=== PATIENT | female | born 1950 | race Caucasian/White ===

== ENCOUNTER 2021-10-07 10:53 | Outpatient (REF) | payer MEDICARE, SELFPAY ==
--- NOTE | ~2021-10-07 | XR_ITS ---
EXAMINATION: XR ANKLE, RIGHT CLINICAL INFORMATION: Rheumatoid. COMPARISON: None TECHNIQUE: AP, lateral, and mortise views of the right ankle. FINDINGS: No acute bony resorption is seen. Soft tissue swelling is noted. Probable sequela of degenerative change involving the lateral malleolus. Mild bony irregularity. The mortise is intact. XR/XR ankle RT min 3V IMPRESSION: Soft tissue swelling here globally. There is irregularity of the lateral malleolus which may indicate chronic degenerative change. No convincing evidence for an acute bony erosion.
[2021-10-07 12:13] LABS: MANUAL DIFF FLAG NO
[2021-10-07 13:10] LABS: Basophils Percent Auto 0.4 % (0-2); Eosinophils Absolute Auto 0.1 X10*3/uL (0.0-0.4); Eosinophils Percent Auto 1.2 % (0-4); Hematocrit 39.6 % (37.0-47.0); Hemoglobin 12.9 g/dl (12.0-16.0); Imm Gran Abs Auto 0.02 X10*3/uL (0.00-0.03); Imm Gran Pct Auto 0.4 % (0.0-0.4); Lymphocytes Absolute Auto 1.6 X10*3/uL (1.2-4.9); Lymphocytes Percent Auto 30.6 % (20-40); Mean Corpuscular HGB Conc 32.6 g/dl (31.0-35.0); Mean Corpuscular Hemoglobin 32.4 pg (27.0-33.0); Mean Corpuscular Volume 99.5 fL (80.0-98.0); Mean Platelet Volume 9.9 fL (9.4-12.3); Monocytes Absolute Auto 0.5 X10*3/uL (0.1-1.2); Monocytes Percent Auto 9.6 % (2-11); Neutrophils Percent Auto 57.8 % (45-73); Platelet Count 299 X10*3/uL (160-400); Red Blood Count 3.98 X10*6/uL (4.20-5.50); Red Cell Distribution Width 13.4 % (11.0-16.0); White Blood Count 5.2 X10*3/uL (4.8-10.8)
[2021-10-07 13:40] LABS: Alanine Aminotransferase 47 U/L (0-31); Aspartate Amino Transferase 19 U/L (5-31); C Reactive Protein 0.25 mg/dL (< or = 0.50); Cholesterol 192 mg/dL; Estimated Glomerular Filt Rate > 60; HDL Cholesterol 69 mg/dL; LDL Cholesterol Calculated 107 mg/dl; Triglycerides 81 mg/dL
[2021-10-07 14:41] LABS: Erythrocyte Sedimentation Rate 26 MM/HR (0-20)
== END 2021-10-07 10:54 | disposition home or self-care (01) ==
LOC: HO.XRAY 10:53
PROVIDERS: PCP Internal Medicine; Visit Provider Internal Medicine Rheumatology
DX: M05.9 Rheumatoid arthritis with rheumatoid factor, unspecified (principal); M47.816 Spondylosis without myelopathy or radiculopathy, lumbar region; I10 Essential (primary) hypertension; M81.0 Age-related osteoporosis without current pathological fracture; Z79.899 Other long term (current) drug therapy
CPT/HCPCS: 36415; 73610; 80061; 82565; 84450; 84460; 85025; 85652; 86140; 99212

== ENCOUNTER 2022-05-19 11:40 | Outpatient (REF) | payer MEDICARE, SELFPAY ==
[2022-05-19 13:36] LABS: MANUAL DIFF FLAG NO
[2022-05-19 13:38] LABS: Basophils Percent Auto 0.3 % (0-2); Eosinophils Absolute Auto 0.1 X10*3/uL (0.0-0.4); Eosinophils Percent Auto 1.1 % (0-4); Hematocrit 38.6 % (37.0-47.0); Hemoglobin 12.1 g/dl (12.0-16.0); Imm Gran Abs Auto 0.02 X10*3/uL (0.00-0.03); Imm Gran Pct Auto 0.3 % (0.0-0.4); Lymphocytes Absolute Auto 1.1 X10*3/uL (1.2-4.9); Lymphocytes Percent Auto 17.1 % (20-40); Mean Corpuscular HGB Conc 31.3 g/dl (31.0-35.0); Mean Corpuscular Hemoglobin 29.7 pg (27.0-33.0); Mean Corpuscular Volume 94.8 fL (80.0-98.0); Mean Platelet Volume 10.1 fL (9.4-12.3); Monocytes Absolute Auto 0.6 X10*3/uL (0.1-1.2); Monocytes Percent Auto 9.6 % (2-11); Neutrophils Absolute Auto 4.5 x10*3/uL (2.0-8.3); Neutrophils Percent Auto 71.6 % (45-73); Platelet Count 317 X10*3/uL (160-400); Red Blood Count 4.07 X10*6/uL (4.20-5.50); Red Cell Distribution Width 14.2 % (11.0-16.0); White Blood Count 6.3 X10*3/uL (4.8-10.8)
[2022-05-19 13:47] LABS: Alanine Aminotransferase 10 U/L (0-31); Aspartate Amino Transferase 14 U/L (5-31); C Reactive Protein 0.37 mg/dL (< or = 0.50); Estimated Glomerular Filt Rate > 60
[2022-05-19 14:17] LABS: Erythrocyte Sedimentation Rate 34 MM/HR (0-20)
== END 2022-05-19 11:41 | disposition home or self-care (01) ==
LOC: HO.10HDL 11:40
PROVIDERS: Visit Provider Internal Medicine Rheumatology
DX: M81.0 Age-related osteoporosis without current pathological fracture (principal); M47.816 Spondylosis without myelopathy or radiculopathy, lumbar region; J06.9 Acute upper respiratory infection, unspecified; M05.9 Rheumatoid arthritis with rheumatoid factor, unspecified; Z79.899 Other long term (current) drug therapy
CPT/HCPCS: 36415; 82565; 84450; 84460; 85025; 85652; 86140; 99212

== ENCOUNTER → 2022-09-20 13:37 | Outpatient (BNVA) | payer MEDICARE, SELFPAY | PROVIDERS: PCP Internal Medicine; Visit Provider Internal Medicine Rheumatology | DX: M47.816 Spondylosis without myelopathy or radiculopathy, lumbar region (principal); M79.7 Fibromyalgia; M05.9 Rheumatoid arthritis with rheumatoid factor, unspecified; Z79.899 Other long term (current) drug therapy | CPT/HCPCS: 36415; 82565; 84450; 84460; 85025; 85652; 86140; 99212 ==

== ENCOUNTER 2022-09-20 14:37 | Outpatient (REF) | payer MEDICARE, SELFPAY ==
[2022-09-20 14:53] LABS: MANUAL DIFF FLAG NO
[2022-09-20 15:24] LABS: Basophils Percent Auto 0.5 % (0-2); Eosinophils Absolute Auto 0.1 X10*3/uL (0.0-0.4); Eosinophils Percent Auto 1.2 % (0-4); Hematocrit 41.1 % (37.0-47.0); Hemoglobin 13.1 g/dl (12.0-16.0); Imm Gran Abs Auto 0.01 X10*3/uL (0.00-0.03); Imm Gran Pct Auto 0.2 % (0.0-0.4); Lymphocytes Absolute Auto 1.1 X10*3/uL (1.2-4.9); Lymphocytes Percent Auto 17.8 % (20-40); Mean Corpuscular HGB Conc 31.9 g/dl (31.0-35.0); Mean Corpuscular Hemoglobin 30.5 pg (27.0-33.0); Mean Corpuscular Volume 95.8 fL (80.0-98.0); Mean Platelet Volume 9.5 fL (9.4-12.3); Monocytes Absolute Auto 0.6 X10*3/uL (0.1-1.2); Monocytes Percent Auto 9.7 % (2-11); Neutrophils Absolute Auto 4.3 x10*3/uL (2.0-8.3); Neutrophils Percent Auto 70.6 % (45-73); Platelet Count 314 X10*3/uL (160-400); Red Blood Count 4.29 X10*6/uL (4.20-5.50); Red Cell Distribution Width 13.7 % (11.0-16.0); White Blood Count 6.1 X10*3/uL (4.8-10.8)
[2022-09-20 16:04] LABS: Alanine Aminotransferase 8 U/L (0-31); Aspartate Amino Transferase 14 U/L (5-31); C Reactive Protein 0.33 mg/dL (< or = 0.50); Estimated Glomerular Filt Rate > 60
[2022-09-20 16:15] LABS: Erythrocyte Sedimentation Rate 29 MM/HR (0-20)
== END 2022-09-20 14:38 | disposition home or self-care (01) ==
LOC: HO.LAB 14:37
PROVIDERS: Visit Provider Internal Medicine Rheumatology
DX: Z13.89 Encounter for screening for other disorder (principal)
CPT/HCPCS: 36415; 82565; 84450; 84460; 85025; 85652; 86140

== ENCOUNTER 2023-02-15 09:59 | Outpatient (AMB) | payer MEDICARE, SELFPAY ==
[2023-02-15 10:10] VITALS: BP 146/78; PULSE 78; TEMP 36.3; O2SAT 97; BMI 26.8
--- NOTE | 2023-02-15 10:10 | A.OFFVIS_ITS ---
Intake Vital Signs 02/15/23 10:10 Height 5 ft 11 in Weight 192 lb 0.362 oz BMI 26.8 BP 146/78 H Blood Pressure Location Lt brachial Position Sitting Pulse 78 Pulse Source Pulse Oximeter Temp 97.3 F Temp Source Skin Pulse Oximetry (%) 97 Oxygen Delivery Method Room Air Intake Visit Reasons: ra Intake Note: Here for RA follow up. Concussion in September,. Diagnosed with post consussion syndrome. Multiple diagnostics were done at [facility]. Product Safety Manager Required: No Accompanied by: Self / Same As Patient Allergies adalimumab [From Humira] Allergy (Intermediate, Verified 02/15/23 10:10) Rash alendronate sodium [From Fosamax] Allergy (Intermediate, Verified 02/15/23 10:10) increased pain codeine Allergy (Intermediate, Verified 02/15/23 10:10) Vomiting erythromycin base Allergy (Intermediate, Verified 02/15/23 10:10) Abdominal Pain omeprazole Allergy (Intermediate, Verified 02/15/23 10:10) Rash pantoprazole Allergy (Intermediate, Verified 02/15/23 10:10) Rash Penicillins Allergy (Intermediate, Verified 02/15/23 10:10) Hives piroxicam [From Feldene] Allergy (Intermediate, Verified 02/15/23 10:10) leg swelling Sulfa (Sulfonamide Antibiotics) Allergy (Intermediate, Verified 02/15/23 10:10) Hives teriparatide [From Forteo] Allergy (Intermediate, Verified 02/15/23 10:10) lip swelling raloxifene [From Evista] Allergy (Unknown, Verified 02/15/23 10:10) Unknown timlas Allergy (Intermediate, Uncoded 02/15/23 10:10) Palpitations HPI HPI Comments History of Present Illness Details The patient returns for evaluation of her rheumatoid arthritis. She remains on Xeljanz 5 mg twice a day. In general the joints are doing well with this. She also gets occasional cutaneous lupus rashes but those have not been active in the recent year or two. She did have another fall, this time injuring her head. She said she presented to the ER 3 weeks later. She did have extensive workup including cerebral angiogram but no pathology was detected. She now has seen Dr. Bryant the at [facility]. The patient tells me they are planning to be treating her with [facility] for her osteoporosis. This is of course pending insurance approval. She received bilateral trochanteric injections recently at [facility] and that helped her hip pains. She said she was found to have atrial fibrillation so is now on medicines for that including Eliquis. Her sister recently this spring of a glioblastoma. This is still on the mind of the patient. She wonders if she might develop such an illness. [facility] Medical History Mcmanus's esophagus Hypertension Long-term use of immunosuppressant medication Osteoarthritis of lumbar spine Osteoporosis Positive FEI (antinuclear antibody) Seropositive rheumatoid arthritis Vitreous hemorrhage, right eye Family History (Updated 02/15/23 @ 10:18 by FELICITAS Hess) Sister Rheumatoid arthritis Social History Household Members: Spouse Housing: House Are you a primary healthcare management to a significant other at home: No Do you presently have visiting nurse or other home services: No Alcohol intake: never Patient Tobacco Use Status: Never used Tobacco e-Cigarette/Vaping Use: Never Used service: No Current occupational status: retired Review of Systems Const Details: Negative for appetite change, weight change, fever, chills, malaise and fatigue Eyes Details: Headaches are subsiding from her head injury Negative for vision change, dry eyes and dizziness ENT Details: Negative for hearing change, tinnitus, oral ulcer, nose bleeds and oral dryness. Card Details: Negative chest pain, edema and syncope Resp Details: Negative for SOB, cough and wheezing GI Details: Negative indigestion/heartburn, nausea, abdominal pain, bowel changes, diarrhea, constipation and bloody stool. Skin/Breast Details: Negative for itching, rash, hives, Raynaud's symptoms, sun sensitivity, and skin cancer Psych Details: Grieving over the loss of her sister. Still on medications for anxiety and sleep. Endo Details: Negative for polyuria and polydypsia Kwame/Lymph Details: Negative for excessive bruising or bleeding. Physical Exam Vital Signs: Last Vital Signs Temp 97.3 F 02/15/23 10:10 Pulse 78 02/15/23 10:10 BP 146/78 H 02/15/23 10:10 Pulse Ox 97 02/15/23 10:10 Oxygen Delivery Method Room Air 02/15/23 10:10 BMI result Body Mass Index 26.8 APPEARANCE: Patient in no acute distress EYES no redness, pupils equal and reactive to light, eyelids normal EXTREMITIES:? No edema, no calf tenderness, normal peripheral pulses. SKIN:? No inflammatory or neoplastic lesions.? Normal color and turgor JOINT EXAM:?? Cervical Spine:.? Mild discomfort with extremes of motion.? No tenderness. Thoracic Spine:.? No scoliosis.? No tenderness on palpation. Lumbar Spine:.? Alignment normal.? Some pain with flexion of 45 degrees.? No tenderness. Chest Wall:.? No tenderness, swelling, increased warmth or erythema. Hands:.? Normal pain-free range of motion without tenderness, swelling, increased warmth or erythema. 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 Wrists:.? Normal pain-free range of motion without tenderness, swelling, increased warmth or erythema. Elbows:. Normal pain-free range of motion without tenderness, swelling, increased warmth or erythema. Shoulders:.?? Full range of motion without pain. No tenderness, weakness, swelling, increased warmth or erythema. Hips:.? Left:? Motion is limited due to surgery and the recommendation to avoid abduction and severe flexion a but what she is able to move in the office today seems pain-free.? Right:? Full range of motion with lateral pains at the extremes of rotation.? No groin pain with motion. Hip bursa:? Mild trochanteric tenderness. Knees:?? Left:? no pain with extremes of flexion/extension.? There is mild patellofemoral crepitus, minimal medial compartment tenderness without redness or effusion.? Right:? Normal pain-free range of motion with mild patellofemoral crepitus but no effusion, tenderness, swelling, increased warmth or erythema.? Ankles:? Left:? Slight discomfort with extremes of normal motion some minimal tenderness but no swelling.? Right:? Mild pain with extremes of inversion and eversion.? Mild medial and lateral tenderness without swelling.? No increased warmth or erythema. Feet:.? Normal pain-free range of motion with mild tenderness across the insteps and MTP regions.? However I do not appreciate any soft tissue swelling, increased warmth or erythema. Tender points:? Mild tenderness to digital palpation at the trapezius, second rib, knees, greater trochanter and gluteal area bilaterally. Results Reviewed Results Reviewed: Laboratory Tests 09/20/22 09/20/22 09/20/22 14:51 14:51 14:51 WBC 6.1 Hgb 13.1 ESR 29 H Creatinine 0.73 AST 14 ALT 8 C-Reactive Protein 0.33 Assessment & Plan Assessment & Plan (1) Fibromyalgia: Code(s): M79.7 - Fibromyalgia (2) Long-term use of immunosuppressant medication: Code(s): Z79.899 - Other ad terminal makeup operator (current) drug therapy (3) Osteoarthritis of lumbar spine: Comment: Occasional corticosteroid injections in physiatry Code(s): M47.816 - Spondylosis without myelopathy or radiculopathy, lumbar region (4) Osteoporosis: Comment: BMD: -2.5 at spine, -0/8 at hip (2006); increased pain on Fosamax; vit D low. Put on Forteo (Dr. Soto) for a year. Had rash so Forteo was stopped. Reclast December 2011, January 2017 Timlos started every other day 08/08; skips doses due to palpitations Timlos stopped in 2020 due to palpitations. Fracture left hip after a fall 01/29/22- emergent hip replacement Code(s): M81.0 - Age-related osteoporosis without current pathological fracture (5) Seropositive rheumatoid arthritis: Comment: Onset mid-: RF and CCP +, FEI pos(homogeneous), sicca sx and SS-A and SS-B positive. Initial treatment with methotrexate with partial response. Remicade added to methotrexate 2000 with good response until early 2002. Remicade changed to Enbrel due to failing response October 2002: stable response since then with good control of synovitis. Methotrexate stopped 01/01 due to nausea, synovitis still controlled with Enbrel. Synovitis not controlled on Enbrel. 06/05 Humira started 07/07 - not helpful and skin rash Xeljanz started 09/04 Code(s): M05.9 - Rheumatoid arthritis with rheumatoid factor, unspecified Plan Rheumatoid arthritis with no evidence for active synovitis currently. She still has a number of tender points so has underlying fibromyalgia but seems to be coping with that. There are some degenerative changes of course in the LS spine that give her back and hip pains. I encouraged her to follow up with Dr. Bryant for evaluation and treatment of her osteoporosis. We will check blood work monitoring her Xeljanz use today. I suggested she look for a local cancer support group help deal with her grief on losing her sister. Follow-up at 4 months is recommended. Coding Level of Care Code Est Pt Level 3 (94078) Diagnoses Fibromyalgia M79.7 Long-term use of immunosuppressant medication Z79.899 Osteoarthritis of lumbar spine M47.816 Osteoporosis M81.0 Seropositive rheumatoid arthritis M05.9
== END 2023-02-15 10:55 | disposition home or self-care (01) ==
PROVIDERS: PCP Internal Medicine; Visit Provider Internal Medicine Rheumatology
DX: M79.7 Fibromyalgia (principal); M05.79 Rheumatoid arthritis with rheumatoid factor of multiple sites without organ or systems involvement; Z79.899 Other long term (current) drug therapy; M47.816 Spondylosis without myelopathy or radiculopathy, lumbar region; M81.0 Age-related osteoporosis without current pathological fracture
CPT/HCPCS: 99213

== ENCOUNTER → 2023-02-15 09:59 | Outpatient (BNVA) | payer MEDICARE, SELFPAY | PROVIDERS: PCP Internal Medicine; Visit Provider Internal Medicine Rheumatology | DX: M05.9 Rheumatoid arthritis with rheumatoid factor, unspecified (principal); M79.7 Fibromyalgia; M47.816 Spondylosis without myelopathy or radiculopathy, lumbar region; M81.0 Age-related osteoporosis without current pathological fracture; Z79.60 Long term (current) use of unspecified immunomodulators and immunosuppressants; Z79.899 Other long term (current) drug therapy | CPT/HCPCS: 36415; 82565; 84450; 84460; 85025; 85652; 86140; 99212 ==

== ENCOUNTER 2023-02-15 11:01 | Outpatient (REF) | payer MEDICARE, SELFPAY ==
[2023-02-15 13:17] LABS: MANUAL DIFF FLAG NO
[2023-02-15 13:21] LABS: Basophils Percent Auto 0.3 % (0-2); Eosinophils Percent Auto 0.3 % (0-4); Hematocrit 41.3 % (37.0-47.0); Hemoglobin 13.2 g/dl (12.0-16.0); Imm Gran Abs Auto 0.01 X10*3/uL (0.00-0.03); Imm Gran Pct Auto 0.1 % (0.0-0.4); Lymphocytes Absolute Auto 0.8 X10*3/uL (1.2-4.9); Lymphocytes Percent Auto 11.5 % (20-40); Mean Corpuscular Hemoglobin 31.9 pg (27.0-33.0); Mean Corpuscular Volume 99.8 fL (80.0-98.0); Mean Platelet Volume 9.5 fL (9.4-12.3); Monocytes Absolute Auto 0.7 X10*3/uL (0.1-1.2); Monocytes Percent Auto 9.9 % (2-11); Neutrophils Absolute Auto 5.7 x10*3/uL (2.0-8.3); Neutrophils Percent Auto 77.9 % (45-73); Platelet Count 266 X10*3/uL (160-400); Red Blood Count 4.14 X10*6/uL (4.20-5.50); Red Cell Distribution Width 14.7 % (11.0-16.0); White Blood Count 7.3 X10*3/uL (4.8-10.8)
[2023-02-15 13:54] LABS: Alanine Aminotransferase 13 U/L (0-31); Aspartate Amino Transferase 13 U/L (5-31); C Reactive Protein < 0.04 mg/dL (< or = 0.50); Estimated Glomerular Filt Rate > 60
[2023-02-15 14:05] LABS: Erythrocyte Sedimentation Rate 16 MM/HR (0-20)
== END 2023-02-15 11:02 | disposition home or self-care (01) ==
LOC: HO.10HDL 11:01
PROVIDERS: Visit Provider Internal Medicine Rheumatology
DX: Z13.89 Encounter for screening for other disorder (principal)
CPT/HCPCS: 36415; 82565; 84450; 84460; 85025; 85652; 86140

== ENCOUNTER 2023-06-09 10:38 | Outpatient (AMB) | payer MEDICARE, SELFPAY ==
[2023-06-09 10:53] VITALS: BP 132/68; PULSE 67; RESP 15; TEMP 36.3; O2SAT 97; BMI 27.1
--- NOTE | 2023-06-09 10:53 | MHC.OFFVIS ---
Intake Vital Signs 06/09/23 10:53 Height 5 ft 11 in Weight 194 lb 10.691 oz BMI 27.1 BP 132/68 Blood Pressure Location Lt brachial Position Sitting Respiration 15 Pulse 67 Pulse Source Pulse Oximeter Temp 97.3 F Temp Source Tympanic Pulse Oximetry (%) 97 Oxygen Delivery Method Room Air Intake Visit Reasons: RA Allergies adalimumab [From Humira] Allergy (Intermediate, Verified 06/09/23 10:56) Rash alendronate sodium [From Fosamax] Allergy (Intermediate, Verified 06/09/23 10:56) increased pain codeine Allergy (Intermediate, Verified 06/09/23 10:56) Vomiting erythromycin base Allergy (Intermediate, Verified 06/09/23 10:56) Abdominal Pain omeprazole Allergy (Intermediate, Verified 06/09/23 10:56) Rash pantoprazole Allergy (Intermediate, Verified 06/09/23 10:56) Rash Penicillins Allergy (Intermediate, Verified 06/09/23 10:56) Hives piroxicam [From Feldene] Allergy (Intermediate, Verified 06/09/23 10:56) leg swelling Sulfa (Sulfonamide Antibiotics) Allergy (Intermediate, Verified 06/09/23 10:56) Hives teriparatide [From Forteo] Allergy (Intermediate, Verified 06/09/23 10:56) lip swelling raloxifene [From Evista] Allergy (Unknown, Verified 06/09/23 10:56) Unknown timlas Allergy (Intermediate, Uncoded 06/09/23 10:56) Palpitations Medication List - Last Reconciled 06/09/23 by Pj Coto MD acetaminophen (Tylenol) 650 mg PO Q6H PRN apixaban (Eliquis) 5 mg PO BID diltiazem HCl 360 mg PO DAILY docusate sodium (Stool Softener) 100 mg PO DAILY epinephrine (EpiPen) 0.3 mg IM Q4H PRN ergocalciferol (vitamin D2) 1,250 mcg PO QWEEK famotidine (Acid Battery Hand (famotidine)) 40 mg PO BEDTIME lansoprazole 30 mg PO DAILY latanoprost 0.005% 1 drp ophthalmic (eye) BEDTIME lorazepam 0.5 mg PO BEDTIME PRN losartan 25 mg PO DAILY ondansetron HCl 4 mg PO Q8H PRN oxycodone-acetaminophen 5-325 mg 2 tabs PO BEDTIME trazodone 50 mg PO BEDTIME Xeljanz (tofacitinib) 5 mg PO BID NS HPI HPI Comments History of Present Illness Details The patient returns for evaluation of her rheumatoid arthritis. She remains on Xeljanz 5 mg b.i.d.. She seems to say that she is doing okay. She gets back pain with some radiation to the buttocks that seems to be helped with once or twice a day Percocet prescribed by Dr. Brown. There were plans for her to be on Evenity for her osteoporosis but she has yet to hear back about drug approval. She does have an appointment with the endocrine office she says in the next week or two. Recently she has been plagued by recurrent UTI. She is on a 2nd course of antibiotics for that problem. She does also have the lower back pain and wonders if it could be from UTI. She points to an area just above the sacrum as to the majority of her pains. There is no pain over the CVA region. There have been no fevers or chills. [facility] Medical History Mcmanus's esophagus Hypertension Long-term use of immunosuppressant medication Osteoarthritis of lumbar spine Osteoporosis Positive FEI (antinuclear antibody) Seropositive rheumatoid arthritis Vitreous hemorrhage, right eye Family History (Updated 02/15/23 @ 10:18 by FELICITAS Hess) Sister Rheumatoid arthritis Social History Household Members: Spouse Housing: House Are you a primary career development engineer to a significant other at home: No Do you presently have visiting nurse or other home services: No Alcohol intake: never Patient Tobacco Use Status: Never used Tobacco e-Cigarette/Vaping Use: Never Used service: No Current occupational status: retired Review of Systems Const Details: Some increased fatigue recently with recurrent UTI symptoms. Negative for appetite change, weight change, fever, chills, malaise Eyes Details: Negative for vision change, dry eyes,headaches and dizziness ENT Details: Negative for hearing change, tinnitus, oral ulcer, nose bleeds and oral dryness. Card Details: Negative chest pain, edema and syncope Resp Details: Negative for SOB, cough and wheezing GI Details: Negative indigestion/heartburn, nausea, abdominal pain, bowel changes, diarrhea, constipation and bloody stool. Details: Some urinary frequency and dysuria. Negative for hematuria, nocturia, decreased force/flow and genital discharge Skin/Breast Details: Negative for itching, rash, hives, Raynaud's symptoms, sun sensitivity, and skin cancer Endo Details: Negative for polyuria and polydypsia Kwame/Lymph Details: Negative for excessive bruising or bleeding. Physical Exam Vital Signs: Last Vital Signs Temp 97.3 F 06/09/23 10:53 Pulse 67 06/09/23 10:53 Resp 15 06/09/23 10:53 BP 132/68 06/09/23 10:53 Pulse Ox 97 06/09/23 10:53 Oxygen Delivery Method Room Air 06/09/23 10:53 BMI result Body Mass Index 27.1 APPEARANCE: Patient in no acute distress ABD: Normal bowel sounds, no organomegaly, masses or tenderness. No CVA tenderness EXTREMITIES:? No edema, no calf tenderness, normal peripheral pulses. SKIN:? No inflammatory or neoplastic lesions.? Normal color and turgor JOINT EXAM:?? Cervical Spine:.? Mild discomfort with extremes of motion.? No tenderness. Thoracic Spine:.? No scoliosis.? No tenderness on palpation. Lumbar Spine:.? Alignment normal.? Some pain with flexion of 45 degrees.? No tenderness. Chest Wall:.? No tenderness, swelling, increased warmth or erythema. Hands:.? Normal pain-free range of motion without tenderness, swelling, increased warmth or erythema. Able to make a full fist and has a good bilingual customer service specialist strength. Wrists:.? Normal pain-free range of motion without tenderness, swelling, increased warmth or erythema. Elbows:. Normal pain-free range of motion without tenderness, swelling, increased warmth or erythema. Shoulders:.?? Full range of motion without pain. No tenderness, weakness, swelling, increased warmth or erythema. Hips:.? Left:? Motion is limited due to surgery and the recommendation to avoid abduction and severe flexion a but what she is able to move in the office today seems pain-free.? Right:? Full range of motion with lateral pains at the extremes of rotation.? No groin pain with motion. Hip bursa:? Mild trochanteric tenderness. Knees:?? Left:? no pain with extremes of flexion/extension.? There is mild patellofemoral crepitus, minimal medial compartment tenderness without redness or effusion.? Right:? Normal pain-free range of motion with mild patellofemoral crepitus but no effusion, tenderness, swelling, increased warmth or erythema.? Ankles:? Left:? Slight discomfort with extremes of normal motion some minimal tenderness but no swelling.? Right:? Mild pain with extremes of inversion and eversion.? Mild medial and lateral tenderness without swelling.? No increased warmth or erythema. Feet:.? Normal pain-free range of motion with mild tenderness across the insteps and MTP regions.? However I do not appreciate any soft tissue swelling, increased warmth or erythema. Tender points:? Mild tenderness to digital palpation at the trapezius, second rib, knees, greater trochanter and gluteal area bilaterally. Results Reviewed Results Reviewed: Laboratory Tests 02/15/23 11:10 WBC 7.3 Hgb 13.2 ESR 16 Creatinine 0.69 AST 13 ALT 13 C-Reactive Protein < 0.04 Assessment & Plan Assessment & Plan (1) Fibromyalgia: Code(s): M79.7 - Fibromyalgia (2) Long-term use of immunosuppressant medication: Code(s): Z79.899 - Other detention (current) drug therapy (3) Osteoarthritis of lumbar spine: Comment: Occasional corticosteroid injections in physiatry Code(s): M47.816 - Spondylosis without myelopathy or radiculopathy, lumbar region (4) Osteoporosis: Comment: BMD: -2.5 at spine, -0/8 at hip (2006); increased pain on Fosamax; vit D low. Put on Forteo (Dr. Soto) for a year. Had rash so Forteo was stopped. Reclast December 2011, January 2017 Timlos started every other day 08/08; skips doses due to palpitations Timlos stopped in 2020 due to palpitations. Fracture left hip after a fall 01/29/22- emergent hip replacement Code(s): M81.0 - Age-related osteoporosis without current pathological fracture (5) Seropositive rheumatoid arthritis: Comment: Onset mid-: RF and CCP +, FEI pos(homogeneous), sicca sx and SS-A and SS-B positive. Initial treatment with methotrexate with partial response. Remicade added to methotrexate 2000 with good response until early 2002. Remicade changed to Enbrel due to failing response October 2002: stable response since then with good control of synovitis. Methotrexate stopped 01/01 due to nausea, synovitis still controlled with Enbrel. Synovitis not controlled on Enbrel. 06/05 Humira started 07/07 - not helpful and skin rash Xeljanz started 09/04 Code(s): M05.9 - Rheumatoid arthritis with rheumatoid factor, unspecified Plan Rheumatoid arthritis with no evidence for active synovitis presently. There still the back pain from her lumbar osteoarthritis but that seems stable for now. Those pains do not seem consistent with a pyelonephritis. She is having recurrent UTI and I reminded her that the Xeljanz is immunosuppressive. When she goes on antibiotics or thinks she has a significant infection she should hold the Xeljanz. Given the good control of her synovitis in recent years I do not think that would result in much flare of her peripheral arthritis. One might also consider in the future cutting back on the Xeljanz to just 5 mg daily in light of the recent good control of symptoms. She does need treatment for her osteoporosis as she has had multiple fractures and I encouraged her to follow through with Endocrine to try to clarify the issue on the next steps for treatment. Follow-up in 4-5 months is recommended. Orders: Orders C Reactive Protein Today M05.9 - Rheumatoid arthritis with rheumatoid factor, unspecified Alanine Aminotransferase Today M05.9 - Rheumatoid arthritis with rheumatoid factor, unspecified, Z79.899 - Other truck terminal manager (current) drug therapy Aspartate Amino Transferase Today M05.9 - Rheumatoid arthritis with rheumatoid factor, unspecified, Z79.899 - Other truck terminal manager (current) drug therapy Complete Blood Count Auto Diff Today M05.9 - Rheumatoid arthritis with rheumatoid factor, unspecified, Z79.899 - Other truck terminal manager (current) drug therapy C Reactive Protein 1 Month M05.9 - Rheumatoid arthritis with rheumatoid factor, unspecified Complete Blood Count Auto Diff 1 Month M05.9 - Rheumatoid arthritis with rheumatoid factor, unspecified, Z79.899 - Other detention (current) drug therapy Creatinine Today M05.9 - Rheumatoid arthritis with rheumatoid factor, unspecified, Z79.899 - Other truck terminal manager (current) drug therapy Erythrocyte Sedimentation Rate Today M05.9 - Rheumatoid arthritis with rheumatoid factor, unspecified Creatinine Today M05.9 - Rheumatoid arthritis with rheumatoid factor, unspecified, Z79.899 - Other truck terminal manager (current) drug therapy Erythrocyte Sedimentation Rate 1 Month M05.9 - Rheumatoid arthritis with rheumatoid factor, unspecified Alanine Aminotransferase Today M05.9 - Rheumatoid arthritis with rheumatoid factor, unspecified, Z79.899 - Other detention (current) drug therapy Aspartate Amino Transferase Today M05.9 - Rheumatoid arthritis with rheumatoid factor, unspecified, Z79.899 - Other truck terminal manager (current) drug therapy Coding Level of Care Code Est Pt Level 3 (74259) Diagnoses Fibromyalgia M79.7 Long-term use of immunosuppressant medication Z79.899 Osteoarthritis of lumbar spine M47.816 Osteoporosis M81.0 Seropositive rheumatoid arthritis M05.9
== END 2023-06-09 11:34 | disposition home or self-care (01) ==
PROVIDERS: PCP Internal Medicine; Visit Provider Internal Medicine Rheumatology
DX: M05.79 Rheumatoid arthritis with rheumatoid factor of multiple sites without organ or systems involvement (principal); M79.7 Fibromyalgia; Z79.899 Other long term (current) drug therapy; M47.816 Spondylosis without myelopathy or radiculopathy, lumbar region; M81.0 Age-related osteoporosis without current pathological fracture
CPT/HCPCS: 99214

== ENCOUNTER → 2023-06-09 10:38 | Outpatient (BNVA) | payer MEDICARE, SELFPAY | PROVIDERS: PCP Internal Medicine; Visit Provider Internal Medicine Rheumatology | DX: M05.9 Rheumatoid arthritis with rheumatoid factor, unspecified (principal); M79.7 Fibromyalgia; M81.0 Age-related osteoporosis without current pathological fracture; M47.816 Spondylosis without myelopathy or radiculopathy, lumbar region | CPT/HCPCS: 36415; 82565; 84450; 84460; 85025; 85652; 86140; 99212 ==

== ENCOUNTER 2023-06-09 11:50 | Outpatient (REF) | payer MEDICARE, SELFPAY ==
[2023-06-09 13:29] LABS: MANUAL DIFF FLAG NO
[2023-06-09 13:34] LABS: Basophils Percent Auto 0.4 % (0-2); Eosinophils Percent Auto 0.8 % (0-4); Hematocrit 38.8 % (37.0-47.0); Hemoglobin 12.3 g/dl (12.0-16.0); Imm Gran Abs Auto 0.02 X10*3/uL (0.00-0.03); Imm Gran Pct Auto 0.4 % (0.0-0.4); Lymphocytes Absolute Auto 1.3 X10*3/uL (1.2-4.9); Lymphocytes Percent Auto 24.5 % (20-40); Mean Corpuscular HGB Conc 31.7 g/dl (31.0-35.0); Mean Corpuscular Hemoglobin 31.9 pg (27.0-33.0); Mean Corpuscular Volume 100.8 fL (80.0-98.0); Mean Platelet Volume 9.5 fL (9.4-12.3); Monocytes Absolute Auto 0.6 X10*3/uL (0.1-1.2); Monocytes Percent Auto 10.9 % (2-11); Neutrophils Absolute Auto 3.3 x10*3/uL (2.0-8.3); Platelet Count 350 X10*3/uL (160-400); Red Blood Count 3.85 X10*6/uL (4.20-5.50); Red Cell Distribution Width 13.3 % (11.0-16.0); White Blood Count 5.2 X10*3/uL (4.8-10.8)
[2023-06-09 13:52] LABS: Alanine Aminotransferase 40 U/L (0-31); Aspartate Amino Transferase 23 U/L (5-31); C Reactive Protein 0.87 mg/dL (< or = 0.50); Estimated Glomerular Filt Rate > 60
[2023-06-09 14:32] LABS: Erythrocyte Sedimentation Rate 46 MM/HR (0-20)
== END 2023-06-09 11:51 | disposition home or self-care (01) ==
LOC: HO.10HDL 11:50
PROVIDERS: Visit Provider Internal Medicine Rheumatology
DX: Z13.89 Encounter for screening for other disorder (principal)
CPT/HCPCS: 36415; 82565; 84450; 84460; 85025; 85652; 86140

== ENCOUNTER 2023-10-12 12:19 | Outpatient (REF) | payer MEDICARE, SELFPAY ==
[2023-10-12 13:17] LABS: MANUAL DIFF FLAG NO
[2023-10-12 13:56] LABS: Basophils Percent Auto 0.5 % (0-2); Eosinophils Absolute Auto 0.1 X10*3/uL (0.0-0.4); Eosinophils Percent Auto 0.9 % (0-4); Hematocrit 38.6 % (37.0-47.0); Hemoglobin 12.7 g/dl (12.0-16.0); Imm Gran Abs Auto 0.06 X10*3/uL (0.00-0.03); Imm Gran Pct Auto 0.7 % (0.0-0.4); Lymphocytes Absolute Auto 1.6 X10*3/uL (1.2-4.9); Mean Corpuscular HGB Conc 32.9 g/dl (31.0-35.0); Mean Corpuscular Hemoglobin 32.2 pg (27.0-33.0); Mean Corpuscular Volume 97.7 fL (80.0-98.0); Mean Platelet Volume 9.8 fL (9.4-12.3); Monocytes Absolute Auto 0.9 X10*3/uL (0.1-1.2); Monocytes Percent Auto 10.5 % (2-11); Neutrophils Absolute Auto 5.6 x10*3/uL (2.0-8.3); Neutrophils Percent Auto 68.4 % (45-73); Platelet Count 344 X10*3/uL (160-400); Red Blood Count 3.95 X10*6/uL (4.20-5.50); Red Cell Distribution Width 14.7 % (11.0-16.0); White Blood Count 8.2 X10*3/uL (4.8-10.8)
[2023-10-12 14:08] LABS: Alanine Aminotransferase 9 U/L (0-31); Aspartate Amino Transferase 11 U/L (5-31); C Reactive Protein 0.21 mg/dL (< or = 0.50); Estimated Glomerular Filt Rate > 60
[2023-10-12 14:51] LABS: Erythrocyte Sedimentation Rate 21 MM/HR (0-20)
== END 2023-10-12 12:20 | disposition home or self-care (01) ==
LOC: HO.10HDL 12:19
PROVIDERS: Visit Provider Internal Medicine Rheumatology
DX: M05.9 Rheumatoid arthritis with rheumatoid factor, unspecified (principal); Z79.899 Other long term (current) drug therapy
CPT/HCPCS: 36415; 82565; 84450; 84460; 85025; 85652; 86140

== ENCOUNTER 2023-10-17 13:35 | Outpatient (AMB) | payer MEDICARE, SELFPAY ==
--- NOTE | 2023-10-17 13:48 | MHC.OFFVIS ---
Vital Signs 10/17/23 13:51 Height 5 ft 11 in Weight 195 lb 5.273 oz BMI 27.2 BP 122/60 Blood Pressure Location Rt brachial Position Sitting Pulse 69 Pulse Source Pulse Oximeter Pulse Oximetry (%) 97 Oxygen Delivery Method Room Air Intake Visit Reasons: RA Intake Note: Patient last seen by Dr Coto on 06/09/23 presents today for follow up and test results. 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 Required: No Accompanied by: Self / Same As Patient Allergies adalimumab [From Humira] Allergy (Intermediate, Verified 10/17/23 13:53) Rash alendronate sodium [From Fosamax] Allergy (Intermediate, Verified 10/17/23 13:53) increased pain codeine Allergy (Intermediate, Verified 10/17/23 13:53) Vomiting erythromycin base Allergy (Intermediate, Verified 10/17/23 13:53) Abdominal Pain omeprazole Allergy (Intermediate, Verified 10/17/23 13:53) Rash pantoprazole Allergy (Intermediate, Verified 10/17/23 13:53) Rash Penicillins Allergy (Intermediate, Verified 10/17/23 13:53) Hives piroxicam [From Feldene] Allergy (Intermediate, Verified 10/17/23 13:53) leg swelling Sulfa (Sulfonamide Antibiotics) Allergy (Intermediate, Verified 10/17/23 13:53) Hives teriparatide [From Forteo] Allergy (Intermediate, Verified 10/17/23 13:53) lip swelling raloxifene [From Evista] Allergy (Unknown, Verified 10/17/23 13:53) Unknown timlas Allergy (Intermediate, Uncoded 10/17/23 13:53) Palpitations Medication List - Last Reconciled 10/17/23 by Liliana Bo MD acetaminophen (Tylenol) 650 mg PO Q6H PRN apixaban (Eliquis) 5 mg PO BID diltiazem HCl CD 360 mg PO DAILY docusate sodium (Stool Softener) 100 mg PO DAILY epinephrine (EpiPen) 0.3 mg IM Q4H PRN ergocalciferol (vitamin D2) 1,250 mcg PO QWEEK famotidine (Acid Contract Administration Manager (famotidine)) 40 mg PO BEDTIME lansoprazole 30 mg PO DAILY latanoprost 0.005% 1 drp ophthalmic (eye) BEDTIME lorazepam 0.5 mg PO BEDTIME PRN losartan 25 mg PO DAILY ondansetron HCl 4 mg PO Q8H PRN oxycodone-acetaminophen 5-325 mg 2 tabs PO BEDTIME romosozumab-aqqg (Evenity) mg subcut trazodone 50 mg PO BEDTIME Xeljanz (tofacitinib) 5 mg PO BID NS HPI Comments Details: 73-year-old female with seropositive RA returns for follow-up. This is her 1st visit with me. She used to follow-up with Dr. Coto. She states that her RA has been very well controlled on Xeljanz. No new symptoms. States that she keeps getting UTIs and has received different courses of antibiotics most recently she was on nitrofurantoin. She was evaluated by urologist and switched to ciprofloxacin. Denies any chest pain or shortness of breath. No other symptoms. Most recent history by Dr. Coto 05/2023: The patient returns for evaluation of her rheumatoid arthritis. She remains on Xeljanz 5 mg b.i.d.. She seems to say that she is doing okay. She gets back pain with some radiation to the buttocks that seems to be helped with once or twice a day Percocet prescribed by Dr. Brown. There were plans for her to be on Evenity for her osteoporosis but she has yet to hear back about drug approval. She does have an appointment with the endocrine office she says in the next week or two. Recently she has been plagued by recurrent UTI. She is on a 2nd course of antibiotics for that problem. She does also have the lower back pain and wonders if it could be from UTI. She points to an area just above the sacrum as to the majority of her pains. There is no pain over the CVA region. There have been no fevers or chills. [facility] Medical History Long-term use of immunosuppressant medication Vitreous hemorrhage, right eye Mcmanus's esophagus Osteoarthritis of lumbar spine Positive FEI (antinuclear antibody) Hypertension Osteoporosis Seropositive rheumatoid arthritis Family History Sister Rheumatoid arthritis Social History Household Members: Spouse Housing: House Are you a primary restorative care technician to a significant other at home: No Do you presently have visiting nurse or other home services: No 75 years or older and lives alone: No Alcohol intake: current Alcohol intake frequency: a few times a month Patient Tobacco Use Status: Never used Tobacco e-Cigarette/Vaping Use: Never Used service: No Current occupational status: retired Review of Systems ENT Reports dry mouth Card Denies dyspnea Resp Denies cough and Denies dyspnea Musc Reports back pain, Denies arthralgias and Denies stiffness Physical Exam Vital Signs: Last Vital Signs Pulse 69 10/17/23 13:51 BP 122/60 10/17/23 13:51 Pulse Ox 97 10/17/23 13:51 Oxygen Delivery Method Room Air 10/17/23 13:51 BMI result Body Mass Index 27.2 Const General: cooperative, healthy appearing and comfortable Nutritional Appearance: overweight Orientation/consciousness: patient oriented x3 Limitations: no limitations HEENT Head: Yes normocephalic and Yes atraumatic Resp Effort & Inspection: normal respiratory effort and able to speak in complete sentences Auscultation: clear to auscultation bilaterally Cardio Rate: regular rate Rhythm: regular rhythm Skin General skin exam: no rashes or lesions noted Neuro General: patient oriented x3 Extrem Other: No active synovitis Normal nailfold capillaroscopy Normal range of motion of hands, wrists, elbows and shoulders without pain Assessment & Plan Assessment & Plan (1) Seropositive rheumatoid arthritis: Comment: Onset mid-: RF and CCP +, FEI pos(homogeneous), sicca sx and SS-A and SS-B positive. Initial treatment with methotrexate with partial response. Remicade added to methotrexate 2000 with good response until early 2002. Remicade changed to Enbrel due to failing response October 2002: stable response since then with good control of synovitis. Methotrexate stopped 01/01 due to nausea, synovitis still controlled with Enbrel. Synovitis not controlled on Enbrel. 06/05 Humira started 07/07 - not helpful and skin rash Xeljanz started 09/04 effective Code(s): M05.9 - Rheumatoid arthritis with rheumatoid factor, unspecified Category: Medical Plan: This is a 73-year-old female with seropositive rheumatoid arthritis who presents for follow-up. This is her 1st visit with me. She used to follow-up with Dr. Coto. Patient is doing quite well with no active synovitis on Xeljanz 5 mg Twice daily. Continue Xeljanz 5 mg Twice daily. Labs before next visit in 4 months. Will discuss PFT/2D echo to screen for ILD/PAH next visit (2) Osteoporosis: Comment: BMD: -2.5 at spine, -0/8 at hip (2006); increased pain on Fosamax; vit D low. Put on Forteo (Dr. Soto) for a year. Had rash so Forteo was stopped. Reclast December 2011, January 2017 Timlos started every other day 08/08; skips doses due to palpitations Timlos stopped in 2020 due to palpitations. Fracture left hip after a fall 01/29/22- emergent hip replacement Evenity started by Endo 07/2023 Code(s): M81.0 - Age-related osteoporosis without current pathological fracture Category: Medical Qualifiers: Osteoporosis type: age-related Presence of current pathological fracture: without current pathological fracture Qualified Code(s): M81.0 - Age-related osteoporosis without current pathological fracture Plan: Recently started on avidity by endocrinology. Continue to follow-up with endocrinology (3) Long-term use of immunosuppressant medication: Code(s): Z79.899 - Other custodial (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 Monitor safety labs for Xeljanz (4) Fibromyalgia: Code(s): M79.7 - Fibromyalgia Category: Medical Plan: Symptoms fairly well controlled. Plan I spent 35 minutes reviewing patient's chart, evaluating patient, ordering diagnostic workup, counseling patient and documenting in the chart Orders: Orders Complete Blood Count Auto Diff 4 Months M32.9 - Systemic lupus erythematosus, unspecified Erythrocyte Sedimentation Rate 4 Months M32.9 - Systemic lupus erythematosus, unspecified T Spot TB 4 Months Z11.7 - Encounter for testing for latent tuberculosis infection Anti Extractable Nuclear Ag 4 Months M32.9 - Systemic lupus erythematosus, unspecified DNA Double Stranded-Crithidia 4 Months M32.9 - Systemic lupus erythematosus, unspecified Comprehensive Met. Panel 4 Months M32.9 - Systemic lupus erythematosus, unspecified C Reactive Protein 4 Months M32.9 - Systemic lupus erythematosus, unspecified Hepatitis A,B,C Profile 4 Months Z11.59 - Encounter for screening for other viral diseases Immunofixation Pnl, Serum 4 Months M32.9 - Systemic lupus erythematosus, unspecified Protein Electrophoresis, Serum 4 Months M32.9 - Systemic lupus erythematosus, unspecified Anti DNA DS Antibody 4 Months M32.9 - Systemic lupus erythematosus, unspecified Complement C3 4 Months M32.9 - Systemic lupus erythematosus, unspecified Complement C4 4 Months M32.9 - Systemic lupus erythematosus, unspecified Medications: Refilled Xeljanz (tofacitinib) 5 mg PO BID 60 tabs 2RF NS M05.9 - Rheumatoid arthritis with rheumatoid factor, unspecified trazodone 50 mg PO BEDTIME 90 tabs 1RF F41.9 - Anxiety disorder, unspecified, M47.816 - Spondylosis without myelopathy or radiculopathy, lumbar region Coding Level of Care Code Est Pt Level 4 (51903) Complex EM visit Add On G2211 Diagnoses Seropositive rheumatoid arthritis M05.9 Age-related osteoporosis without current pathological fracture M81.0 Osteoporosis type: age-related Presence of current pathological fracture: without current pathological fracture Long-term use of immunosuppressant medication Z79.899 Fibromyalgia M79.7
[2023-10-17 13:51] VITALS: BP 122/60; PULSE 69; O2SAT 97; BMI 27.2
== END 2023-10-17 14:27 | disposition home or self-care (01) ==
PROVIDERS: PCP Internal Medicine; Visit Provider Student in an Organized Health Care Education/Training Program
DX: M05.79 Rheumatoid arthritis with rheumatoid factor of multiple sites without organ or systems involvement (principal); M81.0 Age-related osteoporosis without current pathological fracture; Z79.899 Other long term (current) drug therapy; M79.7 Fibromyalgia
CPT/HCPCS: 99214; G2211

== ENCOUNTER → 2023-10-17 13:35 | Outpatient (BNVA) | payer MEDICARE, SELFPAY | PROVIDERS: PCP Internal Medicine; Visit Provider Student in an Organized Health Care Education/Training Program | DX: M05.9 Rheumatoid arthritis with rheumatoid factor, unspecified (principal); M81.0 Age-related osteoporosis without current pathological fracture; M32.9 Systemic lupus erythematosus, unspecified; M79.7 Fibromyalgia; M47.816 Spondylosis without myelopathy or radiculopathy, lumbar region; F41.9 Anxiety disorder, unspecified; Z79.899 Other long term (current) drug therapy | CPT/HCPCS: 99212 ==

== ENCOUNTER 2024-02-16 12:58 | Outpatient (AMB) | payer MEDICARE, SELFPAY ==
[2024-02-16 13:13] VITALS: BP 124/72; PULSE 62; O2SAT 98; BMI 27.0
--- NOTE | 2024-02-16 13:13 | MHC.OFFVIS ---
Vital Signs 02/16/24 13:13 Height 5 ft 11 in Weight 193 lb 9.054 oz BMI 27.0 BP 124/72 Blood Pressure Location Lt brachial Position Sitting Pulse 62 Pulse Source Pulse Oximeter Pulse Oximetry (%) 98 Oxygen Delivery Method Room Air Intake Visit Reasons: RA Intake Note: Patient is here for follow up on RA, last seen on 10/17/2023, patient is requesting refill of Xeljanz today. Allergies adalimumab [From Humira] Allergy (Intermediate, Verified 02/16/24 13:18) Rash alendronate sodium [From Fosamax] Allergy (Intermediate, Verified 02/16/24 13:18) increased pain codeine Allergy (Intermediate, Verified 02/16/24 13:18) Vomiting erythromycin base Allergy (Intermediate, Verified 02/16/24 13:18) Abdominal Pain omeprazole Allergy (Intermediate, Verified 02/16/24 13:18) Rash pantoprazole Allergy (Intermediate, Verified 02/16/24 13:18) Rash Penicillins Allergy (Intermediate, Verified 02/16/24 13:18) Hives piroxicam [From Feldene] Allergy (Intermediate, Verified 02/16/24 13:18) leg swelling Sulfa (Sulfonamide Antibiotics) Allergy (Intermediate, Verified 02/16/24 13:18) Hives teriparatide [From Forteo] Allergy (Intermediate, Verified 10/17/23 13:53) lip swelling raloxifene [From Evista] Allergy (Unknown, Verified 02/16/24 13:18) Unknown timlas Allergy (Intermediate, Uncoded 02/16/24 13:18) Palpitations Medication List - Last Reconciled 02/16/24 by Liliana Bo MD acetaminophen (Tylenol) 650 mg PO Q6H PRN apixaban (Eliquis) 5 mg PO BID diltiazem HCl CD 360 mg PO DAILY docusate sodium (Stool Softener) 100 mg PO DAILY epinephrine (EpiPen) 0.3 mg IM Q4H PRN ergocalciferol (vitamin D2) 1,250 mcg PO QWEEK famotidine (Acid Asset Analyst (famotidine)) 40 mg PO BEDTIME lansoprazole 30 mg PO DAILY latanoprost 0.005% 1 drp ophthalmic (eye) BEDTIME lorazepam 0.5 mg PO BEDTIME PRN losartan 25 mg PO DAILY ondansetron HCl 4 mg PO Q8H PRN oxycodone-acetaminophen 5-325 mg 2 tabs PO BEDTIME romosozumab-aqqg (Evenity) mg subcut trazodone 50 mg PO BEDTIME Xeljanz (tofacitinib) 5 mg PO BID NS HPI Comments Details: 74-year-old female with seropositive RA returns for follow-up. She states that she is doing quite well overall in terms of her arthritis. She remains on Xeljanz 5 mg Twice daily. She denies any cough or shortness of breath. Most recent history by Dr. Coto 05/2023: The patient returns for evaluation of her rheumatoid arthritis. She remains on Xeljanz 5 mg b.i.d.. She seems to say that she is doing okay. She gets back pain with some radiation to the buttocks that seems to be helped with once or twice a day Percocet prescribed by Dr. Brown. There were plans for her to be on Evenity for her osteoporosis but she has yet to hear back about drug approval. She does have an appointment with the endocrine office she says in the next week or two. Recently she has been plagued by recurrent UTI. She is on a 2nd course of antibiotics for that problem. She does also have the lower back pain and wonders if it could be from UTI. She points to an area just above the sacrum as to the majority of her pains. There is no pain over the CVA region. There have been no fevers or chills. [facility] Medical History Long-term use of immunosuppressant medication Vitreous hemorrhage, right eye Mcmanus's esophagus Osteoarthritis of lumbar spine Positive FEI (antinuclear antibody) Hypertension Osteoporosis Seropositive rheumatoid arthritis Family History Sister Rheumatoid arthritis Social History Household Members: Spouse Housing: House Are you a primary healthcare applications analyst to a significant other at home: No Do you presently have visiting nurse or other home services: No 75 years or older and lives alone: No Alcohol intake: current Alcohol intake frequency: a few times a month Patient Tobacco Use Status: Never used Tobacco e-Cigarette/Vaping Use: Never Used service: No Current occupational status: retired Review of Systems Card Denies dyspnea Resp Denies cough and Denies dyspnea Musc Reports back pain, Denies arthralgias and Denies stiffness Physical Exam Vital Signs: Last Vital Signs Pulse 62 02/16/24 13:13 BP 124/72 02/16/24 13:13 Pulse Ox 98 02/16/24 13:13 Oxygen Delivery Method Room Air 02/16/24 13:13 BMI result Body Mass Index 27.0 Const General: cooperative, healthy appearing and comfortable Nutritional Appearance: overweight Orientation/consciousness: patient oriented x3 Limitations: no limitations HEENT Head: Yes normocephalic and Yes atraumatic Resp Effort & Inspection: normal respiratory effort and able to speak in complete sentences Auscultation: clear to auscultation bilaterally Cardio Rate: regular rate Rhythm: regular rhythm Skin General skin exam: no rashes or lesions noted Neuro General: patient oriented x3 Extrem Other: No active synovitis Normal nailfold capillaroscopy Normal range of motion of hands, wrists, elbows and shoulders without pain Assessment & Plan Assessment & Plan (1) Seropositive rheumatoid arthritis: Comment: Onset mid-: RF and CCP +, FEI pos(homogeneous), sicca sx and SS-A and SS-B positive. Initial treatment with methotrexate with partial response. Remicade added to methotrexate 2000 with good response until early 2002. Remicade changed to Enbrel due to failing response October 2002: stable response since then with good control of synovitis. Methotrexate stopped 01/01 due to nausea, synovitis still controlled with Enbrel. Synovitis not controlled on Enbrel. 06/05 Humira started 07/07 - not helpful and skin rash Xeljanz started 09/04 effective Code(s): M05.9 - Rheumatoid arthritis with rheumatoid factor, unspecified Category: Medical Plan: This is a 74-year-old female with seropositive rheumatoid arthritis who presents for follow-up. Patient is doing quite well with no active synovitis on Xeljanz 5 mg Twice daily. Continue Xeljanz 5 mg Twice daily. Labs before next visit in 4 months. I ordered PFTs to screen for ILD. She stated that she had a 2D echo within the last 12 months. We will attempt to retrieve it (2) Osteoporosis: Comment: BMD: -2.5 at spine, -0/8 at hip (2006); increased pain on Fosamax; vit D low. Put on Forteo (Dr. Soto) for a year. Had rash so Forteo was stopped. Reclast December 2011, January 2017 Timlos started every other day 08/08; skips doses due to palpitations Timlos stopped in 2020 due to palpitations. Fracture left hip after a fall 01/29/22- emergent hip replacement Evenity started by Endo 07/2023 Code(s): M81.0 - Age-related osteoporosis without current pathological fracture Category: Medical Qualifiers: Osteoporosis type: age-related Presence of current pathological fracture: without current pathological fracture Qualified Code(s): M81.0 - Age-related osteoporosis without current pathological fracture Plan: On Evenity by endocrinology. She received 6 doses so far (3) Long-term use of immunosuppressant medication: Code(s): Z79.899 - Other long term acute care registered nurse (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 Monitor safety labs for Xeljanz (4) Fibromyalgia: Code(s): M79.7 - Fibromyalgia Category: Medical Plan: Symptoms fairly well controlled. Plan I spent 45 minutes reviewing patient's chart, evaluating patient, ordering diagnostic workup, counseling patient and documenting in the chart Orders: Orders Anti Extractable Nuclear Ag 4 Months M32.9 - Systemic lupus erythematosus, unspecified Anti DNA DS Antibody 4 Months M32.9 - Systemic lupus erythematosus, unspecified Complement C4 4 Months M32.9 - Systemic lupus erythematosus, unspecified Erythrocyte Sedimentation Rate 4 Months M32.9 - Systemic lupus erythematosus, unspecified Comprehensive Met. Panel 4 Months M32.9 - Systemic lupus erythematosus, unspecified T Spot TB 4 Months Z11.7 - Encounter for testing for latent tuberculosis infection Complement C3 4 Months M32.9 - Systemic lupus erythematosus, unspecified DNA Double Stranded-Crithidia 4 Months M32.9 - Systemic lupus erythematosus, unspecified Complete Blood Count Auto Diff 4 Months M32.9 - Systemic lupus erythematosus, unspecified Hepatitis A,B,C Profile 4 Months Z11.59 - Encounter for screening for other viral diseases PFT pulmonary function test Today R06.02 - Shortness of breath Coding Level of Care Code Est Pt Level 5 (68135) Diagnoses Seropositive rheumatoid arthritis M05.9 Age-related osteoporosis without current pathological fracture M81.0 Osteoporosis type: age-related Presence of current pathological fracture: without current pathological fracture Long-term use of immunosuppressant medication Z79.899 Fibromyalgia M79.7
== END 2024-02-16 13:40 | disposition home or self-care (01) ==
PROVIDERS: PCP Internal Medicine; Visit Provider Student in an Organized Health Care Education/Training Program
DX: M05.79 Rheumatoid arthritis with rheumatoid factor of multiple sites without organ or systems involvement (principal); M81.0 Age-related osteoporosis without current pathological fracture; Z79.899 Other long term (current) drug therapy; M79.7 Fibromyalgia
CPT/HCPCS: 99215

== ENCOUNTER → 2024-02-16 12:58 | Outpatient (BNVA) | payer MEDICARE, SELFPAY | PROVIDERS: PCP Internal Medicine; Visit Provider Student in an Organized Health Care Education/Training Program | DX: M05.9 Rheumatoid arthritis with rheumatoid factor, unspecified (principal); M81.0 Age-related osteoporosis without current pathological fracture; M79.7 Fibromyalgia; Z79.899 Other long term (current) drug therapy | CPT/HCPCS: 99212 ==

== ENCOUNTER 2024-05-02 14:09 | Outpatient (REF) | payer MEDICARE, SELFPAY ==
[2024-05-02 14:29] LABS: MANUAL DIFF FLAG NO
[2024-05-02 14:43] LABS: Basophils Percent Auto 0.3 % (0-2); Eosinophils Absolute Auto 0.1 X10*3/uL (0.0-0.4); Eosinophils Percent Auto 1.2 % (0-4); Hematocrit 36.8 % (37.0-47.0); Hemoglobin 12.5 g/dl (12.0-16.0); Imm Gran Abs Auto 0.01 X10*3/uL (0.00-0.03); Imm Gran Pct Auto 0.2 % (0.0-0.4); Lymphocytes Absolute Auto 1.3 X10*3/uL (1.2-4.9); Lymphocytes Percent Auto 22.4 % (20-40); Mean Corpuscular Hemoglobin 32.9 pg (27.0-33.0); Mean Corpuscular Volume 96.8 fL (80.0-98.0); Mean Platelet Volume 9.9 fL (9.4-12.3); Monocytes Absolute Auto 0.5 X10*3/uL (0.1-1.2); Monocytes Percent Auto 7.7 % (2-11); Neutrophils Percent Auto 68.2 % (45-73); Platelet Count 268 X10*3/uL (160-400); White Blood Count 5.9 X10*3/uL (4.8-10.8)
[2024-05-02 15:13] LABS: Alanine Aminotransferase 8 U/L (0-31); Albumin Level 3.8 g/dL (3.5-5.0); Alkaline Phosphatase 79 U/L (39-117); Anion Gap 11 (12-20); Aspartate Amino Transferase 15 U/L (5-31); Bilirubin Total 0.3 mg/dL (0.0-1.0); Blood Urea Nitrogen 19 mg/dL (9-16); C Reactive Protein 0.41 mg/dL (< or = 0.50); Carbon Dioxide 27 mmol/L (22-29); Chloride 106 mmol/L (96-108); Estimated Glomerular Filt Rate > 60; Glucose Random 143 mg/dL (60-115); Potassium 3.8 mmol/L (3.3-5.1); Sodium 140 mmol/L (135-145); Total Protein 6.9 g/dL (6.5-8.0)
[2024-05-02 15:20] LABS: Erythrocyte Sedimentation Rate 32 MM/HR (0-20)
[2024-05-03 08:13] LABS: HBc Num1 0.11 S/CO (0.00-0.79); HBsAGNum1 0.24 S/CO (0.00-0.99); Hepatitis A Antibody IgM 0.25 Index (0-0.79); Hepatitis B Core Antibody Nonreactive (Nonreactive); Hepatitis B Surface Antigen Negative (Negative); ~Hepatitis A Antibody IgM Nonreactive (Nonreactive); ~Hepatitis B Surface Antibody NONREACTIVE (Nonreactive); ~Hepatitis C Antibody Nonreactive (Nonreactive)
[2024-05-03 15:48] LABS: Complement C3 66 mg/dL (83-193)
[2024-05-04 09:48] LABS: Prot Elec - Albumin 3.7 g/dL (3.8-4.8); Prot Elec - Alpha1 0.3 g/dL (0.2-0.3); Prot Elec - Alpha2 0.6 g/dL (0.5-0.9); Prot Elec - Beta 1 0.4 g/dL (0.4-0.6); Prot Elec - Beta 2 0.6 g/dL (0.2-0.5); Prot Elec - Gamma 0.8 g/dL (0.8-1.7); Prot Elec - Total Protein 6.3 g/dL (6.1-8.1)
[2024-05-04 14:13] LABS: Anti DNA DS Antibody <1 IU/mL; SM/Ribonucleoprotein Ab <1.0 NEG AI (<1.0 NEG); Smith Protein <1.0 NEG AI (<1.0 NEG)
[2024-05-04 22:23] LABS: IgA 548 mg/dL (70-320); IgG 924 mg/dL (600-1540); IgM 62 mg/dL (50-300)
[2024-05-05 05:09] LABS: TS Negative Control Passed; TS Panel A 0; TS Panel B 0; TS Positive Control Passed; TSpotTB Negative (Negative)
[2024-05-06 11:24] LABS: DNAds, Crithidia Antibody Positive (Negative)
[2024-05-06 11:43] LABS: DNAds, Crithidia Antibody 1:20 titer (<1:10)
== END 2024-05-02 14:10 | disposition home or self-care (01) ==
LOC: HO.LAB 14:09
PROVIDERS: PCP Internal Medicine; Visit Provider Student in an Organized Health Care Education/Training Program
DX: M32.9 Systemic lupus erythematosus, unspecified (principal); Z11.7 Encounter for testing for latent tuberculosis infection; Z11.59 Encounter for screening for other viral diseases
CPT/HCPCS: 36415; 80053; 82784; 84165; 85025; 85652; 86140; 86160; 86225; 86235; 86255; 86334; 86481; 86704; 86706; 86709; 86803; 87340

== ENCOUNTER 2024-05-28 13:18 | Outpatient (AMB) | payer MEDICARE, SELFPAY ==
--- NOTE | 2024-05-28 13:20 | A.OFFVIS_ITS ---
Vital Signs 05/28/24 13:21 Height 5 ft 11 in Weight 193 lb 5.526 oz BMI 27.0 BP 130/78 Blood Pressure Location Lt brachial Position Sitting Pulse 78 Pulse Source Pulse Oximeter Pulse Oximetry (%) 100 Oxygen Delivery Method Room Air Intake Visit Reasons: RA Intake Note: Patient last seen by Doctor Liliana Bo on 02/16/24. Presents today for RA follow up and test results. Allergies adalimumab [From Humira] Allergy (Intermediate, Verified 05/28/24 13:23) Rash alendronate sodium [From Fosamax] Allergy (Intermediate, Verified 05/28/24 13:23) increased pain codeine Allergy (Intermediate, Verified 05/28/24 13:23) Vomiting erythromycin base Allergy (Intermediate, Verified 05/28/24 13:23) Abdominal Pain omeprazole Allergy (Intermediate, Verified 05/28/24 13:23) Rash pantoprazole Allergy (Intermediate, Verified 05/28/24 13:23) Rash Penicillins Allergy (Intermediate, Verified 05/28/24 13:23) Hives piroxicam [From Feldene] Allergy (Intermediate, Verified 05/28/24 13:23) leg swelling romosozumab-aqqg [From Evenity] Allergy (Intermediate, Unverified 05/28/24 13:47) allergic Sulfa (Sulfonamide Antibiotics) Allergy (Intermediate, Verified 05/28/24 13:23) Hives teriparatide [From Forteo] Allergy (Intermediate, Verified 05/28/24 13:23) lip swelling raloxifene [From Evista] Allergy (Unknown, Verified 05/28/24 13:23) Unknown timlas Allergy (Intermediate, Uncoded 05/28/24 13:23) Palpitations Medication List - Last Reconciled 05/28/24 by Liliana Bo MD acetaminophen (Tylenol) 650 mg PO Q6H PRN apixaban (Eliquis) 5 mg PO BID diltiazem HCl CD 360 mg PO DAILY docusate sodium (Stool Softener) 100 mg PO DAILY epinephrine (EpiPen) 0.3 mg IM Q4H PRN ergocalciferol (vitamin D2) 1,250 mcg PO QWEEK famotidine (Acid Efficiency Manager (famotidine)) 40 mg PO BEDTIME lansoprazole 30 mg PO DAILY latanoprost 0.005% 1 drp ophthalmic (eye) BEDTIME lorazepam 0.5 mg PO BEDTIME PRN losartan 25 mg PO DAILY ondansetron HCl 4 mg PO Q8H PRN oxycodone-acetaminophen 5-325 mg 2 tabs PO BEDTIME romosozumab-aqqg (Evenity) mg subcut trazodone 50 mg PO BEDTIME Xeljanz (tofacitinib) 5 mg PO BID NS HPI Comments Details: 74-year-old female with seropositive RA returns for follow-up. She states that she is doing quite well overall in terms of her arthritis. She remains on Xeljanz 5 mg Twice daily. She gets a squeezing sensation involving feet, mostly the left foot, it happens once or twice a week and lasts a few hours. She states that she was allergic to Romosuzumab after 6 doses and started on Reclast recently She has crusted lesion on her nasal bridge on the left side, she was evaluated by Dermatology and referred to a specialist for a biopsy Most recent history by Dr. Coto 05/2023: The patient returns for evaluation of her rheumatoid arthritis. She remains on Xeljanz 5 mg b.i.d.. She seems to say that she is doing okay. She gets back pain with some radiation to the buttocks that seems to be helped with once or twice a day Percocet prescribed by Dr. Brown. There were plans for her to be on Evenity for her osteoporosis but she has yet to hear back about drug approval. She does have an appointment with the endocrine office she says in the next week or two. Recently she has been plagued by recurrent UTI. She is on a 2nd course of antibiotics for that problem. She does also have the lower back pain and wonders if it could be from UTI. She points to an area just above the sacrum as to the majority of her pains. There is no pain over the CVA region. There have been no fevers or chills. [facility] Medical History Long-term use of immunosuppressant medication Vitreous hemorrhage, right eye Mcmanus's esophagus Osteoarthritis of lumbar spine Positive FEI (antinuclear antibody) Hypertension Osteoporosis Seropositive rheumatoid arthritis Family History Sister Rheumatoid arthritis Social History Household Members: Spouse Housing: House Are you a primary nursing care partner to a significant other at home: No Do you presently have visiting nurse or other home services: No 75 years or older and lives alone: No Alcohol intake: current Alcohol intake frequency: a few times a month Patient Tobacco Use Status: Never used Tobacco e-Cigarette/Vaping Use: Never Used service: No Current occupational status: retired Review of Systems Card Denies dyspnea Resp Denies cough and Denies dyspnea Musc Reports arthralgias, Denies joint swelling and Reports stiffness Physical Exam Vital Signs: Last Vital Signs Pulse 78 05/28/24 13:21 BP 130/78 05/28/24 13:21 Pulse Ox 100 05/28/24 13:21 Oxygen Delivery Method Room Air 05/28/24 13:21 BMI result Body Mass Index 27.0 Const General: cooperative, healthy appearing and comfortable Nutritional Appearance: overweight Orientation/consciousness: patient oriented x3 Limitations: no limitations HEENT Head: Yes normocephalic and Yes atraumatic Resp Effort & Inspection: normal respiratory effort and able to speak in complete sentences Auscultation: clear to auscultation bilaterally Cardio Rate: regular rate Rhythm: regular rhythm Skin Other: Crusted lesion on the left aspect of her nasal bridge Neuro General: patient oriented x3 Extrem Other: No active synovitis both hands and wrists 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 Initial treatment with methotrexate with partial response. Remicade added to methotrexate 2000 with good response until early 2002. Remicade changed to Enbrel due to failing response October 2002: stable response since then with good control of synovitis. Methotrexate stopped 01/01 due to nausea, synovitis still controlled with Enbrel. Synovitis not controlled on Enbrel. 06/05 Humira started 07/07 - not helpful and skin rash Xeljanz started 09/04 effective Code(s): M05.9 - Rheumatoid arthritis with rheumatoid factor, unspecified Category: Medical Plan: This is a 74-year-old female with seropositive rheumatoid arthritis who presents for follow-up. On Xeljanz 5 mg twice daily. Doing very well overall, I think she still has minimal disease activity involving her MTPs. Inflammatory markers mildly elevated. We discussed potentially adding Arava, patient is not interested at this time her symptoms are well controlled overall Continue Xeljanz 5 mg Twice daily. Labs before next visit in 4 months. 2D echo 12/2022 was unremarkable. I ordered PFTs to screen for ILD (2) Osteoporosis: Comment: BMD: -2.5 at spine, -0/8 at hip (2006); increased pain on Fosamax; vit D low. Put on Forteo (Dr. Soto) for a year. Had rash so Forteo was stopped. Reclast December 2011, January 2017 Timlos started every other day 08/08; skips doses due to palpitations Timlos stopped in 2020 due to palpitations. Fracture left hip after a fall 01/29/22- emergent hip replacement Evenity started by Endo 07/2023, had an allergic reaction after 6 doses then started on Reclast Code(s): M81.0 - Age-related osteoporosis without current pathological fracture Category: Medical Qualifiers: Osteoporosis type: age-related Presence of current pathological fracture: without current pathological fracture Qualified Code(s): M81.0 - Age- related osteoporosis without current pathological fracture Plan: Follows up with endocrinology Had an allergic reaction to Evenity after 6 doses, then started on Reclast (3) Long-term use of immunosuppressant medication: Code(s): Z79.899 - 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 Monitor safety labs for Xeljanz Plan I spent 30 minutes reviewing patient's chart, evaluating patient, ordering diagnostic workup, counseling patient and documenting in the chart Orders: Orders C Reactive Protein 4 Months M05.9 - Rheumatoid arthritis with rheumatoid factor, unspecified Erythrocyte Sedimentation Rate 4 Months M05.9 - Rheumatoid arthritis with rheumatoid factor, unspecified Complete Blood Count Auto Diff 4 Months M05.9 - Rheumatoid arthritis with rheumatoid factor, unspecified Comprehensive Met. Panel 4 Months M05.9 - Rheumatoid arthritis with rheumatoid factor, unspecified Coding Level of Care Code Est Pt Level 4 (26083) Complex EM visit Add On G2211 Diagnoses Seropositive rheumatoid arthritis M05.9 Age-related osteoporosis without current pathological fracture M81.0 Osteoporosis type: age-related Presence of current pathological fracture: without current pathological fracture Long-term use of immunosuppressant medication Z79.899
[2024-05-28 13:21] VITALS: BP 130/78; PULSE 78; O2SAT 100; BMI 27.0
--- OUTSIDE RECORDS SUMMARY | 2024-05-30 15:42 | XMS_ITS ---
[facility] Address [address] [place] [address] Care Team Providers Care Monitoring Analyst Name Role Phone Lisa Shaw MD Primary Care Provider Caden Anderson Unavailable [phone] Allergies Allergen (clinical drug ingredient) Drug/Non Drug Allergy documented on EMR Reaction Allergy Type Onset Date Status sulfamethoxazole / trimethoprim Bactrim hives Drug Allergy Active erythromycin Erythromycin hives Drug Allergy A ctive Penicillin hives Drug Allergy Active REASON FOR VISIT At Risk Footcare, Painful Nail(s) aggravated by shoes and causing difficulty standing/walking., Skin problem(s) Medications Medication SIG (Take, Route, Frequency, Duration) Notes Start Date End Date Status hydroCHLOROthiazide 25 MG TAKE 1 TABLET BY MOUTH EVERY DAY Oral for 90 Not-Taking Cyclobenzaprine HCl 10 MG Oral for 10 Not-Taking Fluconazole 150 MG Oral for 1 Not-Taking Nitrofurantoin Monohyd Macro 100 MG Oral for 7 Not-Taking Vitamin D (Ergocalciferol) 1.25 MG (73643 UT) TAKE 1 CAPSULE BY MOUTH EVERY WEEK Oral for 84 Active Eliquis 5 MG Oral for 90 Activ e Methenamine Hippurate 1 GM Oral for 90 Active traZODone HCl 50 MG Oral for 90 Active Xeljanz 5 MG as directed Orally Active Percocet 5-325 MG as directed Orally Active LORazepam 0.5 MG as directed Orally Active Famotidine 40 MG as directed Orally Active Vitamin B12 Active Stool Softener Activ e dilTIAZem HCl ER Act romulo Spironolactone Activ e Trimethoprim Active Ammonium Lactate 12 % 1 application Externally to affected areas of dry skin to feet except for between the toes Twice a day for 30 days Active Vitamin C Active Social History Tobacco Use: Social History Observation Description Date Details (start date - stop date) Never Smoker NA - NA Tobacco Use/Smoking Question Answer Notes Are you a: nonsmoker Additional Findings: Tobacco Non-User Current no n-smoker Alcohol Screen Question Answer Notes Did you have a drink containing alcohol in the p ast year? No Points 0 Interpretation Negative Tobacco use other than smoking: Question Answer Notes Are you an other tobacco user? No Vital Signs Height 5 ft 11 in in 05/15/2024 Weight 190 lbs 05/15/2024 BMI 26.5 kg/m2 05/15/2024 Blood pressure systolic 130 mm Hg 05/15/20 24 Blood pressure diastolic 70 mm Hg 024 Procedures Procedure Date Ordered Date Performed Result Body Sit e 10958-KRPFWDO NAIL, 1-5 05/15/2024 N/A 65946-ZMIW SKIN LESIONS, OVER 4 05/15/2024 N/A V1086-XYVHSEAD DYSTROPHIC NAILS ANY # 05/15/2024 N/A Encounters Encounter Location Date Provider Diagnosis [facility] [place] [address] [place] [address] 05/15/2024 Caden Perez Atherosclerosis of lummi artery of both lower extremities, with unspecified presence of clinical manifestation I70.203 ; Tinea unguium B35.1 ; Pain in right toe(s) M79.674 ; Pain in left toe(s) M79.675 and Xerosis of skin L85.3 Assessments Encounter Date Diagnosis (ICD Code) Assessment Notes Treatment Notes Treatment Clinical Notes Section Notes 05/15/2024 Atherosclerosis of lummi artery of both lower extremities, with unspecified presence of clinical manifestation (ICD-10 - I70.203) 05/15/2024 Tinea unguium (ICD-10 - B35.1) 05/15/2024 Pain in right toe(s) (ICD-10 - M79.674) 05/15/2024 Pain in left toe(s) (ICD-10 - M79.675) 05/15/2024 Xerosis of skin (ICD-10 - L85.3) Plan Of Treatment Medication Medication Name Sig Start Date Stop Date Notes Ammonium Lactate 12 % 1 application Exte rnally to affected areas of dry skin to feet except for between the toes Twice a day for 30 days Pending Test Test Name Order Date 15083-SPXUUXC NAIL, 1-5 05/15/2024 31122-AKDN SKIN LESIONS, OVER 4 05/15/20 24 V1610-GVSGXVKK DYSTROPHIC NAILS ANY # Next Appt Details Follow Up: prn, Reason: Provider Name:Caden Perez , 08/17/2024 12:30:00 PM, [address] [place] [address], [id number], Procedure Notes * Category Sub-Category Detail Notes Keratoma Treatment Parring or Cutting o f Benign Hyperkeratotic Lesion(s) (-57) More than 4 Lesions - The Benign hyperkeratotic lesions, ( 7) in total, locations as stated and described in exam, were pared, and/or cut utilizing a sterile 15 blade, tissue nippers, and/or power dremel instrumentation - 77843, Q8 Debride Nails 1-5 Procedure: Performance of this nail treatment by a nonprofessional would put this patients foot and overall health at risk. Therefore, debridement to affected nail(s), as described in exam, was performed extensively to reduce/remove overall nail length, girth, thickness, subungual debris, and necrotic tissue, by manual and/or electrical means through the use of a nail nipper and/or dremel-type machine grinder, to a more viable healthy nail plate or bed tissue 5 nails or less in number. Silver nitrate was used for any petechial bleeding as necessary. Definitive antifungal treatment options, both pharmaceutical and surgical, have been reviewed and discussed with the patient. The patient solely prefers the use of intermittent/as needed professional debridement services for their nail condition and understands that additional periodic treatments may be required as necessary to maintain effective symptomatic relief - 55374 Nail Reduction Nail Reduction (-27) Trimming o f all dystrophic nails, locations as stated and described in exam, was performed to reduce/remove overall nail length and girth, by manual and electrical means with use of a nail nipper and/or dremel, to more viable healthy nail plate or bed tissue - G0127, Q8 Progress Notes * Casandra SOSA ADOB: [birth year] (74 yo F)Acc No.[id number]:05/15/2024 Progress Note Patient:Casandra LOBATO Provider:?Caden Perez DPM :1950???Age:74 Y???Sex:Female D ate:05/15/2024 Address:[address] [place], [place] [id number] Pcp:Lisa Shaw MD Subjective: * Chief Complaints: * ???At Risk FootcarePainful N ail(s) aggravated by shoes and causing difficulty standing/walking.Skin problem(s) * HPI: ???At Risk footcare:?Pt States Last PCP Visit:?Date?02/01/2024 ???Skin problems:?Nature:?dryness , scaling.?Location:?B/L .?Duration:?several days.?Course:?worse.? * ROS:?General/Constitutional:?Nausea?denies.?Vomiting?denies.?Hunger Thirst?denies.?Loss appetite?denies.?Chills?denies.?Fatigue?denies.?Fever?denies.?Night Sweats?denies.?Unexplained weight loss?denies.?Unexplained weight gain?denies.?HEENTM:?Dentures?denies.?Dizziness?denies.?Glasses/contacts?admits.?Retinopathy?de nies.?Blurred/double vision?denies.?TMJ?denies.?Discharge/drainage?denies.?Implants?denies.?Sore throat?denies.?Dental implants?denies.?Hard of hearing ?denies.?Difficulty chewing/swallowing/speaking?denies.?Nose bleeds?denies.?Sore mouth?denies.?Respiratory:?On Oxygen?denies.?Pneumonia/pleurisy?denies.?Bronchitis?denies.?Emphysema?denies.?C oughing?denies.?Cough blood?denies.?Shortness of breath?denies.?Wheezing?denies.?Cardiovascular:?Pacemaker?denies.?MVP?denies.?WPW?denies.?CHF?denies.?Heart attack?denies.?Septal defect?denies.?Rapid beat?denies.?Chest pain ?denies.?Atrial Fib.?admits.?Murmur/Palpitations?denies.?Gastrointestinal:?Hemorrhoids?denies.?Stomach/Abdominal pain?denies.?Dark blood stool?denies.?Irritable bowel ?denies.?Constipation?denies.?Diarrhea?denies.?Hematology:?Swelling?admits.?Clots?denies.?Varicose Veins?denies.?Bruising?admits, on anticoagulants.?Bleeding problem?admits, on anticoagulants.?Genitourinary:?Blood urine?denies.?Frequent/Painfu/urination/bladder control?denies.?Kidney stones?denies.?Infection (UTI)?denies.?Nephropathy?denies.?sex trans dis (STD)?denies.?Prostate?denies.?Musculoskeletal:?Hammertoes?denies.?Bunions?denies.?Back Pain?admits.?Muscle Cramps/ Resting?denies.?Muscle cramps / walking?denies.?Generalized aches and pains?denies.?Weakness?denies.?Integ.:?Michelle?denies.?Scars?denies.?Corns/calluses?admits.?Ingrown nails?admits.?Painful nails?admits.?Open Sores?denies.?Rashes?denies.?Neurologic:?Difficulty sleeping?admits.?Brain disorder?denies.?Numbness?admits.?Balance trouble?admits.?Confusion?denies.?Fainting/blackouts?denies.?Tingling?admits, bilateral lower extremities, in the toes, that is moderate, which is intermittent.?Tremors?denies.? * Medical History:? * Surgical History:?hip surger y 01/29/2022Gall bladder removal 11/2014B/L Vein Surgery- Injection to close veins 11/23/23,11/28/23 * Hospitalization/Major Diagno stic Procedure:?Denies Past Hospitalization * Family History:?Mother: dece ased, high blood pressure.?Father: , high blood pressure.?Siblings: high blood pressure, arthritis, cancer.? * Social History:?Tobacco Use:?Tobacco Use/Smoking?Are you a:?nonsmoker ?Additional Findings: Tobacco Non-User?Current non-smoker ?Tobacco use other than smoking?Are you an other tobacco user??No ???Drugs/Alcohol:?Drugs?Have you used drugs other than those for medical reasons in the past 12 months??No ?Alcohol Screen?Did you have a drink containing alcohol in the past year??No ?Points?0 ?Interpretation?Negative ???Miscellaneous:?Caffeine: no. ?Children: yes, 2. ?Exercise: yes, walking. ?Marital status: . ?Occupation: Retired- [employer]. * Medications:?TakingTrimethop rim Spironolactone Vitamin C dilTIAZem HCl ER Stool Softener Vitamin B12 Famotidine 40 MG Tablet as directed Orally LORazepam 0.5 MG Tablet as directed Orally Percocet 5-325 MG Tablet as directed Orally Xeljanz 5 MG Tablet as directed Orally traZODone HCl 50 MG Tablet Oral Methenamine Hippurate 1 GM Tablet Oral Eliquis 5 MG Tablet Oral Vitamin D (Ergocalciferol) 1.25 MG (11151 UT) Capsule TAKE 1 CAPSULE BY MOUTH EVERY WEEK Oral Taking Trimethoprim Taking Spironolactone Taking Vitamin C Taking dilTIAZem HCl ER Taking Stool Softener Taking Vitamin B12 Taking Famotidine 40 MG Tablet as directed Orally Taking LORazepam 0.5 MG Tablet as directed Orally Taking Percocet 5-325 MG Tablet as directed Orally Taking Xeljanz 5 MG Tablet as directed Orally Taking traZODone HCl 50 MG Tablet Oral Taking Methenamine Hippurate 1 GM Tablet Oral Taking Eliquis 5 MG Tablet Oral Taking Vitamin D (Ergocalciferol) 1.25 MG (36494 UT) Capsule TAKE 1 CAPSULE BY MOUTH EVERY WEEK Oral Not-Taking/PRNNitrofurantoin Monohyd Macro 100 MG Capsule Oral Fluconazole 150 MG Tablet Oral Cyclobenzaprine HCl 10 MG Tablet Oral hydroCHLOROthiazide 25 MG Tablet TAKE 1 TABLET BY MOUTH EVERY DAY Oral Medication List reviewed and reconciled with the patientNot-Taking/PRN Nitrofurantoin Monohyd Macro 100 MG Capsule Oral Not-Taking/PRN Fluconazole 150 MG Tablet Oral Not-Taking/PRN Cyclobenzaprine HCl 10 MG Tablet Oral Not-Taking/PRN hydroCHLOROthiazide 25 MG Tablet TAKE 1 TABLET BY MOUTH EVERY DAY Oral Medication List reviewed and reconciled with the patient * Allergies:?Penicillin: hives Erythromycin: hivesBactrim: hivesyes[Allergies Verified] Objective: * Vitals:?Ht: 5 ft 11 in, Wt:1 90, BMI: 26.5, Shoe size:10, BP:130/70mm Hg, Ht-cm: 180.34 cm, Wt-k.18 kg. * Examination: ???Vascular: ?DP PULSES(B):?1/4, B/L.?PT PULSES(B):? 0/4, B/L.?CAPILLARY FILL TIME:? delayed, all digits, B/L.?TROPHIC CONDITION-TEXTURE/ELASTICITY/TURGOR/HAIR GROWTH(B):? decreased,?with sparse to absent hair growth, B/L.?TEMPERTURE GRADIENT(C):? decreased, cool to cool, proximal to distal, B/L.?PIGMENTATION:?rubrous, B/L.?EDEMA(C):?3/4 , pitting , without aching pain , Leg(s) , Ankle(s) , Foot , B/L.?CLAUDICATION(C):?denies, B/L.?REST PAIN:?denies, B/L.?COMPRESSION STOCKINGS:?Present, worn, exhibit proper support.?Neurological: ?SENSORY:?Pt relates, paresthesia, pins and needles sensation, tingling, shooting/radiating sensation, Forefoot, B/L.?Nails: ?NAILS are:?Elongated, overgrown, dystrophic, lytic, greater than 3mm thick, discolored and friable with crumbly malodorous subungual debris, with pain on palpation , TA , T8, all other nails not described with characteristics as possessing mycosis are elongated, overgrown, and dystrophic.?Dermatologic: ?SKIN FINDINGS:?Skin exam reveals Keratotic lesion(s) located at , SUB MTH (s), 1, B/L, SUB MTH (s), 3, Left, SUB MTH (s) , 5 , B/L , Plantar, Heel(s) , B/L , Skin shows sign(s) of, dryness, scaling, in a stocking fashion, no fissure(s) present, B/L.? Assessment: * Assessment: 1.?Tinea unguium - B35.1???2 .?Atherosclerosis of lummi artery of both lower extremities, with unspecified presence of clinical manifestation - I70.203 (Primary)???3.?Pain in right toe(s) - M79.674???4.?Pain in left toe(s) - M79.675 ??5.?Xerosis of skin - L85.3???Specify :Acute problem, Uncomplicated (3),Rx Management (4)??? Plan: * Treatment: 2.?Tinea unguium?Procedure: 85573-YUTFVCT NAIL, 1-5 3.?Xerosis of skin? Start Ammonium Lactate Cream, 12 %, 1 application, Externally to affected areas of dry skin to feet except for between the toes, Twice a day, 30 days, 140, Refills 2.?? * Procedures:?Debride Nails 1-5:?Procedure:?Performance of this nail treatment by a nonprofessional would put this patients foot and overall health at risk. Therefore, debridement to affected nail(s), as described in exam, was performed extensively to reduce/remove overall nail length, girth, thickness, subungual debris, and necrotic tissue, by manual and/or electrical means through the use of a nail nipper and/or dremel-type machine grinder, to a more viable healthy nail plate or bed tissue 5 nails or less in number. Silver nitrate was used for any petechial bleeding as necessary. Definitive antifungal treatment options, both pharmaceutical and surgical, have been reviewed and discussed with the patient. The patient solely prefers the use of intermittent/as needed professional debridement services for their nail condition and understands that additional periodic treatments may be required as necessary to maintain effective symptomatic relief - 10669.?Keratoma Treatment:?Parring or Cutting of Benign Hyperkeratotic Lesion(s)?(-57) More than 4 Lesions - The Benign hyperkeratotic lesions, ( 7) in total, locations as stated and described in exam, were pared, and/or cut utilizing a sterile 15 blade, tissue nippers, and/or power dremel instrumentation - 43849, Q8.?Nail Reduction:?Nail Reduction?(-27) Trimming of all dystrophic nails, locations as stated and described in exam, was performed to reduce/remove overall nail length and girth, by manual and electrical means with use of a nail nipper and/or dremel, to more viable healthy nail plate or bed tissue - G0127, Q8.? * Procedure Codes:?G0127 FRANK ING DYSTROPHIC NAILS ANY #, Modifiers: XS , [id number] DEBRIDE NAIL, 1-5, Modifiers: XS 83561 TRIM SKIN LESIONS, OVER 4, Modifiers: XS , Q8 * Preventive Medicine:? ??Counseling:?Discussion:?-13: Office or other outpatient visit for the evaluation and management of an established patient, which required a medically appropriate history and/or examination and LOW level of DECISION MAKING for: 1 STABLE ACUTE UNCOMPLICATED PROBLEM, 2 OR MORE MINOR PROBLEMS, OR 1 STABLE CHRONIC PROBLEM, THAT POSE(S) A LOW RISK FOR MORBIDITY/MORTALITY. The visit on the day of the encounter encompassed interpreting the data and educating the patient as to the nature of their condition, treatment options available according to their individual PMH, meds, allergies, and overall health/living conditions, as well as any potential risks or complications that may occur from a failure to adhere to, and participate in, the recommended course of therapy. The discussion included a complete verbal, and/or written explanation of the examination results, any x-rays taken, the proposed diagnosis, and outline of the treatment plan. A schedule for future care needs was also explained. The patient verbalized an understanding of the instructions at this time and agreed to be an active participant in their treatment. If the patient should think of any questions or concerns after the visit, I have encouraged the patient to call the office.?Xerosis:?The patient was counseled on the diagnosis, potential etiologies, and treatment options for their skin condition. We discussed the risks and benefits of each option from performing no treatment, to utilizing OTC topical skin creams/ointments, to utilizing prescription topical creams/ointments, to utilizing customized compounded topical medications and use of nocturnal occlusion with any/all previously detailed therapies. We discussed the advantages and disadvantages of each possible treatment and importance for adherence to all the recommended therapies for optimum success and avoid potential complications such as open sore/infection/possible hospitalization. We discussed the potential effectiveness of each topical preparation as well as each ones possible side effects and/or patient medication interactions. Patient questions re: use, dosage, successful outcomes, and application consistency were reviewed and the patient verbalized that all answers were clearly understood. The patient has decided to apply Rx skin creams to their feet save the interspaces while paying special attention to the heels. Such was sent to their pharmacy at the time of visit.? * Follow Up:?prn * Images: * Sign off status: Completed true * Provider:?Caden Perez DPM Date:?2023 Generated for Dayana leo/Faith/Toan on:?05/30/2024 03:42 PM EST History and Physical Notes * HPI (History of Present Illness) Category Sub-Category Detail Notes Category Not es Skin problems Nature: dryness , scaling Location: B/L Duration: several days Course: worse At Risk footcare Pt States Last PCP Visit: Date: 4 Examination Category Sub-Category Detail Notes Category Not es Neurological SENSORY: Pt relates, pare sthesia, pins and needles sensation, tingling, shooting/radiating sensation, Forefoot, B/L Dermatologic SKIN FINDINGS: Skin exam reveal s Keratotic lesion(s) located at , SUB MTH (s), 1, B/L, SUB MTH (s), 3, Left, SUB MTH (s) , 5 , B/L , Plantar, Heel(s) , B/L , Skin shows sign(s) of, dryness, scaling, in a stocking fashion, no fissure(s) present, B/L Vascular DP PULSES(B): 1/4, B/L PT PULSES(B): 0/4, B/L CAPILLARY FILL TIME: delayed, all digits , B/L TEMPERTURE GRADIENT(C): decreased, cool to cool, proximal to distal, B/L TROPHIC CONDITION-TEXTURE/ELASTICITY/TURGOR/HAIR GROWTH(B): decreased, with sparse to absent hair gr owth, B/L EDEMA(C): 3/4 , pitting , with out aching pain , Leg(s) , Ankle(s) , Foot , B/L CLAUDICATION(C): denies, B/L REST PAIN: denies, B/L PIGMENTATION: rubrous, B/L COMPRESSION STOCKINGS: Present, worn, ex hibit proper support Nails NAILS are: Elongated, overg rown, dystrophic, lytic, greater than 3mm thick, discolored and friable with crumbly malodorous subungual debris, with pain on palpation , TA , T8, all other nails not described with characteristics as possessing mycosis are elongated, overgrown, and dystrophic
--- OUTSIDE RECORDS SUMMARY | 2024-05-30 15:42 | XMS_ITS ---
[facility] Organization [facility] Address [address] [place] [address] Care Team Providers Care Print Line Tailer Name Role Phone Lisa Shaw MD Primary Care Provider Caden Anderson Unavailable [phone] Allergies Allergen (clinical drug ingredient) Drug/Non Drug Allergy documented on EMR Reaction Allergy Type Onset Date Status sulfamethoxazole / trimethoprim Bactrim hives Drug Allergy Active erythromycin Erythromycin hives Drug Allergy A ctive Penicillin hives Drug Allergy Active REASON FOR VISIT At Risk Footcare, Painful Nail(s) aggravated by shoes and causing difficulty standing/walking. Medications Medication SIG (Take, Route, Frequency, Duration) Notes Start Date End Date Status Nitrofurantoin Monohyd Macro 100 MG Oral for 7 Not-Taking Fluconazole 150 MG Oral for 1 Not-Taking Eliquis 5 MG Oral for 90 Activ e Vitamin D (Ergocalciferol) 1.25 MG (60723 UT) TAKE 1 CAPSULE BY MOUTH EVERY WEEK Oral for 84 Active Methenamine Hippurate 1 GM Oral for 90 Active LORazepam 0.5 MG as directed Orally Active Percocet 5-325 MG as directed Orally Active Famotidine 40 MG as directed Orally Active Xeljanz 5 MG as directed Orally Active traZODone HCl 50 MG Oral for 90 Active Vitamin B12 Active dilTIAZem HCl ER Act romulo Stool Softener Activ e Spironolactone Activ e Vitamin C Active Cyclobenzaprine HCl 10 MG Oral for 10 Not-Taking hydroCHLOROthiazide 25 MG TAKE 1 TABLET BY MOUTH EVERY DAY Oral for 90 Not-Taking Social History Tobacco Use: Social History Observation Description Date Details (start date - stop date) Never Smoker NA - NA Tobacco Use/Smoking Question Answer Notes Are you a: nonsmoker Additional Findings: Tobacco Non-User Current no n-smoker Tobacco use other than smoking: Question Answer Notes Are you an other tobacco user? No Vital Signs Height 5 ft 11 in in 02/21/2024 Weight 190 lbs 02/21/2024 BMI 26.5 kg/m2 02/21/2024 Blood pressure systolic 130 mm Hg 02/21/20 24 Blood pressure diastolic 70 mm Hg 024 Procedures Procedure Date Ordered Date Performed Result Body Sit e 28853-LBIIBIJ NAIL, 1-5 02/21/2024 N/A 55677-CYZR SKIN LESIONS, OVER 4 02/21/2024 N/A [id number] DYSTROPHIC NAILS ANY # 02/21/2024 N/A Encounters Encounter Location Date Provider Diagnosis [facility] [address] [address] 02/21/2024 Caden Perez Atherosclerosis of [place] artery of both lower extremities, with unspecified presence of clinical manifestation I70.203 ; Tinea unguium B35.1 ; Pain in right toe(s) M79.674 and Pain in left toe(s) M79.675 Assessments Encounter Date Diagnosis (ICD Code) Assessment Notes Treatment Notes Treatment Clinical Notes Section Notes 02/21/2024 Atherosclerosis of [place] artery of both lower extremities, with unspecified presence of clinical manifestation (ICD-10 - I70.203) 02/21/2024 Tinea unguium (ICD-10 - B35.1) 02/21/2024 Pain in right toe(s) (ICD-10 - M79.674) 02/21/2024 Pain in left toe(s) (ICD-10 - M79.675) Plan Of Treatment Pending Test Test Name Order Date [id number] NAIL, 1-5 02/21/2024 96397-HKKD SKIN LESIONS, OVER 4 02/21/20 24 [id number] DYSTROPHIC NAILS ANY # Next Appt Details Follow Up: prn, Reason: Provider Name:Caden Perez , 08/17/2024 12:30:00 PM, [address] [place] [address], [phone], Procedure Notes * Category Sub-Category Detail Notes Keratoma Treatment Parring or Cutting o f Benign Hyperkeratotic Lesion(s) 67536 ( More than 4 Lesions ) - The Benign hyperkeratotic lesions, as described above were pared, and/or cut utilizing a sterile 15 blade, tissue nippers, and/or dremel - 23717 , Q9 Debride Nails 1-5 Procedure: Performance of this nail treatment by a nonprofessional would put this patients foot and overall health at risk. Therefore, nail debridement was performed extensively to reduce/remove overall nail length, girth, thickness, subungual debris, and necrotic tissue, by manual and/or electrical means through the use of a nail nipper and/or dremel-type watch parts grinder, to a more viable healthy nail plate or bed tissue 1-5. Silver nitrate used for any petechial bleeding as necessary. Definitive antifungal treatment options have been reviewed and discussed with the patient. The patient chooses, no pharmaceutical tx - 88379 Nail Reduction Nail Reduction Trimming of dyst rophic nails performed to reduce/remove overall nail length and girth, by manual and electrical means with use of a nail nipper and/or dremel, to more viable healthy nail plate or bed tissue, any number - G0127, Q9 Progress Notes * Casandra SOSA ADOB: [birth year] (74 yo F)Acc No.[id number]:02/21/2024 Progress Note Patient:?Casandra Sosa Tonja Provider:?Caden Perez DPM :1950???Age:74 Y???Sex:Female D ate:02/21/2024 Address:[address] [place], [place] [phone] Pcp:Lisa Shaw MD Subjective: * Chief Complaints: * ???At Risk FootcarePainful N ail(s) aggravated by shoes and causing difficulty standing/walking. * HPI: ???At Risk footcare:?Pt States Last PCP Visit:?Date?02/01/2024 * ROS:?General/Constitutional:?Nausea?denies.?Vomiting?denies.?Hunger Thirst?denies.?Loss appetite?denies.?Chills?denies.?Fatigue?denies.?Fever?denies.?Night Sweats?denies.?Unexplained weight loss?denies.?Unexplained [...] than smoking?Are you an other tobacco user??No ???Miscellaneous:?no Caffeine. ?Children: yes, 2. ?Exercise: yes, walking. ?Marital status: . ?Occupation: Retired- [employer] * Medications:?TakingSpironola ctone Vitamin C dilTIAZem HCl ER Stool Softener Vitamin B12 Famotidine 40 MG Tablet as directed Orally LORazepam 0.5 MG Tablet as directed Orally Percocet 5-325 MG Tablet as directed Orally Xeljanz 5 MG Tablet as directed Orally traZODone HCl 50 MG Tablet Oral Methenamine Hippurate 1 GM Tablet Oral Eliquis 5 MG Tablet Oral Vitamin D (Ergocalciferol) 1.25 MG (21179 UT) Capsule TAKE 1 CAPSULE BY MOUTH EVERY WEEK Oral Taking Spironolactone Taking Vitamin C Taking dilTIAZem [...] Oral Taking Vitamin D (Ergocalciferol) 1.25 MG (42619 UT) Capsule TAKE 1 CAPSULE BY MOUTH [...] Objective: * Vitals:?Ht: 5 ft 11 in, Wt: 190, BMI: 26.5, Shoe size: 10, BP: 130/70 mm Hg, Ht- cm: 180.34 cm, Wt-k.18 kg. * Examination: ???Vascular: ?DP PULSES:?1/4, B/L.?PT PULSES:? 0/4, B/L.?CAPILLARY FILL TIME:? delayed, all digits, B/L.?SKIN TEMPERTURE GRADIENT OF THE LOWER EXTERMITIES:? decreased, cool to cool, proximal to distal, B/L.?HAIR GROWTH/TEXTURE/ELASTICITY/TURGOR:? decreased, B/L.?PIGMENTATION:?rubrous, B/L.?EDEMA:?3/4 , pitting , without aching pain , Leg(s) , Ankle(s) , Foot , B/L.?CLAUDICATION:?denies, B/L.?REST PAIN:?denies, B/L.?COMPRESSION STOCKINGS:?Present, worn, exhibit proper support.?Neurological: ?SENSORY:?Pt relates, paresthesia, pins and needles sensation, tingling, shooting/radiating sensation, Forefoot, B/L.?Nails: ?NAILS are:?Elongated, overgrown, dystrophic, lytic, greater than 3mm thick, discolored and friable with crumbly malodorous subungual debris, with pain on palpation , TA , T8 , remaining nails are elongated, overgrown, dystrophic.?Dermatologic: ?SKIN FINDINGS:?Skin exam reveals Keratotic lesion(s) located at , SUB MTH (s), 1, B/L, SUB MTH (s), 3, Left, SUB MTH (s) , 5 , B/L , Heel(s) , B/L.? Assessment: * Assessment: 1.?Tinea unguium - B35.1?2.? Atherosclerosis of [place] artery of both lower extremities, with unspecified presence of clinical manifestation - I70.203 (Primary)?3.?Pain in right toe(s) - M79.674?4.?Pain in left toe(s) - M79.675? Plan: * Treatment: 2.?Tinea unguium?Procedure: 49445-[id number] NAIL, 1-5 * Procedures:?Debride Nails 1-5:?Procedure:?Performance of this nail treatment by a nonprofessional would put this patients foot and overall health at risk. Therefore, nail debridement was performed extensively to reduce/remove overall nail length, girth, thickness, subungual debris, and necrotic tissue, by manual and/or electrical means through the use of a nail nipper and/or dremel-type watch parts grinder, to a more viable healthy nail plate or bed tissue 1-5. Silver nitrate used for any petechial bleeding as necessary. Definitive antifungal treatment options have been reviewed and discussed with the patient. The patient chooses, no pharmaceutical tx - 30794.?Keratoma Treatment:?Parring or Cutting of Benign Hyperkeratotic Lesion(s)?06069 ( More than 4 Lesions ) - The Benign hyperkeratotic lesions, as described above were pared, and/or cut utilizing a sterile 15 blade, tissue nippers, and/or dremel - 34000 , Q9.?Nail Reduction:?Nail Reduction?Trimming of dystrophic nails performed to reduce/remove overall nail length and girth, by manual and electrical means with use of a nail nipper and/or dremel, to more viable healthy nail plate or bed tissue, any number?- G0127, Q9.? * Procedure Codes:?G0127 FRANK ING DYSTROPHIC NAILS ANY #, Modifiers: XS , [id number] DEBRIDE NAIL, 1-5, Modifiers: XS 79213 TRIM SKIN LESIONS, OVER 4, Modifiers: XS , Q9 * Follow Up:?prn * Images: * Sign off status: Completed true * Provider:?Caden Perez DPM Date:?2023 Generated for Dayana leo/Faith/Toan on:?05/30/2024 03:42 PM EST History and Physical Notes * HPI (History of Present Illness) Category Sub-Category Detail Notes Category Not es At Risk footcare Pt States Last PCP Visit: Date: 4 Examination Category Sub-Category Detail Notes Category Not es Neurological SENSORY: Pt relates, pare sthesia, pins and needles sensation, tingling, shooting/radiating sensation, Forefoot, B/L Dermatologic SKIN FINDINGS: Skin exam reveal s Keratotic lesion(s) located at , SUB MTH (s), 1, B/L, SUB MTH (s), 3, Left, SUB MTH (s) , 5 , B/L , Heel(s) , B/L Vascular DP PULSES(B): 1/4, B/L PT PULSES(B): 0/4, B/L CAPILLARY FILL TIME: delayed, all digits , B/L TEMPERTURE GRADIENT(C): decreased, cool to cool, proximal to distal, B/L TROPHIC CONDITION-TEXTURE/ELASTICITY/TURGOR/HAIR GROWTH(B): decreased, B/L EDEMA(C): 3/4 , pitting , with out aching pain , Leg(s) , Ankle(s) , Foot , B/L CLAUDICATION(C): denies, B/L REST PAIN: denies, B/L PIGMENTATION: rubrous, B/L COMPRESSION STOCKINGS: Present, worn, ex hibit proper support Nails NAILS are: Elongated, overg rown, dystrophic, lytic, greater than 3mm thick, discolored and friable with crumbly malodorous subungual debris, with pain on palpation , TA , T8 , remaining nails are elongated, overgrown, dystrophic
--- OUTSIDE RECORDS SUMMARY | 2024-05-30 15:43 | XMS_ITS ---
Author Organization [facility] Address [address] [place] [address] Care Team Providers Care Small Business Consultant Name Role Phone Lisa Shaw MD Primary Care Provider Caden Anderson Unavailable [phone] Allergies Allergen (clinical drug ingredient) Drug/Non Drug Allergy documented on EMR Reaction Allergy Type Onset Date Status sulfamethoxazole / trimethoprim Bactrim hives Drug Allergy Active erythromycin Erythromycin hives Drug Allergy A ctive Penicillin hives Drug Allergy Active REASON FOR VISIT At Risk Footcare, Painful Nail(s) aggrevated by shoes and causing difficulty standing/walking., Foot pain Medications Medication SIG (Take, Route, Frequency, Duration) Notes Start Date End Date Status traZODone HCl 50 MG Oral for 90 Active Methenamine Hippurate 1 GM Oral for 90 Active Eliquis 5 MG Oral for 90 Activ e Percocet 5-325 MG as directed Orally Active Xeljanz 5 MG as directed Orally Active Famotidine 40 MG as directed Orally Active LORazepam 0.5 MG as directed Orally Active dilTIAZem HCl ER Act romulo Stool Softener Activ e Vitamin B12 Active Vitamin C Active hydroCHLOROthiazide 25 MG TAKE 1 TABLET BY MOUTH EVERY DAY Oral for 90 Not-Taking Cyclobenzaprine HCl 10 MG Oral for 10 Not-Taking Nitrofurantoin Monohyd Macro 100 MG Oral for 7 Not-Taking Fluconazole 150 MG Oral for 1 Not-Taking Vitamin D (Ergocalciferol) 1.25 MG (80689 UT) TAKE 1 CAPSULE BY MOUTH EVERY WEEK Oral for 84 Active Social History Tobacco Use: Social History [...] Are you an other tobacco user? No Problems Problem Type SNOMED Code ICD Code Onset Dates Problem Status W/U Status Risk Notes Problem Atherosclerosis of [place] arteries of the extremities ([id number]) Atherosclerosis of [place] artery of both lower extremities, with unspecified presence of clinical manifestation (I70.203) Active confirmed Problem [id number] Rheumatoid arthritis involving both feet, unspecified whether rheumatoid factor present (M06.9) Active confirmed Vital Signs Height 5 ft 11 in in 11/29/2023 Weight 190 lbs 11/29/2023 BMI 26.50 kg/m2 11/29/2023 Blood pressure systolic 120 mm Hg 11/29/19 24 Blood pressure diastolic 80 mm Hg 024 Procedures Procedure Date Ordered Date Performed Result Body Sit e 21768-XITYICR NAIL, 1-5 11/29/2023 N/A 34775-MLJI SKIN LESIONS, 2 TO 4 11/29/2023 N/A [id number] DYSTROPHIC NAILS ANY # 11/29/2023 N/A Encounters Encounter Location Date Provider Diagnosis [facility] [address] [address] 11/29/2023 Caden ePrez Atherosclerosis of [place] artery of both lower extremities, with unspecified presence of clinical manifestation I70.203 ; Tinea unguium B35.1 ; Pain in right toe(s) M79.674 ; Pain in left toe(s) M79.675 ; Pain in left foot M79.672 ; Pain in left ankle and joints of left foot M25.572 ; Bursitis of intermetatarsal bursa of left foot M77.52 ; Metatarsalgia, left foot M77.42 ; Rheumatoid arthritis involving both feet, unspecified whether rheumatoid factor present M06.9 and Lumbar radiculopathy M54.16 Assessments Encounter Date Diagnosis (ICD Code) Assessment Notes Treatment Notes Treatment Clinical Notes Section Notes 11/29/2023 Atherosclerosis of [place] artery of both lower extremities, with unspecified presence of clinical manifestation (ICD-10 - I70.203) 11/29/2023 Tinea unguium (ICD-10 - B35.1) 11/29/2023 Pain in right toe(s) (ICD-10 - M79.674) 11/29/2023 Pain in left toe(s) (ICD-10 - M79.675) 11/29/2023 Pain in left foot (ICD-10 - M79.672) 11/29/2023 Pain in left ankle and joints of left foot (ICD-10 - M25.572) 11/29/2023 Bursitis of intermetatarsal bursa of left foot (ICD-10 - M77.52) 11/29/2023 Metatarsalgia, left foot (ICD-10 - M77.42) 11/29/2023 Rheumatoid arthritis involving both feet, unspecified whether rheumatoid factor present (ICD-10 - M06.9) 11/29/2023 Lumbar radiculopathy (ICD-10 - M54.16) Plan Of Treatment Pending Test Test Name Order Date X ray : Foot, left 3V 11/29/2023 30151-VYBJEBB NAIL, 1-5 11/29/2023 37522-CBQA SKIN LESIONS, 2 TO 4 11/29/19 24 [id number] DYSTROPHIC NAILS ANY # Next Appt Details Follow Up: prn, Reason: Provider Name:Caden Perez , 08/17/2024 12:30:00 PM, [address] [place] [address], [id number], Procedure Notes * Category Sub-Category Detail Notes Keratoma Treatment Parring or Cutting o f Benign Hyperkeratotic Lesion(s) 66812 ( 2-4 Lesions ) - The Benign hyperkeratotic lesions, as described above were pared, and/or cut utilizing a sterile 15 blade, tissue nippers, and/or dremel , Q8 Debride Nails 1-5 Procedure: Nail debrideme nt performed extensively to reduce/remove overall nail length, girth, thickness, subungual debris, and necrotic tissue, by manual and electrical means through the use of a nail nipper and/or dremel, to more viable healthy nail plate or bed tissue 1-5. Silver nitrate used for any petechial bleeding as necessary. Patient chooses, no pharmaceutical tx (60307) Nail Reduction Nail Reduction Trimming of dyst rophic nails performed to reduce/remove overall nail length and girth, by manual and electrical means with use of a nail nipper and/or dremel, to more viable healthy nail plate or bed tissue 6-10 (V6977-I1) Progress Notes * Casandra SOSA ADOB: [birth year] (73 yo F)Acc No.[id number]:11/29/2023 Progress Notes Patient:?Casandra Sosa A Provider:?Caden Perez DPM :1950???Age:73 Y???Sex:Female D ate:11/29/2023 Address:[address] [place], [place] [phone] Pcp:Lisa Shaw MD Subjective: * Chief Complaints: * ???At Risk FootcarePainful N ail(s) aggrevated by shoes and causing difficulty standing/walking.Foot pain * HPI: ???At Risk footcare:?Pt States Last PCP Visit:?Date?06/21/2023 ???Foot Pain:?Location:?Bottom, Forefoot, LEFT.?Duration:?several weeks.?Course:?worse.?Treatments:?rest/alter normal daily activity.? * ROS:?General/Constitutional:?Nausea?denies.?Vomiting?denies.?Hunger Thirst?denies.?Loss appetite?denies.?Chills?denies.?Fatigue?denies.?Fever?denies.?Night Sweats?denies.?Unexplained weight loss?denies.?Unexplained weight gain?denies.?HEENTM:?Dentures?denies.?Dizziness?denies.?Glasses/contacts?admits.?Retinopathy?de nies.?Blurred/double vision?denies.?TMJ?denies.?Discharge/drainage?denies.?Implants?denies.?Sore throat?denies.?Dental implants?denies.?Hard of hearing ?denies.?Difficulty chewing/swallowing/speaking?denies.?Nose bleeds?denies.?Sore mouth?denies.?Respiratory:?On Oxygen?denies.?Pneumonia/pleurisy?denies.?Bronchitis?denies.?Emphysema?denies.?C oughing?denies.?Cough blood?denies.?Shortness of breath?denies.?Wheezing?denies.?Cardiovascular:?Pacemaker?denies.?MVP?denies.?WPW?denies.?CHF?denies.?Heart attack?denies.?Septal defect?denies.?Rapid beat?denies.?Chest pain ?denies.?Atrial Fib.?admits.?Murmur/Palpitations?denies.?Gastrointestinal:?Hemorrhoids?denies.?Stomach/Abdominal pain?denies.?Dark blood stool?denies.?Irritable bowel ?denies.?Constipation?denies.?Diarrhea?denies.?Hematology:?Swelling?admits.?Clots?denies.?Varicose Veins?denies.?Bruising?denies.?Bleeding problem?denies.?Genitourinary:?Blood urine?denies.?Frequent/Painfu/urination/bladder control?denies.?Kidney stones?denies.?Infection (UTI)?denies.?Nephropathy?denies.?sex trans dis (STD)?denies.?Prostate?denies.?Musculoskeletal:?Hammertoes?denies.?Bunions?denies.?Back [...] alcohol in the past year??No ?Points?0 ?Interpretation?Negative ???Miscellaneous:?no Caffeine. ?Children: yes, 2. ?Exercise: yes, walking. ?Marital status: . ?Occupation: Retired- [employer]. * Medications:?TakingVitamin C dilTIAZem HCl ER Stool Softener Vitamin B12 Famotidine 40 MG Tablet as directed Orally LORazepam 0.5 MG Tablet as directed Orally Percocet 5-325 MG Tablet as directed Orally Xeljanz 5 MG Tablet as directed Orally traZODone HCl 50 MG Tablet Oral Methenamine Hippurate 1 GM Tablet Oral Eliquis 5 MG Tablet Oral Vitamin D (Ergocalciferol) 1.25 MG (88133 UT) Capsule TAKE 1 CAPSULE BY MOUTH EVERY WEEK Oral Taking Vitamin C Taking dilTIAZem HCl ER [...] Oral Taking Vitamin D (Ergocalciferol) 1.25 MG (85811 UT) Capsule TAKE 1 CAPSULE BY MOUTH [...] Vitals:?Ht: 5 ft 11 in, Wt:1 90, BMI:26.50, Shoe size: 10, BP:120/80 mm Hg, Ht- cm: 180.34 cm. * Examination: ???Vascular: ?DP PULSES:?1/4, B/L.?PT PULSES:? 0/4, B/L.?CAPILLARY FILL TIME:? delayed, all digits, B/L.?SKIN TEMPERTURE GRADIENT OF THE LOWER EXTERMITIES:? decreased, cool to cool, proximal to distal, B/L.?HAIR GROWTH/TEXTURE/ELASTICITY/TURGOR:? decreased, B/L.?PIGMENTATION:?rubrous, B/L.?EDEMA:?3/4 , pitting , without aching pain , Leg(s) , Ankle(s) , Foot , B/L.?CLAUDICATION:?denies, B/L.?REST PAIN:?denies, B/L.?COMPRESSION STOCKINGS:?Present, worn, exhibit proper support.?Nails: ?NAILS are:?Elongated, overgrown, dystrophic, lytic, greater than 3mm thick, discolored and friable with crumbly malodorous subungual debris, with pain on palpation , TA , T8 , remaining nails are elongated, overgrown, dystrophic.?Dermatologic: ?SKIN FINDINGS:?Skin exam reveals Keratotic lesion(s) located at , SUB MTH (s) , 5 , B/L , Heel(s) , B/L.?Neurological: ?SENSORY:?Pt relates, hyperesthesia, paresthesia, pins and needles sensation, tingling, shooting/radiating sensation, Forefoot, B/L - relates lower back problems, Neurological exam reveals intact sensorium, pain sensation normal, vibration sensation intact, pinprick sensation is normal in the lower extremities.?TINEL'S COMPRESSION:? Negative tarsal tunnel, katey pedis, and medial calcaneal nerves, Left.?Orthopedic: ?MUSCLE STRENGTH:?5/5 all groups in a symmetrical fashion, B/L.?GAIT ABNORMALITY:?antalgic.?MPJ PATHOLOGY:? Pain, swelling, and inflammation to plantar 2nd, MPJ(s), LEFT, No MPJ pain with ROM, [ - ] Ecchymosis.?General Examination: ?GENERAL APPEARANCE:?Reveals a pleasant, alert, well nourished, well- developed, well hydrated individual, who demonstrates proper attention to hygiene/body habitus, and is in no acute distress, Pt serves as own historian for office visit today.?ORIENTED:?person, place, and time.?X-Rays - IMAGING REPORT: ?Clinical Indication(s):? Evaluate for Fracture.?Views:? 3 views of Foot, AP, LAT, LO, LEFT.?Findings:?moderate generalized decrease in bone density, elongated plantarflexed [ 2, 3] metatarsal with hypertrophied MTH.?Fracture:?Negative fractures identified.?Neuroma Pain: ?PALPATION:?No interspace pain noted on palpation, LEFT.? Assessment: * Assessment: 1.?Tinea unguium - B35.1?2.? Atherosclerosis of [place] artery of both lower extremities, with unspecified presence of clinical manifestation - I70.203 (Primary)?3.?Pain in right toe(s) - M79.674?4.?Pain in left toe(s) - M79.675?5.?Pain in left foot - M79.672?6.?Pain in left ankle and joints of left foot - M25.572?7.?Bursitis of intermetatarsal bursa of left foot - M77.52?8.?Metatarsalgia, left foot - M77.42, Dx New problem, Prognosis Uncertain (4),Acute problem, Complicated w/ Multiple Tx Options(4)?9.?Rheumatoid arthritis involving both feet, unspecified whether rheumatoid factor present - M06.9?10.?Lumbar radiculopathy - M54.16? Plan: * Treatment: 2.?Tinea unguium?Procedure: 03127-PSPUKYA NAIL, 1-5 3.?Pain in left foot?Imaging: X ray : Foot, left 3V * Procedures:?Debride Nails 1-5:?Procedure:?Nail debridement performed extensively to reduce/remove overall nail length, girth, thickness, subungual debris, and necrotic tissue, by manual and electrical means through the use of a nail nipper and/or dremel, to more viable healthy nail plate or bed tissue 1-5. Silver nitrate used for any petechial bleeding as necessary. Patient chooses, no pharmaceutical tx (91788).?Keratoma Treatment:?Parring or Cutting of Benign Hyperkeratotic Lesion(s)?90737 ( 2-4 Lesions ) - The Benign hyperkeratotic lesions, as described above were pared, and/or cut utilizing a sterile 15 blade, tissue nippers, and/or dremel , Q8.?Nail Reduction:?Nail Reduction?Trimming of dystrophic nails performed to reduce/remove overall nail length and girth, by manual and electrical means with use of a nail nipper and/or dremel, to more viable healthy nail plate or bed tissue 6-10 (G0127- Q8).? * Procedure Codes:?24777 X-RAY EXAM OF LEFT FOOT 3V, Modifiers: 26 , [id number] TRIMMING DYSTROPHIC NAILS ANY #, Modifiers: XS , [id number] DEBRIDE NAIL, 1-5, Modifiers: XS 56486 TRIM SKIN LESIONS, 2 TO 4, Modifiers: XS , Q8 * Preventive Medicine:? ??Counseling:?Discussion:?-04: Office or other outpatient visit for the evaluation and management of a new patient, which required a medically appropriate history and/or examination and MODERATE level of DECISION MAKING for: 1 OR MORE CHRONIC PROBLEM(S) THATS WORSENING, 2 STABLE CHRONIC PROBLEMS, A NEWLY DIAGNOSED PROBLEM WITH UNCERTAIN PROGNOSIS, AN ACUTE COMPLICATED INJURY WITH MULTIPLE TREATMENT OPTIONS, OR AN ACUTE PROBLEM WITH ACCOMPANYING SYSTEMIC SYMPTOMS, THAT POSE(S) A MODERATE RISK OF MORBIDITY. THIS CONDITION MAY ALSO INCLUDE RX DRUG MANAGEMENT, OR A DECISON FOR MINOR SURGERY. The visit on the day of the [...] have encouraged the patient to call the office.?Arthritis:?The patient was counseled on the various etiologies for their Arthritis including genetic, history of injury or trauma, abnormal foot biomechanics leading to excessive joint wear, and use/overuse. We discussed the various treatment options from no treatment, to topical analgesics such as Biofreeze gel, Aspercream, Voltaren gel, Lidoderm patches, CBD oils, THC creams, and Custom-compounded topical cream preparations to natural oral products such as Glucosamine Sulfate/Chondroitin/MSM/Collegen to analgesic Tylenol, to anti-inflammatory medications such as Ibuprofen/Naproxen, and the use of oral steroids if needed. Cardiac, Kidney, and GI issues were discussed RE: potential complications of oral anti-inflammatories. We discussed several other treatment options consisting of accom shoes, supportive innersoles, AFO bracing/support, cortisone injection therapy, and surgical resection of the arthritic joint(s) or fusion reconstruction if necessary. We discussed the advantages and disadvantages of conservative (vs) surgical treamtents including pain relief, improved function/activities of daily life, return to exercise to failure, expense, systemic complications, infection, [id number], prolongued postop course. Patient questions re: the various treatment options available, their successes and potential failures, and custodial effects were discussed and the answers were verbally confirmed understood.?Metatarsalgea:?I explained to the patient the possible etiologies of their Metatarsalgea Foot pain, including foot type/shoegear/activity level/exercise routine and the risks/benefits of all the different treatment options for pain including: No treatment at all, Rest, Ice, NSAIDs(only if well tolerated after meals), New/supportive Shoegear, Strappings and Tapings, Foot/Ankle AFO Bracing, Stretching exercises, Deep Tissue Massage, Arch support/shoe inserts, Custom orthoses, Topical analgesics including Aspercream/Voltaren gel, Physical Therapy, Cortisone injection therapy, EPAT/ESWT. Advantages and disadvantages of each option were discussed and the patients questions re: shoegear, custom vs prefabricated inserts, activity level, PO vs Topical medications (and their respective potential complications/drug interactions/side effects), and consistency in home treatment regimens for optimal success were answered to their verbally confirmed satisfaction.?Neuritis/Neuropathy:?The patient was counseled on the diagnosis, possible etiologies (including mechanical stress, injury, entrapment, chemotherapy, diabetes, vertebral disk herniation if hx), treatment options, and importance for adherence to recommendations in order to address the patients Neuritis/Neuropathy. The advantages and disadvantages re: Accomidative mechanical support/offloading, Topical vs PO analgesics including aspercream/Voltaren gel/Lidoderm patches/Neurontin/Lyrica along with their potential side effects were discussed with the patient to their satisfaction. Also discussed the use of therapeutic injectable cortisone if needed. Surgical treatment, if considered an option, was discussed as well. If surgery is warranted, we discussed the potential successful outcomes as well as the possible complications such as failure, painful scar, permanent tingling/numbness/neuralgea/or intractable pain. Patient questions re: medication use, dosage, and possible side effects and drug interactions were reviewed and the answers to each understood. If the condition worsens, the patient was instructed to contact the office for an appointment. The patient verbally confirmed a full understanding of the above.?Orthotics:?I explained to the patient the benefits of OT use. I explained that orthoses are medically necessary to decrease the foot pain through proper mechanical control, support of their foot, decrease pain under the painful metatarsal by supplementing the soft tissue, cushion the forefoot by supplementing the soft tissue.?P.R.I.C.E.:?The patient was counseled on the use of P.R.I.C.E. and NSAIDS (if well tolerated) to aid in the recovery from their painful condition.?Podiatric Surgery Counseling:?We elected to try conservative treatment at the present time, due to the patients age, medical history, and circulatory constraints.?Shoe Gear Counseling:?The patient and I reviewed the types of shoes they should be wearing. My recommendation included obtaining a well-fitted shoe with a good supportive, non-foldable nor twistable sole, plenty of toe/room for the forefoot, and proper arch support. Based on todays examination, I recommended the patient look for new shoes, by having their feet professionally measured. We discussed that generally the best time of the day for a shoe fitting is the afternoon. Different shoes types and brands to best match the patients occupation and vocation were discussed. Specific brand selection will be up to the patient, their individual foot condition/deformities, and fit. The patient and I reviewed the standard new shoe break in period by wearing them for a few hours a day while checking for redness or sores as wear time is increased. The patient verbally confirmed to understanding the information discussed.?Steriod Injection:?I explained that a steroid and local anesthetic injections are administered to relieve pain and inflammation and thereby meant to improve function. I explained the possible complications including but not limited to signs/symptoms of steroid flare, infection, bruising, atrophy, discoloration of skin, change/deviation in toe position, and that additional injections may be necessary, cortisone post-injection informative educational handout was dispensed to and reviewed with the patient, In order to prevent any compromise of an effective immune response, it was recommended the patient refrain from any vaccine therapy for the month before or after injection. Patient verbally confirmed understanding the previously mentioned protocol.? * Follow Up:?prn * Images: * Sign off status: Completed true * Provider:?Caden Perez DPM Date:?2023 Generated for Dayana leo/Faith/Coriitting on:?05/30/2024 03:42 PM EST History and Physical Notes * HPI (History of Present Illness) Category Sub-Category Detail Notes Category Not es At Risk footcare Pt States Last PCP Visit: Date: 4 Foot Pain Location: Bottom, Forefoot, LEFT Duration: several weeks Course: worse Treatments: rest/alter normal da roselia activity Examination Category Sub-Category Detail Notes Category Not es Neuroma Pain PALPATION: No interspace pain noted on palpation, LEFT Neurological SENSORY: Pt relates, hype resthesia, paresthesia, pins and needles sensation, tingling, shooting/radiating sensation, Forefoot, B/L - relates lower back problems, Neurological exam reveals intact sensorium, pain sensation normal, vibration sensation intact, pinprick sensation is normal in the lower extremities TINEL'S COMPRESSION: Negative tarsal navya sivan, katey pedis, and medial calcaneal nerves, Left Dermatologic SKIN FINDINGS: Skin exam reveal s Keratotic lesion(s) located at , SUB MTH (s) , 5 , B/L , Heel(s) , B/L Orthopedic GAIT ABNORMALITY: antalgic MPJ PATHOLOGY: Pain, swelling, and inflammation to plantar 2nd, MPJ(s), LEFT, No MPJ pain with ROM, [ - ] Ecchymosis MUSCLE STRENGTH: 5/5 all groups in a symmetrical fashion, B/L General Examination GENERAL APPEARANCE: Reveals a pleasant, alert, well nourished, well-developed, well hydrated individual, who demonstrates proper attention to hygiene/body habitus, and is in no acute distress, Pt serves as own historian for office visit today ORIENTED: person, place, and t jair Vascular DP PULSES(B): 1/4, B/L PT PULSES(B): [...] , remaining nails are elongated, overgrown, dystrophic X-Rays - IMAGING REPORT Findings: moderate generalized decrease in bone density, elongated plantarflexed [ 2, 3] metatarsal with hypertrophied MTH Fracture: Negative fractures i dentified Views: 3 views of Foot, AP, LAT, LO, LEFT Clinical Indication(s): Evaluate for Fra cture
--- OUTSIDE RECORDS SUMMARY | 2024-05-30 15:43 | XMS_ITS | Continuity of Care Document ---
Author Organization [facility] Address [address] MD [place] [address] Phone Care Team Providers Care Senior Python Developer Name Role Phone Jadiel TURNER, RVT, Te [place] Unavailable U navailable Allergies, Adverse Reactions, Alerts Substance Reaction Status Criticality PANTOPRAZOLE SODIUM Active No Infor mation adalimumab Active No Information Sulfa (Sulfonamide Antibiotics) Active No Information PENICILLIN Active No Information Procedures Procedure Date Office/Outpt E&M Established 25 Mins- CT & [place] Duplex Scan-extrem Veins; Comp- CT & [place] Duplex Scan-extrem Veins; Uni/ CT & [place] J Varithena, Single Truncal Vein - CT & [place] Duplex Scan-extrem Veins; Uni/ CT & [place] J Varithena, Single Truncal Vein - CT & [place] Offic/outpt E&m Estab 5 Min Trial- Telem edicine CT & [place] Office/Oupt E&M New Pt 45 Mins- CT & [place] Surgical Stockings Juxlite HD Knee Duplex Scan-extrem Veins; Uni/ CT & [place] A Advance Directives Directive Yes / No Effective Date File Name Other Directive No 01/19/2024 N/A WARNING:The information contained in this section is historical and is provided for information only and does not constitute a legal document or any assurance that the information is still accurate. Please verify the information with the quick of the legal document before using it for clinical purposes. Encounters Encounter Description Practice Location Reason(s) For Visit Diagnoses Date Provider Providers Copied on Encounter Office/Outpt E&M Established 25 Mins- CT & [place] [facility] MD DONNELLY, [address] [place] [address] Dr Abad 1000SuStephanie sánchez MD, [id number], [place] tel:[phone] [facility] - [place] Chronic venous hypertension (idiopathic) without complications of bilateral lower extremityEsse ntial (primary) hypertensionL ymphedema, not elsewhere classifiedPru ritus, unspecifiedHe reditary lymphedema 4 Jadiel TURNER RVT, RPVI Robert. [address] [place] [address], [id number], [place]. tel:[phone] Referring Provider: Lisa Shaw, [address] [place] [address], [id number]. tel:[phone] [facility] MD DONNELLY, [address] [place] [address] Dr Abad 1000SuStephanie sánchez MD, [id number], [place] tel:[phone] [facility] Varicose veins of bilateral lower extremities with pain 4 Jadiel TURNER RVT, RPVI Robert. [address] [place] [address], [id number], [place]. tel:[phone] Referring Provider: Lisa Shaw, [address] [place] [address], [address]. tel:[phone] [facility] MD DONNELLY, [address] [place] [address] Dr Abad 1000SuStephanie sánchez MD, [id number], [place] tel:[phone] [facility] Chronic venous hypertension (idiopathic) with other complications of right lower extremity 4 Jadiel TURNER RVT, RPVI Robert. [address] [place] [address], [id number], [place]. tel:[phone] Referring Provider: Lisa Shaw, [address] [place] [address], [address]. tel:[phone] [facility] MD DONNELLY, [address] [place] [address] Dr Abad 1000SuStephanie sánchez MD, [id number], [place] tel:[phone] [facility] Chronic venous hypertension (idiopathic) with inflammation of right lower extremity 4 Jadiel TURNER RVT, RICHELLE Tiwari. [address] [place] [address], [place], [place], [id number], [place]. tel:[phone] Referring Provider: Lisa Shaw, [address] [place] [address], [id number]. tel:[phone] [facility], [address] [place] [address] Dr Abad 1000Suite 1000Stephanie MD, [id number], [place] tel:[phone] [facility] Encounter for follow-up examination after completed treatment for conditions other than malignant ne 4 Jadiel TURNER RVT, RICHELLE Tiwari. [address] [place] [address], [place], [place], [id number], [place]. tel:[phone] Referring Provider: Lisa Shaw, [address] [place] [address], [id number]. tel:[phone] [facility], [address] [place] [address] Dr Abad [facility] 1000Stephanie [place], [id number], [place] tel:[phone] [facility] Chronic venous hypertension (idiopathic) with inflammation of left lower extremity 4 Jadiel TURNER RVT, RICHELLE Tiwari. [address] [place] [address], [place], [place], [id number], [place]. tel:[phone] Referring Provider: Lisa Shaw [address] [place] [address], [id number]. tel:[phone] Offic/outpt E&m Estab 5 Min Trial- Telemedicine CT & [place] [facility], [address] [place] [address] Dr Abad 1000[address] 1000Stephanie [place], [id number], [place] tel:[phone] [facility] Localized edemaCramp and spasmRestless legs syndromeVenou s insufficiency (chronic) (peripheral)E ssential (primary) hypertensionL ymphedema, not elsewhere classifiedPru ritus, unspecifiedHe reditary lymphedema 4 Андрей Barber. [address] [address], Polina trevizo [place], [id number], [place]. tel:[phone] Referring Provider: Lisa Shaw [address] [place] [address], [address]. tel:[phone] [facility], [address] [place] [address] Dr Abad [address], MD [place], [id number], [place] tel:[phone] [facility] [place] No Information 4 Jadiel TURNER RVT, RPVI Robert. [address] [place] [address], Polina trevizo [place], [id number], [place]. tel:[phone] Office/Oupt E&M New Pt 45 Mins- CT & [place] [facility] MD DONNELLY, [address] [place] [address] Dr Abad 1000[facility] [place] Avery [place], [id number], [place] tel:[phone] [facility] - [facility] Chronic venous hypertension (idiopathic) with other complications of bilateral lower extremityLymp hedema, not elsewhere classified 4 Jadiel TURNER RVT, RPVI Robert. [facility] [address], Polina trevizo [place], [id number], [place]. tel:[phone] Referring Provider: Lisa Shaw, [address] [place] [address], [address]. tel:[phone] [facility], [address] [place] [address] Dr Abad [address] [address], MD [place], [id number], [place] tel:[phone] [facility] - [facility] Chronic venous hypertension (idiopathic) with other complications of left lower extremity 4 Jadiel TURNER RVT, RPVI Robert. [address] [place] [address], Polina trevizo [place], [id number], [place]. tel:[phone] Referring Provider: Lisa Shaw [address] [place] [address], [address]. tel:[phone] Family History Family Member Type Diagnosis Age At Onset No Information Payers Payer name Insurance type Covered libertarian ID Authoriza tion(s) Medicare [place] HANSEN [id number] [facility] [place] [id number] Social History Type Description Quantity Date Captured Comments Alcohol Use Details Unknown Caffeine Use Details Unknown Tobacco Use Status Current non-smoker Smoking Status Never Smoker Non-Smoking Tobacco Use Details : No Details Available : No Details Available Sex Female Vital Signs Date / Time: Height Weight BMI Pulse Rate Blood Pressure Temperature Respiratory Rate Body Surface Area Head Circumference Head Circ. Percentile Wt./Jonathon. Percentile BMI percentile Pulse Ox Inhaled Ox 86.180 kg (190.00 lbs) 26.6 3 kg/m eter (2) 134/82 mm[Hg] Chief Complaint And Reason For Visit No Information Reason For Referral Reason For Referral No Information Plan Of Treatment Date Type Action Status Goal Diet education completed Goal Diet education completed Referral Ordered: Weight management: Referral to physician timeframe: 3 Months (related to Body mass index (BMI) 26.0-26.9, adult) ordered Referral Ordered: Weight management: Referral to physician timeframe: 3 Months (related to Body mass index (BMI) 26.0-26.9, adult) ordered History Of Present Illness Encounter Date Complaint History Of Prese nt Illness No Information Functional Status Date Functional Assessmen t No Information Instructions Date Instruction Additional Infor mation Patient education booklet given Related to Chronic venous hypertension (idiopathic) without complications of bilateral lower extremity Diet education Related to Body mass index (BMI) 26.0-26.9, adult Compression stocking usage as conservative measure Related to Chronic venous hypertension (idiopathic) without complications of bilateral lower extremity Lifestyle education Related to B naima mass index (BMI) 26.0-26.9, adult Giving Encouragement to exercise Related to Body mass index (BMI) 26.0-26.9, adult Patient education booklet given Related to Localized edema Compression stocking usage as conservative measure Related to Localized edema Lifestyle education Related to B naima mass index (BMI) 26.0-26.9, adult Giving Encouragement to exercise Related to Body mass index (BMI) 26.0-26.9, adult Diet education Related to Body mass index (BMI) 26.0-26.9, adult Pre and post instruc tions reviewed and provided Related to Chronic venous hypertension (idiopathic) with other complications of bilateral lower extremity Patient education booklet given Related to Chronic venous hypertension (idiopathic) with other complications of bilateral lower extremity Assessments Type Assessment Date No Information Patient Care Teams Name Effective Dates (start - stop) Status Members No Information
--- OUTSIDE RECORDS SUMMARY | 2024-05-30 15:43 | XMS_ITS | Patient Health Record ---
Author Organization [facility] Address [address] [place] [address] Care Team Providers Care Geothermal Technician Name Role Phone Lisa Shaw MD Primary Care Provider Caden Anderson Unavailable [phone] Allergies Allergen (clinical drug ingredient) Drug/Non Drug Allergy documented on EMR Reaction Allergy Type Onset Date Status sulfamethoxazole / trimethoprim Bactrim hives Drug Allergy Active erythromycin Erythromycin hives Drug Allergy A ctive Penicillin hives Drug Allergy Active Reason For Referral No Information Medications Medication SIG (Take, Route, Frequency, Duration) Notes Start Date End Date Status Spironolactone Activ e Eliquis 5 MG Oral for 90 Activ e Trimethoprim Active Methenamine Hippurate 1 GM Oral for 90 Active traZODone HCl 50 MG Oral for 90 Active Xeljanz 5 MG as directed Orally Active Percocet 5-325 MG as directed Orally Active LORazepam 0.5 MG as directed Orally Active Famotidine 40 MG as directed Orally Active hydroCHLOROthiazide 25 MG TAKE 1 TABLET BY MOUTH EVERY DAY Oral for 90 Not-Taking Cyclobenzaprine HCl 10 MG Oral for 10 Not-Taking Vitamin B12 Active Stool Softener Activ e Fluconazole 150 MG Oral for 1 Not-Taking dilTIAZem HCl ER Act romulo Nitrofurantoin Monohyd Macro 100 MG Oral for 7 Not-Taking Vitamin C Active Vitamin D (Ergocalciferol) 1.25 MG (90237 UT) TAKE 1 CAPSULE BY MOUTH EVERY WEEK Oral for 84 Active Ammonium Lactate 12 % 1 application Externally to affected areas of dry skin to feet except for between the toes Twice a day for 30 days Active Social History Tobacco Use: Social History [...] W/U Status Risk Notes Problem Atherosclerosis of [place] arteries of the extremities (851882500694831) Atherosclerosis of [place] artery of both lower extremities, with unspecified presence of clinical manifestation (I70.203) Active confirmed Problem [id number] Rheumatoid arthritis involving both feet, unspecified whether rheumatoid factor present (M06.9) Active confirmed Vital Signs Blood pressure diastolic 70 mm Hg 05/15/2024 Height 5 ft 11 in in 05/15/2024 Blood pressure systolic 130 mm Hg 05/15/2024 Weight 190 lbs 05/15/2024 BMI 26.5 kg/m2 05/15/2024 Procedures Procedure Date Ordered Date Performed Result Body Sit e 65921-PWVPPRV NAIL, 1-5 11/29/2023 N/A 77412-VFZG SKIN LESIONS, 2 TO 4 11/29/2023 N/A U4867-KENPJWLK DYSTROPHIC NAILS ANY # 11/29/2023 N/A 49356-EKPXOPS NAIL, 1-5 02/21/2024 N/A 35961-IKIZ SKIN LESIONS, OVER 4 02/21/2024 N/A Q0190-JDZPNNZI DYSTROPHIC NAILS ANY # 02/21/2024 N/A 91483-UWWBRGS NAIL, 1-5 05/15/2024 N/A 65419-NZEP SKIN LESIONS, OVER 4 05/15/2024 N/A Q1683-AWLZCUSH DYSTROPHIC NAILS ANY # 05/15/2024 N/A Encounters Encounter Location Date Provider Diagnosis [facility] [place] [address] [place] [address] 11/29/2023 Caden Perez Atherosclerosis of [place] artery of both lower extremities, with unspecified [...] factor present M06.9 and Lumbar radiculopathy M54.[address] [address] 02/21/2024 Caden Perez Atherosclerosis of [place] artery of both lower extremities, with unspecified presence of clinical manifestation I70.203 ; Tinea unguium B35.1 ; Pain in right toe(s) M79.674 and Pain in left toe(s) M79.[address] [address] 05/15/2024 Caden Perez Atherosclerosis of [place] artery of both lower extremities, with unspecified presence of clinical manifestation I70.203 ; Tinea unguium B35.1 ; Pain in right toe(s) M79.674 ; Pain in left toe(s) M79.675 and Xerosis of skin L85.[address] [address] 10/05/2023 Caden Perez Assessments Encounter Date Diagnosis (ICD Code) Assessment Notes Treatment Notes Treatment Clinical Notes Section Notes 11/29/2023 Tinea unguium (ICD-10 - B35.1) 11/29/2023 Atherosclerosis of [place] artery of both lower extremities, with unspecified presence of clinical manifestation (ICD-10 - I70.203) 02/21/2024 Tinea unguium (ICD-10 - B35.1) 02/21/2024 Atherosclerosis of [place] artery of both lower extremities, with unspecified presence of clinical manifestation (ICD-10 - I70.203) 05/15/2024 Tinea unguium (ICD-10 - B35.1) 05/15/2024 Atherosclerosis of [place] artery of both lower extremities, with unspecified presence of clinical manifestation (ICD-10 - I70.203) 02/21/2024 Pain in right toe(s) (ICD-10 - M79.674) 05/15/2024 Pain in right toe(s) (ICD-10 - M79.674) 11/29/2023 Pain in right toe(s) (ICD-10 - M79.674) 02/21/2024 Pain in left toe(s) (ICD-10 - M79.675) 05/15/2024 Pain in left toe(s) (ICD-10 - M79.675) 11/29/2023 Pain in left toe(s) (ICD-10 - M79.675) 11/29/2023 Pain in left foot (ICD-10 - M79.672) 05/15/2024 Xerosis of skin (ICD-10 - L85.3) 11/29/2023 Pain in left ankle and joints [...] X ray : Foot, left 3V 11/29/2023 31098-NJLIOHH NAIL, 1-5 11/29/2023 62194-LKZGTJR NAIL, 1-5 02/21/2024 99024-FJGNULV NAIL, 1-5 05/15/2024 01600-LEWH SKIN LESIONS, OVER 4 05/15/20 24 07430-CWDB SKIN LESIONS, OVER 4 02/21/20 24 05754-PIYE SKIN LESIONS, 2 TO 4 11/29/19 24 O5381-CRTPZFEI DYSTROPHIC NAILS ANY # M4640-LEMFXNBS DYSTROPHIC NAILS ANY # D6361-QGIXBLFY DYSTROPHIC NAILS ANY # Next Appt Details Provider Name:Caden Perez , 08/17/2024 12:30:00 PM, [address] [place] [address], [place], [address], Insurance Providers Payer Name Payer Address Payer Phone Subscriber Number Group Number Insured Name Patient Relationship to Insured Coverage Start Date Coverage End Date Medicare National Govt Svcs Inc [address] [place] [address] [id number] Casandra Sosa Self - patient is the insured [employer] Blue Shield [address] [place] [address] [phone] [id number] Casandra Sosa Self - patient is the insured Medical (General) History Medical History History ICD Code Anxiety Rheumatoid arthritis Back,Hip,and Knee pain covid-19 Diverticulosis Fibromyalgia Hiatal hernia High blood pressure Numbness Measles Mumps Chicken pox Joint implants/screws Concussion Surgical History Surgery Date(Month/Year) hip surgery 01/29/2022 Gall bladder removal 11/2014 B/L Vein Surgery- Injection to close vei ns 11/23/23,11/28/23
== END 2024-05-28 13:47 | disposition home or self-care (01) ==
PROVIDERS: PCP Internal Medicine; Visit Provider Student in an Organized Health Care Education/Training Program
DX: M05.79 Rheumatoid arthritis with rheumatoid factor of multiple sites without organ or systems involvement (principal); M81.0 Age-related osteoporosis without current pathological fracture; Z79.899 Other long term (current) drug therapy
CPT/HCPCS: 99214; G2211

== ENCOUNTER → 2024-05-28 13:18 | Outpatient (BNVA) | payer MEDICARE, SELFPAY | PROVIDERS: PCP Internal Medicine; Visit Provider Student in an Organized Health Care Education/Training Program | DX: M05.9 Rheumatoid arthritis with rheumatoid factor, unspecified (principal); M81.0 Age-related osteoporosis without current pathological fracture; Z79.899 Other long term (current) drug therapy | CPT/HCPCS: 99212 ==

== ENCOUNTER 2024-10-09 13:16 | Outpatient (REF) | payer MEDICARE, SELFPAY ==
[2024-10-09 13:36] LABS: MANUAL DIFF FLAG NO
[2024-10-09 14:10] LABS: Basophils Percent Auto 0.3 % (0-2); Eosinophils Absolute Auto 0.2 X10*3/uL (0.0-0.4); Eosinophils Percent Auto 2.8 % (0-4); Hematocrit 36.6 % (37.0-47.0); Hemoglobin 11.6 g/dl (12.0-16.0); Imm Gran Abs Auto 0.02 X10*3/uL (0.00-0.03); Imm Gran Pct Auto 0.3 % (0.0-0.4); Lymphocytes Absolute Auto 1.7 X10*3/uL (1.2-4.9); Lymphocytes Percent Auto 29.8 % (20-40); Mean Corpuscular HGB Conc 31.7 g/dl (31.0-35.0); Mean Corpuscular Hemoglobin 31.3 pg (27.0-33.0); Mean Corpuscular Volume 98.7 fL (80.0-98.0); Monocytes Absolute Auto 0.5 X10*3/uL (0.1-1.2); Monocytes Percent Auto 8.3 % (2-11); Neutrophils Absolute Auto 3.4 x10*3/uL (2.0-8.3); Neutrophils Percent Auto 58.5 % (45-73); Platelet Count 229 X10*3/uL (160-400); Red Blood Count 3.71 X10*6/uL (4.20-5.50); Red Cell Distribution Width 13.6 % (11.0-16.0); White Blood Count 5.8 X10*3/uL (4.8-10.8)
[2024-10-09 14:48] LABS: Alanine Aminotransferase 10 U/L (0-31); Albumin Level 3.6 g/dL (3.5-5.0); Alkaline Phosphatase 54 U/L (39-117); Anion Gap 9 (12-20); Aspartate Amino Transferase 21 U/L (5-31); Bilirubin Total 0.3 mg/dL (0.0-1.0); Blood Urea Nitrogen 16 mg/dL (9-16); C Reactive Protein 0.21 mg/dL (< or = 0.50); Calcium 9.3 mg/dL (8.4-10.2); Carbon Dioxide 29 mmol/L (22-29); Chloride 108 mmol/L (96-108); Estimated Glomerular Filt Rate > 60; Glucose Random 80 mg/dL (60-115); Potassium 3.8 mmol/L (3.3-5.1); Sodium 142 mmol/L (135-145); Total Protein 6.5 g/dL (6.5-8.0)
[2024-10-09 14:53] LABS: Erythrocyte Sedimentation Rate 30 MM/HR (0-20)
--- OUTSIDE RECORDS SUMMARY | 2024-10-09 15:44 | XMS_ITS | Continuity of Care Document ---
Author Organization [facility] Address [address] MD [place] [address] Phone Care Team Providers Care Carding Supervisor Name Role Phone Jadiel TURNER, RVT, Te [...] Mins- CT & [place] [facility] MD DONNELLY, [address] [place] [address] Dr Abad 1000SuStephanie sánchez MD, [id number], [place] tel:[phone] [facility] - [place] [facility] [place] Chronic venous hypertension (idiopathic) without complications of bilateral lower extremityEsse ntial (primary) hypertensionL ymphedema, not elsewhere classifiedPru ritus, unspecifiedHe reditary lymphedema 4 Jadiel TURNER RVT, RPVI Robert. [address] [place] [address], [id number], [place]. tel:[phone] Referring Provider: Lisa Shaw, [address] [place] [address], [address]. tel:[phone] [facility] MD DONNELLY, [address] [place] [address] Dr Abad 1000SuStephanie sánchez MD, [id number], [place] tel:[phone] [facility] Varicose veins of bilateral lower extremities with pain 4 Jadiel TURNER RVT, RPVI Robert. [address] [place] [address], [id number], [place]. tel:[phone] Referring Provider: Lisa Shaw, [address] [place] [address], [address]. tel:[phone] [facility] MD DONNELLY, [address] [place] [address] Dr Abad 1000SuStephanie sánchez MD, [id number], [place] tel:[phone] [facility] hypertension (idiopathic) with other complications of right lower extremity 4 Jadiel TURNER RVT, RPVI Robert. [address] [place] [address], [id number], [place]. tel:[phone] Referring Provider: Lisa Shaw, [address] [place] [address], [address]. tel:[phone] [facility] MD DONNELLY, [address] [place] [address] Dr Abad 1000SuStephanie sánchez MD, [id number], [place] tel:[phone] [facility] Chronic venous hypertension (idiopathic) with inflammation of right lower extremity 4 Jadiel TURNER RVT, RICHELLE Tiwari. [address] [place] [address], [place], [place], [id number], [place]. tel:[phone] Referring Provider: Lisa Shaw, [address] [place] [address], [address]. tel:[phone] [facility], [address] [place] [address] Dr Abad 1000Suite 1000Stephanie [place], [id number], [place] tel:[phone] [facility] Encounter for follow-up examination after completed treatment for conditions other than malignant ne 4 Jadiel TURNER RVT, RICHELLE Tiwari. [address] [place] [address], [place], [place], [id number], [place]. tel:[phone] Referring Provider: Lisa Shaw, [address] [place] [address], [address]. tel:[phone] [facility], [address] [place] [address] Dr Abad 1000[facility] 1000Stephanie [place], [id number], [place] tel:[phone] [facility] Chronic venous hypertension (idiopathic) with inflammation of left lower extremity 4 Jadiel TURNER RVT, RICHELLE Tiwari. [address] [place] [address], [place], [place], [id number], [place]. tel:[phone] Referring Provider: Lisa Shaw [address] [place] [address], [address]. tel:[phone] Offic/outpt E&m Estab 5 Min Trial- Telemedicine CT & [place] [facility], [address] [place] [address] Dr Abad 1000Suite 1000Stephanie MD, [id number], [place] tel:[phone] [facility] Localized edemaCramp and spasmRestless legs syndromeVenou s insufficiency (chronic) (peripheral)E ssential (primary) hypertensionL ymphedema, not elsewhere classifiedPru ritus, unspecifiedHe reditary lymphedema 4 Андрей Barber. [address] [address], Polina trevizo [place], [id number], [place]. tel:[phone] Referring Provider: Lisa Shaw [address] [place] [address], [address]. tel:[phone] [facility], [address] [place] [address] Dr Abad 1000Suite 1000, MD Stephanie, [id number], [place] tel:[phone] [facility] [place] [facility] [place] No Information 4 Jadiel TURNER RVT, RPVI Robert. [address] [place] [address], Polina trevizo [place], [id number], [place]. tel:[phone] Office/Oupt E&M New Pt 45 Mins- CT & [place] [facility] MD DONNELLY, [address] [place] [address] Dr Abad 1000[facility] Stephanie Avery MD, [id number], [place] tel:[phone] CVR - [facility] Chronic venous hypertension (idiopathic) with other complications of bilateral lower extremityLymp hedema, not elsewhere classified 4 Jadiel TURNER RVT, RPVI Robert. [facility] [address], Polina trevizo [place], [id number], [place]. tel:[phone] Referring Provider: Lisa Shaw, [address] [place] [address], [address]. tel:[phone] [facility], [address] [place] [address] Dr Abad [address] [address], MD Stephanie, [id number], [place] tel:[phone] CVR - [facility] Chronic venous hypertension (idiopathic) with other complications of left lower extremity 4 Jadiel TURNER RVT, RPVI Robert. [address] [place] [address], Polina trevizo [place], [id number], [place]. tel:[phone] Referring Provider: Lisa Shaw [address] [place] [address], [address]. tel:[phone] Family History Family Member Type Diagnosis Age At Onset No Information Payers Payer name Insurance type Covered democrat ID Authoriza tion(s) Medicare [place] HANSEN [id number] [facility] [place] [id number] Social History Type Description Quantity Date Captured [...] Information Instructions Date Instruction Additional Infor mation Giving Encouragement to exercise Related to Body mass index (BMI) 26.0-26.9, adult Lifestyle education Related to B naima mass index (BMI) 26.0-26.9, adult Compression stocking usage as conservative measure Related to Chronic venous hypertension (idiopathic) without complications of bilateral lower extremity Diet education Related to Body mass index (BMI) 26.0-26.9, adult Patient education booklet given Related to Chronic venous hypertension (idiopathic) without complications of bilateral lower extremity Compression stocking usage as conservative measure Related to Localized edema Patient education booklet given Related to Localized edema Patient education booklet given Related to Chronic venous hypertension (idiopathic) with other complications of bilateral lower extremity Pre and post instruc tions reviewed and provided Related to Chronic venous hypertension (idiopathic) with other complications of bilateral lower extremity Diet education Related to Body mass index (BMI) 26.0-26.9, adult Giving Encouragement to exercise Related to Body mass index (BMI) 26.0-26.9, adult Lifestyle education Related to B naima mass index (BMI) 26.0-26.9, adult Assessments Type Assessment Date No Information Patient Care Teams Name Effective Dates (start - stop) Status Members No Information
--- OUTSIDE RECORDS SUMMARY | 2024-10-09 15:44 | XMS_ITS | Encounter Summary ---
Author Organization [facility] Address [address] [place] [address] Care Team Providers Care Tobacco Drier Operator Name Role Phone Physician, Pcp Unknown Primary Care Provider Bernice vailable Encounter Details Date Type Department Care Team (Late st Contact Info) Description 06/15/2024 Lab Requisition [facility] - Main Lab [address] [facility] [place] [address] Karlos Perez MD [address] [facility] [address] [place] [address] Bacteremia Social History Tobacco Use Types Packs/Day Years Used Date Smoking Tobacco: Never Smokeless Tobacco: Never Alcohol Use Standard Drinks/Week Comments No 0 (1 standard drink = 0.6 oz pur e alcohol) Comments Unknown Sex and Gender Information Value Date Recorded Sex Assigned at Not on file Legal Sex Female 1:21 AM EST Gender Identity Not on file Sexual Orientation Not on file documented as of this encounter Plan of Treatment Not on file documented as of this encounter Procedures Procedure Name Priority Date/Time Associated Diagnosis Comments BACTERIAL IDENTIFICATION AND SUSCEPTIBILITY, AEROBIC Routine 06/14/2024 11:36 AM EST Bacteremia documented in this encounter Results * (ABNORMAL) Bacterial identification and susceptibility, aerobic (06/14/2024 11:36 AM EST) Culture, Bacterial ID and Sensitivity Escherichia coli(A) MILAD 06/16/2024 8:01 AM EST [facility] Comment: THIS ORGANISM IS POSITIVE FOR EXTENDED SPECTRUM BETA-LACTAMASE (ESBL). ??EXTENDED SPECTRUM BETA-LACTAMASE ??PRODUCING ORGANISMS DEMONSTRATE DECREASED ACTIVITY WITH PENICILLILNS, CEPHALOSPORINS AND AZTREONAM. This is an edited result. Previous organism was Gram negative bacilli on 06/15/2024 at 1410 EST. Other Urine specimen from urethra / Unknown Non-blood Collection / Unknown 06/14/2024 11:36 AM EST 06/15/2024 2:01 PM EST Narrative Organism Antibiotic Method Susceptibility Escherichia coli Amoxicillin/Clavulanate MILAD >=32 ug/ml: Resistant Escherichia coli Ampicillin/Sulbactam MILAD >=32 ug/ml: Resistant Escherichia coli Piperacillin/Tazobactam MILAD 8 ug/ml: Susceptible Escherichia coli Cefazolin (Urine) MILAD >=32 ug/ml: Resistant Escherichia coli Cefoxitin MILAD <=4 ug/ml: Susceptible Escherichia coli Ceftazidime MILAD >=32 ug/ml: Resistant Escherichia coli Ceftriaxone MILAD >=64 ug/ml: Resistant Escherichia coli Cefepime MILAD 4 ug/ml: Intermediate Escherichia coli Meropenem MILAD <=0.25 ug/ml: Susceptible Escherichia coli Gentamicin MILAD <=1 ug/ml: Susceptible Escherichia coli Ciprofloxacin MILAD >=4 ug/ml: Resistant Escherichia coli Levofloxacin MILAD >=8 ug/ml: Resistant Escherichia coli Nitrofurantoin MILAD <=16 ug/ml: Susceptible Escherichia coli Trimethoprim/Sulfamethoxazole MILAD >=320 ug/ml: Resistant Karlos Perez MD LAB MICROBIOLOGY - GENERAL MORIS QUIÑONES Edited Result - Final [facility] [address] [place] [address], documented in this encounter Visit Diagnoses Diagnosis Bacteremia documented in this encounter Additional Health Concerns Infection Onset Date Last Indicated Resolved Time ESBL 05/30/2024 05/30/2024 documented as of this encounter Care Teams Tobacco Drier Operator Relationship Specialty Start Date End Date Physician, Pcp Unknown PCP - General 05/03/24 documented as of this encounter
--- OUTSIDE RECORDS SUMMARY | 2024-10-09 15:45 | XMS_ITS | Encounter Summary ---
Author Organization [facility] Address [address] [place] [address] Care Team Providers Care Highway Maintainer Name Role Phone Physician, Pcp Unknown Primary Care Provider Bernice vailable Encounter Details Date Type Department Care Team (Late st Contact Info) Description 05/03/2024 Lab Requisition [facility] - Main Lab [address] [facility] [place] [phone] Barbara Baca, [place] [address] [facility] [address] [place] [address] Frequency of micturition Social History Tobacco Use Types Packs/Day Years [...] Comments BACTERIAL IDENTIFICATION AND SUSCEPTIBILITY, AEROBIC Routine 05/02/2024 10:32 AM EST Frequency of micturition documented in this encounter Results * (ABNORMAL) Bacterial identification and susceptibility, aerobic (05/02/2024 10:32 AM EST) Culture, Bacterial ID and Sensitivity Escherichia coli(A) MILAD 05/05/2024 9:23 AM EST [facility] Comment: The organism value for this result has been updated. These results have been appended to the previously preliminary verified report. This is an edited result. Previous organism was Gram negative bacilli on 05/04/2024 at 0927 EST. Other Topography unknown / Unknown 05/02/2024 10:32 AM EST 05/03/2024 3:22 PM EST Narrative Organism Antibiotic Method Susceptibility Escherichia coli Amoxicillin/Clavulanate MILAD >=32 ug/ml: Resistant Escherichia coli Ampicillin/Sulbactam MILAD >=32 ug/ml: Resistant Escherichia coli Piperacillin/Tazobactam MILAD >=128 ug/ml: Resistant Escherichia coli Cefazolin (Urine) MILAD 8 ug/ml: Susceptible Escherichia coli Cefoxitin MILAD <=4 ug/ml: Susceptible Escherichia coli Ceftazidime MILAD <=0.5 ug/ml: Susceptible Escherichia coli Ceftriaxone MILAD <=0.25 ug/ml: Susceptible Escherichia coli Cefepime MILAD 0.5 ug/ml: Susceptible Escherichia coli Meropenem MILAD <=0.25 ug/ml: Susceptible Escherichia coli Gentamicin MILAD <=1 ug/ml: Susceptible Escherichia coli Ciprofloxacin MILAD >=4 ug/ml: Resistant Escherichia coli Levofloxacin MILAD >=8 ug/ml: Resistant Escherichia coli Nitrofurantoin MILAD <=16 ug/ml: Susceptible Escherichia coli Trimethoprim/Sulfamethoxazole MILAD <=20 ug/ml: Susceptible us Barbara NELSON LAB MICROBIOLOGY - GENERAL ORDER AARON Final Result [facility] [address] [place] [address], documented in this encounter Visit Diagnoses Diagnosis Frequency of micturition Urinary frequency documented in this encounter Additional Health Concerns Infection Onset Date Last Indicated Resolved Time ESBL 05/30/2024 05/30/2024 documented as of this encounter Care Teams Highway Maintainer Relationship Specialty Start Date End Date Physician, Pcp Unknown PCP - General 05/03/24 documented as of this encounter
--- OUTSIDE RECORDS SUMMARY | 2024-10-09 15:45 | XMS_ITS | Data Portability ---
Author Organization [facility], , [facility] Address [address] [place] [address] Assessment No assessment recorded. Plan of Treatment Reminders Order Date Submit Date Provider Last Modified By Organization Details Last Modified Time Details Appointments None record ed. Lab None record ed. Referral None record ed. Procedures None record ed. Surgeries None record ed. Imaging None record ed. Medication Orders None record ed. Patient TargetsNo targets recorded. Patient InstructionsNo instructions recorded. Reason for Referral None Reported. Results Created Date Observation Date Name Description Value Unit Range Abnormal Flag Note LastModifiedBy Organization Detail LastModifiedTime Result Notes None recorded. Procedures Surgical History Date Name Laterality Status Provider Name and Address Organization Details Recorded Time 1 Tassoni - EGD completed Adelso Peters MD [address] [place] [address], [phone], [facility] 07/02/2020 09:14:02 8 Marlin - EGD completed Eric Isaac MD [address] [place] [address], [phone], [facility] 11/04/2017 11:39:14 6 Marlin - EGD completed Eric Isaac MD [address] [place] [address], [phone], [facility] 10/13/2015 10:40:44 5 Marlin - EGD completed Eric Isaac MD [address] [place] [address], [phone], [facility] 02/10/2015 08:54:38 5 Marlin Collins EGIggy completed Eric Isaac MD [address] [place] [address], [phone], [facility] 08/30/2014 08:13:13 Imaging Results None recorded. Procedure Notes None recorded. Medical Equipment None Reported. Allergies Allergen ID Allergen Name Allergen Category Reaction Reaction Severity Criticality Documentation Date Start Date Code Code System Note Provider Name and Address Organization Details Recorded Time Feldene medicatio n other Not available Not available 11/03/2017 21832 8 RxNorm legs swell ing TONY Levin, [facility] 1 15:17:13 664464 Substance with sulfonami de structure and antibacte rial mechanism of action (substanc e) medicatio n hives Not available Not available 11/03/2017 01320 8003 SNOMED TONY Levin, [facility] 8 15:52:15 924739 codeine medicatio n Not available Not available Not available 11/03/2017 2670 RxNorm TONY Levin, [facility] 8 15:52:30 425324 Humira medicatio n rash severe Not available 11/03/2017 91219 4 RxNorm full body rash. sever e react ion. Chiquis verduzco RN null, [facility] 1 15:19:56 323838 Forteo medicatio n facial swelling Not available Not available 11/03/2017 81871 7 RxNorm lips swell ing TONY Levin, [facility] 1 15:18:07 445124 Protonix medicatio n hives Not available Not available 11/03/2017 15966 4 RxNorm TONY Levin, [facility] 8 15:53:16 919144 Prilosec medicatio n hives Not available Not available 11/03/2017 21200 5 RxNorm TONY Levin, [facility] 8 15:53:29 237383 penicilli n G Not available hives Not available Not available 11/03/2017 7980 RxNorm TONY Levin, [facility] 8 15:53:44 332045 Erythroci n medicatio n nausea Not available Not available 11/03/2017 14922 3 RxNorm Chiquis verduzco RN [facility] 8 15:54:12 Medications Name Sig Start Date Stop Date Status Note LastModified by Organization Details LastModified Time Zofran active Not Available Not Availa ble Not Available amlodipine active Not Available Not Av ailable Not Available Vitamin D active Not Available Not Didi ilable Not Available Ativan active Not Available Not Availa ble Not Available Percocet active Not Available Not Avai lable Not Available trazodone active Not Available Not Didi ilable Not Available metoprolol succinate active Not Available Not Available No t Available fiber active Not Available Not Availa ble Not Available Stool Softener active Not Available No t Available Not Available lansoprazole active Not Available Not Available Not Available Xeljanz active Not Available Not Avail able Not Available Tymlos active Not Available Not Availa ble Not Available Vitals None Recorded Social History None recorded. Functional Status None recorded. Mental Status None recorded. Family History Nothing Reported. Medical History No medical history recorded. Gynecological HistoryNo gynecological history recorded. Obstetrics History GPAL:G 0 P 0 0 0 0 Past Encounters Encounter ID Performer Location Encounter Start Date Encounter Closed Date Diagnosis/Indication Diagnosis SNOMED-CT Code Diagnosis ICD10 Code Diagnosis Note [id number] [address] [address] 08/30/2014 06:55:34 08/30/2014 14:34:[id number] [address] 02/10/2015 07:02:22 02/10/2015 14:41:47 [id number] Socorro Schilling [address] [address] 10/13/2015 09:03:25 10/13/2015 13:26:15 [id number] Sofía Valencia RN [address] [address] 11/04/2017 09:38:08 11/04/2017 13:32:33 [id number] Chiquis Serrano RN [address] [address] 07/02/2020 07:59:31 07/02/2020 11:15:08 Health Concerns Section Related Observation LastModified by Organization Detai ls LastModified Time None Recorded Concern Status LastModified by Organization Details LastModified Time None Recorded Advance Directives Directive None Recorded Payers Encounter Date Sequence Insurance Name Policy Number Policy Bhatia Covered Member ID Bhatia Member ID Guarantor Name 08/30/2014 1 [place] [employer] Casandra Evangelista Ian [id number] 1 [id number] Casandra Ian 08/30/2014 2 [place] [id number] Casandra Sosa [id number] Casandra Ian 02/10/2015 1 [place] Casandramaría Sosa [id number] Casandra Ian 02/10/2015 2 [place] [id number] Casandra Sosa [id number] Casandra Sosa 10/13/2015 1 [place] Casandramaría Sosa [id number] Casandramaría Sosa 10/13/2015 2 [place] [id number] Casandra Sosa [id number] Casandra Sosa 11/04/2017 1 [place] Casandra Evangelista Ian [id number] Casandra Ian 11/04/2017 2 [place] [id number] Casandra Sosa [id number] Casandramaría Sosa 07/02/2020 1 [place] Casandra Tonja Ian [id number] 1 [id number] Casandramaría Sosa 07/02/2020 2 [place] [id number] Casandra Sosa [id number] Casandramaría Sosa OBGyn Episode No OBEpisode recorded.
--- OUTSIDE RECORDS SUMMARY | 2024-10-09 15:45 | XMS_ITS | Clinical Summary ---
Author Organization [facility] Address [address] [place] [address] Care Team Providers Care Sack Maker Name Role Phone Unavailable Primary Care Provider Unavailabl e Source Comments PLEASE NOTE, if this patient is a minor, it may be UNLAWFUL to discuss sensitive information that is contained in these records (such as FAMILY PLANNING, MENTAL HEALTH or SUBSTANCE ABUSE) with the minor patient's parent or other person without the patient's specific authorization.[facility] Medications nitrofurantoin monohyd/m-cryst (MACROBID) 100 mg capsule Take 1 Capsule by mouth 2 (two) times daily for 5 days 1 Active dilTIAZem HCL (DILTIAZEM CR) 120 mg 12 hr capsule Take 1 Capsule by mouth every 12 (twelve) hours for 30 day(s) Active tofacitinib (XELJANZ) 5 mg tab Take 1 Tablet by mouth 2 (two) times daily for 30 day(s) Active phenazopyridine (PYRIDIUM) 200 mg tablet Take 1 Tablet by mouth 3 (three) times daily (after meals) for 2 day(s) 1 Active lansoprazole (PREVACID SOLUTAB) 30 mg disintegrating tablet Take 1 Tablet by mouth once daily for 30 day(s) Active LORazepam (ATIVAN) 0.5 mg tablet Take 1 Tablet by mouth nightly at bedtime as needed insomnia Active predniSONE 50 mg tabletIndications:A cute right-sided low back pain with right-sided sciatica Take 1 Tablet by mouth once daily 5 Tablet 4 Active Social History Tobacco Use Types Packs/Day Years Used Date Smoking Tobacco: Never Assessed Social Connections Answer Date Recorded Connectedness 0 03/02/2024 Financial Resource Strain Answer Date R ecorded Financial Resource Strain 0 2021 Stress Answer Date Recorded Stress 0 10/03/2021 Physical Activity Answer Date Recorded Physical Activity 0 10/03/2021 Food Insecurity Answer Date Recorded Food 0 03/15/2024 Transportation Needs Answer Date Record ed Transportation 0 10/03/2021 Housing Stability Answer Date Recorded Housing 0 10/03/2021 Safety and Environment Answer Date Timothy rded Safety 0 10/03/2021 Utilities Answer Date Recorded Utilities 0 10/03/2021 Employment Answer Date Recorded Stress 0 03/02/2024 Comments Unknown Sex and Gender Information Value Date Recorded Sex Assigned at Not on file Legal Sex Female 12:29 PM PDT Gender Identity Female 10/05/2021 5:52 PM PDT Sexual Orientation Straight 10/05/2021 5: 52 PM PDT Last Filed Vital Signs Vital Sign Reading Time Taken Comments Blood Pressure 144/73 10/06/2023 11:51 AM EDT Pulse 80 10/06/2023 11:51 AM EDT Temperature 36.5 ??C (97.7 ??F) 10/06/2023 11:51 AM E DT Respiratory Rate 16 10/06/2023 11:51 AM EDT Oxygen Saturation 95% 10/06/2023 11:51 AM EDT Inhaled Oxygen Concentration - - Weight - - Height 180.3 cm (5' 11 ) 10/06/2023 11:51 AM EDT Body Mass Index - - Plan of Treatment Health Maintenance Due Date Last Done Comments Hepatitis C Screening 1950 Tobacco Screening 1950 Medicare Annual Wellness Visit 01/29/1966 Bone Density Screening 01/29/2013 Falls Prevention 01/29/2013 [id number] ( season) 2024 04/10/2023, 04/05/2022, 09/22/2021, Additional history exists Imm-Influenza (#1) 2024 04/10/2023, 1 , 03/27/2021, Additional history exists Alcohol and Drug Screen 06/20/2024 Depression Annual Screen 06/20/2024 Hypertension Screening (#1) 10/05/2024 Imm-DTaP/Tdap/Td (3 - Td or Tdap) 10/27/2027 018, 03/16/2007 Imm-Pneumococcal 65+ Completed 07/16/2015, 05/27/2014, 04/02/2005 Imm-Zoster, Recombinant Completed 09/19/2020, 05/20 Insurance MEDICARE - IN [facility] Member Subscriber Plan / Payer (Ef fective 2013-Present) Name:Casandra Sosa Relation to Subscriber:Self Name:Casandra Sosa Payer ID:[id number] Type:Indemni Address: [facility] [address] [address]
--- OUTSIDE RECORDS SUMMARY | 2024-10-09 15:45 | XMS_ITS | Encounter Summary ---
Author Organization [facility] Address [address] [place] [address] Care Team Providers Care Mold Making Supervisor Name Role Phone Physician, Pcp Unknown Primary Care Provider Bernice vailable Encounter Details Date Type Department Care Team (Late st Contact Info) Description 05/31/2024 Lab Requisition [facility] - Main Lab [address] Count Includes [facility] [place] [phone] Barbara Baca, PA [address] [facility] [address] [place] [address] Dysuria Social History Tobacco Use Types Packs/Day Years [...] Comments BACTERIAL IDENTIFICATION AND SUSCEPTIBILITY, AEROBIC Routine 05/30/2024 12:00 AM EST Dysuria documented in this encounter Results * (ABNORMAL) Bacterial identification and susceptibility, aerobic (05/30/2024 12:00 AM EST) Culture, Bacterial ID and Sensitivity Escherichia coli ESBL(A) MILAD 06/02/2024 8:26 AM EST [facility] Comment: THIS ORGANISM IS POSITIVE FOR EXTENDED SPECTRUM BETA-LACTAMASE (ESBL). ??EXTENDED SPECTRUM BETA-LACTAMASE ??PRODUCING ORGANISMS DEMONSTRATE DECREASED ACTIVITY WITH PENICILLILNS, CEPHALOSPORINS AND AZTREONAM. This is an edited result. Previous organism was Gram negative bacilli on 05/31/2024 at 1354 EST. Edited result: Previously reported as Escherichia coli on 06/01/2024 at 0845 EST. Other Urine specimen from urethra / Unknown 05/30/2024 05/31/2024 12:53 PM EST Narrative [facility] SHA[facility] - 06/02/2024 8:26 AM EST [facility]axed to [facility] on 06/02/24 at 0825 Organism Antibiotic Method Susceptibility Escherichia coli ESBL Amoxicillin/Clavulanate MILAD >=32 ug/ml: Resistant Escherichia coli ESBL Ampicillin/Sulbactam MILAD >=32 ug/ml: Resistant Escherichia coli ESBL Piperacillin/Tazobactam MILAD >=128 ug/ml: Resistant Escherichia coli ESBL Cefazolin (Urine) MILAD >=32 ug/ml: Resistant Escherichia coli ESBL Cefoxitin MILAD <=4 ug/ml: Susceptible Escherichia coli ESBL Ceftazidime MILAD <=0.5 ug/ml: Susceptible Escherichia coli ESBL Ceftriaxone MILAD 32 ug/ml: Resistant Escherichia coli ESBL Cefepime MILAD 1 ug/ml: Susceptible Escherichia coli ESBL Meropenem MILAD <=0.25 ug/ml: Susceptible Escherichia coli ESBL Gentamicin MILAD <=1 ug/ml: Susceptible Escherichia coli ESBL Ciprofloxacin MILAD >=4 ug/ml: Resistant Escherichia coli ESBL Levofloxacin MILAD >=8 ug/ml: Resistant Escherichia coli ESBL Nitrofurantoin MILAD <=16 ug/ml: Susceptible Escherichia coli ESBL Trimethoprim/Sulfa methoxazol e MILAD >=320 ug/ml: Resistant us Barbara NELSON LAB MICROBIOLOGY - GENERAL ORDER AARON Final Result [facility] [address] [place] [address], documented in this encounter Visit Diagnoses Diagnosis Dysuria documented in this encounter Additional Health Concerns Infection Onset Date Last Indicated Resolved Time ESBL 05/30/2024 05/30/2024 documented as of this encounter Care Teams Mold Making Supervisor Relationship Specialty Start Date End Date Physician, Pcp Unknown PCP - General 05/03/24 documented as of this encounter
--- OUTSIDE RECORDS SUMMARY | 2024-10-09 15:45 | XMS_ITS ---
Author Organization [facility] Address [address] [place] [address] Care Team Providers Care Linux Kernel Engineer Name Role Phone Lisa Shaw MD Primary Care Provider Caden Anderson Unavailable [phone] Allergies Allergen (clinical drug ingredient) Drug/Non Drug [...] Activ e Vitamin D (Ergocalciferol) 1.25 MG (16881 UT) TAKE 1 CAPSULE BY MOUTH EVERY [...] Ordered Date Performed Result Body Sit e 05373-TKJLWTX NAIL, 1-5 02/21/2024 N/A 48883-UMXP SKIN LESIONS, OVER 4 02/21/2024 N/A L9816-FVRSOBLC DYSTROPHIC NAILS ANY # 02/21/2024 N/A Encounters Encounter Location Date Provider Diagnosis [facility] [address] [address] 02/21/2024 Caden Perez Atherosclerosis of [place] artery of both lower extremities, with unspecified presence of clinical manifestation I70.203 ; Tinea unguium B35.1 ; Pain in right toe(s) M79.674 and Pain in left toe(s) M79.675 Assessments Encounter Date Diagnosis (ICD Code) Assessment Notes Treatment Notes Treatment Clinical Notes Section Notes 02/21/2024 Atherosclerosis of [place] artery of both lower extremities, with unspecified presence of clinical manifestation (ICD-10 - I70.203) 02/21/2024 Tinea unguium (ICD-10 - B35.1) 02/21/2024 Pain in right toe(s) (ICD-10 - M79.674) 02/21/2024 Pain in left toe(s) (ICD-10 - M79.675) Plan Of Treatment Pending Test Test Name Order Date 78118-GGWZZGL NAIL, 1-5 02/21/2024 06898-GQMY SKIN LESIONS, OVER 4 02/21/20 24 I4666-BQFMLYNS DYSTROPHIC NAILS ANY # Next Appt Details Follow Up: prn, Reason: Provider Name:Caden Perez , 11/23/2024 12:15:00 PM, [address] [place] [address], [phone], Provider Name:Caden Angélica Perez , 02/05/2025 01:30:00 PM, [address] [place] [address], [phone], Procedure Notes * Category Sub-Category Detail Notes Keratoma Treatment Parring or Cutting o f Benign Hyperkeratotic Lesion(s) 30822 ( More than 4 Lesions ) - The Benign hyperkeratotic lesions, as described above were pared, and/or cut utilizing a sterile 15 blade, tissue nippers, and/or dremel - 69985 , Q9 Debride Nails 1-5 Procedure: Performance of this nail treatment by a nonprofessional would put this patients foot and overall health at risk. Therefore, nail debridement was performed extensively to reduce/remove overall nail length, girth, thickness, subungual debris, and necrotic tissue, by manual and/or electrical means through the use of a nail nipper and/or dremel-type soap grinder, to a more viable healthy nail plate or bed tissue 1-5. Silver nitrate used for any petechial bleeding as necessary. Definitive antifungal treatment options have been reviewed and discussed with the patient. The patient chooses, no pharmaceutical tx - 37557 Nail Reduction Nail Reduction Trimming of dyst rophic nails performed to reduce/remove overall nail length and girth, by manual and electrical means with use of a nail nipper and/or dremel, to more viable healthy nail plate or bed tissue, any number - G0127, Q9 Progress Notes * Casandra SOSA ADOB: 8 (74 yo F)Acc No.[id number]:02/21/2024 Progress Note Patient:?Casandra Sosa A Provider:?Caden Perez DPM :1950???Age:74 Y???Sex:Female D ate:02/21/2024 Address:[address] [place] [id number] Pcp:Lisa Shaw MD Subjective: * Chief Complaints: [...] yes, walking. ?Marital status: . ?Occupation: Retired- [employer]. * Medications:?TakingSpironola ctone Vitamin C dilTIAZem HCl ER Stool Softener Vitamin B12 Famotidine 40 MG Tablet as directed Orally LORazepam 0.5 MG Tablet as directed Orally Percocet 5-325 MG Tablet as directed Orally Xeljanz 5 MG Tablet as directed Orally traZODone HCl 50 MG Tablet Oral Methenamine Hippurate 1 GM Tablet Oral Eliquis 5 MG Tablet Oral Vitamin D (Ergocalciferol) 1.25 MG (97789 UT) Capsule TAKE 1 CAPSULE BY MOUTH [...] Oral Taking Vitamin D (Ergocalciferol) 1.25 MG (52191 UT) Capsule TAKE 1 CAPSULE BY MOUTH [...] Assessment: 1.?Tinea unguium - B35.1?2.? Atherosclerosis of minto artery of both lower extremities, with unspecified presence of clinical manifestation - I70.203 (Primary)?3.?Pain in right toe(s) - M79.674?4.?Pain in left toe(s) - M79.675? Plan: * Treatment: 2.?Tinea unguium?Procedure: 00607-LLBYQRC NAIL, 1-5 * Procedures:?Debride Nails 1-5:?Procedure:?Performance of this nail treatment by a nonprofessional would put this patients foot and overall health at risk. Therefore, nail debridement was performed extensively to reduce/remove overall nail length, girth, thickness, subungual debris, and necrotic tissue, by manual and/or electrical means through the use of a nail nipper and/or dremel-type soap grinder, to a more viable healthy nail plate or bed tissue 1-5. Silver nitrate used for any petechial bleeding as necessary. Definitive antifungal treatment options have been reviewed and discussed with the patient. The patient chooses, no pharmaceutical tx - 10549.?Keratoma Treatment:?Parring or Cutting of Benign Hyperkeratotic Lesion(s)?92676 ( More than 4 Lesions ) - The Benign hyperkeratotic lesions, as described above were pared, and/or cut utilizing a sterile 15 blade, tissue nippers, and/or dremel - 77141 , Q9.?Nail Reduction:?Nail Reduction?Trimming of dystrophic nails performed to reduce/remove overall nail length and girth, by manual and electrical means with use of a nail nipper and/or dremel, to more viable healthy nail plate or bed tissue, any number?- G0127, Q9.? * Procedure Codes:?G0127 FRANK ING DYSTROPHIC NAILS ANY #, Modifiers: XS , H721100 DEBRIDE NAIL, 1-5, Modifiers: XS 85433 TRIM SKIN LESIONS, OVER 4, Modifiers: XS , Q9 * Follow Up:?prn * Images: * Sign off status: Completed true * Provider:?Caden Ericier, DPM Date:?2023 Generated for Dayana leo/Faith/eTkirstensmitting on:?10/09/2024 03:44 PM EDT History and Physical Notes * HPI (History [...] B/L , Heel(s) , B/L Vascular DP PULSES (B): 1/4, B/L PT PULSES (B): 0/4, B/L CAPILLARY FILL TIME: delayed, all digits , B/L TEMPERTURE GRADIENT (C): decreased, cool to cool, proximal to distal, B/L TROPHIC CONDITION-TEXTURE/ELASTICITY/TURGOR/HAIR GROWTH (B): decreased, B/L EDEMA (C): 3/4 , pitting , with out aching pain , Leg(s) , Ankle(s) , Foot , B/L CLAUDICATION (C): denies, B/L REST PAIN: denies, B/L PIGMENTATION: rubrous, B/L COMPRESSION STOCKINGS: Present, worn, ex hibit proper support Nails NAILS are: Elongated, overg rown, dystrophic, lytic, greater than 3mm thick, discolored and friable with crumbly malodorous subungual debris, with pain on palpation , TA , T8 , remaining nails are elongated, overgrown, dystrophic
--- OUTSIDE RECORDS SUMMARY | 2024-10-09 15:45 | XMS_ITS ---
Author Organization [facility] Address [address] [place] [address] Care Team Providers Care Co Founder And Chairman Name Role Phone Lisa Shaw MD Primary Care Provider Caden Anderson Unavailable [phone] Allergies Allergen (clinical drug ingredient) Drug/Non Drug [...] 7 Not-Taking Vitamin D (Ergocalciferol) 1.25 MG (89501 UT) TAKE 1 CAPSULE BY MOUTH EVERY [...] Ordered Date Performed Result Body Sit e 52513-GLCSXYY NAIL, 1-5 05/15/2024 N/A 03348-KDPE SKIN LESIONS, OVER 4 05/15/2024 N/A E7885-MKEWQLRH DYSTROPHIC NAILS ANY # 05/15/2024 N/A Encounters Encounter Location Date Provider Diagnosis [facility] [place] [address] [place] [address] 05/15/2024 Caden Perez Atherosclerosis of [place] artery of both lower extremities, with unspecified presence of clinical manifestation I70.203 ; Tinea unguium B35.1 ; Pain in right toe(s) M79.674 ; Pain in left toe(s) M79.675 and Xerosis of skin L85.3 Assessments Encounter Date Diagnosis (ICD Code) Assessment Notes Treatment Notes Treatment Clinical Notes Section Notes 05/15/2024 Atherosclerosis of [place] artery of both lower extremities, with unspecified [...] days Pending Test Test Name Order Date 47020-UJNFUEK NAIL, 1-5 05/15/2024 56645-TMYA SKIN LESIONS, OVER 4 05/15/20 24 E5320-WSRLJCMK DYSTROPHIC NAILS ANY # Next Appt Details Follow Up: prn, Reason: Provider Name:Caden Perez , 11/23/2024 12:15:00 PM, [address] [place] [address], [phone], Provider Name:Caden Perez , 02/05/2025 01:30:00 PM, [address] [place] [address], [phone], Procedure Notes * Category Sub-Category Detail Notes Keratoma Treatment Parring or Cutting o f Benign Hyperkeratotic Lesion(s) (-57) More than 4 Lesions - The Benign hyperkeratotic lesions, ( 7) in total, locations as stated and described in exam, were pared, and/or cut utilizing a sterile 15 blade, tissue nippers, and/or power dremel instrumentation - 12386, Q8 Debride Nails 1-5 Procedure: Performance of this nail treatment by a nonprofessional would put this patients foot and overall health at risk. Therefore, debridement to affected nail(s), as described in exam, was performed extensively to reduce/remove overall nail length, girth, thickness, subungual debris, and necrotic tissue, by manual and/or electrical means through the use of a nail nipper and/or dremel-type precision grinder, to a more viable healthy nail [...] necessary to maintain effective symptomatic relief - 16883 Nail Reduction Nail Reduction (-27) Trimming o f all dystrophic nails, locations as stated and described in exam, was performed to reduce/remove overall nail length and girth, by manual and electrical means with use of a nail nipper and/or dremel, to more viable healthy nail plate or bed tissue - G0127, Q8 Progress Notes * Casandra SOSA ADOB: 8 (74 yo F)Acc No.[id number]:05/15/2024 Progress Note Patient:Casandra LOBATO Provider:?Caden Perez DPM :1950???Age:74 Y???Sex:Female D ate:05/15/2024 Address:[address] [place] [address] [phone] Pcp:Lisa Shaw MD Subjective: * Chief Complaints: [...] yes, walking. ?Marital status: . ?Occupation: Retired- [employer]. * Medications:?TakingTrimethop rim Spironolactone Vitamin C [...] Tablet Oral Vitamin D (Ergocalciferol) 1.25 MG (40174 UT) Capsule TAKE 1 CAPSULE BY MOUTH [...] Oral Taking Vitamin D (Ergocalciferol) 1.25 MG (04247 UT) Capsule TAKE 1 CAPSULE BY MOUTH [...] cm, Wt-k.18 kg. * Examination: ???Vascular: ?DP PULSES (B):?1/4, B/L.?PT PULSES (B):? 0/4, B/L.?CAPILLARY FILL TIME:? delayed, all digits, B/L.?TROPHIC CONDITION-TEXTURE/ELASTICITY/TURGOR/HAIR GROWTH (B):? decreased,?with sparse to absent hair growth, B/L.?TEMPERTURE GRADIENT (C):? decreased, cool to cool, proximal to distal, B/L.?PIGMENTATION:?rubrous, B/L.?EDEMA (C):?3/4 , pitting , without aching pain , Leg(s) , Ankle(s) , Foot , B/L.?CLAUDICATION (C):?denies, B/L.?REST PAIN:?denies, B/L.?COMPRESSION STOCKINGS:?Present, worn, exhibit proper [...] Assessment: 1.?Tinea unguium - B35.1???2 .?Atherosclerosis of [place] artery of both lower extremities, with unspecified presence of clinical manifestation - I70.203 (Primary)???3.?Pain in right toe(s) - M79.674???4.?Pain in left toe(s) - M79.675 ??5.?Xerosis of skin - L85.3???Specify :Acute problem, Uncomplicated (3),Rx Management (4)??? Plan: * Treatment: 2.?Tinea unguium?Procedure: 58451-JGRSTLR NAIL, 1-5 3.?Xerosis of skin? Start Ammonium [...] use of a nail nipper and/or dremel-type precision grinder, to a more viable healthy nail [...] necessary to maintain effective symptomatic relief - 91377.?Keratoma Treatment:?Parring or Cutting of Benign Hyperkeratotic Lesion(s)?(-57) More than 4 Lesions - The Benign hyperkeratotic lesions, ( 7) in total, locations as stated and described in exam, were pared, and/or cut utilizing a sterile 15 blade, tissue nippers, and/or power dremel instrumentation - 25812, Q8.?Nail Reduction:?Nail Reduction?(-27) Trimming of all dystrophic nails, locations as stated and described in exam, was performed to reduce/remove overall nail length and girth, by manual and electrical means with use of a nail nipper and/or dremel, to more viable healthy nail plate or bed tissue - G0127, Q8.? * Procedure Codes:?G0127 FRANK ING DYSTROPHIC NAILS ANY #, Modifiers: XS , N010350 DEBRIDE NAIL, 1-5, Modifiers: XS 72254 TRIM SKIN LESIONS, OVER 4, Modifiers: XS [...] their pharmacy at the time of visit.? ??Screening/Special Tests:?Fall Risk?Screening:?No falls in the past year ?FALLS: Screening for Future Fall Risk?Have you had any falls with injury in the past year??No * Follow Up:?prn * Images: * Sign off status: Completed true * Provider:?Caden Perez DPM Date:?2023 Generated for Dayana leo/Faith/Toan on:?10/09/2024 03:45 PM EDT History and Physical Notes * [...] fashion, no fissure(s) present, B/L Vascular DP PULSES (B): 1/4, B/L PT PULSES (B): 0/4, B/L CAPILLARY FILL TIME: delayed, all digits , B/L TEMPERTURE GRADIENT (C): decreased, cool to cool, proximal to distal, B/L TROPHIC CONDITION-TEXTURE/ELASTICITY/TURGOR/HAIR GROWTH (B): decreased, with sparse to absent hair gr owth, B/L EDEMA (C): 3/4 , pitting , [...]
--- OUTSIDE RECORDS SUMMARY | 2024-10-09 15:45 | XMS_ITS | Patient Health Record ---
Author Organization [facility] Address [address] [facility] [address] [place] [address] Care Team Providers Care Auto Cleaner Name Role Phone Lisa Shaw MD Primary Care Provider Caden Anderson Unavailable [phone] Allergies Allergen (clinical drug ingredient) Drug/Non Drug Allergy documented on EMR Reaction Allergy Type Onset Date Status sulfamethoxazole / trimethoprim Bactrim hives Drug Allergy Active erythromycin Erythromycin hives Drug Allergy A ctive Penicillin hives Drug Allergy Active Reason For Referral No Information Medications Medication SIG (Take, Route, Frequency, Duration) Notes Start Date End Date Status Vitamin C Active Vitamin D (Ergocalciferol) 1.25 MG (78814 UT) TAKE 1 CAPSULE BY MOUTH EVERY WEEK Oral for 84 Active Eliquis 5 MG Oral for 90 Activ e Stool Softener Activ e Nitrofurantoin Monohyd Macro 100 MG Oral for 7 Not-Taking dilTIAZem HCl ER Act romulo Ammonium Lactate 12 % 1 application Externally to affected areas of dry skin to feet except for between the toes Twice a day for 30 days Active Famotidine 40 MG as directed Orally Active Cyclobenzaprine HCl 10 MG Oral for 10 Not-Taking Vitamin B12 Active Fluconazole 150 MG Oral for 1 Not-Taking Percocet 5-325 MG as directed Orally Active LORazepam 0.5 MG as directed Orally Active hydroCHLOROthiazide 25 MG TAKE 1 TABLET BY MOUTH EVERY DAY Oral for 90 Not-Taking traZODone HCl 50 MG Oral for 90 Active Xeljanz 5 MG as directed Orally Active Spironolactone Activ e Trimethoprim Active Methenamine Hippurate 1 GM Oral for 90 Active Social History Tobacco Use: Social History Observation Description Date Details (start date - stop date) Never Smoker NA - NA Tobacco use other than smoking: Question Answer Notes Are you an other tobacco user? No Tobacco Control (Standard) Question Answer Notes Tobacco use: Nonsmoker AUDIT-C (Standard) Question Answer Notes Did you have a drink containing alcohol in the p ast year? No Points 0 Interpretation Negative Problems Problem Type SNOMED Code ICD Code Onset Dates Problem Status W/U Status Risk Notes Problem Atherosclerosis of [place] arteries of the extremities ([id number]) Atherosclerosis of [place] artery of both lower extremities, with unspecified presence of clinical manifestation (I70.203) Active confirmed Problem [id number] Rheumatoid arthritis involving both feet, unspecified whether rheumatoid factor present (M06.9) Active confirmed Vital Signs Blood pressure diastolic 70 mm Hg 08/17/2024 Height 5 ft 11 in in 08/17/2024 Blood pressure systolic 120 mm Hg 08/17/2024 Weight 190 lbs 08/17/2024 BMI 26.5 kg/m2 08/17/2024 Procedures Procedure Date Ordered Date Performed Result Body Sit e 82080-YEWDPHC NAIL, 1-5 11/29/2023 N/A 43761-JQUA SKIN LESIONS, 2 TO 4 11/29/2023 N/A F1966-FBONCHAG DYSTROPHIC NAILS ANY # 11/29/2023 N/A 87893-OTXDIHH NAIL, 1-5 02/21/2024 N/A 20566-YZQR SKIN LESIONS, OVER 4 02/21/2024 N/A H2923-MHDKGUFX DYSTROPHIC NAILS ANY # 02/21/2024 N/A 58965-ZTQTMML NAIL, 1-5 05/15/2024 N/A 99778-AALC SKIN LESIONS, OVER 4 05/15/2024 N/A T6930-YWEVEYNE DYSTROPHIC NAILS ANY # 05/15/2024 N/A 03425-DRVTFOS NAIL, 1-5 08/17/2024 N/A 86212-KKJM SKIN LESIONS, OVER 4 08/17/2024 N/A G1018-DMNTLOTV DYSTROPHIC NAILS ANY # 08/17/2024 N/A Encounters Encounter Location Date Provider Diagnosis [facility] [place] [address] [place] [address] 11/29/2023 Caden Perez Atherosclerosis of [place] artery of both lower extremities, with unspecified [...] factor present M06.9 and Lumbar radiculopathy M54.[address] [address] 02/21/2024 Caden Chris Atherosclerosis of [place] artery of both lower extremities, with unspecified presence of clinical manifestation I70.203 ; Tinea unguium B35.1 ; Pain in right toe(s) M79.674 and Pain in left toe(s) M79.[address] [address] 05/15/2024 Caden Domingounier Atherosclerosis of [place] artery of both lower extremities, with unspecified presence of clinical manifestation I70.203 ; Tinea unguium B35.1 ; Pain in right toe(s) M79.674 ; Pain in left toe(s) M79.675 and Xerosis of skin L85.[address] [address] 08/17/2024 Caden Domingounier Atherosclerosis of [place] artery of both lower extremities, with unspecified presence of clinical manifestation I70.203 ; Tinea unguium B35.1 ; Pain in right toe(s) M79.674 ; Pain in left toe(s) M79.675 and Xerosis of skin L85.3 Assessments Encounter Date Diagnosis (ICD Code) Assessment Notes Treatment Notes Treatment Clinical Notes Section Notes 11/29/2023 Tinea unguium (ICD-10 - B35.1) 11/29/2023 Atherosclerosis of [place] artery of both lower extremities, with unspecified presence of clinical manifestation (ICD-10 - I70.203) 02/21/2024 Tinea unguium (ICD-10 - B35.1) 02/21/2024 Atherosclerosis of [place] artery of both lower extremities, with unspecified presence of clinical manifestation (ICD-10 - I70.203) 05/15/2024 Tinea unguium (ICD-10 - B35.1) 05/15/2024 Atherosclerosis of [place] artery of both lower extremities, with unspecified presence of clinical manifestation (ICD-10 - I70.203) 08/17/2024 Tinea unguium (ICD-10 - B35.1) 08/17/2024 Atherosclerosis of [place] artery of both lower extremities, with unspecified presence of clinical manifestation (ICD-10 - I70.203) 02/21/2024 Pain in right toe(s) (ICD-10 - M79.674) 08/17/2024 Pain in right toe(s) (ICD-10 - M79.674) 05/15/2024 Pain in right toe(s) (ICD-10 - M79.674) 11/29/2023 Pain in right toe(s) (ICD-10 - M79.674) 02/21/2024 Pain in left toe(s) (ICD-10 - M79.675) 05/15/2024 Pain in left toe(s) (ICD-10 - M79.675) 11/29/2023 Pain in left toe(s) (ICD-10 - M79.675) 08/17/2024 Pain in left toe(s) (ICD-10 - M79.675) 08/17/2024 Xerosis of skin (ICD-10 - L85.3) 11/29/2023 Pain in left foot (ICD-10 - [...] X ray : Foot, left 3V 11/29/2023 28021-ROGQYBP NAIL, 1-5 11/29/2023 69988-ZPMEMMH NAIL, 1-5 02/21/2024 35814-PPGBVTM NAIL, 1-5 05/15/2024 75734-QFGSWDC NAIL, 1-5 08/17/2024 29925-YEOY SKIN LESIONS, OVER 4 08/17/19 25 73938-HRMY SKIN LESIONS, OVER 4 02/21/20 24 25925-GZWP SKIN LESIONS, OVER 4 05/15/20 24 65613-DFWM SKIN LESIONS, 2 TO 4 11/29/19 24 H0289-EJGITYCU DYSTROPHIC NAILS ANY # P0342-RGNECTZG DYSTROPHIC NAILS ANY # Q0194-TTNPITIU DYSTROPHIC NAILS ANY # Y7374-CZEZIYYA DYSTROPHIC NAILS ANY # Next Appt Details Provider Name:Caden Perez , 11/23/2024 12:15:00 PM, [address] [place] [address], [phone], Provider Name:Caden Perez , 02/05/2025 01:30:00 PM, [address] [place] [address], [phone], Insurance Providers Payer Name Payer Address Payer Phone Subscriber Number Group Number Insured Name Patient Relationship to Insured Coverage Start Date Coverage End Date Medicare National [employer] [address] [facility] [place] [address] [id number] Casandra Sosa Self - patient is the insured [employer] Blue Shield [address] [place] [address] [id number] Casandra Sosa Self - patient is the [...]
--- OUTSIDE RECORDS SUMMARY | 2024-10-09 15:45 | XMS_ITS ---
Author Organization [facility] Address [address] [place] [address] Care Team Providers Care Learning Designer Name Role Phone Lisa Shaw MD Primary Care Provider Caden Anderson Unavailable [phone] Allergies Allergen (clinical drug ingredient) Drug/Non Drug [...] Notes Start Date End Date Status Vitamin D (Ergocalciferol) 1.25 MG (51063 UT) TAKE 1 CAPSULE BY MOUTH EVERY WEEK Oral for 84 Active Eliquis 5 MG Oral for 90 Activ e Nitrofurantoin Monohyd Macro 100 MG Oral for 7 Not-Taking Ammonium Lactate 12 % 1 application Externally to affected areas of dry skin to feet except for between the toes Twice a day for 30 days Active Methenamine Hippurate 1 GM Oral for 90 Active Famotidine 40 MG as directed Orally Active Percocet 5-325 MG as directed Orally Active LORazepam 0.5 MG as directed Orally Active traZODone HCl 50 MG Oral for 90 Active Xeljanz 5 MG as directed Orally Active Vitamin C Active Stool Softener Activ e dilTIAZem HCl ER Act romulo Vitamin B12 Active Spironolactone Activ e Cyclobenzaprine HCl 10 MG Oral for 10 Not-Taking Fluconazole 150 MG Oral for 1 Not-Taking hydroCHLOROthiazide 25 MG TAKE 1 TABLET BY MOUTH EVERY DAY Oral for 90 Not-Taking Trimethoprim Active Social History Tobacco Use: Social History [...] ast year? No Points 0 Interpretation Negative Vital Signs Height 5 ft 11 in in 08/17/2024 Weight 190 lbs 08/17/2024 BMI 26.5 kg/m2 08/17/2024 Blood pressure systolic 120 mm Hg 08/17/19 25 Blood pressure diastolic 70 mm Hg 025 Procedures Procedure Date Ordered Date Performed Result Body Sit e 45282-SECNURQ NAIL, 1-08/17/2024 N/A 82575-VRYN SKIN LESIONS, OVER 4 08/17/2024 N/A C2922-SNLHZUPE DYSTROPHIC NAILS ANY # 08/17/2024 N/A Encounters Encounter Location Date Provider Diagnosis [facility] [address] [address] 08/17/2024 Caden Perez Atherosclerosis of king salmon artery of both lower extremities, with unspecified presence of clinical manifestation I70.203 ; Tinea unguium B35.1 ; Pain in right toe(s) M79.674 ; Pain in left toe(s) M79.675 and Xerosis of skin L85.3 Assessments Encounter Date Diagnosis (ICD Code) Assessment Notes Treatment Notes Treatment Clinical Notes Section Notes 08/17/2024 Atherosclerosis of king salmon artery of both lower extremities, with unspecified presence of clinical manifestation (ICD-10 - I70.203) 08/17/2024 Tinea unguium (ICD-10 - B35.1) 08/17/2024 Pain in right toe(s) (ICD-10 - M79.674) 08/17/2024 Pain in left toe(s) (ICD-10 - M79.675) 08/17/2024 Xerosis of skin (ICD-10 - L85.3) Plan Of Treatment Pending Test Test Name Order Date 87967-PZPUDNU NAIL, 1-08/17/2024 11455-OSUV SKIN LESIONS, OVER 4 08/17/19 25 [id number] DYSTROPHIC NAILS ANY # Next Appt Details Follow Up: prn, Reason: Provider Name:Caden Perez , 11/23/2024 12:15:00 PM, [address] [place] [address], [phone], Provider Name:Caden Perez , 02/05/2025 01:30:00 PM, [address] [place] [address], [phone], Procedure Notes * Category Sub-Category Detail Notes Keratoma Treatment Parring or Cutting o f Benign Hyperkeratotic Lesion(s) (-57) More than 4 Lesions - Due to the at risk nature of the patients medical condition as documented in the exam findings, performance of this keratoderma treatment is medically necessary as its management by an unskilled/untrained nonprofessional would put this patients foot and overall health at risk. Therefore, the benign hyperkeratotic lesions, ( 7 ) in total, locations as stated and described in the exam ( SUB MTH (s), 1, B/L, SUB MTH (s), 3, Left, SUB MTH (s) , 5 , B/L , Plantar, Heel(s) , B/L ), were pared, and/or cut utilizing a sterile 15 blade, tissue nippers, and/or power dremel instrumentation by the physician of record - 19409, Q8 Debride Nails 1-5 Procedure: Due to the cli nical pathology outlined in the exam findings, performance of this nail treatment is medically necessary as its management by an unskilled/untrained nonprofessional would put this patients foot and overall health at risk. Therefore, debridement to affected nail(s), as described in exam ( TA, T8 ), was performed exclusively by the physician of record to reduce/remove overall nail length, girth, thickness, subungual debris, and necrotic tissue, by manual and/or electrical means through the use of a nail nipper and/or dremel stylegrinder, to a more viable healthy nail plate or bed tissue 5 nails or fewer in number. Silver nitrate was used for any petechial bleeding as necessary. Definitive antifungal treatment options, both pharmaceutical and surgical, have been reviewed and discussed with the patient. The patient solely prefers the use of intermittent/as needed professional debridement services for their nail condition and understands that additional periodic treatments may be required as necessary to maintain effective symptomatic relief - 71955 Nail Reduction Nail Reduction (-27) Trimming o f all dystrophic nails - Due to the at risk nature of the patients medical condition as documented in the exam findings, performance of this nail treatment is medically necessary as its management by an unskilled/untrained nonprofessional would put this patients foot and overall health at risk. Therefore, the dystrophic nails, in locations as stated and described in the exam ( T1, T2, T3, T4, T5, T6, T7, T9 ), were debrided by the phisician of record to reduce/remove overall nail length and girth, by manual and electrical means with use of a nail nipper and/or dremel, to more viable healthy nail plate or bed tissue - G0127, Q8 Progress Notes * Casandra SOSA ADOB: [birth year] (74 yo F)Acc No.[id number]:08/17/2024 Progress Note Patient:?Sridhar SOSAen A Provider:?Caden Perez DPM :1950???Age:74 Y???Sex:Female D ate:08/17/2024 Address:[address] [place], [place] [phone] Pcp:Lisa Shaw MD Subjective: * Chief Complaints: * ???At Risk FootcarePainful N ail(s) aggravated by shoes and causing difficulty standing/walking.Skin problem(s) * HPI: ???At Risk footcare:?Pt States Last PCP Visit:?Date?07/06/2024 ?Misc?Patient accompanied by, ,MANJIT, who is physically present in exam room at time of visit.?Skin problems:?Treatments:?medication ( AM Lactin ), states adherence to recommended treatment application.? * ROS:?General/Constitutional:?Nausea?denies.?Vomiting?denies.?Hunger Thirst?denies.?Loss appetite?denies.?Chills?denies.?Fatigue?denies.?Fever?denies.?Night Sweats?denies.?Unexplained weight loss?denies.?Unexplained [...] pressure, arthritis, cancer.? * Social History:?Tobacco Use:?Tobacco use other than smoking?Are you an other tobacco user??No ?Tobacco Control (Standard)?Tobacco use:?Nonsmoker ???Drugs/Alcohol:?Drugs?Have you used drugs other than those for medical reasons in the past 12 months??No ???Drug/Alcohol:?AUDIT-C (Standard)?Did you have a drink containing alcohol in the past year??No ?Points?0 ?Interpretation?Negative * Medications:?TakingTrimethop rim Spironolactone Vitamin C dilTIAZem HCl ER Stool Softener Vitamin B12 Famotidine 40 MG Tablet as directed Orally LORazepam 0.5 MG Tablet as directed Orally Percocet 5-325 MG Tablet as directed Orally Xeljanz 5 MG Tablet as directed Orally traZODone HCl 50 MG Tablet Oral Methenamine Hippurate 1 GM Tablet Oral Eliquis 5 MG Tablet Oral Vitamin D (Ergocalciferol) 1.25 MG (68771 UT) Capsule TAKE 1 CAPSULE BY MOUTH EVERY WEEK Oral Ammonium Lactate 12 % Cream 1 application Externally to affected areas of dry skin to feet except for between the toes Twice a day Taking Trimethoprim Taking Spironolactone Taking Vitamin C [...] Oral Taking Vitamin D (Ergocalciferol) 1.25 MG (58967 UT) Capsule TAKE 1 CAPSULE BY MOUTH EVERY WEEK Oral Taking Ammonium Lactate 12 % Cream 1 application Externally to affected areas of dry skin to feet except for between the toes Twice a day Not-Taking/PRNNitrofurantoin Monohyd Macro 100 MG Capsule Oral [...] in, Wt:1 90, BMI: 26.5, Shoe size:10, BP:120/70mm Hg, Ht-cm: 180.34 cm, Wt-k.18 kg. * Examination: ???Vascular: ?DP PULSES (B):?1/4, B/L.?PT PULSES (B):? 0/4, B/L.?CAPILLARY FILL TIME:? delayed, all digits, B/L.?TROPHIC CONDITION-TEXTURE/ELASTICITY/TURGOR/HAIR GROWTH (B):? decreased,?with sparse to absent hair growth, B/L.?TEMPERTURE GRADIENT (C):? decreased, cool to cool, proximal to distal, B/L.?PIGMENTATION:?rubrous, B/L.?EDEMA (C):?3/4 , pitting , without aching pain , Leg(s) , Ankle(s) , Foot , B/L.?CLAUDICATION (C):?denies, B/L.?REST PAIN:?denies, B/L.?PARESTHESIA (C):?present, B/L.?Nails: ?NAILS are:?Elongated, overgrown, dystrophic, lytic, greater than 3mm thick, discolored and friable with crumbly malodorous subungual debris, with pain on palpation , TA , T8, all other nails not described with characteristics as possessing mycosis are elongated, overgrown, and dystrophic ( T1, T2, T3, T4, T5, T6, T7, T9?).?Dermatologic: ?SKIN FINDINGS:?Skin exam reveals Keratotic lesion(s) located at , SUB MTH (s), 1, B/L, SUB MTH (s), 3, Left, SUB MTH (s) , 5 , B/L , Plantar, Heel(s) , B/L , Skin shows approximately 80 percent LESS, sign(s) of, dryness, scaling, in a stocking fashion, no fissure(s) present, B/L.? Assessment: * Assessment: 1.?Tinea unguium - B35.1???2 .?Atherosclerosis of king salmon artery of both lower extremities, with unspecified presence of clinical manifestation - I70.203 (Primary)???3.?Pain in right toe(s) - M79.674???4.?Pain in left toe(s) - M79.675 ??5.?Xerosis of skin - L85.3???Specify :Acute problem, Stable Response to treatment - Improvement??? Plan: * Treatment: 2.?Tinea unguium?Procedure: 70961-[id number] NAIL, 1-5 * Procedures:?Debride Nails 1-5:?Procedure:?Due to the clinical pathology outlined in the exam findings, performance of this nail treatment is medically necessary as its management by an unskilled/untrained nonprofessional would put this patients foot and overall health at risk. Therefore, debridement to affected nail(s), as described in exam ( TA, T8 ), was performed exclusively by the physician of record to reduce/remove overall nail length, girth, thickness, subungual debris, and necrotic tissue, by manual and/or electrical means through the use of a nail nipper and/or dremel stylegrinder, to a more viable healthy nail plate or bed tissue 5 nails or fewer in number. Silver nitrate was used for any petechial bleeding as necessary. Definitive antifungal treatment options, both pharmaceutical and surgical, have been reviewed and discussed with the patient. The patient solely prefers the use of intermittent/as needed professional debridement services for their nail condition and understands that additional periodic treatments may be required as necessary to maintain effective symptomatic relief - 46843.?Keratoma Treatment:?Parring or Cutting of Benign Hyperkeratotic Lesion(s)?(-57) More than 4 Lesions - Due to the at risk nature of the patients medical condition as documented in the exam findings, performance of this keratoderma treatment is medically necessary as its management by an unskilled/untrained nonprofessional would put this patients foot and overall health at risk. Therefore, the benign hyperkeratotic lesions, ( 7 ) in total, locations as stated and described in the exam (SUB MTH (s),1,B/L,SUB MTH (s),3,Left,SUB MTH (s),5,B/L,Plantar,Heel(s),B/L), were pared, and/or cut utilizing a sterile 15 blade, tissue nippers, and/or power dremel instrumentation by the physician of record - 22724, Q8.?Nail Reduction:?Nail Reduction?(-27) Trimming of all dystrophic nails - Due to the at risk nature of the patients medical condition as documented in the exam findings, performance of this nail treatment is medically necessary as its management by an unskilled/untrained nonprofessional would put this patients foot and overall health at risk. Therefore, the dystrophic nails, in locations as stated and described in the exam (?T1, T2, T3, T4, T5, T6, T7, T9?), were debrided by the phisician of record to reduce/remove overall nail length and girth, by manual and electrical means with use of a nail nipper and/or dremel, to more viable healthy nail plate or bed tissue - G0127, Q8.? * Procedure Codes:?G0127 FRANK ING DYSTROPHIC NAILS ANY #, Modifiers: XS , [id number] DEBRIDE NAIL, 1-5, Modifiers: XS 66162 TRIM SKIN LESIONS, OVER 4, Modifiers: XS , Q8 * Preventive Medicine:? ??Counseling:?Discussion:?-12: Office or other outpatient visit for the evaluation and management of an established patient, which required a medically appropriate history and/or examination and STRAIGHTFORWARD level of MEDICAL DECISION MAKING, 1 SELF-LIMITED OR MINOR PROBLEM, MINIMAL- NO AMOUNT/COMPLEXITY OF DATA TO BE REVIEWED/ANALYZED, AND MINIMAL RISK OF COMPLICATION/MORBIDITY. The visit on the day of the [...] have encouraged the patient to call the office.?Xerosis:?Given recent successful results to treatment, The patient is to cont the rx cream as directed.? ??Screening/Special Tests:?Fall Risk?Screening:?No falls in the past year ?FALLS: Screening for Future Fall Risk?Have you had any falls with injury in the past year??No * Follow Up:?prn * Images: * Sign off status: Completed true * Provider:?Caden Perez DPM Date:?2024 Generated for Dayana leo/Faith/Toan on:?10/09/2024 03:45 PM EDT History and Physical Notes * HPI (History of Present Illness) Category Sub-Category Detail Notes Category Not es Skin problems Treatments: medication ( AM Lactin ), states adherence to recommended treatment application At Risk footcare Pt States Last PCP Visit: Date: 07/06/2024 [facility] Patient accompanied by, , MANJIT, who is physically present in exam room at time of visit Examination Category Sub-Category Detail Notes Category Not es Dermatologic SKIN FINDINGS: Skin exam reveal s Keratotic lesion(s) located at , SUB MTH (s), 1, B/L, SUB MTH (s), 3, Left, SUB MTH (s) , 5 , B/L , Plantar, Heel(s) , B/L , Skin shows approximately 80 percent LESS, sign(s) of, dryness, scaling, in a stocking [...] REST PAIN: denies, B/L PIGMENTATION: rubrous, B/L PARESTHESIA (C): present, B/L Nails NAILS are: Elongated, overg rown, dystrophic, lytic, greater than 3mm thick, discolored and friable with crumbly malodorous subungual debris, with pain on palpation , TA , T8, all other nails not described with characteristics as possessing mycosis are elongated, overgrown, and dystrophic ( T1, T2, T3, T4, T5, T6, T7, T9 )
--- OUTSIDE RECORDS SUMMARY | 2024-10-09 15:45 | XMS_ITS | Clinical Summary ---
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 Schafer at [facility] Medical History Medical History Date Comments Esophageal reflux DX:Esophageal reflux Lumbosacral spondylosis with out myelopathy DX:Lumbosacral spondylosis w ithout myelopathy Nontoxic multinodular goiter DX: Nontoxic multinodular goiter; COMMENT: bx 2002 Nontoxic uninodular goiter 03/16/2007 DX:No ntoxic uninodular goiter; COMMENT: Kathe's thyroiditis when biopsied by Dr. Carroll on 01/05/2000 Senile osteoporosis 09/27/2007 DX:Senile os teoporosis; COMMENT: BMD: -2.5 at spine, -0/8 at hip (2006); increased pain on Fosamax; vit D low Special screening for malign ant neoplasms, colon 01/11/2008 DX:Special screening for mal ignant neoplasms, colon; COMMENT: Negative colonoscopy 04/26/2002, no colon cancer screening necessary until 2011. Anemia, unspecified DX:Anemia, u nspecified Anxiety state, unspecified 03/11/2006 DX:An xiety state, unspecified Venereal disease, unspecified DX :Venereal disease, unspecified; COMMENT: hsv 2006 Rheumatoid arthritis(714.0) 06/11/2005 DX:R heumatoid arthritis(714.0); COMMENT: sero +, FEI pos(homogeneous), sicca sx Fractured hand 01/15/2010 DX:Fractured hayes d; COMMENT: LEFT Overweight(278.02) 10/01/2010 DX:Overweight (278.02) Cystocele 12/19/2014 DX:Cystocele Hypertension 06/26/2018 DX:Hypertension Posterior vitreous detachmen t of left eye 07/19/2018 DX:Posterior vitreous detach ment of left eye; COMMENT: Dr. Bullock Vitreous hemorrhage, right e ye ([facility] V24, [facility] V28) 07/19/2018 DX:Vitreous hemorrhage, rig ht eye ([facility]); COMMENT: Dr. Bullock Renal cyst, right 02/18/2021 DX:Renal cyst, right; COMMENT: Seen on Lumbar MRI and f/u US on 01/07 & 02/07 respectively Family History Medical History Relation Name Comments Hypertension Father Prostate cancer Father htn Heart failure Mother Congenital Hypertension Mother thyroid Hypertension Sister 1 throid Diabetes Sister 2 Blindness Neg Hx Breast cancer Neg Hx Cataracts Neg Hx Colon cancer Neg Hx Glaucoma Neg Hx Macular degeneration Neg Hx Ovarian cancer Neg Hx Strabismus Neg Hx Relation Name Status Comments Father Mother Sister 1 Sister 2 Sister 3 Alive diabetes Social History Tobacco Use Types Packs/Day Years Used Date Smoking Tobacco: Never Smokeless Tobacco: Never Alcohol Use Standard Drinks/Week Comments No 0 (1 standard drink = 0.6 oz pur e alcohol) Comments Unknown Sex and Gender Information Value Date Recorded Sex Assigned at Not on file Legal Sex Female 1:21 AM EST Gender Identity Not on file Sexual Orientation Not on file Obstetrics History Plan of Treatment Health Maintenance Due Date Last Done Comments Zoster Vaccines (3 of 3) 11/14/2020 09/19/2020, 06/2019 Cholesterol Screening (Lipid Panel) 05/29/2022 Depression Screening 05/29/2022 Falls Risk Assessment 05/29/2022 Hepatitis C Screening 05/29/2022 Medicare Annual Wellness Visit 05/29/2022 Osteoporosis Screening (Bone Density Screening) 05/29/2022 Social Influencers of Health Screening 05/29/2022 RSV Immunization Adult Patients (1 - 1-dose 75+ series) 01/29/2023 COVID-19 Vaccine ( season) 2024 09/22/2021, 03/05/2021, 08/28/2020, Additional history exists Hypertension/CHF/CAD Annual BMP Blood Test 02/12/2025 02/13/2024, 07/01/2023, 12/13/2022, Additional history exists Influenza Vaccine (Season Ended) 2025 04/05/2022, 03/27/2021, 03/18/2020, Additional history exists DTaP,Tdap,and Td Vaccines (4 - Td or Tdap) 10/27/2027 10/26/2017, 10/25/2017, 03/16/2007 Pneumococcal Vaccine: 50+ Years Completed 07/16/2015, 05/27/2014, 04/02/2005 Breast Cancer Screening Discontinued 07/29/19, 07/28/2021, 07/23/2020, Additional history exists HIB Vaccines Aged Out No longer eligi ble based on patient's age to complete this topic HPV Vaccines Aged Out No longer eligi ble based on patient's age to complete this topic Hepatitis A Vaccines Aged Out No long er eligible based on patient's age to complete this topic Hepatitis B Vaccines Aged Out No long er eligible based on patient's age to complete this topic IPV Vaccines Aged Out No longer eligi ble based on patient's age to complete this topic MMR Vaccines Aged Out No longer eligi ble based on patient's age to complete this topic Meningococcal ACWY Vaccine Aged Out N o longer eligible based on patient's age to complete this topic Meningococcal B Vaccine Aged Out No l onger eligible based on patient's age to complete this topic RSV Immunization Patients Under 20 months Aged Out No longer eligible based on patient's age to complete this topic Varicella Vaccines Aged Out No longer eligible based on patient's age to complete this topic Procedures Procedure Name Priority Date/Time Associated Diagnosis Comments SCREENING MAMMOGRAPHY BI 2-VIEW BREAST INC CAD Routine 07/29/2022 1:29 PM EST Encounter for screening mammogram for malignant neoplasm of breast from Last 3 Months or Most Recently Relevant to Health Maintenance Results * SCREENING MAMMOGRAPHY BI 2-VIEW BREAST INC CAD (07/29/2022 1:29 PM EST) Anatomical Region Laterality Modality Radiographic Andie ging 07/28/2021 2:30 PM EST Narrative 07/30/2022 3:14 PM EST This is a summary report. The complete report is available in the patient's medical record. If you cannot access the medical record, please contact the sending organization for a detailed fax or copy. Full field digital screening mammography, using both 2D mammography and tomosynthesis, reviewed with CAD and compared to previous. ??The breasts are composed of fatty and fibroglandular tissue. ??No suspicious mass, architectural distortion or suspicious calcifications are identified. IMPRESSION: : No mammographic evidence of malignancy. BIRADS 1-Negative; N. 5 year breast cancer risk assessment 1.6 % Lifetime breast cancer risk assessment 3.7 % Breast cancer risk category Low (<15%) Procedure Note Abdi Rico MD - 07/25/2023 This is a summary report. The complete report is available in thepatient's medical record. If you cannot access the medical record, pleasecontact the sending organization for a detailed fax or copy. Full field digital screening mammography, using both 2D mammography andtomosynthesis, reviewed with CAD and compared to previous. The breastsare composed of fatty and fibroglandular tissue. No suspicious mass,architectural distortion or suspicious calcifications are identified. IMPRESSION: : No mammographic evidence of malignancy. BIRADS 1-Negative; N. 5 year breast cancer risk assessment 1.6 % Lifetime breast cancer risk assessment 3.7 % Breast cancer risk category Low (<15%) us Lisa Shaw MD IMG XR PROCEDURES Final Resul t from Last 3 Months or Most Recently Relevant to Health Maintenance Additional Health Concerns Infection Onset Date Last Indicated ESBL 05/30/2024 05/30/[address] [facility] Care Teams Bar Machine Operator Production Relationship Specialty Start Date End Date Physician, Pcp Unknown PCP - General 05/03/24
[2024-10-10 10:39] LABS: Complement C3 111 mg/dL (83-193)
[2024-10-10 14:03] LABS: Anti DNA DS Antibody <1 IU/mL; SM/Ribonucleoprotein Ab <1.0 NEG AI (<1.0 NEG); Smith Protein <1.0 NEG AI (<1.0 NEG)
[2024-10-11 04:16] LABS: HBc Num1 0.06 S/CO (0.00-0.79); HBsAGNum1 0.28 S/CO (0.00-0.99); Hepatitis A Antibody IgM 0.18 Index (0-0.79); Hepatitis B Core Antibody Nonreactive (Nonreactive); Hepatitis B Surface Antigen Negative (Negative); ~HepC Num1 0.14 S/CO (0.00-0.79); ~Hepatitis A Antibody IgM Nonreactive (Nonreactive); ~Hepatitis B Surface Antibody NONREACTIVE (Nonreactive); ~Hepatitis C Antibody Nonreactive (Nonreactive)
[2024-10-12 00:33] LABS: TS Negative Control Passed; TS Panel A 0; TS Panel B 0; TS Positive Control Passed; TSpotTB Negative (Negative)
[2024-10-13 07:59] LABS: DNAds, Crithidia Antibody Negative (Negative)
== END 2024-10-09 13:17 | disposition home or self-care (01) ==
LOC: HO.LAB 13:16
PROVIDERS: PCP Internal Medicine; Visit Provider Student in an Organized Health Care Education/Training Program
DX: M32.9 Systemic lupus erythematosus, unspecified (principal); M05.9 Rheumatoid arthritis with rheumatoid factor, unspecified; Z11.59 Encounter for screening for other viral diseases; Z11.7 Encounter for testing for latent tuberculosis infection; Z72.89 Other problems related to lifestyle
CPT/HCPCS: 36415; 80053; 85025; 85652; 86140; 86160; 86225; 86235; 86255; 86481; 86704; 86706; 86709; 86803; 87340

== ENCOUNTER 2024-10-23 15:22 | Outpatient (AMB) | payer MEDICARE, SELFPAY ==
--- NOTE | 2024-10-23 15:43 | MHC.OFFVIS ---
Vital Signs 10/23/24 15:50 Height 5 ft 11 in Weight 201 lb 0.985 oz BMI 28.0 BP 130/74 Blood Pressure Location Lt brachial Position Sitting Respiration 16 Pulse 53 Pulse Source Pulse Oximeter Pulse Oximetry (%) 96 Oxygen Delivery Method Room Air Intake Visit Reasons: RA Intake Note: Patient presents for RA follow up. Allergies adalimumab [From Humira] Allergy (Intermediate, Verified 10/23/24 15:48) Rash alendronate sodium [From Fosamax] Allergy (Intermediate, Verified 10/23/24 15:48) increased pain codeine Allergy (Intermediate, Verified 10/23/24 15:48) Vomiting erythromycin base Allergy (Intermediate, Verified 10/23/24 15:48) Abdominal Pain omeprazole Allergy (Intermediate, Verified 10/23/24 15:48) Rash pantoprazole Allergy (Intermediate, Verified 10/23/24 15:48) Rash Penicillins Allergy (Intermediate, Verified 10/23/24 15:48) Hives piroxicam [From Feldene] Allergy (Intermediate, Verified 10/23/24 15:48) leg swelling romosozumab-aqqg [From Evenity] Allergy (Intermediate, Verified 10/23/24 15:48) allergic Sulfa (Sulfonamide Antibiotics) Allergy (Intermediate, Verified 10/23/24 15:48) Hives teriparatide [From Forteo] Allergy (Intermediate, Verified 10/23/24 15:48) lip swelling raloxifene [From Evista] Allergy (Unknown, Verified 10/23/24 15:48) Unknown timlas Allergy (Intermediate, Uncoded 05/28/24 13:23) Palpitations Medication List - Last Reconciled 10/23/24 by Rin Merino MD acetaminophen (Tylenol) 650 mg PO Q6H PRN apixaban (Eliquis) 5 mg PO BID diltiazem HCl CD 360 mg PO DAILY docusate sodium (Stool Softener) 100 mg PO DAILY epinephrine (EpiPen) 0.3 mg IM Q4H PRN ergocalciferol (vitamin D2) 1,250 mcg PO QWEEK famotidine (Acid Barrel Reamer (famotidine)) 40 mg PO BEDTIME lansoprazole 30 mg PO DAILY latanoprost 0.005% 1 drp ophthalmic (eye) BEDTIME lorazepam 0.5 mg PO BEDTIME PRN losartan 25 mg PO DAILY ondansetron HCl 4 mg PO Q8H PRN oxycodone-acetaminophen 5-325 mg 2 tabs PO BEDTIME pregabalin 100 mg PO TID romosozumab-aqqg (Evenity) mg subcut trazodone 50 mg PO BEDTIME Xeljanz (tofacitinib) 5 mg PO BID NS HPI Comments Details: Patient 74 y.o. female with anxiety, HTN, GERD c/b armendariz's esophagus, Afib on Eliquis, osteoporosis c/b fall 2022 with keft hip fracture s/p surgical repair, fibromyalgia, and seropositive RA here today for follow up Interval History: Patient last seen 05/28/[address] Bo. At that time she was following up for her RA. She was on Xeljanz 5mg bid and thought to be in mild disease activity with some tenderness to palpation of her MTPs as well as mildly elevated inflammatory markers. They discussed adding Arava but patient felt that her symptoms were well-controlled on the current regimen. Today, Patient continues to do well overall Has some pain in her feet but states that is usual for her Rheumatologic History: Seropositive RA Onset mid-: RF and CCP +, FEI pos(homogeneous), sicca sx and SS-A and SS-B positive. Initial treatment with methotrexate with partial response. Remicade added to methotrexate 2000 with good response until early 2002. Remicade changed to Enbrel due to failing response October 2002: stable response since then with good control of synovitis. Methotrexate stopped 01/01 due to nausea, synovitis still controlled with Enbrel. Synovitis not controlled on Enbrel. 06/05 Humira started 07/07 - not helpful and skin rash Xeljanz started 09/04 effective Osteoporosis BMD: -2.5 at spine, -0/8 at hip (2006); increased pain on Fosamax; vit D low. Put on Forteo (Dr. Soto) for a year. Had rash so Forteo was stopped. Reclast December 2011, January 2017 Timlos started every other day 08/08; skips doses due to palpitations Timlos stopped in 2020 due to palpitations. Fracture left hip after a fall 01/29/22- emergent hip replacement Evenity started by [facility] 07/2023, had an allergic reaction after 6 doses then started on Reclast Current Rheumatology Medication(s): IV Reclast 5mg once a year (Follows with Endo) Xeljanz 5mg bid Vitamin D 82986 once a week [facility] Medical History Long-term use of immunosuppressant medication Vitreous hemorrhage, right eye Armendariz's esophagus Osteoarthritis of lumbar spine Positive FEI (antinuclear antibody) Hypertension Osteoporosis Seropositive rheumatoid arthritis Family History Sister Rheumatoid arthritis Social History Household Members: Spouse Housing: House Are you a primary foster care social worker to a significant other at home: No Do you presently have visiting nurse or other home services: No 75 years or older and lives alone: No Alcohol intake: current Alcohol intake frequency: a few times a month Patient Tobacco Use Status: Never used Tobacco e-Cigarette/Vaping Use: Never Used service: No Current occupational status: retired Review of Systems Const Details: Review of Systems Constitutional: Denies fever, chills, weight loss ENT: Denies vision changes, eye pain or eye redness, dental caries, dry mouth GI: Denies nausea, vomiting, diarrhea, abdominal pain, change in BM Pulm: Denies SOB, HOOVER, hemoptysis, wheezing Cards: Denies chest pain, palpitations Skin: Denies Raynaud's, rash, nail changes, photosensitivity, DIRECTOR OF CUSTOMER SERVICE: Denies headaches, weakness, paresthesias, recurrent falls MSK: as per HPI All other systems reviewed and are unremarkable except noted above Physical Exam Vital signs reviewed Physical Examination CONSTITUITIONAL Patient alert and cooperative. Well appearing and in no apparent painful distress HEENT Conjunctiva and sclera clear. ?Pupils equal round and reactive to light. ?No lymphadenopathy. ? CHEST/RESPIRATORY SYSTEM Normal respiratory effort and able to speak in complete sentences. ?Clear to auscultation bilaterally. ?No crackles, rales, rhonchi, wheezes heard. CARDIAC SYSTEM Regular rate and rhythm. ?S1 and S2 heard no murmurs. ?Radial pulses intact bilaterally MSK Hands: ?Able to make a fist. No synovitis noted to the MCPs, PIPs or DIPs. ?No tenderness to palpation of these joints. No deformities noted. ? Wrists: ?Full range of motion at the wrists without pain. ?No tenderness to palpation or synovitis noted to the wrists. Elbows: Full range of motion without pain. No tenderness, weakness, swelling, increased warmth or erythema. Shoulders: Full range of active range of motion without pain. No tenderness, weakness, swelling, increased warmth or erythema. Knees: ?Full range of motion. ?No tenderness, swelling, increased warmth or erythema.?No effusion or crepitations Ankles: Full range of motion. ?No tenderness, swelling, increased warmth or erythema.? Feet: ?Positive squeeze test bilaterally Tender points:?No tenderness to palpation of the bilateral trapezius, supraspinatus, greater trochanters, anterior costochondral junctions, bilateral gluteal areas, bilateral suboccipital muscle insertions SKIN Skin intact without rashes. Results Reviewed Results Reviewed: Laboratory Tests 10/09/24 13:34 WBC 5.8 RBC 3.71 L Hgb 11.6 L Hct 36.6 L Plt Count 229 ESR 30 H Sodium 142 Potassium 3.8 Chloride 108 Carbon Dioxide 29 BUN 16 Creatinine 0.63 AST 21 ALT 10 Alkaline Phosphatase 54 C-Reactive Protein 0.21 Infectious serologies 10/09/24 13:34 Hepatitis A IgM Ab Nonreactive Hep Bs Antigen Negative Hep Bs Antibody NONREACTIVE Hep B Core Total Ab Nonreactive Hepatitis C Ab (EIA) Nonreactive TB Test (T-Spot) Com Negative Assessment & Plan Assessment & Plan (1) Seropositive rheumatoid arthritis: Comment: Onset mid-: RF and CCP +, FEI pos(homogeneous), sicca sx and SS-A and SS-B positive. Initial treatment with methotrexate with partial response. Remicade added to methotrexate 2000 with good response until early 2002. Remicade changed to Enbrel due to failing response October 2002: stable response since then with good control of synovitis. Methotrexate stopped 01/01 due to nausea, synovitis still controlled with Enbrel. Synovitis not controlled on Enbrel. 06/05 Humira started 07/07 - not helpful and skin rash Xeljanz started 09/04 effective Code(s): M05.9 - Rheumatoid arthritis with rheumatoid factor, unspecified Category: Medical Plan: #Seropositive RA Patient is a 74-year-old female with seropositive rheumatoid arthritis here today for follow up. Currently in low disease activity well-controlled on her Xeljanz monotherapy. 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 (3) Osteoporosis: Comment: BMD: -2.5 at spine, -0/8 at hip (2006); increased pain on Fosamax; vit D low. Put on Forteo (Dr. Soto) for a year. Had rash so Forteo was stopped. Reclast December 2011, January 2017 Timlos started every other day 08/08; skips doses due to palpitations Timlos stopped in 2020 due to palpitations. Fracture left hip after a fall 01/29/22- emergent hip replacement Evenity started by Endo 07/2023, had an allergic reaction after 6 doses then started on Reclast Code(s): M81.0 - Age-related osteoporosis without current pathological fracture Category: Medical Qualifiers: Osteoporosis type: age-related Presence of current pathological fracture: without current pathological fracture Qualified Code(s): M81.0 - Age-related osteoporosis without current pathological fracture Plan: #Osteoporosis Currently on IV Reclast. Followed by endocrinology (4) Long-term current use of tofacitinib: Code(s): Z79.622 - halfway (current) use of Janus kinase inhibitor Plan: #Long-term Use of ALE inhibitor : Xeljanz Discussed with patient the benefits and risks of ALE inhibitors for the management of the rheumatic condition Benefits include reduce pain, maintenance of remission and reduction of flares Risks include thromboembolic events, skin cancer and nonmelanoma skin cancers, other forms of cancer, cardiovascular alcohol and mortality Advise patient that they are to hold the medication and for up to 1 week after a febrile illness or an open skin wound Plan I spent 30 minutes reviewing the record and labs, taking a history, examining the patient, discussing the treatment plan, ordering diagnostic work up and documenting in the medical record Orders: Orders Complete Blood Count Auto Diff 4 Months M05.9 - Rheumatoid arthritis with rheumatoid factor, unspecified Comprehensive Met. Panel 4 Months M05.9 - Rheumatoid arthritis with rheumatoid factor, unspecified C Reactive Protein 4 Months M05.9 - Rheumatoid arthritis with rheumatoid factor, unspecified Erythrocyte Sedimentation Rate 4 Months M05.9 - Rheumatoid arthritis with rheumatoid factor, unspecified Coding Level of Care Code Est Pt Level 4 (18706) Complex EM visit Add On G2211 Diagnoses Seropositive rheumatoid arthritis M05.9 Positive FEI (antinuclear antibody) R76.8 Age-related osteoporosis without current pathological fracture M81.0 Osteoporosis type: age-related Presence of current pathological fracture: without current pathological fracture Long-term current use of tofacitinib Z79.622
[2024-10-23 15:50] VITALS: BP 130/74; PULSE 53; RESP 16; O2SAT 96; BMI 28.0
--- OUTSIDE RECORDS SUMMARY | 2024-10-23 16:33 | XMS_ITS | Data Portability ---
Author Organization [facility], , [facility] Address [address] [place] [address] Assessment No assessment recorded. Plan of Treatment [...] Tassoni - EGD completed Adelso Peters MD [address] [place] [address], [phone], [facility] 07/02/2020 09:14:02 8 Marlin - EGD completed Eric Isaac MD [address] [place] [address], [phone], [facility] 11/04/2017 11:39:14 6 Marlin - EGD completed Eric Isaac MD [address] [place] [address], [phone], [facility] 10/13/2015 10:40:44 5 Marlin - EGD completed Eric Isaac MD [address] [place] [address], [phone], [facility] 02/10/2015 08:54:38 5 Marlin Collins EGIggy completed Eric Isaac MD [address] [place] [address], [phone], [facility] 08/30/2014 08:13:13 Imaging Results None recorded. Procedure Notes None recorded. Medical Equipment None Reported. Allergies Allergen ID Allergen Name Allergen Category Reaction Reaction Severity Criticality Documentation Date Start Date Code Code System Note Provider Name and Address Organization Details Recorded Time Feldene medicatio n other Not available Not available 11/03/2017 61129 8 RxNorm legs swell ing TONY Levin, [facility] 1 15:17:13 368852 Substance with sulfonami de structure and antibacte rial mechanism of action (substanc e) medicatio n hives Not available Not available 11/03/2017 00766 8003 SNOMED TONY Levin, [facility] 8 15:52:15 213025 codeine medicatio n Not available Not available Not available 11/03/2017 2670 RxNorm TONY Levin, [facility] 8 15:52:30 094489 Humira medicatio n rash severe Not available 11/03/2017 36235 4 RxNorm full body rash. sever e react ion. Chiquis verduzco RN null, [facility] 1 15:19:56 430067 Forteo medicatio n facial swelling Not available Not available 11/03/2017 94527 7 RxNorm lips swell ing TONY Levin, [facility] 1 15:18:07 756781 Protonix medicatio n hives Not available Not available 11/03/2017 79922 4 RxNorm TONY Levin, [facility] 8 15:53:16 433521 Prilosec medicatio n hives Not available Not available 11/03/2017 61718 5 RxNorm TONY Levin, [facility] 8 15:53:29 336270 penicilli n G Not available hives Not available Not available 11/03/2017 7980 RxNorm TONY Levin, [facility] 8 15:53:44 699873 Erythroci n medicatio n nausea Not available Not available 11/03/2017 65385 3 RxNorm Chiquis verduzco RN [facility], [facility] 8 15:54:12 Medications Name Sig Start Date [...] SNOMED-CT Code Diagnosis ICD10 Code Diagnosis Note [id number] Eric Isaac MD [facility], [address] [address] 08/30/2014 06:55:34 08/30/2014 14:34:32 [id number] Eric Isaac MD [facility], [address] [address] 02/10/2015 07:02:22 02/10/2015 14:41:47 [id number] Eric Isaac MD [facility], [address] [address] 10/13/2015 09:03:25 10/13/2015 13:26:15 [id number] Eric Isaac MD [facility], [address] [address] 11/04/2017 09:38:08 11/04/2017 13:32:33 [id number] Adelso Peters MD [facility], [address] [address] 07/02/2020 07:59:31 07/02/2020 11:15:08 Health Concerns Section Related Observation LastModified by Organization Detai ls LastModified Time None Recorded Concern Status LastModified by Organization Details LastModified Time None Recorded Advance Directives Directive None Recorded Payers Encounter Date Sequence Insurance Name Policy Number Policy Bhatia Covered Member ID Bhatia Member ID Guarantor Name 08/30/2014 1 [place] [employer] [place] Casandra Tonja Ian [id number] Casandra Ian 08/30/2014 2 [place] [id number] Casandra Sosa [id number] Casandra Ian 02/10/2015 1 [place] Casandramaría Sosa [id number] Casandra Ian 02/10/2015 2 [place] [id number] Casandra Sosa [id number] Casandramaría Sosa 10/13/2015 1 [place] [place] Casandra Tonja Ian [id number] Casandra Ian 10/13/2015 2 [place] [id number] Casandra Sosa [id number] Casandramaría Sosa 11/04/2017 1 [place] Casandra Tonja Ian [id number] 1 [id number] Casandramaría Sosa 11/04/2017 2 [place] [id number] Casandra Sosa [id number] Casandramaría Sosa 07/02/2020 1 [place] Casandra Sosa [id number] Casandra Ian 07/02/2020 2 [place] [id number] Casandra Sosa [id number] Casandramaría Sosa OBGyn Episode No OBEpisode recorded.
--- OUTSIDE RECORDS SUMMARY | 2024-10-23 16:33 | XMS_ITS ---
Author Organization [facility] Address [address] [place] [address] Care Team Providers Care Automotive Parts Manager Name Role Phone Lisa Shaw MD Primary Care Provider Caden Anderson Unavailable [phone] Allergies Allergen (clinical drug ingredient) Drug/Non Drug [...] Activ e Vitamin D (Ergocalciferol) 1.25 MG (09862 UT) TAKE 1 CAPSULE BY MOUTH EVERY [...] Ordered Date Performed Result Body Sit e 51832-NRZDGSV NAIL, 1-5 02/21/2024 N/A 03718-DOHS SKIN LESIONS, OVER 4 02/21/2024 N/A [id number] DYSTROPHIC NAILS ANY # 02/21/2024 N/A Encounters Encounter Location Date Provider Diagnosis [facility] [address] [address] 02/21/2024 Caden Perez Atherosclerosis of venet[place] ira artery of both lower extremities, with unspecified presence of clinical manifestation I70.203 ; Tinea unguium B35.1 ; Pain in right toe(s) M79.674 and Pain in left toe(s) M79.675 Assessments Encounter Date Diagnosis (ICD Code) Assessment Notes Treatment Notes Treatment Clinical Notes Section Notes 02/21/2024 Atherosclerosis of [place] ir[place] artery of both lower extremities, with unspecified presence of clinical manifestation (ICD-10 - I70.203) 02/21/2024 Tinea unguium (ICD-10 - B35.1) 02/21/2024 Pain in right toe(s) (ICD-10 - M79.674) 02/21/2024 Pain in left toe(s) (ICD-10 - M79.675) Plan Of Treatment Pending Test Test Name Order Date 69186-QHOQIGG NAIL, 1-5 02/21/2024 79234-DOHB SKIN LESIONS, OVER 4 02/21/20 24 A0305-[id number] DYSTROPHIC NAILS ANY # Next Appt Details Follow Up: prn, Reason: Provider Name:Caden Perez , 11/23/2024 12:15:00 PM, [address] [place] [address], [phone], Provider Name:Caden Angélica Perez , 02/05/2025 01:30:00 PM, [address] [place] [address], [phone], Procedure Notes * Category Sub-Category Detail Notes Keratoma Treatment Parring or Cutting o f Benign Hyperkeratotic Lesion(s) 60805 ( More than 4 Lesions ) - The Benign hyperkeratotic lesions, as described above were pared, and/or cut utilizing a sterile 15 blade, tissue nippers, and/or dremel - 34995 , Q9 Debride Nails 1-5 Procedure: Performance of this nail treatment by a nonprofessional would put this patients foot and overall health at risk. Therefore, nail debridement was performed extensively to reduce/remove overall nail length, girth, thickness, subungual debris, and necrotic tissue, by manual and/or electrical means through the use of a nail nipper and/or dremel-type grinder set up operator, to a more viable healthy nail plate or bed tissue 1-5. Silver nitrate used for any petechial bleeding as necessary. Definitive antifungal treatment options have been reviewed and discussed with the patient. The patient chooses, no pharmaceutical tx - 39961 Nail Reduction Nail Reduction Trimming of dyst rophic nails performed to reduce/remove overall nail length and girth, by manual and electrical means with use of a nail nipper and/or dremel, to more viable healthy nail plate or bed tissue, any number - G0127, Q9 Progress Notes * Casandra SOSA ADOB: [birth year] (74 yo F)Acc No.[id number]:02/21/2024 Progress Note Patient:?Casandra Sosa A Provider:?Caden Perez DPM :1950???Age:74 Y???Sex:Female D ate:02/21/2024 Address:[address] [place] [id number] Pcp:Lisa Shaw MD Subjective: * Chief Complaints: [...] yes, walking. ?Marital status: . ?Occupation: Retired- [employer]. * Medications:?TakingSpironola ctone Vitamin C dilTIAZem HCl ER Stool Softener Vitamin B12 Famotidine 40 MG Tablet as directed Orally LORazepam 0.5 MG Tablet as directed Orally Percocet 5-325 MG Tablet as directed Orally Xeljanz 5 MG Tablet as directed Orally traZODone HCl 50 MG Tablet Oral Methenamine Hippurate 1 GM Tablet Oral Eliquis 5 MG Tablet Oral Vitamin D (Ergocalciferol) 1.25 MG (57918 UT) Capsule TAKE 1 CAPSULE BY MOUTH [...] Oral Taking Vitamin D (Ergocalciferol) 1.25 MG (74373 UT) Capsule TAKE 1 CAPSULE BY MOUTH [...] Assessment: 1.?Tinea unguium - B35.1?2.? Atherosclerosis of venetie ira artery of both lower extremities, with unspecified presence of clinical manifestation - I70.203 (Primary)?3.?Pain in right toe(s) - M79.674?4.?Pain in left toe(s) - M79.675? Plan: * Treatment: 2.?Tinea unguium?Procedure: 25940-HVZZDMG NAIL, 1-5 * Procedures:?Debride Nails 1-5:?Procedure:?Performance of this nail treatment by a nonprofessional would put this patients foot and overall health at risk. Therefore, nail debridement was performed extensively to reduce/remove overall nail length, girth, thickness, subungual debris, and necrotic tissue, by manual and/or electrical means through the use of a nail nipper and/or dremel-type grinder set up operator, to a more viable healthy nail plate or bed tissue 1-5. Silver nitrate used for any petechial bleeding as necessary. Definitive antifungal treatment options have been reviewed and discussed with the patient. The patient chooses, no pharmaceutical tx - 42023.?Keratoma Treatment:?Parring or Cutting of Benign Hyperkeratotic Lesion(s)?51281 ( More than 4 Lesions ) - The Benign hyperkeratotic lesions, as described above were pared, and/or cut utilizing a sterile 15 blade, tissue nippers, and/or dremel - 06267 , Q9.?Nail Reduction:?Nail Reduction?Trimming of dystrophic nails performed to reduce/remove overall nail length and girth, by manual and electrical means with use of a nail nipper and/or dremel, to more viable healthy nail plate or bed tissue, any number?- G0127, Q9.? * Procedure Codes:?G0127 FRANK ING DYSTROPHIC NAILS ANY #, Modifiers: XS , [id number] DEBRIDE NAIL, 1-5, Modifiers: XS 98750 TRIM SKIN LESIONS, OVER 4, Modifiers: XS , Q9 * Follow Up:?prn * Images: * Sign off status: Completed true * Provider:?Caden Ericier, DPM Date:?2023 Generated for Dayana leo/Faith/eTkirstensmitting on:?10/23/2024 04:33 PM EDT History and Physical Notes * [...]
--- OUTSIDE RECORDS SUMMARY | 2024-10-23 16:33 | XMS_ITS ---
Author Organization [facility] Address [address] [place] [address] Care Team Providers Care Strip Mine Supervisor Name Role Phone Lisa Shaw MD Primary Care Provider Caden Anderson Unavailable [phone] Allergies Allergen (clinical drug ingredient) Drug/Non Drug [...] 7 Not-Taking Vitamin D (Ergocalciferol) 1.25 MG (80821 UT) TAKE 1 CAPSULE BY MOUTH EVERY [...] Ordered Date Performed Result Body Sit e 52304-TUFJYQL NAIL, 1-5 05/15/2024 N/A 58249-RCXW SKIN LESIONS, OVER 4 05/15/2024 N/A F4410-WFBVIBSC DYSTROPHIC NAILS ANY # 05/15/2024 N/A Encounters Encounter Location Date Provider Diagnosis [facility] [place] [address] [place] [address] 05/15/2024 Caden Perez Atherosclerosis of salt river artery of both lower extremities, with unspecified presence of clinical manifestation I70.203 ; Tinea unguium B35.1 ; Pain in right toe(s) M79.674 ; Pain in left toe(s) M79.675 and Xerosis of skin L85.3 Assessments Encounter Date Diagnosis (ICD Code) Assessment Notes Treatment Notes Treatment Clinical Notes Section Notes 05/15/2024 Atherosclerosis of salt river artery of both lower extremities, with unspecified [...] days Pending Test Test Name Order Date 50373-SYWBKHG NAIL, 1-5 05/15/2024 98389-JXIE SKIN LESIONS, OVER 4 05/15/20 24 L8984-INHRJCOY DYSTROPHIC NAILS ANY # Next Appt Details Follow Up: prn, Reason: Provider Name:Caden Perez , 11/23/2024 12:15:00 PM, [address] [place] [address], [phone], Provider Name:Caden Perez , 02/05/2025 01:30:00 PM, [address] [place] [address], [phone], Procedure Notes * Category Sub-Category Detail Notes Keratoma Treatment Parring or Cutting o f Benign Hyperkeratotic Lesion(s) (-57) More than 4 Lesions - The Benign hyperkeratotic lesions, ( 7) in total, locations as stated and described in exam, were pared, and/or cut utilizing a sterile 15 blade, tissue nippers, and/or power dremel instrumentation - 07771, Q8 Debride Nails 1-5 Procedure: Performance of this nail treatment by a nonprofessional would put this patients foot and overall health at risk. Therefore, debridement to affected nail(s), as described in exam, was performed extensively to reduce/remove overall nail length, girth, thickness, subungual debris, and necrotic tissue, by manual and/or electrical means through the use of a nail nipper and/or dremel-type pocket grinder operator, to a more viable healthy nail [...] necessary to maintain effective symptomatic relief - 09406 Nail Reduction Nail Reduction (-27) Trimming o f all dystrophic nails, locations as stated and described in exam, was performed to reduce/remove overall nail length and girth, by manual and electrical means with use of a nail nipper and/or dremel, to more viable healthy nail plate or bed tissue - G0127, Q8 Progress Notes * Casandra SOSA ADOB: [birth year] (74 yo F)Acc No.[id number]:05/15/2024 Progress Note Patient:Casandra LOBATO Provider:?Caden Perez DPM :1950???Age:74 Y???Sex:Female D ate:05/15/2024 Address:[address] [place] [address] [facility] Pcp:Lisa Shaw MD Subjective: * Chief Complaints: [...] yes, walking. ?Marital status: . ?Occupation: Retired- [employer]. * Medications:?TakingTrimethop rim Spironolactone Vitamin C [...] Tablet Oral Vitamin D (Ergocalciferol) 1.25 MG (42890 UT) Capsule TAKE 1 CAPSULE BY MOUTH [...] Oral Taking Vitamin D (Ergocalciferol) 1.25 MG (41860 UT) Capsule TAKE 1 CAPSULE BY MOUTH [...] Assessment: 1.?Tinea unguium - B35.1???2 .?Atherosclerosis of salt river artery of both lower extremities, with unspecified presence of clinical manifestation - I70.203 (Primary)???3.?Pain in right toe(s) - M79.674???4.?Pain in left toe(s) - M79.675 ??5.?Xerosis of skin - L85.3???Specify :Acute problem, Uncomplicated (3),Rx Management (4)??? Plan: * Treatment: 2.?Tinea unguium?Procedure: 74660-EWJVDUZ NAIL, 1-5 3.?Xerosis of skin? Start Ammonium [...] use of a nail nipper and/or dremel-type pocket grinder operator, to a more viable healthy nail [...] necessary to maintain effective symptomatic relief - 37397.?Keratoma Treatment:?Parring or Cutting of Benign Hyperkeratotic Lesion(s)?(-57) More than 4 Lesions - The Benign hyperkeratotic lesions, ( 7) in total, locations as stated and described in exam, were pared, and/or cut utilizing a sterile 15 blade, tissue nippers, and/or power dremel instrumentation - 98586, Q8.?Nail Reduction:?Nail Reduction?(-27) Trimming of all dystrophic nails, locations as stated and described in exam, was performed to reduce/remove overall nail length and girth, by manual and electrical means with use of a nail nipper and/or dremel, to more viable healthy nail plate or bed tissue - G0127, Q8.? * Procedure Codes:?G0127 FRANK ING DYSTROPHIC NAILS ANY #, Modifiers: XS , [id number] DEBRIDE NAIL, 1-5, Modifiers: XS 67762 TRIM SKIN LESIONS, OVER 4, Modifiers: XS [...] Perez DPM Date:?2023 Generated for Dayana leo/Faith/Toan on:?10/23/2024 04:33 PM EDT History and Physical [...]
--- OUTSIDE RECORDS SUMMARY | 2024-10-23 16:33 | XMS_ITS | Clinical Summary ---
Author Organization [facility] Address [address] [place] [address] Care Team Providers Care Hat Stock Laminating Machine Operator Name Role Phone Unavailable Primary Care Provider [...] Bone Density Screening 01/29/2013 Falls Prevention 01/29/2013 Kxo-YPUJS-43 ( season) 2024 04/10/2023, 04/05/2022, 09/22/2021, Additional history exists Imm-Influenza (#1) 2024 04/10/2023, 1 , 03/27/2021, Additional history exists Alcohol and Drug Screen 06/20/2024 Depression Annual Screen 06/20/2024 Hypertension Screening (#1) 10/05/2024 Imm-DTaP/Tdap/Td (3 - Td or Tdap) 10/27/2027 018, 03/16/2007 Imm-Pneumococcal 65+ Completed 07/16/2015, 05/27/2014, 04/02/2005 Imm-Zoster, Recombinant Completed 09/19/2020, 05/20 [place] - [place] [facility] Member Subscriber Plan / Payer (Ef fective 2013-Present) Name:Casandra Sosa Relation to Subscriber:Self Name:Casandra Sosa Payer ID:[id number] Type:Indemni Address: [facility] [address] [id number]
--- OUTSIDE RECORDS SUMMARY | 2024-10-23 16:33 | XMS_ITS | Patient Health Record ---
Author Organization [facility] Address [address] [facility] [place] [address] Care Team Providers Care Procedural Nurse Name Role Phone Lisa Shaw MD Primary Care Provider Caden Anderson Unavailable [phone] Allergies Allergen (clinical drug ingredient) Drug/Non Drug Allergy documented on EMR Reaction Allergy Type Onset Date Status sulfamethoxazole / trimethoprim Bactrim hives Drug Allergy Active erythromycin Erythromycin hives Drug Allergy A ctive Penicillin hives Drug Allergy Active Reason For Referral No Information Medications Medication SIG (Take, Route, Frequency, Duration) Notes Start Date End Date Status Vitamin C Active Vitamin D (Ergocalciferol) 1.25 MG (21783 UT) TAKE 1 CAPSULE BY MOUTH EVERY [...] W/U Status Risk Notes Problem Atherosclerosis of elem arteries of the extremities ([id number]) Atherosclerosis of elem artery of both lower extremities, with unspecified presence of clinical manifestation (I70.203) Active confirmed Problem [id number] Rheumatoid arthritis involving both feet, unspecified whether rheumatoid factor present (M06.9) Active confirmed Vital Signs Blood pressure diastolic 70 mm Hg 08/17/2024 Height 5 ft 11 in in 08/17/2024 Blood pressure systolic 120 mm Hg 08/17/2024 Weight 190 lbs 08/17/2024 BMI 26.5 kg/m2 08/17/2024 Procedures Procedure Date Ordered Date Performed Result Body Sit e 64126-VSWDLUA NAIL, 1-5 11/29/2023 N/A 59085-RDUZ SKIN LESIONS, 2 TO 4 11/29/2023 N/A Y2596-OHZCFVCR DYSTROPHIC NAILS ANY # 11/29/2023 N/A 85168-FJWFAXP NAIL, 1-5 02/21/2024 N/A 50581-GYVD SKIN LESIONS, OVER 4 02/21/2024 N/A K9347-ZIPJBCMW DYSTROPHIC NAILS ANY # 02/21/2024 N/A R6056-VGKODAXX DYSTROPHIC NAILS ANY # 08/17/2024 N/A 35959-OXGK SKIN LESIONS, OVER 4 08/17/2024 N/A 97386-QROZDJV NAIL, 1-5 08/17/2024 N/A U1906-OXSVJMFC DYSTROPHIC NAILS ANY # 05/15/2024 N/A 13010-LNDK SKIN LESIONS, OVER 4 05/15/2024 N/A 06333-ZQMTDQZ NAIL, 1-5 05/15/2024 N/A Encounters Encounter Location Date Provider Diagnosis [facility] [place] [address] [place] [address] 11/29/2023 Caden Perez Atherosclerosis of elem artery of both lower extremities, with unspecified [...] factor present M06.9 and Lumbar radiculopathy M54.[address] [address] 02/21/2024 Caden Chris Atherosclerosis of elem artery of both lower extremities, with unspecified presence of clinical manifestation I70.203 ; Tinea unguium B35.1 ; Pain in right toe(s) M79.674 and Pain in left toe(s) M79.[address] [address] 05/15/2024 Caden Domingounier Atherosclerosis of elem artery of both lower extremities, with unspecified presence of clinical manifestation I70.203 ; Tinea unguium B35.1 ; Pain in right toe(s) M79.674 ; Pain in left toe(s) M79.675 and Xerosis of skin L85.[address] [address] 08/17/2024 Caden Domingounier Atherosclerosis of elem artery of both lower extremities, with unspecified presence of clinical manifestation I70.203 ; Tinea unguium B35.1 ; Pain in right toe(s) M79.674 ; Pain in left toe(s) M79.675 and Xerosis of skin L85.3 Assessments Encounter Date Diagnosis (ICD Code) Assessment Notes Treatment Notes Treatment Clinical Notes Section Notes 11/29/2023 Tinea unguium (ICD-10 - B35.1) 11/29/2023 Atherosclerosis of elem artery of both lower extremities, with unspecified presence of clinical manifestation (ICD-10 - I70.203) 02/21/2024 Tinea unguium (ICD-10 - B35.1) 02/21/2024 Atherosclerosis of elem artery of both lower extremities, with unspecified presence of clinical manifestation (ICD-10 - I70.203) 05/15/2024 Tinea unguium (ICD-10 - B35.1) 05/15/2024 Atherosclerosis of elem artery of both lower extremities, with unspecified presence of clinical manifestation (ICD-10 - I70.203) 08/17/2024 Tinea unguium (ICD-10 - B35.1) 08/17/2024 Atherosclerosis of elem artery of both lower extremities, with unspecified [...] X ray : Foot, left 3V 11/29/2023 98450-AAYIHUV NAIL, 1-5 11/29/2023 04936-GYRACNB NAIL, 1-5 02/21/2024 26464-RCHVPYW NAIL, 1-5 05/15/2024 94009-JBWXYFP NAIL, 1-5 08/17/2024 88927-FWJK SKIN LESIONS, OVER 4 08/17/19 25 73876-WAUZ SKIN LESIONS, OVER 4 02/21/20 24 28411-BYLU SKIN LESIONS, OVER 4 05/15/20 24 01302-GEIL SKIN LESIONS, 2 TO 4 11/29/19 24 D7029-YDNHIDGM DYSTROPHIC NAILS ANY # K4975-NUOSXOZU DYSTROPHIC NAILS ANY # Q7534-VTBMHIOK DYSTROPHIC NAILS ANY # D0173-FGOBKSCZ DYSTROPHIC NAILS ANY # Next Appt Details Provider Name:Caden Perez , 11/23/2024 12:15:00 PM, [address] [place] [address], [phone], Provider Name:Caden Perez , 02/05/2025 01:30:00 PM, [address] [place] [address], [phone], Insurance Providers Payer Name Payer Address Payer Phone Subscriber Number Group Number Insured Name Patient Relationship to Insured Coverage Start Date Coverage End Date Medicare National Govt Sv[employer] [address] [place] [address] [id number] Casandra Sosa Self - patient is the insured [employer] [address] [place] [address] [id number] Casandra Sosa Self - patient is the [...]
--- OUTSIDE RECORDS SUMMARY | 2024-10-23 16:33 | XMS_ITS | Continuity of Care Document ---
Author Organization [facility] Address [address] [place] [address] Phone Care Team Providers Care Scout Executive Name Role Phone Jadiel TURNER, RVT, Te [...] Mins- [place] & [place] [facility] MD DONNELLY, [address] [place] [address] Dr Abad 1000SuStephanie sánchez MD, [id number], [place] tel:[phone] [facility] - [place] [facility] [place] Chronic venous hypertension (idiopathic) without complications of bilateral lower extremityEsse ntial (primary) hypertensionL ymphedema, not elsewhere classifiedPru ritus, unspecifiedHe reditary lymphedema 4 Jadiel TURNER RVT, RPVI Robert. [address] [place] [address], [id number], [place]. tel:[phone] Referring Provider: Lisa Shaw, [address] [place] [address], [address]. tel:[phone] [facility] MD DONNELLY, [address] [place] [address] Dr Abad 1000SuStephanie sánchez MD, [id number], [place] tel:[phone] [facility] Varicose veins of bilateral lower extremities with pain 4 Jadiel TURNER RVT, RPVI Robert. [address] [place] [address], [id number], [place]. tel:[phone] Referring Provider: Lisa Shaw, [address] [place] [address], [address]. tel:[phone] [facility] MD DONNELLY, [address] [place] [address] Dr Abda 1000SuStephanie sánchez MD, [id number], [place] tel:[phone] [facility] hypertension (idiopathic) with other complications of right lower extremity 4 Jadiel TURNER RVT, RPVI Robert. [address] [place] [address], [id number], [place]. tel:[phone] Referring Provider: Lisa Shaw, [address] [place] [address], [address]. tel:[phone] [facility] MD DONNELLY, [address] [place] [address] Dr Abad 1000SuStephanie sánchez MD, [id number], [place] tel:[phone] [facility] Chronic venous hypertension (idiopathic) with inflammation of right lower extremity 4 Jadiel TURNER RVT, RICHELLE Tiwari. [address] [place] [address], [place], [place], [id number], [place]. tel:[phone] Referring Provider: Lisa Shaw, [address] [place] [address], [address]. tel:[phone] [facility], [address] [place] [address] Dr Abad 1000Suite 1000Stephanie [place], [id number], [place] tel:[phone] [facility] Encounter for follow-up examination after completed treatment for conditions other than malignant ne 4 Jadiel TURNER RVT, RICHELLE Tiwari. [address] [place] [address], [place], [place], [id number], [place]. tel:[phone] Referring Provider: Lisa Shaw, [address] [place] [address], [address]. tel:[phone] [facility], [address] [place] [address] Dr Abad 1000[facility] 1000Stephanie [place], [id number], [place] tel:[phone] [facility] Chronic venous hypertension (idiopathic) with inflammation of left lower extremity 4 Jadiel TURNER RVT, RICHELLE Tiwari. [address] [place] [address], [place], [place], [id number], [place]. tel:[phone] Referring Provider: Lisa Shaw [address] [place] [address], [address]. tel:[phone] Offic/outpt E&m Estab 5 Min Trial- Telemedicine CT & [place] [facility], [address] [place] [address] Dr Abad 1000Suite 1000Stephanie [place], [id number], [place] tel:[phone] [facility] Localized edemaCramp and spasmRestless legs syndromeVenou s insufficiency (chronic) (peripheral)E ssential (primary) hypertensionL ymphedema, not elsewhere classifiedPru ritus, unspecifiedHe reditary lymphedema 4 Андрей Barber. [address] [address], Polina trevizo [place], [id number], [place]. tel:[phone] Referring Provider: Lisa Shaw [address] [place] [address], [address]. tel:[phone] [facility], [address] [place] [address] Dr Abad [address], MD Stephanie, [id number], [place] tel:[phone] [facility] [place] No Information 4 Jadiel TURNER RVT, RPVI Robert. [address] [place] [address], [place]ina trevizo [place], [id number], [place]. tel:[phone] Office/Oupt E&M New Pt 45 Mins- [place] & [place] [facility] MD DONNELLY, [address] [place] [address] Dr Abad 1000[facility] Stephanie Avery [place], [id number], [place] tel:[phone] CVR - [facility] Chronic venous hypertension (idiopathic) with other complications of bilateral lower extremityLymp hedema, not elsewhere classified 4 Jadiel TURNER RVT, RPVI Robert. [facility] [address], Polina trevizo [place], [id number], [place]. tel:[phone] Referring Provider: Lisa Shaw, [address] [place] [address], [address]. tel:[phone] [facility], [address] [place] [address] Dr Abad [address] [address], MD Stephanie, [id number], [place] tel:[phone] CVR - [facility] Chronic venous hypertension (idiopathic) with other complications of left lower extremity 4 Jadiel TURNER RVT, RPVI Robert. [address] [place] [address], Polina trevizo [place], [id number], [place]. tel:[phone] Referring Provider: Lisa Shaw [address] [place] [address], [address]. tel:[phone] Family History Family Member Type Diagnosis Age At Onset No Information Payers Payer name Insurance type Covered libertarian ID Authoriza tion(s) Medicare [place]EN [id number] [facility] [place] [id number] Social History Type Description Quantity Date Captured [...]
--- OUTSIDE RECORDS SUMMARY | 2024-10-23 16:33 | XMS_ITS | Encounter Summary ---
Author Organization [facility] Address [address] [place] [address] Care Team Providers Care Cable Installer Repairer Helper Name Role Phone Physician, Pcp Unknown Primary Care Provider Bernice vailable Encounter Details Date Type Department Care Team (Late st Contact Info) Description 05/03/2024 Lab Requisition [facility] - Main Lab [address] [facility] [place] [address] Barbara Baca, PA [address] [facility] [address] [place] [address] Frequency of micturition Social History Tobacco Use [...] Escherichia coli(A) MILAD 05/05/2024 9:23 AM EST [facility] Comment: The organism value for this [...] MICROBIOLOGY - GENERAL ORDER AARON Final Result [facility] [address] [place] [address], documented in this encounter Visit Diagnoses Diagnosis Frequency of micturition Urinary frequency documented in this encounter Additional Health Concerns Infection Onset Date Last Indicated Resolved Time ESBL 05/30/2024 10/16/2024 documented as of this encounter Care Teams Cable Installer Repairer Helper Relationship Specialty Start Date End Date Physician, Pcp Unknown PCP - General 05/03/24 documented as of this encounter
--- OUTSIDE RECORDS SUMMARY | 2024-10-23 16:33 | XMS_ITS | Encounter Summary ---
Author Organization [facility] Address [address] [place] [address] Care Team Providers Care Md Pediatric Allergist Name Role Phone Physician, Pcp Unknown Primary Care Provider Bernice vailable Encounter Details Date Type Department Care Team (Late st Contact Info) Description 06/15/2024 Lab Requisition [facility] - Main Lab [address] [facility] [place] [address] Karlos Perez MD [address] [facility] [address] [place] [address] Bacteremia Social History Tobacco Use [...] Escherichia coli(A) MILAD 06/16/2024 8:01 AM EST [facility] ([facility] Comment: THIS ORGANISM IS POSITIVE FOR [...] GENERAL MORIS QUIÑONES Edited Result - Final [facility] [address] [place] [address], documented in this encounter Visit Diagnoses Diagnosis Bacteremia documented in this encounter Additional Health Concerns Infection Onset Date Last Indicated Resolved Time ESBL 05/30/2024 10/16/2024 documented as of this encounter Care Teams Md Pediatric Allergist Relationship Specialty Start Date End Date Physician, Pcp Unknown PCP - General 05/03/24 documented as of this encounter
--- OUTSIDE RECORDS SUMMARY | 2024-10-23 16:33 | XMS_ITS | Encounter Summary ---
Author Organization [facility] Address [address] [place] [address] Care Team Providers Care Program Project Manager Name Role Phone Physician, Pcp Unknown Primary Care Provider Bernice vailable Encounter Details Date Type Department Care Team (Late st Contact Info) Description 10/17/2024 Lab Requisition [facility] - Main Lab [address] [facility] [place] [address] Mark Morales PA [address] [facility] [address] [place] [address] Bacteremia Social History Tobacco Use Types Packs/Day [...] Comments BACTERIAL IDENTIFICATION AND SUSCEPTIBILITY, AEROBIC Routine 10/16/2024 12:00 AM EDT Bacteremia documented in this encounter Results * (ABNORMAL) Bacterial identification and susceptibility, aerobic (10/16/2024 12:00 AM EDT) Culture, Bacterial ID and Sensitivity Escherichia coli ESBL(A) MILAD 10/18/2024 8:47 AM EDT [facility] Comment: TESTING SUGGESTS AN ESBL(EXTENDED-SPECTRUM BETA-L ACTAMASE PRODUCING STRAIN)WHICH MAY BE RESISTANT C LINICALLY TO ALL CEPHALOSPORINS AND AZTREONAM. This is an edited result. Previous organism was Gram negative bacilli on 10/17/2024 at 1434 EDT. Other Urine specimen from urethra / Unknown 10/16/2024 10/17/2024 2:06 PM EDT Narrative Organism Antibiotic Method Susceptibility Escherichia coli ESBL [...] ug/ml: Resistant Escherichia coli ESBL Cefepime MILAD 4 ug/ml: Intermediate Escherichia coli ESBL Meropenem MILAD <=0.25 ug/ml: Susceptible Escherichia coli ESBL Gentamicin MILAD <=1 ug/ml: Susceptible Escherichia coli ESBL Ciprofloxacin MILAD >=4 ug/ml: Resistant Escherichia coli ESBL Levofloxacin MILAD >=8 ug/ml: Resistant Escherichia coli ESBL Nitrofurantoin MILAD <=16 ug/ml: Susceptible Escherichia coli ESBL Trimethoprim/Sulfa methoxazol e MILAD >=320 ug/ml: Resistant [facility] MICROBIOLOGY - GENERAL ORDER AARON Final Result Performing Organization Address [facility]/State/ZIP Co de Phone Number [facility] [address] [place] [address], documented in this encounter Visit Diagnoses Diagnosis Bacteremia documented in this encounter Additional Health Concerns Infection Onset Date Last Indicated Resolved Time ESBL 05/30/2024 10/16/2024 documented as of this encounter Care Teams Program Project Manager Relationship Specialty Start Date End Date Physician, Pcp Unknown PCP - General 05/03/24 documented as of this encounter
--- OUTSIDE RECORDS SUMMARY | 2024-10-23 16:33 | XMS_ITS | Encounter Summary ---
Author Organization [facility] Address [address] [place] [address] Care Team Providers Care Cook Barbecue Name Role Phone Physician, Pcp Unknown Primary Care Provider Bernice vailable Encounter Details Date Type Department Care Team (Late st Contact Info) Description 05/31/2024 Lab Requisition [facility] - Main Lab [address] [facility] [place] [phone] Barbara Baca, PA [address] [facility] [address] [place] [address] Dysuria Social History Tobacco Use Types Packs/Day [...] coli ESBL(A) MILAD 06/02/2024 8:26 AM EST [facility] Comment: THIS ORGANISM IS POSITIVE FOR [...] Unknown 05/30/2024 05/31/2024 12:53 PM EST [facility]ative [facility] - 06/02/2024 8:26 AM EST [...] MICROBIOLOGY - GENERAL ORDER AARON Final Result [facility] [address] [place] [address], documented in this encounter Visit Diagnoses Diagnosis Dysuria documented in this encounter Additional Health Concerns Infection Onset Date Last Indicated Resolved Time ESBL 05/30/2024 10/16/2024 documented as of this encounter Care Teams Cook Barbecue Relationship Specialty Start Date End Date Physician, Pcp Unknown PCP - General 05/03/24 documented as of this encounter
--- OUTSIDE RECORDS SUMMARY | 2024-10-23 16:34 | XMS_ITS | Clinical Summary ---
Author Organization [address] Address [address] [place] [phone] Phone Care Team Providers Care Front Desk Assistant Name Role Phone Physician, Pcp Unknown Primary Care Provider Bernice vailable Encounters Date Type Department Care Team Description 10/17/2024 Lab Requisition [facility] - Main Lab [address] [facility] [place] [phone] Mark Morales PA Bacteremia from Last 3 Months Surgical History Surgery Date Site/Laterality Comments OTHER SURGICAL HISTORY 1977 PROCEDURE: LAPAROSCOPY PROCEDURE NEC COLONOSCOPY 04/26/2002 PROCEDURE: [place] COLONOSCOPY FLX DX W/COLLJ SPEC WHEN PFRMD; COMMENT: Negative TONSILLECTOMY ADENOIDECTOMY, BILATERAL MYRINGOTOMY AND TUBES PROCEDURE: [place] TONSILLECTOMY & ADENOIDECTOMY <AGE 10 COLONOSCOPY 2012 PROCEDURE: [place] COLONOSCOPY FLX DX W/COLLJ SPEC WHEN PFRMD; COMMENT: no polyps CHOLECYSTECTOMY 11/2017 PROCEDURE: HISTORICAL CHOLECYSTECTOMY; COMMENT: Dr. Schafer at [facility] Medical History Medical History Date Comments Esophageal [...] unspecified DX :Venereal disease, unspecified; COMMENT: hsv 2007 Rheumatoid arthritis(714.0) 06/11/2005 DX:R heumatoid arthritis(714.0); COMMENT: sero +, FEI pos(homogeneous), sicca sx Fractured hand 01/15/2010 DX:Fractured hayes d; COMMENT: LEFT Overweight(278.02) 10/01/2010 DX:Overweight (278.02) Cystocele 12/19/2014 DX:Cystocele Hypertension 06/26/2018 DX:Hypertension Posterior vitreous detachmen t of left eye 07/19/2018 DX:Posterior vitreous detach ment of left eye; COMMENT: Dr. Bullock Vitreous hemorrhage, right e ye ([facility] V24, [facility] V28) 07/19/2018 DX:Vitreous hemorrhage, rig ht eye ([facility]); COMMENT: Dr. Bullock Renal cyst, [...] Zoster Vaccines (3 of 3) 11/14/2020 09/19/2020, 12/06/2019 Cholesterol Screening (Lipid Panel) 05/29/2022 Depression Screening [...] AEROBIC Routine 10/16/2024 12:00 AM EDT Bacteremia SCREENING MAMMOGRAPHY BI 2-VIEW BREAST INC CAD Routine 07/29/2022 1:29 PM EST Encounter for screening mammogram for malignant neoplasm of breast from Last 3 Months or Most Recently Relevant to Health Maintenance Results * (ABNORMAL) Bacterial identification and susceptibility, aerobic (10/16/2024 12:00 AM EDT) Culture, Bacterial ID and Sensitivity Escherichia coli ESBL(A) MILAD 10/18/2024 8:47 AM EDT [facility] Comment: TESTING SUGGESTS AN ESBL(EXTENDED-SPECTRUM [...] methoxazol e MILAD >=320 ug/ml: Resistant us Mark [facility] MICROBIOLOGY - GENERAL ORDER AARON Final Result [facility] [address] [place] [address], * SCREENING MAMMOGRAPHY BI 2-VIEW BREAST INC [...] % Breast cancer risk category Low (<15%) Lisa Shaw MD IMG XR PROCEDURES Final Resul t from Last 3 Months or Most Recently Relevant to Health Maintenance Additional Health Concerns Infection Onset Date Last Indicated ESBL 05/30/2024 10/16/2024 Insurance MEDICARE [facility] Care Teams Front Desk Assistant Relationship Specialty Start Date End Date Physician, Pcp Unknown PCP - General 05/03/24
--- OUTSIDE RECORDS SUMMARY | 2024-10-23 16:34 | XMS_ITS ---
Author Organization [facility] Address [address] [place] [address] Care Team Providers Care Manufacturing Advisor Name Role Phone Lisa Shaw MD Primary Care Provider Caden Anderson Unavailable [phone] Allergies Allergen (clinical drug ingredient) Drug/Non Drug [...] Date Status Vitamin D (Ergocalciferol) 1.25 MG (72084 UT) TAKE 1 CAPSULE BY MOUTH EVERY [...] Ordered Date Performed Result Body Sit e 45261-XAMGTDP NAIL, 1-08/17/2024 N/A 69130-DRGW SKIN LESIONS, OVER 4 08/17/2024 N/A [id number] DYSTROPHIC NAILS ANY # 08/17/2024 N/A Encounters Encounter Location Date Provider Diagnosis [facility] [address] [address] 08/17/2024 Caden Perez Atherosclerosis of crow artery of both lower extremities, with unspecified presence of clinical manifestation I70.203 ; Tinea unguium B35.1 ; Pain in right toe(s) M79.674 ; Pain in left toe(s) M79.675 and Xerosis of skin L85.3 Assessments Encounter Date Diagnosis (ICD Code) Assessment Notes Treatment Notes Treatment Clinical Notes Section Notes 08/17/2024 Atherosclerosis of crow artery of both lower extremities, with unspecified presence of clinical manifestation (ICD-10 - I70.203) 08/17/2024 Tinea unguium (ICD-10 - B35.1) 08/17/2024 Pain in right toe(s) (ICD-10 - M79.674) 08/17/2024 Pain in left toe(s) (ICD-10 - M79.675) 08/17/2024 Xerosis of skin (ICD-10 - L85.3) Plan Of Treatment Pending Test Test Name Order Date 59869-[id number] NAIL, 1-08/17/2024 92339-PNPL SKIN LESIONS, OVER 4 08/17/19 25 [id number] DYSTROPHIC NAILS ANY # Next Appt Details Follow Up: prn, Reason: Provider Name:Caden Perez , 11/23/2024 12:15:00 PM, [address] [place] [address], [phone], Provider Name:Caden Perez , 02/05/2025 01:30:00 PM, [address] [place] [address], [phone], Procedure Notes * Category Sub-Category Detail Notes [...] instrumentation by the physician of record - 06614, Q8 Debride Nails 1-5 Procedure: Due to [...] necessary to maintain effective symptomatic relief - 59373 Nail Reduction Nail Reduction (-27) Trimming o [...] Casandra SOSA ADOB: [birth year] (74 yo F)Acc No.[id number]:08/17/2024 Progress Note Patient:?Sridhar SOSAen A Provider:?Caden Perez DPM :1950???Age:74 Y???Sex:Female D ate:08/17/2024 Address:[address] [place], [place] [phone] Pcp:Lisa Shaw MD Subjective: * Chief Complaints: [...] Tablet Oral Vitamin D (Ergocalciferol) 1.25 MG (27989 UT) Capsule TAKE 1 CAPSULE BY MOUTH [...] Oral Taking Vitamin D (Ergocalciferol) 1.25 MG (64232 UT) Capsule TAKE 1 CAPSULE BY MOUTH [...] Assessment: 1.?Tinea unguium - B35.1???2 .?Atherosclerosis of crow artery of both lower extremities, with unspecified presence of clinical manifestation - I70.203 (Primary)???3.?Pain in right toe(s) - M79.674???4.?Pain in left toe(s) - M79.675 ??5.?Xerosis of skin - L85.3???Specify :Acute problem, Stable Response to treatment - Improvement??? Plan: * Treatment: 2.?Tinea unguium?Procedure: 67797-CFLHMWU NAIL, 1-5 * Procedures:?Debride Nails 1-5:?Procedure:?Due to [...] necessary to maintain effective symptomatic relief - 78384.?Keratoma Treatment:?Parring or Cutting of Benign Hyperkeratotic Lesion(s)?(-57) [...] instrumentation by the physician of record - 06002, Q8.?Nail Reduction:?Nail Reduction?(-27) Trimming of all dystrophic [...] DYSTROPHIC NAILS ANY #, Modifiers: XS , [id number] DEBRIDE NAIL, 1-5, Modifiers: XS 47897 TRIM SKIN LESIONS, OVER 4, Modifiers: XS [...] Perez DPM Date:?2024 Generated for Dayana leo/Faith/Toan on:?10/23/2024 04:33 PM EDT History and Physical Notes * HPI (History of Present Illness) Category Sub-Category Detail Notes Category Not es Skin problems Treatments: medication ( AM Lactin ), states adherence to recommended treatment application At Risk footcare Pt States Last PCP Visit: Date: 07/06/2024 [facility] Patient accompanied by, , MANJIT, who is [...]
== END 2024-10-23 16:14 | disposition home or self-care (01) ==
LOC: HO.RHE 15:23
PROVIDERS: PCP Internal Medicine; Visit Provider Student in an Organized Health Care Education/Training Program
DX: M05.79 Rheumatoid arthritis with rheumatoid factor of multiple sites without organ or systems involvement (principal); R76.8 Other specified abnormal immunological findings in serum; M81.0 Age-related osteoporosis without current pathological fracture; Z79.622 Long term (current) use of Janus kinase inhibitor
CPT/HCPCS: 99214; G2211

== ENCOUNTER → 2024-10-23 15:22 | Outpatient (BNVA) | payer MEDICARE, SELFPAY | PROVIDERS: PCP Internal Medicine; Visit Provider Student in an Organized Health Care Education/Training Program | DX: M05.9 Rheumatoid arthritis with rheumatoid factor, unspecified (principal); M81.0 Age-related osteoporosis without current pathological fracture; R76.8 Other specified abnormal immunological findings in serum; Z79.622 Long term (current) use of Janus kinase inhibitor | CPT/HCPCS: 99212 ==

== ENCOUNTER 2025-02-21 13:36 | Outpatient (REF) | payer MEDICARE, SELFPAY ==
[2025-02-21 14:09] LABS: MANUAL DIFF FLAG NO
[2025-02-21 14:47] LABS: Hematocrit 35.5 % (37.0-47.0); Hemoglobin 11.9 g/dl (12.0-16.0); Imm Gran Abs Auto 0.02 X10*3/uL (0.00-0.03); Imm Gran Pct Auto 0.3 % (0.0-0.4); Lymphocytes Absolute Auto 1.0 X10*3/uL (1.2-4.9); Mean Corpuscular HGB Conc 33.5 g/dl (31.0-35.0); Mean Corpuscular Hemoglobin 33.3 pg (27.0-33.0); Mean Corpuscular Volume 99.4 fL (80.0-98.0); NRBC Abs Auto 0.000 X10*3/uL (0.0-0.012); NRBC Pct Auto 0.0 /100WBC (0.0-0.2); Platelet Count 258 X10*3/uL (160-400); Red Blood Count 3.57 X10*6/uL (4.20-5.50); White Blood Count 6.2 X10*3/uL (4.8-10.8)
--- OUTSIDE RECORDS SUMMARY | 2025-02-21 14:52 | XMS_ITS | Encounter Summary ---
Author Organization [facility] Address [address] [address] Phone Care Team Providers Care Spa Director Name Role Phone Lisa Shaw MD Primary Care Provider [phone] Encounter Details Date Type Department Care Team (Late st Contact Info) Description 12/13/2022 Procedure Pass [address] [place] [address] Social History Tobacco Use Types Packs/Day Years Used Date Smoking Tobacco: Never Smokeless Tobacco: Never Alcohol Use Standard Drinks/Week Comments No 0 (1 standard drink = 0.6 oz pur e alcohol) Education Answer Date Recorded Are you interested in more education? Not on darling e 10/15/2022 Are you concerned about learning? Not on file 10/15/2022 No 10/15/2022 No 10/15/2022 Digital Access Answer Date Recorded No 11/15/2022 No 11/15/2022 Reliable internet access at home? Not on file 11/15/2022 Device with a working camera? Not on file Comments No Sex and Gender Information Value Date Recorded Sex Assigned at Female 01/28/2022 6:47 PM EDT Legal Sex Female 10:05 PM EDT Gender Identity Female 01/28/2022 6:47 PM EDT Sexual Orientation Straight 01/28/2022 6: 47 PM EDT documented as of this encounter Plan of Treatment Upcoming Encounters Date Type Department Care Team (Late st Contact Info) Description 02/04/2025 Procedure Pass [place] [place] [address] 09/18/2025 1:45 PM EDT Appointment [address] [place] [address] Lisa Shaw MD [address] [facility] [place] [address] [email or web address] documented as of this encounter Visit Diagnoses Not on filedocumented in this encounter Additional Health Concerns Infection Onset Date Last Indicated Resolved Time MDR-GN 06/08/2023 06/08/2023 06/07/2024 1:23 AM EST documented as of this encounter Care Teams Spa Director Relationship Specialty Start Date End Date Lisa Shaw MD [facility] [place] [phone] [email or web address] PCP - General Internal Medicine 01/08/22 documented as of this encounter Additional Source Comments The information contained in this document represents components of the legal health record. It is not the complete legal health record.[facility]
--- OUTSIDE RECORDS SUMMARY | 2025-02-21 14:52 | XMS_ITS | Encounter Summary ---
Author Organization [facility] Address [address] [address] Phone Care Team Providers Care Recreational Therapist Name Role Phone Rajesh Garcia MD Primary Care Provider Unavail able Lisa Shaw MD Primary Care Provider Encounter Details Date Type Department Care Team (Late st Contact Info) Description 11/22/2017 Procedure Pass [place] Admitting Dept - [facility] [address] [place] [phone] Social History Tobacco Use Types Packs/Day Years [...] st Contact Info) Description 02/04/2025 Procedure Pass [address] [place] [address] 09/18/2025 1:45 PM EDT Appointment [address] [place] [address] Lisa Shaw MD [address] [place] [address] [email or web address] documented as of this encounter Visit Diagnoses Not on filedocumented in this encounter Additional Health Concerns Infection Onset Date Last Indicated Resolved Time CoV-Exposed Comment:Added per Home Health documentation 03/01/2022 03/03/2022 03/12/2022 1:23 AM E DT MDR-GN 06/08/2023 06/08/2023 06/07/2024 1:23 AM EST documented as of this encounter Care Teams Recreational Therapist Relationship Specialty Start Date End Date Rajesh Garcia MD PCP - General Endocrinology 04/21/17 01/07/22 Lisa Shaw MD [address] [place] [address] [email or web address] PCP - General Internal Medicine 01/08/22 documented as of this encounter Additional Source Comments The information contained in this document represents components of the legal health record. It is not the complete legal health record.[facility]
--- OUTSIDE RECORDS SUMMARY | 2025-02-21 14:52 | XMS_ITS | Encounter Summary ---
Author Organization [facility] Address [address] [address] Phone Care Team Providers Care Tetryl Nitrator Operator Name Role Phone Rajesh Garcia MD Primary Care Provider Unavail Lisa Fong MD Primary Care Provider [phone] Reason for Referral * MRI/CAT Scan - Closed Specialty Diagnoses / Procedures Referred By Valerie matias Referred To Contact Radiology Diagnoses Dilation of biliary tract Procedures MRI Cholangiopancreatography (MRCP) Debbie Griffiths PA-C Phone: tel: fax: [email or web address] Referral ID Status Reason Start Date Expiration Date Visits Re quested Visits Authorized [id number] Closed 11/09/2017 11/09/2018 1 1 Encounter Details Date Type Department Care Team (Late st Contact Info) Description 11/09/2017 Ancillary Orders Virtual Department [address] [place] [address] Debbie Griffiths PA-C [address] [place] [address] [email or web address] Dilation of biliary tract Social History Tobacco Use Types Packs/Day Years Used Date Smoking Tobacco: Never Assessed Comments Unknown Sex and Gender Information Value Date Recorded Sex Assigned at Female 01/28/2022 6:47 PM EDT Legal Sex Female 10:05 PM EDT Gender Identity Female 01/28/2022 6:47 PM EDT Sexual Orientation Straight 01/28/2022 6: 47 PM EDT documented as of this encounter Plan of Treatment Upcoming Encounters Date Type Department Care Team (Late st Contact Info) Description 02/04/2025 Procedure Pass [address] [place] [address] 09/18/2025 1:45 PM EDT Appointment [address] [place] [address] Lisa Shaw MD [address] [place] [address] [email or web address] documented as of this encounter Results * MRI CHOLANGIOPANCREATOGRAPHY (MRCP) WITHOUT CONTRAST (11/16/2017 11:08 AM EDT) Anatomical Region Laterality Modality Pancreas, Biliary Magnetic Reson ance 11/16/2017 11:5 0 AM EDT Impressions 11/16/2017 9:59 PM EDT Dilatation of the common bile duct measuring 8-9 mm without evidence of choledocholithiasis. Pancreatic duct is also mildly dilated. No regional mass detected on noncontrasted imaging. Subtle cholelithiasis. Colonic diverticulosis. POS [id number] Edited by: Mimi Judge on 11/16/2017 12:18 PM Narrative 11/16/2017 9:59 PM EDT HISTORY: See above. COMPARISON: None CORRELATION: Abdominal ultrasound 11/03/2017 TECHNIQUE: Exam performed on a 1.5 Kerry high-field MRI scanner. Axial T1 in and out of phase and T2, coronal T2, radial thick slab MRCP, coronal oblique thin section 3-D MRCP sequences were obtained. Reformatted axial and cholangiographic MIP images are available for review. FINDINGS: Liver: No lobar architectural changes of cirrhosis or evidence of steatosis. In the right hepatic lobe lobe, there is one and possibly two subcentimeter bright T2 signal lesions which could represent cysts or hemangiomas but incompletely characterized on this noncontrasted exam. Gallbladder/biliary tree: Known gallstones are subtly visualized where there are small areas of irregular dark signal filling defects within the dependent gallbladder. No wall thickening or pericholecystic fluid. The common bile duct measures 8-9 mm and tapers distally. No filling defects identified within the common bile duct. Intrahepatic ducts are top normal in caliber. Spleen:No abnormality detected. Pancreas: Atrophic. Limited evaluation for masses on this noncontrasted exam. Bifid configuration of the pancreatic duct with dominant Wirsung duct drainage. Pancreatic duct is mildly dilated up to 0.4 cm Adrenal glands: No masses. Kidneys/ureters: No hydronephrosis. A few subcentimeter bright T2 signal lesions statistically represent cysts. Vasculature: Abdominal aorta has normal caliber. Peritoneum: No significant ascites or organized collections. Lymph nodes: No lymphadenopathy detected. Body wall: No suspicious mass. Bowel: Small hiatal hernia. Nonobstructed bowel pattern. Diffuse colonic diverticulosis. Redundant sigmoid colon. Lower thorax: Possible trace pleural fluid on the left. Linear atelectasis or scarring in the left lung base. Bones: Extensive degenerative changes in the thoracolumbar spine. Superior endplate Schmorl's node with possible compression deformity at T12. Procedure Note Brook Sky MD - 11/16/2017 HISTORY: See above. COMPARISON: None CORRELATION: Abdominal ultrasound 11/03/2017 TECHNIQUE: Exam performed on a 1.5 Kerry high-field MRI scanner. Axial T1in and out of phase and T2, coronal T2, radial thick slab MRCP, coronaloblique thin section 3-D MRCP sequences were obtained. Reformatted axialand cholangiographic MIP images are available for review. FINDINGS: Liver: No lobar architectural changes of cirrhosis or evidence ofsteatosis. In the right hepatic lobe lobe, there is one and possibly twosubcentimeter bright T2 signal lesions which could represent cysts orhemangiomas but incompletely characterized on this noncontrasted exam. Gallbladder/biliary tree: Known gallstones are subtly visualized wherethere are small areas of irregular dark signal filling defects within thedependent gallbladder. No wall thickening or pericholecystic fluid. Thecommon bile duct measures 8-9 mm and tapers distally. No filling defectsidentified within the common bile duct. Intrahepatic ducts are top normalin caliber. Spleen:No abnormality detected. Pancreas: Atrophic. Limited evaluation for masses on this noncontrastedexam. Bifid configuration of the pancreatic duct with dominant Wirsungduct drainage. Pancreatic duct is mildly dilated up to 0.4 cm Adrenal glands: No masses. Kidneys/ureters: No hydronephrosis. A few subcentimeter bright T2 signallesions statistically represent cysts. Vasculature: Abdominal aorta has normal caliber. Peritoneum: No significant ascites or organized collections. Lymph nodes: No lymphadenopathy detected. Body wall: No suspicious mass. Bowel: Small hiatal hernia. Nonobstructed bowel pattern. Diffuse colonicdiverticulosis. Redundant sigmoid colon. Lower thorax: Possible trace pleural fluid on the left. Linearatelectasis or scarring in the left lung base. Bones: Extensive degenerative changes in the thoracolumbar spine.Superior endplate Schmorl's node with possible compression deformity atT12. IMPRESSION: Dilatation of the common bile duct measuring 8-9 mm without evidence ofcholedocholithiasis. Pancreatic duct is also mildly dilated. No regionalmass detected on noncontrasted imaging. Subtle cholelithiasis. Colonic diverticulosis. POS [id number] Edited by: Mimi Judge on 11/16/2017 12:18 PM Debbie Griffiths PA-C IMG MR ABDOMEN Final Result documented in this encounter Visit Diagnoses Diagnosis Dilation of biliary tract Dilation of biliary tract documented in this encounter Additional Health Concerns Infection Onset Date Last Indicated Resolved Time CoV-Exposed Comment:Added per Home Health documentation 03/01/2022 03/03/2022 03/12/2022 1:23 AM E DT MDR-GN 06/08/2023 06/08/2023 06/07/2024 1:23 AM EST documented as of this encounter Care Teams Tetryl Nitrator Operator Relationship Specialty Start Date End Date Rajesh Garcia MD PCP - General Endocrinology 04/21/17 01/07/22 Lisa Shaw MD [address] [place] [phone] [email or web address] PCP - General Internal Medicine 01/08/22 documented as of this encounter Additional Source Comments The information contained in this document represents components of the legal health record. It is not the complete legal health record.[facility]
--- OUTSIDE RECORDS SUMMARY | 2025-02-21 14:52 | XMS_ITS | Encounter Summary ---
Author Organization [facility] Address [address] [address] Phone Care Team Providers Care Staffing Associate Name Role Phone Lisa Shaw MD Primary Care Provider [phone] Encounter Details Date Type Department Care Team ([facility] st Contact Info) Description 07/06/2023 Procedure Pass [facility] Admitting Dept Virtual Department [address] [place] [address] Social History Tobacco Use Types Packs/Day Years [...] with a working camera? Not on file Intimate Partner Violence Answer Date R ecorded Are you denied basic needs s uch as food, clothing, or medical care? No 07/06/2023 In the past 12 months have y ou been in a relationship with a person who hurts, threatens, or tries to control you? No 07/06/2023 Are you denied basic needs s uch as food, clothing, or medical care? No 07/06/2023 In the past 12 months have y ou been in a relationship with a person who hurts, threatens, or tries to control you? No 07/06/2023 Comments No Sex and Gender Information Value Date Recorded Sex Assigned at Female 01/28/2022 6:47 PM EDT Legal Sex Female 10:05 PM EDT Gender Identity Female 01/28/2022 6:47 PM EDT Sexual Orientation Straight 01/28/2022 6: 47 PM EDT documented as of this encounter Plan of Treatment Upcoming Encounters Date Type Department Care Team (Late st Contact Info) Description 02/04/2025 Procedure Pass [address] [place] [address] 09/18/2025 1:45 PM EDT Appointment [address] [place] [address] Lisa Shaw MD [address] [place] [address] [email or web address] documented as of this encounter Visit Diagnoses Not on filedocumented in this encounter Additional Health Concerns Infection Onset Date Last Indicated Resolved Time MDR-GN 06/08/2023 06/08/2023 06/07/2024 1:23 AM EST documented as of this encounter Care Teams Staffing Associate Relationship Specialty Start Date End Date Lisa Shaw MD [address] [place] [phone] [email or web address] PCP - General Internal Medicine 01/08/22 documented as of this encounter Additional Source Comments The information contained in this document represents components of the legal health record. It is not the complete legal health record.[facility]
--- OUTSIDE RECORDS SUMMARY | 2025-02-21 14:52 | XMS_ITS | Encounter Summary ---
Author Organization [facility] Address [address] [place] [address] Care Team Providers Care Scoop Machine Operator Name Role Phone Physician, Pcp Unknown Primary Care Provider Bernice vailable Encounter Details Date Type Department Care Team (Late st Contact Info) Description 12/19/2024 Lab Requisition [facility] - Main Lab [address] [facility] [place] [phone] [place] [address] [facility] [address] [place] [address] Dysuria Social History Tobacco Use Types Packs/Day [...] Comments BACTERIAL IDENTIFICATION AND SUSCEPTIBILITY, AEROBIC Routine 12/18/2024 12:00 AM EDT Dysuria documented in this encounter Results * (ABNORMAL) Bacterial identification and susceptibility, aerobic (12/18/2024 12:00 AM EDT) Culture, Bacterial ID and Sensitivity Escherichia coli ESBL(A) MILAD 12/20/2024 9:21 AM EDT [facility] Comment: THIS ORGANISM IS POSITIVE FOR EXTENDED SPECTRUM BETA-LACTAMASE (ESBL). EXTENDED SPECTRUM BETA-LACTAMASE PRODUCING ORGANISMS DEMONSTRATE DECREASED ACTIVITY WITH PENICILLINS, CEPHALOSPORINS AND AZTREONAM. This is an edited result. Previous organism was Gram negative bacilli on 12/19/2024 at 1304 EDT. Other Urine specimen from urethra / Unknown 12/18/2024 12/19/2024 11:26 AM EDT Narrative Organism Antibiotic Method Susceptibility Escherichia [...] methoxazol e MILAD >=320 ug/ml: Resistant us [place] [facility] MICROBIOLOGY - GENERAL ORDERABLES Final Result [facility] [address] [place] [address], documented in this encounter Visit Diagnoses Diagnosis Dysuria documented in this encounter Additional Health Concerns Infection Onset Date Last Indicated Resolved Time ESBL 05/30/2024 12/18/2024 documented as of this encounter Care Teams Scoop Machine Operator Relationship Specialty Start Date End Date Physician, Pcp Unknown PCP - General 05/03/24 documented as of this encounter
--- OUTSIDE RECORDS SUMMARY | 2025-02-21 14:52 | XMS_ITS | Encounter Summary ---
Author Organization [facility] Address [address] [address] Phone Care Team Providers Care Ground Source Heat Pump Technician Name Role Phone Rajesh Garcia MD Primary Care Provider Unavail Lisa Fong MD Primary Care Provider Encounter Details Date Type Department Care Team (Late st Contact Info) Description 11/09/2017 Procedure Pass [address] [place] [address] Social History Tobacco Use Types Packs/Day Years [...] PM EDT documented as of this encounter Last Filed Vital Signs Vital Sign Reading Time Taken Comments Blood Pressure - - Pulse - - Temperature - - Respiratory Rate - - Oxygen Saturation - - Inhaled Oxygen Concentration - - Weight 78.9 kg (174 lb) 11/11/2017 9:53 AM EDT Height 180.3 cm (5' 11 ) 11/11/2017 9:53 AM EDT Body Mass Index 24.27 11/11/2017 9:53 AM EDT documented in this encounter Plan of Treatment Upcoming Encounters Date Type Department Care Team (Late st Contact Info) Description 02/04/2025 Procedure Pass [address] [place] [address] 09/18/2025 1:45 PM EDT Appointment [address] [place] [address] Lisa Shaw MD [address] [facility] [place] [facility] [address] [email or web address] documented as of this encounter Visit Diagnoses Not on filedocumented in this encounter Additional Health Concerns Infection Onset Date Last Indicated Resolved Time CoV-Exposed Comment:Added per Home Health documentation 03/01/2022 03/03/2022 03/12/2022 1:23 AM E DT MDR-GN 06/08/2023 06/08/2023 06/07/2024 1:23 AM EST documented as of this encounter Care Teams Ground Source Heat Pump Technician Relationship Specialty Start Date End Date Rajesh Garcia MD PCP - General Endocrinology 04/21/17 01/07/22 Lisa Shaw MD [address] [place] [phone] [email or web address] PCP - General Internal Medicine 01/08/22 documented as of this encounter Additional Source Comments The information contained in this document represents components of the legal health record. It is not the complete legal health record.[facility]
--- OUTSIDE RECORDS SUMMARY | 2025-02-21 14:52 | XMS_ITS | Clinical Summary ---
Author Organization [address] Address [address] [place] [phone] Phone Care Team Providers Care Harness Worker Name Role Phone Physician, Pcp Unknown Primary Care Provider Bernice vailable Encounters Date Type Department Care Team Description 12/19/2024 Lab Requisition [facility] - Main Lab [address] [facility] [place] [phone] Merced Early PA Dysuria from Last 3 Months Surgical History Surgery Date Site/Laterality Comments OTHER SURGICAL HISTORY 1977 PROCEDURE: LAPAROSCOPY PROCEDURE NEC COLONOSCOPY 04/26/2002 PROCEDURE: MS COLONOSCOPY FLX DX W/COLLJ SPEC WHEN PFRMD; COMMENT: Negative TONSILLECTOMY ADENOIDECTOMY, BILATERAL MYRINGOTOMY AND TUBES PROCEDURE: MS TONSILLECTOMY & ADENOIDECTOMY <AGE 10 COLONOSCOPY 2012 PROCEDURE: MS COLONOSCOPY FLX DX W/COLLJ SPEC WHEN PFRMD; COMMENT: no polyps CHOLECYSTECTOMY 11/2017 PROCEDURE: HISTORICAL CHOLECYSTECTOMY; COMMENT: Dr. Schafer at [facility] Medical History Medical History Date Comments [...] Dr. Bullock Vitreous hemorrhage, right e ye ([facility] V24, [facility] V28) 07/19/2018 DX:Vitreous hemorrhage, rig ht eye ([facility]); COMMENT: Dr. Bullock Renal cyst, right 02/18/2021 [...] Zoster Vaccines (3 of 3) 11/14/2020 09/19/2020, 1206/2019 Cholesterol Screening (Lipid Panel) 05/29/2022 Falls Risk Assessment 05/29/2022 Hepatitis C Screening 05/29/2022 Medicare Annual Wellness Visit 05/29/2022 Osteoporosis Screening (Bone Density Screening) 05/29/2022 Social Influencers of Health Screening 05/29/2022 RSV Immunization Adult Patients (1 - 1-dose 75+ series) 01/29/2023 Depression Screening 06/20/2024 COVID-19 Vaccine ( season) 2025 09/22/2021, 03/05/2021, 08/28/2020, Additional history exists Influenza Vaccine (#1) 2025 , 03/27/2021, 03/18/2020, Additional history exists Hypertension/CHF/CAD Annual BMP Blood Test 11/01/2025 11/01/2024, 09/26/2024, 02/13/2024, Additional history exists DTaP,Tdap,and Td Vaccines (4 [...] AEROBIC Routine 12/18/2024 12:00 AM EDT Dysuria SCREENING MAMMOGRAPHY BI 2-VIEW BREAST INC CAD Routine 07/29/2022 1:29 PM EST Encounter for screening mammogram for malignant neoplasm of breast from Last 3 Months or Most Recently Relevant to Health Maintenance Results * (ABNORMAL) Bacterial identification and susceptibility, aerobic (12/18/2024 12:00 AM EDT) Culture, Bacterial ID and Sensitivity Escherichia coli ESBL(A) [place] 12/20/2024 9:21 AM EDT [facility] Comment: THIS ORGANISM IS POSITIVE FOR [...] LAB MICROBIOLOGY - GENERAL ORDERABLES Final Result [facility] ([facility]) [facility] [address] [place] [address], * SCREENING MAMMOGRAPHY BI 2-VIEW BREAST INC [...] with CAD and compared to previous. The breasts are composed of fatty and fibroglandular tissue. No suspicious mass, architectural distortion or suspicious calcifications are identified. IMPRESSION: : No mammographic evidence of malignancy. BIRADS 1-Negative; N. 5 year breast cancer risk assessment 1.6 % Lifetime breast cancer risk assessment 3.7 % Breast cancer risk category Low (<15%) Procedure Note Abid Rico MD - 07/25/2023 This is a [...] Infection Onset Date Last Indicated ESBL 05/30/2024 12/18/2024 Insurance MEDICARE [facility] Care Teams Harness Worker Relationship Specialty Start Date End Date Physician, Pcp Unknown PCP - General 05/03/24
--- OUTSIDE RECORDS SUMMARY | 2025-02-21 14:52 | XMS_ITS | Encounter Summary ---
Author Organization [facility] Address [address] [address] Phone Care Team Providers Care Global [employer] Content Marketing Name Role Phone Lisa Shaw MD Primary Care Provider [phone] Reason for Referral * MRI/CAT Scan - Closed Specialty Diagnoses / Procedures Referred By Valerie matias Referred To Contact Radiology Diagnoses Persistent headaches Procedures MRI Brain Susan Mzt PA Phone: tel: fax: [email or web address] Referral ID Status Reason Start Date Expiration Date Visits Re quested Visits Authorized [id number] Closed 02/13/2024 02/12/2025 1 1 Encounter Details Date Type Department Care Team (Latest Contact Info) Description 02/13/2024 Transcribe Orders Virtual Department [address] [place] [address] Susan Mtz PA [address] [place] [address] [email or web address] Persistent headaches (Primary Dx) Social History Tobacco Use Types Packs/Day Years [...] st Contact Info) Description 02/04/2025 Procedure Pass [address] [place] [address] 09/18/2025 1:45 PM EDT Appointment [address] [place] [address] Lisa Shaw MD [address] [place] [email or web address] documented as of this encounter Results * MRI BRAIN WITHOUT CONTRAST (02/24/2024 6:06 PM EDT) Anatomical Region Laterality Modality Head Magnetic Resonan ce 02/28/2024 1:27 PM EDT Impressions 02/28/2024 1:45 PM EDT 1. No acute infarct, mass lesion or hemorrhage. Narrative 02/28/2024 1:45 PM EDT MRI BRAIN WITHOUT CONTRAST Referring clinician's provided indication for this examination in [facility]: Outside Radiology Order; headache TECHNIQUE: MRI BRAIN WITHOUT CONTRAST Multi-sequence, multi-planar MRI of the brain was performed without intravenous contrast. COMPARISON: MRI BRAIN OUTSIDE (NO INTERPRETATION) FINDINGS: Brain Parenchyma: No evidence of acute infarct, mass or hemorrhage. There are few scattered foci of T2 hyperintensity in the white matter, likely a manifestation of chronic small vessel disease. Ventricular System and Extra-Axial Spaces: Normal. No evidence of midline shift or hydrocephalus. Extracranial Structures: Expected arterial flow signal is observed at the skull base. Procedure Note Amadeo Mratinez MD - 02/28/2024 MRI BRAIN WITHOUT CONTRAST Referring clinician's provided indication for this examination in [facility]:Outside Radiology Order; headache TECHNIQUE: MRI BRAIN WITHOUT CONTRAST Multi-sequence, multi-planar MRI of the brain was performed withoutintravenous contrast. COMPARISON: MRI BRAIN OUTSIDE (NO INTERPRETATION) FINDINGS: Brain Parenchyma: No evidence of acute infarct, mass or hemorrhage. Thereare few scattered foci of T2 hyperintensity in the white matter, likely amanifestation of chronic small vessel disease. Ventricular System and Extra-Axial Spaces: Normal. No evidence of midlineshift or hydrocephalus. Extracranial Structures: Expected arterial flow signal is observed at theskull base. IMPRESSION: 1. No acute infarct, mass lesion or hemorrhage. Susan NELSON IMG MR HEAD/NECK Final Result documented in this encounter Visit Diagnoses Diagnosis Persistent headaches- Primary Persistent headaches documented in this encounter Additional Health Concerns Infection Onset Date Last Indicated Resolved Time MDR-GN 06/08/2023 06/08/2023 06/07/2024 1:23 AM EST documented as of this encounter Care Teams [employer] Content Marketing Relationship Specialty Start Date End Date Lisa Shaw MD [address] [place] [phone] [email or web address] PCP - General Internal Medicine 01/08/22 documented as of this encounter Additional Source Comments The information contained in this document represents components of the legal health record. It is not the complete legal health record.[facility]
--- OUTSIDE RECORDS SUMMARY | 2025-02-21 14:52 | XMS_ITS | Clinical Summary ---
Author Organization [facility] Address [address] [address] Phone Care Team Providers Care Printing Engineer Name Role Phone Lisa Shaw MD Primary Care Provider Allergies Active Allergy Reactions Criticality Noted Date Comments Codeine Nausea and/or Vomiting High 08/03/2017 Piroxicam Swelling 08/03/2017 legs Teriparatide Swelling 08/03/2017 lip Adalimumab Rash Low 11/16/2017 Nsaids (Non-Steroidal Anti-Inflammatory Drug) 01/24/2023 Penicillins Hives 08/03/2017 Omeprazole Hives 08/03/2017 Pantoprazole Hives 08/03/2017 Sulfa (Sulfonamide Antibiotics) Hives 08/03/2017 Medications traZODone (DESYREL) 50 MG tablet Take 50 mg by mouth nightly. Active tofacitinib (XELJANZ) 5 mg Tab tablet Take 5 mg by mouth 2 (two) times a day. Active cholecalciferol (VITAMIN D3) 50,000 unit tablet Take 50,000 Units by mouth every other week. Active LORazepam (ATIVAN) 0.5 MG tablet TAKE 1 TABLET BY MOUTH TWICE A DAY NEEDED FOR ANXIETY 0 11/05/19 18 Active dilTIAZem (CARDIZEM CD) 240 MG 24 hr capsule Take by mouth daily. 10/05/19 22 Active latanoprost (XALATAN) 0.005 % ophthalmic solution INSTILL 1 DROP INTO LEFT EYE EVERY DAY BEFORE BED 10/26/19 22 Active timolol (TIMOPTIC) 0.5 % ophthalmic solution INSTILL 1 DROP INTO LEFT EYE TWICE A DAY 10/02/19 Active phenazopyridine (PYRIDIUM) 200 MG tablet Take 1 tablet (200 mg total) by mouth 3 (three) times a day as needed for pain (specific location in comments). 10 tablet 01/13/20 Active Additional Information Patient not taking.Informant: Self, Reported on 07/04/2023 famotidine (PEPCID) 40 MG tablet Take 1 tablet (40 mg total) by mouth nightly at bedtime. 02/09/20 Active lansoprazole (PREVACID) 30 MG capsule Take 1 capsule (30 mg total) by mouth daily. 02/09/20 Active enoxaparin (LOVENOX) 100 mg/mL Syrg subcutaneous syringe [The details of the medication are not available because there are pending changes by a home health clinician.] 54 mL 2 02/04/20 Active Additional Information Patient taking differently: 0.9 mLSubcutaneous Every 12 hours, PT REPORTS SHE WAS PUT BACK ON LOVENOX ON 03/01/22AS SHE HAD DVT ., Reported on 03/10/2022 lactobacillus rhamnosus, GG, (CULTURELLE) 10 billion cell capsule Take 1 capsule by mouth daily. 30 capsule 02/04/20 Active oxyCODONE-acetamin ophen (PERCOCET) 5-325 mg per tablet [The details of the medication are not available because there are pending changes by a home health clinician.] 0 02/04/20 Active Additional Information Patient taking differently:1 tablet OralEvery 6 hours PRN, pain (specific location in comments), left hip, Reported on 02/05/2022 ondansetron (ZOFRAN-ODT) 4 MG disintegrating tablet Take 1 tablet (4 mg total) by mouth every 8 (eight) hours as needed for nausea. 10 tablet 02/04/20 Active acetaminophen (TYLENOL) 500 MG tablet Take 500 mg by mouth every 6 (six) hours as needed for pain (specific location in comments) (L hip). total acetaminophen not to exceed 3000mg 02/27/20 Active apixaban (ELIQUIS) 5 mg tablet Take 5 mg by mouth. 01/05/20 Active losartan (COZAAR) 25 MG tablet 01/18/20 Active cyclobenzaprine (FLEXERIL) 10 MG tablet Active Active Problems Problem Noted Date Diagnosed Date Bilateral pneumonia 02/01/2022 Assessment & Plan (02/02/2022 9:14 AM EDT): Hypoxia as described above prompted CXR, patchy opacities of RUL noted, on CT noted to have patchy RUL groundglass opacities and bilateral dependent bandlike atelectasis that was felt to possibly represent aspiration pneumonia in the context of bronchial wall thickening and mucous plugging. On 01/30 was started on azithromycin and ceftriaxone IV. WBC initially 12.66, normalized by 01/31. Had been afebrile, then T of 100.2 F noted 02/01. -Continue O2 supplementation as above for hypoxia -Azithromycin completed for 3 doses, ceftriaxone has been given for 3 doses. Transition to oral cephalosporin today for total treatment course of 7 days. - Low procalcitonin but given imaging findings, fever, I will continue antibiotic treatment. -Good oral intake, no further need for IV fluids. -Daily lab monitoring Paroxysmal atrial fibrillation 01/31/2022 Assessment & Plan (02/01/2022 8:51 AM EDT): New atrial fibrillation with heart rate increased to 150s, first noted 2022. 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 Patient is asymptomatic. [id number] = 3 (female age 72 with hx of HTN). Cardiology consulted, appreciate recs: -continue enoxaparin for therapeutic ac of PE; likely lifelong AC if further episodes of a-fib or a-flutter. -remain on telemetry -outpatient 30-day MCT with Cardiology follow up Acute pulmonary embolism without acute cor pulmo nale 2022 Assessment & Plan (02/02/2022 9:17 AM EDT): No prior O2 requirement or known lung disease other than asthma as a child. O2 sat on presentation to ED was around 94% on room air, and while there was placed on 2L via NC though sat is documented has having been in high 90s. Following that, while still in the ED, there was a notable dip to 77% while off O2 (placed on 4L with recovery to 90s). Perioperatively, the patient required up to 8L O2 to maintain acceptable O2 saturations. On 01/30/22 in the evening, CXR obtained, noting increased patchy opacities in RUL compared to previous. ABGs obtained, hypoxemia with arterial PO2 59.10. No acidosis. Out of concern for CAP in setting of penicillin allergy (but tolerated Ancef perioperatively), started on azithromycin and ceftriaxone empirically. Asymptomatic atrial fib began overnight 01/30-01/31. She has no history of atrial fibrillation. Given her ongoing hypoxia, her recent hip fracture surgery, and the new development of paroxysmal atrial fibrillation, CTPA was obtained, revealing RUL pulmonary embolus without infarction. Discussed with surgeon (Leeanna), initiated full anticoagulation with weight- based enoxaparin and monitor H&H. 02/01/22, HGB 9.3, HCT 28.8, both down slightly from prior. 02/02 She has been requiring 2 liters O2 to maintain sat >92% this am -anticoag with enoxaparin -TTE completed with report pending -BLE ultrasound to eval for further clots reassuring -follow CBC -continue O2 supplementation as needed, wean as tolerated Elevated random blood glucose level 01/29/2022 Assessment & Plan (02/02/2022 9:11 AM EDT): No history of DM. A1c 5.9 with post-op elevation. Goal is <180 mg/dl for adequate wound healing. -POCT glucoses discontinued 02/01. -Continue constant carbohydrate diet -Nutrition consult appreciated -PCP follow-up. Closed left hip fracture 01/28/2022 Assessment & Plan (02/02/2022 9:15 AM EDT): Due to a mechanical fall after tripping on her rug. No loss of consciousness. X-ray shows impacted transcervical left femoral neck fracture. She was seen by Dr. Durán in the emergency department. Unipolar arthroplasty was done evening 01/29/22 without complication. -Enoxaparin at 40mg daily for DVT prophylaxis initially given; finding of PE on 01/31/22 prompted change to weight-based BID anticoagulation. -Oxycodone 2.5-5 mg Q4 hours for moderate pain with plan to downtitrate prior to discharge (patient takes Percocet x2 nightly for chronic RA pain so may require more opioid, though well-controlled at present) -Scheduled Tylenol 650 mg Q6 hours to assist with pain control and allow opioid taper -PT/OT consultation, appreciate recs -Diet advanced and well-tolerated. Primary hypertension 01/28/2022 Assessment & Plan (02/02/2022 9:13 AM EDT): Blood pressure remains controlled on home dose of diltiazem to 40 mg daily. Gastroesophageal reflux dise ase with esophagitis without hemorrhage 01/28/2022 Assessment & Plan (02/02/2022 9:12 AM EDT): Mcmanus's esophagus and reflux. She is stable on lansoprazole and famotidine at home. She has hives with omeprazole and pantoprazole. -Patient was switched to a cephalosporin for treatment of her pneumonia given her penicillin allergy. Pharmacy has recommended holding lansoprazole and famotidine during treatment if possible as these can affect therapeutic levels. Anxiety 01/28/2022 Assessment & Plan (02/02/2022 9:09 AM EDT): Takes Ativan as needed at home infrequently. -continue Ativan 0.5 daily as needed Rheumatoid arthritis involving multiple sites Assessment & Plan (02/02/2022 9:08 AM EDT): Rheumatoid arthritis, she is on Xeljanz (tofacitinib). There is some evidence to suggest increased surgical site infections with Kwaku inhibitors and according to UpToDate, current recommendation is to hold this medication perioperatively. This will need to be further discussed with the surgeon and the patient. She is aware that we do not have this on formulary and if we were to give it, she would need to bring the medication in. -We will hold for now. Umbilical hernia without obstruction and without gangrene 12/07/2017 Contact allergic reaction 08/03/2017 Resolved Problems Problem Noted Date Diagnosed Date Resolved Date Calculus of gallbladder without cholecystitis 11/12/19 18 12/07/2017 Assessment & Plan (11/11/2017 9:16 AM EDT): I ana a picture of right upper quadrant anatomy and explained the pathophysiology of gallbladder disease and gallstone formation. We reviewed the steps of laparoscopic cholecystectomy and discussed the expected postoperative course with need for activity restriction. We discussed risks of bleeding, infection, injury to adjacent structures including the common bile duct, failure to relieve pain, need for further endoscopic or surgical intervention, missed stone, bile leak, and chronic diarrhea. Due to the dilitation of the CBD, I would recommend cholangiogram too if the MRCP is positive. Encounters Date Type Department Care Team Description 02/04/2025 Transcribe Orders Virtual Department [address] [place] [address] Lisa Shaw MD Breast screening (Primary Dx) from Last 3 Months Family History Medical History Relation Comments Hypertension Father Prostate cancer Father Hypertension Mother Thyroid disease Mother Hypertension Sister Thyroid disease Sister Relation Status Comments Father Mother Sister Social History Tobacco Use Types Packs/Day Years Used Date Smoking Tobacco: Never Smokeless Tobacco: Never Tobacco Cessation:Counseling Given: Not Answered Alcohol Use Standard Drinks/Week Comments No 0 [...] Orientation Straight 01/28/2022 6: 47 PM EDT Last Filed Vital Signs Vital Sign Reading Time Taken Comments Blood Pressure 122/58 07/06/2023 8:45 AM EST Pulse 68 07/06/2023 8:45 AM EST Temperature 36.2 C (97.2 F) 07/06/2023 8:45 AM EST Respiratory Rate 12 07/06/2023 8:45 AM EST Oxygen Saturation 99% 07/06/2023 8:45 AM EST Inhaled Oxygen Concentration - - Weight 86.2 kg (190 lb) 02/17/2024 6:46 PM EDT Height 180.3 cm (5' 11 ) 02/17/2024 6:46 PM EDT Body Mass Index 26.5 02/17/2024 6:46 PM EDT Plan of Treatment Upcoming Encounters Date Type Department Care Team (Late st Contact Info) Description 02/04/2025 Procedure Pass [address] [place] [address] 09/18/2025 1:45 PM EDT Appointment [address] [place] [address] Lisa Shaw MD [address] [place] [id number] [email or web address] Health Maintenance Due Date Last Done Comments LIPID PANEL 1948 DEPRESSION SCREENING 1960 HEPATITIS C SCREENING 01/29/1966 OSTEOPOROSIS SCREENING INITIAL (ONE-TIME) 01/29/2013 BLOOD PRESSURE 09/23/2022 03/25/2022 RSV VACCINE (1 - 1-dose 75+ series) 01/29/2023 INFLUENZA VACCINE (#1) 2025 , 04/05/2022, 03/27/2021, Additional history exists COVID-19 VACCINE (2024- season) 2025 04/10/2023, 04/05/2022, 09/22/2021, Additional history exists CREATININE LEVEL 11/01/2025 11/01/2024, 02/2025, 02/13/2024, Additional history exists POTASSIUM LEVEL 11/01/2025 11/01/2024, 02/2025, 02/13/2024, Additional history exists Adult Td,Tdap Booster 10/27/2027 10/26/2017 , 10/25/2017, 03/16/2007 PNEUMOCOCCAL VACCINES (50+ years) Completed 07/16/2015, 05/27/2014, 04/02/2005 ZOSTER VACCINES Completed 09/19/2020, 06/2019, 05/20/2020 SMOKING STATUS SCREENING (Once After 26 Yrs) Completed 09/28/2023 HEPATITIS A VACCINES Aged Out No long er eligible based on patient's age to complete this topic HIB VACCINES Aged Out No longer eligi ble based on patient's age to complete this topic MENINGOCOCCAL VACCINES (ACWY) Aged Out No longer eligible based on patient's age to complete this topic MENINGOCOCCAL VACCINES (B) Aged Out N o longer eligible based on patient's age to complete this topic Medical Devices Implanted Type Area Landscape Horticulture Instructor Device Identifier Shelf Expiration Date Model / Serial / Lot Kit Preparation Cement Femoral Bone Quick Use Bx/1ea - [id number] Implanted:Qty: 1 on 01/29/2022 by Burt Durán DO at [facility] Left: Hip [employer] / [employer] 06/30/2026 [id number] / / [id number] Cement Bone 1x40 Standard - [id number] Implanted:Qty: 1 on 01/29/2022 by Burt Durán DO at [facility] Left: Hip [employer] 03/19/2025 [id number] / / [id number] Cement Bone 1x40 Standard - [id number] Implanted:Qty: 1 on 01/29/2022 by Burt Durán DO at [facility] Left: Hip [employer] 03/19/2024 [id number] / / [id number] Acetabular Shell 50mm Endo Ii Titanium Alloy Unipolar - [id number] Implanted:Qty: 1 on 01/29/2022 by Burt Durán DO at [facility] Left: Hip [employer] 07/12/2029 [id number] / / [id number] Hip Stem 9.0mm Femoral Echo Fx [place] Chromium - [id number] Implanted:Qty: 1 on 01/29/2022 by Burt Durán DO at [facility] Left: Hip [employer] 01/13/2032 [id number] / / [id number] Hip Centralizer 11mm Implant Cemented Versys 16b Bx/1ea - [id number] Implanted:Qty: 1 on 01/29/2022 by Burt Durán DO at [facility] Left: Hip [employer] / DIV [employer] 11/07/2031 [id number] / / [id number] Hip Insert Femoral Bio Sandhu Ii Endo Titanium Alloy Taper Standard - [id number] Implanted:Qty: 1 on 01/29/2022 by Burt Durán DO at [facility] Left: Hip [employer] 11/26/2031 [id number] / / [id number] Procedures Procedure Name Priority Date/Time Associated Diagnosis Comments COMPREHENSIVE METABOLIC PANEL Routine 11/01/2024 12:50 PM EDT Abdominal pain, unspecified abdominal location from Last 3 Months or Most Recently Relevant to Health Maintenance Results * (ABNORMAL) Comprehensive metabolic panel (11/01/2024 12:50 PM EDT) SODIUM 139 133 - 146 mmol/L [facility] POTASSIUM 5.3(H) 3.3 - 5.1 mmol/L [facility] Comment:Specimen slightly he molyzed, result may be falsely elevated. CHLORIDE 103 96 - 108 mmol/L [facility] CO2 29 21 - 35 mmol/L [facility] BUN 14 6 - 19 mg/dL [facility] CREATININE 0.50 0.5 - 1.5 mg/dL [facility] GLUCOSE 80 70 - 99 mg/dL [facility] ALBUMIN 3.8(L) 3.9 - 4.8 g/dL [facility] TOTAL PROTEIN 7.1 6.5 - 8.0 g/dL [facility] CALCIUM 9.6 8.4 - 10.3 mg/dL [facility] ALKALINE PHOSPHATASE 63 39 - 117 U/L [facility] TOTAL BILIRUBIN 0.3 0.0 - 1.2 mg/dL [facility] AST 20 0 - 37 U/L [facility] ALT 6 0 - 40 U/L [facility] GLOBULIN 3.3 1 - 4.8 g/dL [facility] EGFR 97 >59 mL/min/1.7 3m2 [facility] Comment:Estimated glomerular filtration rate calculated using the CKD-EPI refit equation. ANION GAP 12 10 - 20 mmol/L [facility] Blood 11/01/2024 12:5 0 PM EDT 11/01/2024 12:53 PM EDT us Lisa Shaw MD LAB BLOOD ORDERABLES Final Result [facility] [address] [place] [address] from Last 3 Months or Most Recently Relevant to Health Maintenance Insurance MEDICARE PART A & B [employer] MEDEX SUPPLEMENT MEDICARE PART A & B [employer] SUPPLEMENT MEDICARE PART A & B [employer] MEDEX SUPPLEMENT MEDICARE PART A & B [employer] MEDEX SUPPLEMENT MEDICARE PART A & B [employer] MEDEX SUPPLEMENT MEDICARE PART A & B [employer] MEDEX SUPPLEMENT MEDICARE PART A & B [employer] MEDEX SUPPLEMENT [employer] MEDEX SUPPLEMENT MEDICARE PART A & B [employer] MEDEX SUPPLEMENT Advance Directives For more information, please contact: [phone] (9AM - 5PM Maria Del Rosario/[facility], Tuesday-Tuesday) Documents on File Type Date Recorded Patient Coat Checker Expl anation Healthcare Proxy 02/04/2022 11:53 AM Healthcare Proxy 11/23/2017 11:24 AM * Full Code (Latest Code Status on File) Date Activated Date Inactivated Comments 01/28/2022 9:56 PM Question Answer Comments Code Status Confirmed With: Patient * Full Code (Presumed) Date Activated Date Inactivated Comments 11/22/2017 10:42 AM 11/22/2017 7:58 PM Care Teams Printing Engineer Relationship Specialty Start Date End Date Lisa Shaw MD [address] [place] [address] [email or web address] PCP - General Internal Medicine 01/08/22 Additional Source Comments The information contained in this document represents components of the legal health record. It is not the complete legal health record.[facility]
--- OUTSIDE RECORDS SUMMARY | 2025-02-21 14:52 | XMS_ITS | Encounter Summary ---
Author Organization [facility] Address [address] [place] [address] Care Team Providers Care Orthotic Finish Grinding Technician Name Role Phone Physician, Pcp Unknown Primary Care Provider Bernice vailable Encounter Details Date Type Department Care Team (Late st Contact Info) Description 06/15/2024 Lab Requisition [facility] - Main Lab [address] [facility] [place] [address] Karlos Perez MD [address] [facility] [address] [place] [address] Bacteremia Social History Tobacco Use [...] Escherichia coli(A) MILAD 06/16/2024 8:01 AM EST [facility] Comment: THIS ORGANISM IS POSITIVE FOR EXTENDED SPECTRUM BETA-LACTAMASE (ESBL). EXTENDED SPECTRUM BETA-LACTAMASE PRODUCING ORGANISMS DEMONSTRATE DECREASED ACTIVITY WITH PENICILLILNS, CEPHALOSPORINS [...] GENERAL MORIS QUIÑONES Edited Result - Final [facility] [address] [place] [address], documented in this encounter Visit Diagnoses Diagnosis Bacteremia documented in this encounter Additional Health Concerns Infection Onset Date Last Indicated Resolved Time ESBL 05/30/2024 12/18/2024 documented as of this encounter Care Teams Orthotic Finish Grinding Technician Relationship Specialty Start Date End Date Physician, Pcp Unknown PCP - General 05/03/24 documented as of this encounter
--- OUTSIDE RECORDS SUMMARY | 2025-02-21 14:52 | XMS_ITS | Encounter Summary ---
Author Organization [facility] Address [address] [place] [address] Care Team Providers Care Director Of Cloud Services Name Role Phone Physician, Pcp Unknown Primary Care Provider Bernice vailable Encounter Details Date Type Department Care Team (Late st Contact Info) Description 05/03/2024 Lab Requisition [facility] - Main Lab [address] [facility] [place] [id number] Barbara Baca, PA [address] [facility] [address] [place] [address] Frequency of micturition Social History Tobacco Use [...] Escherichia coli(A) MILAD 05/05/2024 9:23 AM EST [facility] Comment: The organism value for this [...] MICROBIOLOGY - GENERAL ORDER AARON Final Result [facility] [address] [place] [address], documented in this encounter Visit Diagnoses Diagnosis Frequency of micturition Urinary frequency documented in this encounter Additional Health Concerns Infection Onset Date Last Indicated Resolved Time ESBL 05/30/2024 12/18/2024 documented as of this encounter Care Teams Director Of Cloud Services Relationship Specialty Start Date End Date Physician, Pcp Unknown PCP - General 05/03/24 documented as of this encounter
--- OUTSIDE RECORDS SUMMARY | 2025-02-21 14:52 | XMS_ITS | Encounter Summary ---
Author Organization [facility] Address [address] [address] Phone Care Team Providers Care Busboy Name Role Phone Rajesh Garcia MD Primary Care Provider Unavail able Lisa Shaw MD Primary Care Provider Encounter Details Date Type Department Care Team (Late Contact Info) Description 10/26/2017 Ancillary Orders Virtual Department [address] [place] [address] Debbie Griffiths PA-C [address] [place] [address] [email or web address] Abdominal pain, epigastric; Nausea Social History Tobacco Use Types Packs/Day Years [...] Encounters Date Type Department Care Team (Late Contact Info) Description 02/04/2025 Procedure Pass [address] [place] [address] 09/18/2025 1:45 PM EDT Appointment [address] [place] [address] Lisa Shaw MD [address] [place] [address] [email or web address] documented as of this encounter Results * US Abdomen Complete (11/03/2017 10:18 AM EDT) Anatomical Region Laterality Modality Abdomen Ultrasound 11/03/2017 12:1 0 PM EDT Impressions 11/03/2017 12:13 PM EDT 1. Cholelithiasis without specific evidence of cholecystitis at this time. 2. Extrahepatic biliary dilatation of uncertain significance. Comparison with laboratory study is needed to evaluate for possible obstruction. If that remains a clinical concern, MRCP would be appropriate. 3. Limited evaluation of the pancreas but no other upper abdomen pathology is apparent. POS [id number] Narrative 11/03/2017 12:13 PM EDT No comparison Multiple gallstones are present but no gallbladder wall thickening, hyperemia or pericholecystic fluid. Negative sonographic Sosa's sign. Common duct is dilated up to at least 9 mm. The distal duct could not be visualized due to bowel gas. No obvious proximal choledocholithiasis. Liver and spleen are homogeneous in echotexture without any focal masses or enlargement. Pancreas is poorly visualized. The mid body is grossly normal but the lower head and distal tail are both obscured by gas. Both kidneys normal size and contour. Renal sinus lipomatosis on the left but no stones, hydronephrosis or renal masses are apparent. No upper abdominal ascites. Visualized aorta and IVC are unremarkable. Procedure Note Andres May MD - 11/03/2017 No comparison Multiple gallstones are present but no gallbladder wall thickening,hyperemia or pericholecystic fluid. Negative sonographic Sosa's sign. Common duct is dilated up to at least 9 mm. The distal duct could not bevisualized due to bowel gas. No obvious proximal choledocholithiasis. Liver and spleen are homogeneous in echotexture without any focal massesor enlargement. Pancreas is poorly visualized. The mid body is grossly normal but thelower head and distal tail are both obscured by gas. Both kidneys normal size and contour. Renal sinus lipomatosis on the leftbut no stones, hydronephrosis or renal masses are apparent. No upper abdominal ascites. Visualized aorta and IVC are unremarkable. IMPRESSION: 1. Cholelithiasis without specific evidence of cholecystitis at thistime. 2. Extrahepatic biliary dilatation of uncertain significance. Comparisonwith laboratory study is needed to evaluate for possible obstruction. Ifthat remains a clinical concern, MRCP would be appropriate. 3. Limited evaluation of the pancreas but no other upper abdomen pathologyis apparent. POS [id number] Debbie Griffiths PA-C IMG US ABDOMEN Final Result documented in this encounter Visit Diagnoses Diagnosis Abdominal pain, epigastric Nausea Nausea alone Abdominal pain, epigastric Nausea Nausea alone documented in this encounter Additional Health Concerns Infection Onset Date Last Indicated Resolved Time CoV-Exposed Comment:Added per Home Health documentation 03/01/2022 03/03/2022 03/12/2022 1:23 AM E DT MDR-GN 06/08/2023 06/08/2023 06/07/2024 1:23 AM EST documented as of this encounter Care Teams Busboy Relationship Specialty Start Date End Date Rajesh Garcia MD PCP - General Endocrinology 04/21/17 01/07/22 Lisa Shaw MD [address] [place] [address] [email or web address] PCP - General Internal Medicine 01/08/22 documented as of this encounter Additional Source Comments The information contained in this document represents components of the legal health record. It is not the complete legal health record.[facility]
--- OUTSIDE RECORDS SUMMARY | 2025-02-21 14:52 | XMS_ITS | Encounter Summary ---
Author Organization [facility] Address [address] [place] [address] Care Team Providers Care Pet House Sitter Name Role Phone Physician, Pcp Unknown Primary Care Provider Bernice vailable Encounter Details Date Type Department Care Team (Late st Contact Info) Description 05/31/[address] [facility] - Main Lab [address] [facility] [place] [id number] Barbara Baca, PA [address] [facility] [address] [place] [address] Dysuria Social History Tobacco Use Types Packs/Day [...] ESBL(A) MILAD 06/02/2024 8:26 AM EST [facility] ([facility] Comment: THIS ORGANISM IS POSITIVE [...] Unknown 05/30/2024 05/31/2024 12:53 PM EST Narrative [facility] [place] [place] ([facility] - 06/02/2024 8:26 AM EST Faxed [...] MICROBIOLOGY - GENERAL ORDER AARON Final Result [facility] [address] [place] [address], documented in this encounter Visit Diagnoses Diagnosis Dysuria documented in this encounter Additional Health Concerns Infection Onset Date Last Indicated Resolved Time ESBL 05/30/2024 12/18/2024 documented as of this encounter Care Teams Pet House Sitter Relationship Specialty Start Date End Date Physician, Pcp Unknown PCP - General 05/03/24 documented as of this encounter
--- OUTSIDE RECORDS SUMMARY | 2025-02-21 14:52 | XMS_ITS | Encounter Summary ---
Author Organization [facility] Address [address] [address] Phone Care Team Providers Care Bathhouse Keeper Name Role Phone Rajesh Garcia MD Primary Care Provider Unavail Lisa Fong MD Primary Care Provider Encounter Details Date Type Department Care Team (Latest Contact Info) Description 06/25/2020 Transcribe Orders Virtual Department 30 [place] [address] Adelso Peters MD [address] [place] [phone] [email or web address] Encounter for preprocedure screening laboratory testing for COVID-19 (Primary Dx) Social History Tobacco Use Types Packs/Day Years Used Date Smoking Tobacco: Never Smokeless Tobacco: Never Alcohol Use Standard Drinks/Week Comments No 0 (1 standard drink = 0.6 oz pur e alcohol) Comments No Sex and Gender Information Value Date Recorded Sex Assigned at Female 01/28/2022 6:47 PM EDT Legal Sex Female 10:05 PM EDT Gender Identity Female 01/28/2022 6:47 PM EDT Sexual Orientation Straight 01/28/2022 6: 47 PM EDT documented as of this encounter Plan of Treatment Upcoming Encounters Date Type Department Care Team (Late st Contact Info) Description 02/04/2025 Procedure Pass [address] [place] [address] 09/18/2025 1:45 PM EDT Appointment [address] [place] [address] Lisa Shaw MD 15 [facility] [place] [address] [email or web address] documented as of this encounter Results * COVID-19 PCR Order (06/29/2020 8:02 AM EST) COVID-19 Comment [id number] [facility] COVID Testing Status Sent to [facility] Other 06/29/2020 8:02 AM EST 06/29/2020 1:43 PM EST us Adelso Peters MD BODY FLUIDS AND STOOLS ORDER AARON Final Result [facility] 30 [place] [address] documented in this encounter Visit Diagnoses Diagnosis Encounter for preprocedure screening laboratory testing for COVID-19- Primary documented in this encounter Additional Health Concerns Infection Onset Date Last Indicated Resolved Time CoV-Exposed Comment:Added per Home Health documentation 03/01/2022 03/03/2022 03/12/2022 1:23 AM E DT MDR-GN 06/08/2023 06/08/2023 06/07/2024 1:23 AM EST documented as of this encounter Care Teams Bathhouse Keeper Relationship Specialty Start Date End Date Rajesh Garcia MD PCP - General Endocrinology 04/21/17 01/07/22 Lisa Shaw MD 15 [facility] [place] [address] [email or web address] PCP - General Internal Medicine 01/08/22 documented as of this encounter Additional Source Comments The information contained in this document represents components of the legal health record. It is not the complete legal health record.[facility]
--- OUTSIDE RECORDS SUMMARY | 2025-02-21 14:53 | XMS_ITS | Encounter Summary ---
Author Organization [facility] Address [address] [address] Phone Care Team Providers Care Drywall Taper Name Role Phone Lisa Shaw MD Primary Care Provider [phone] Encounter Details Date Type Department Care Team (Late st Contact Info) Description 01/31/2022 Procedure Pass [facility], Ct Scan [address] [address] Social History Tobacco Use Types Packs/Day Years [...] st Contact Info) Description 02/04/2025 Procedure Pass [address] [place] [address] 09/18/2025 1:45 PM EDT Appointment [address] [place] [address] Lisa Shaw MD [address] [place] [address] [email or web address] documented as of this encounter Visit Diagnoses Not on filedocumented in this encounter Additional Health Concerns Infection Onset Date Last Indicated Resolved Time CoV-Exposed Comment:Added per Home Health documentation 03/01/2022 03/03/2022 03/12/2022 1:23 AM E DT MDR-GN 06/08/2023 06/08/2023 06/07/2024 1:23 AM EST documented as of this encounter Care Teams Drywall Taper Relationship Specialty Start Date End Date Lisa Shaw MD [address] [place] [address] [email or web address] PCP - General Internal Medicine 01/08/22 documented as of this encounter Additional Source Comments The information contained in this document represents components of the legal health record. It is not the complete legal health record.[facility]
--- OUTSIDE RECORDS SUMMARY | 2025-02-21 14:53 | XMS_ITS | Encounter Summary ---
Author Organization [facility] Address [address] [address] Phone Care Team Providers Care Voice Professor Name Role Phone Lisa Shaw MD Primary Care Provider [phone]- [phone] Encounter Details Date Type Department Care Team (Late st Contact Info) Description 02/13/2024 Procedure Pass [facility], [address] [place] [address] Social History Tobacco Use Types Packs/Day Years [...] st Contact Info) Description 02/04/2025 Procedure Pass [address] [place] [address] 09/18/2025 1:45 PM EDT Appointment [address] [place] [address] Lisa Shaw MD [address] [place] [address] [email or web address] documented as of this encounter Visit Diagnoses Not on filedocumented in this encounter Additional Health Concerns Infection Onset Date Last Indicated Resolved Time MDR-GN 06/08/2023 06/08/2023 06/07/2024 1:23 AM EST documented as of this encounter Care Teams Voice Professor Relationship Specialty Start Date End Date Lisa Shaw MD [address] [place] [phone] [email or web address] PCP - General Internal Medicine 01/08/22 documented as of this encounter Additional Source Comments The information contained in this document represents components of the legal health record. It is not the complete legal health record.[facility]
--- OUTSIDE RECORDS SUMMARY | 2025-02-21 14:53 | XMS_ITS | Encounter Summary ---
Author Organization [facility] Address [address] [address] Phone Care Team Providers Care Commander Police Reserves Name Role Phone Lisa Shaw MD Primary Care Provider [phone] Encounter Details Date Type Department Care Team (Late st Contact Info) Description 03/02/2024 Procedure Pass [facility], Ct Scan - [address] [address] Social History Tobacco Use Types Packs/Day Years [...] st Contact Info) Description 02/04/2025 Procedure Pass [address] [place] [address] 09/18/2025 1:45 PM EDT Appointment [address] [place] [address] Lisa Shaw MD [address] [place] [email or web address] documented as of this encounter Visit Diagnoses Not on filedocumented in this encounter Additional Health Concerns Infection Onset Date Last Indicated Resolved Time MDR-GN 06/08/2023 06/08/2023 06/07/2024 1:23 AM EST documented as of this encounter Care Teams Commander Police Reserves Relationship Specialty Start Date End Date Lisa Shaw MD [address] [place] [phone] [email or web address] PCP - General Internal Medicine 01/08/22 documented as of this encounter Additional Source Comments The information contained in this document represents components of the legal health record. It is not the complete legal health record.[facility]
--- OUTSIDE RECORDS SUMMARY | 2025-02-21 14:53 | XMS_ITS | Encounter Summary ---
Author Organization [facility] Address [address] [address] Phone Care Team Providers Care Tree Doctor Name Role Phone Lisa Shaw MD Primary Care Provider [phone]- [phone] Encounter Details Date Type Department Care Team (Late st Contact Info) Description 01/31/2022 Procedure Pass [facility] Echo Lab [address] [place] [address] Social History Tobacco Use Types Packs/Day Years [...] st Contact Info) Description 02/04/2025 Procedure Pass [address] [place] [address] 09/18/2025 1:45 PM EDT Appointment [address] [place] [address] Lisa Shaw MD [address] [place] [email or web address] documented as of this encounter Visit Diagnoses Not on filedocumented in this encounter Additional Health Concerns Infection Onset Date Last Indicated Resolved Time CoV-Exposed Comment:Added per Home Health documentation 03/01/2022 03/03/2022 03/12/2022 1:23 AM E DT MDR-GN 06/08/2023 06/08/2023 06/07/2024 1:23 AM EST documented as of this encounter Care Teams Tree Doctor Relationship Specialty Start Date End Date Lisa Shaw MD [address] [place] [phone] [email or web address] PCP - General Internal Medicine 01/08/22 documented as of this encounter Additional Source Comments The information contained in this document represents components of the legal health record. It is not the complete legal health record.[facility]
--- OUTSIDE RECORDS SUMMARY | 2025-02-21 14:53 | XMS_ITS | Encounter Summary ---
Author Organization [facility] Address [address] [address] Phone Care Team Providers Care Inside Sales Engineer Name Role Phone Lisa Shaw MD Primary Care Provider [phone] Reason for Referral * MRI/CAT Scan - Closed Specialty Diagnoses / Procedures Referred By Contkitty t Referred To Contact Radiology Diagnoses Sinus pain Procedures CT Face Lisa Shaw MD [address] [place] [address] Phone: tel: fax: [email or web address] Referral ID Status Reason Start Date Expiration Date Visits Re quested Visits Authorized [id number] Closed 03/02/2024 03/02/2025 1 1 Encounter Details Date Type Department Care Team (Late st Contact Info) Description 03/02/2024 Transcribe Orders Virtual Department 30 [place] [address] Lisa Shaw MD [address] [place] [address] [email or web address] Sinus pain (Primary Dx) Social History Tobacco Use Types [...] st Contact Info) Description 02/04/2025 Procedure Pass [address] [place] [address] 09/18/2025 1:45 PM EDT Appointment [address] [place] [address] Lisa Shaw MD [address] [place] [email or web address] documented as of this encounter Results * CT FACE (SINUS) WITHOUT CONTRAST (03/13/2024 5:01 PM EDT) Anatomical Region Laterality Modality Face Computed Tomogra phy 03/14/2024 7:28 AM EDT Impressions 03/14/2024 7:34 AM EDT Mild mucosal thickening within the anterior ethmoids. Leftward nasal septal deviation with an osseous spur. Narrative 03/14/2024 7:[address] FACE (SINUS) WITHOUT CONTRAST Referring clinician's provided indication for this examination in [facility]: Outside Radiology Order; chronic sinus pain TECHNIQUE: Multidetector-row CT of the sinuses was performed without intravenous contrast using tailored dose modulation techniques. Images were reconstructed in the axial, coronal, and sagittal planes. COMPARISON: FINDINGS: Frontal sinuses and frontoethmoidal junctions: Clear. Anterior and posterior ethmoid air cells: Mild mucosal thickening within the anterior ethmoids. Maxillary sinuses and infundibula: Clear. Sphenoid sinuses and sphenoethmoidal recesses: Clear. Nasal cavity: Leftward nasal septal deviation with an osseous spur. Imaged maxillary teeth: No periapical lucencies. Mastoid air cells and middle ear cavities: Clear. Temporomandibular joints: No significant degenerative remodeling. Brain: Images of the brain parenchyma are not of diagnostic quality for the soft tissues. No focal abnormality is visible with this technique. Orbits and globes: No abnormality. Procedure Note Johnson Fuchs, DO - 03/14/2024 CT FACE (SINUS) WITHOUT CONTRAST Referring clinician's provided indication for this examination in [facility]:Outside Radiology Order; chronic sinus pain TECHNIQUE: Multidetector-row CT of the sinuses was performed withoutintravenous contrast using tailored dose modulation techniques. Imageswere reconstructed in the axial, coronal, and sagittal planes. COMPARISON: FINDINGS: Frontal sinuses and frontoethmoidal junctions: Clear. Anterior and posterior ethmoid air cells: Mild mucosal thickening withinthe anterior ethmoids. Maxillary sinuses and infundibula: Clear. Sphenoid sinuses and sphenoethmoidal recesses: Clear. Nasal cavity: Leftward nasal septal deviation with an osseous spur. Imaged maxillary teeth: No periapical lucencies. Mastoid air cells and middle ear cavities: Clear. Temporomandibular joints: No significant degenerative remodeling. Brain: Images of the brain parenchyma are not of diagnostic quality forthe soft tissues. No focal abnormality is visible with this technique. Orbits and globes: No abnormality. IMPRESSION: Mild mucosal thickening within the anterior ethmoids. Leftward nasalseptal deviation with an osseous spur. Lisa Shaw MD IMG CT HEAD/NECK Final Resu lt documented in this encounter Visit Diagnoses Diagnosis Sinus pain- Primary Other diseases of nasal cavity and sinuses Sinus pain Other diseases of nasal cavity and sinuses documented in this encounter Additional Health Concerns Infection Onset Date Last Indicated Resolved Time MDR-GN 06/08/2023 06/08/2023 06/07/2024 1:23 AM EST documented as of this encounter Care Teams Inside Sales Engineer Relationship Specialty Start Date End Date Lisa Shaw MD [address] [place] [address] [email or web address] PCP - General Internal Medicine 01/08/22 documented as of this encounter Additional Source Comments The information contained in this document represents components of the legal health record. It is not the complete legal health record.[facility]
--- OUTSIDE RECORDS SUMMARY | 2025-02-21 14:53 | XMS_ITS | Encounter Summary ---
Author Organization [facility] Address [address] [address] Phone Care Team Providers Care Slubber Frame Changer Name Role Phone Lisa Shaw MD Primary Care Provider [phone] Encounter Details Date Type Department Care Team (Late st Contact Info) Description 01/29/2022 Procedure Pass [place] Admitting Dept - Virtual Department 30 [place] [address] Social History Tobacco Use Types Packs/Day Years [...] PM EDT documented as of this encounter Functional Status * Calculated C-SSRS Risk Score (Lifetime/Recent) Answer Date of Assessment Author No Risk Indicated 01/29/2022 12:01 PM EDT Debbie Francois RN * [place] Suicide Severity Rating Scale (Screener/Recent Self-Report) Question Answer Date of Assessment Author 1. Wish to be (Past 1 Month) No 022 12:01 PM EDT Debbie Francois, RN 2. Non-Specific Active Suici bridger Thoughts (Past 1 Month) No 01/29/2022 12:01 PM EDT Debbie Francois RN 6. Suicidal Behavior (Lifetime) No 12:01 PM EDT Debbie Francois RN documented as of this encounter Plan of Treatment Upcoming Encounters Date Type Department Care Team (Late st Contact Info) Description 02/04/2025 Procedure Pass [address] [place] [address] 09/18/2025 1:45 PM EDT Appointment [address] [place] [address] Lisa Shaw MD 15 [place] [address] [email or web address] documented as of this encounter Visit Diagnoses Not on filedocumented in this encounter Additional Health Concerns Infection Onset Date Last Indicated Resolved Time CoV-Exposed Comment:Added per Home Health documentation 03/01/2022 03/03/2022 03/12/2022 1:23 AM E DT MDR-GN 06/08/2023 06/08/2023 06/07/2024 1:23 AM EST documented as of this encounter Care Teams Slubber Frame Changer Relationship Specialty Start Date End Date Lisa Shaw MD [address] [facility] [place] [address] PCP - General Internal Medicine 01/08/22 documented as of this encounter Additional Source Comments The information contained in this document represents components of the legal health record. It is not the complete legal health record.[facility]
--- OUTSIDE RECORDS SUMMARY | 2025-02-21 14:53 | XMS_ITS | Encounter Summary ---
Author Organization [facility] Address [address] [place] [address] Phone Care Team Providers Care Bank Analyst Name Role Phone Lisa Shaw MD Primary Care Provider [phone]- [phone] Encounter Details Date Type Department Care Team (Late st Contact Info) Description 02/03/2022 Procedure Pass Non-Invasive Cardiology 30 [place] [address] Social History Tobacco Use Types Packs/Day Years [...] st Contact Info) Description 02/04/2025 Procedure Pass [address] [place] [address] 09/18/2025 1:45 PM EDT Appointment [address] [place] [address] Lisa Shaw MD [address] [place] [phone] documented as of this encounter Visit Diagnoses Not on filedocumented in this encounter Additional Health Concerns Infection Onset Date Last Indicated Resolved Time CoV-Exposed Comment:Added per Home Health documentation 03/01/2022 03/03/2022 03/12/2022 1:23 AM E DT MDR-GN 06/08/2023 06/08/2023 06/07/2024 1:23 AM EST documented as of this encounter Care Teams Bank Analyst Relationship Specialty Start Date End Date Lisa Shaw MD [address] [place] [phone] [email or web address] PCP - General Internal Medicine 01/08/22 documented as of this encounter Additional Source Comments The information contained in this document represents components of the legal health record. It is not the complete legal health record.[facility]
--- OUTSIDE RECORDS SUMMARY | 2025-02-21 14:53 | XMS_ITS | Patient Health Record ---
Author Organization [facility] Address [address] [address] Care Team Providers Care Fisher Mussel Name Role Phone Lisa Shaw MD Primary Care Provider Caden Anderson Unavailable [phone] Allergies Allergen (clinical drug ingredient) Drug/Non Drug Allergy documented on EMR Reaction Allergy Type Onset Date Status sulfamethoxazole / trimethoprim Bactrim hives Drug Allergy Active erythromycin Erythromycin hives Drug Allergy A ctive Penicillin hives Drug Allergy Active Reason For Referral No Information Medications Medication SIG (Take, Route, Frequency, Duration) Notes Start Date End Date Status dilTIAZem HCl ER Act romulo Ammonium Lactate 12 % 1 application Externally to affected areas of dry skin to feet except for between the toes Twice a day; Duration: 30 days Active Vitamin C Active Vitamin D (Ergocalciferol) 1.25 MG (70425 UT) TAKE 1 CAPSULE BY MOUTH EVERY WEEK Oral; Duration: 84 Active Spironolactone Activ e Eliquis 5 MG Oral; Duration: 90 Active Trimethoprim Active Methenamine Hippurate 1 GM Oral; Duration: 90 Active traZODone HCl 50 MG Oral; Duration: 90 Active Xeljanz 5 MG as directed Orally Active Percocet 5-325 MG as directed Orally Active LORazepam 0.5 MG as directed Orally Active hydroCHLOROthiazide 25 MG TAKE 1 TABLET BY MOUTH EVERY DAY Oral; Duration: 90 Not-Taking Famotidine 40 MG as directed Orally Active Cyclobenzaprine HCl 10 MG Oral; Duration: 10 Not-Taking Fluconazole 150 MG Oral; Duration: 1 Not-Taking Vitamin B12 Active Stool Softener Activ e Nitrofurantoin Monohyd Macro 100 MG Oral; Duration: 7 Not-Taking Immunizations Vaccine Route Administration Date Status Comme nts Influenza Unknown 02/19/2024 Administered Social History Tobacco Use: Social History Observation [...] Problem Status W/U Status Risk Notes Problem Bilateral atherosclerosis of arteries of lower limbs (disorder) (66492230685361301 ) Atherosclerosis of [place] artery of both lower extremities, with unspecified presence of clinical manifestation (I70.203) Active confirmed Problem Rheumatoid arthritis (48364110) Rheumatoid arthritis involving both feet, unspecified whether rheumatoid factor present (M06.9) Active confirmed Vital Signs Blood pressure diastolic 67 mm Hg 02/05/2025 Height 5 ft 11 in in 02/05/2025 Blood pressure systolic 127 mm Hg 02/05/2025 Weight 190 lbs 02/05/2025 BMI 26.5 kg/m2 02/05/2025 Procedures Procedure Date Ordered Date Performed Result Body Sit e 63939-QFJPOKF NAIL, 1-5 05/15/2024 N/A 21807-JASB SKIN LESIONS, OVER 4 05/15/2024 N/A N6524-YLVCULFZ DYSTROPHIC NAILS ANY # 05/15/2024 N/A 26155-VHSEUYJ NAIL, 1-5 08/17/2024 N/A 13107-MCZL SKIN LESIONS, OVER 4 08/17/2024 N/A O6067-BZFDVMRV DYSTROPHIC NAILS ANY # 08/17/2024 N/A 90786-JADBOID NAIL, 1-5 11/23/2024 N/A 20173-CXQW SKIN LESIONS, OVER 4 11/23/2024 N/A L7579-OKVIIVGE DYSTROPHIC NAILS ANY # 11/23/2024 N/A 82734-XVMQNWY NAIL, 1-5 02/05/2025 N/A 26557-HPSX SKIN LESIONS, OVER 4 02/05/2025 N/A U3104-ZMHJBMXW DYSTROPHIC NAILS ANY # 02/05/2025 N/A Encounters Encounter Location Date Provider Diagnosis [facility] [address] [address] 05/15/2024 Caden Chris Atherosclerosis of [place] artery of both lower extremities, with unspecified presence of clinical manifestation I70.203 ; Tinea unguium B35.1 ; Pain in right toe(s) M79.674 ; Pain in left toe(s) M79.675 and Xerosis of skin L85.[address] [address] 08/17/2024 Caden Chris Atherosclerosis of [place] artery of both lower extremities, with unspecified presence of clinical manifestation I70.203 ; Tinea unguium B35.1 ; Pain in right toe(s) M79.674 ; Pain in left toe(s) M79.675 and Xerosis of skin L85.[address] [address] 11/23/2024 Caden Chris Atherosclerosis of [place] artery of both lower extremities, with unspecified presence of clinical manifestation I70.203 ; Tinea unguium B35.1 ; Pain in right toe(s) M79.674 and Pain in left toe(s) M79.[address] [address] 02/05/2025 Caden Chris Atherosclerosis of [place] artery of both lower extremities, with unspecified presence of clinical manifestation I70.203 ; Tinea unguium B35.1 ; Pain in right toe(s) M79.674 and Pain in left toe(s) M79.675 Assessments Encounter Date Diagnosis (ICD Code) Assessment Notes Treatment Notes Treatment Clinical Notes Section Notes 05/15/2024 Tinea unguium (ICD-10 - B35.1) 05/15/2024 Atherosclerosis of [place] artery of both lower extremities, with unspecified presence of clinical manifestation (ICD-10 - I70.203) 08/17/2024 Tinea unguium (ICD-10 - B35.1) 08/17/2024 Atherosclerosis of [place] artery of both lower extremities, with unspecified presence of clinical manifestation (ICD-10 - I70.203) 11/23/2024 Tinea unguium (ICD-10 - B35.1) 11/23/2024 Atherosclerosis of [place] artery of both lower extremities, with unspecified presence of clinical manifestation (ICD-10 - I70.203) 02/05/2025 Tinea unguium (ICD-10 - B35.1) 02/05/2025 Atherosclerosis of [place] artery of both lower extremities, with unspecified presence of clinical manifestation (ICD-10 - I70.203) 02/05/2025 Pain in right toe(s) (ICD-10 - M79.674) 11/23/2024 Pain in right toe(s) (ICD-10 - M79.674) 08/17/2024 Pain in right toe(s) (ICD-10 - M79.674) 05/15/2024 Pain in right toe(s) (ICD-10 - M79.674) 05/15/2024 Pain in left toe(s) (ICD-10 - M79.675) 08/17/2024 Pain in left toe(s) (ICD-10 - M79.675) 11/23/2024 Pain in left toe(s) (ICD-10 - M79.675) 02/05/2025 Pain in left toe(s) (ICD-10 - M79.675) 08/17/2024 Xerosis of skin (ICD-10 - L85.3) 05/15/2024 Xerosis of skin (ICD-10 - L85.3) Plan Of Treatment Pending Test Test Name Order Date X ray : Foot, left 3V 11/29/2023 88802-UKDSOSZ NAIL, 1-11/29/2023 67815-AKLHZLB NAIL, -02/21/2024 06422-XSNRQWH NAIL, -05/15/2024 58309-DOVCRBO NAIL, -08/17/2024 22240-DGNGDVJ NAIL, -11/23/2024 23176-UOBUTEE NAIL, -02/05/2025 00082-HSEQ SKIN LESIONS, OVER 4 02/06/20 25 83828-ISDN SKIN LESIONS, OVER 4 02/21/20 24 89140-SGEX SKIN LESIONS, OVER 4 11/24/19 25 92009-WTKH SKIN LESIONS, OVER 4 08/17/19 45399-SEFO SKIN LESIONS, OVER 4 05/15/20 46301-REHG SKIN LESIONS, 2 TO 4 11/29/19 V5919-LRNYVADX DYSTROPHIC NAILS ANY # W8306-SLFVXYXV DYSTROPHIC NAILS ANY # P9300-HPGABYKX DYSTROPHIC NAILS ANY # Q7363-ALNZIHRC DYSTROPHIC NAILS ANY # T4480-EURGJIJE DYSTROPHIC NAILS ANY # S1886-MFFZCMWX DYSTROPHIC NAILS ANY # Next Appt Details Provider Name:Caden Perez , 04/12/2025 12:15:00 PM, [address] [place] [address], [phone], Provider Name:Caden Perez , 06/07/2025 01:30:00 PM, [address] [place] [address], [phone], Insurance Providers Payer Name Payer Address Payer Phone Subscriber Number Group Number Insured Name Patient Relationship to Insured Coverage Start Date Coverage End Date Medicare National Govt Sv[employer] [address] [facility] [address] [id number] Casandra Sosa Self - patient is the insured [employer] [address] [place] [address] [phone] [id number] Casandra Sosa Self - patient is the insured Medical (General) History Medical History History ICD Code Anxiety Rheumatoid arthritis Back,Hip,and Knee pain covid-19 Diverticulosis Fibromyalgia Hiatal hernia High blood pressure Numbness Measles Mumps Chicken pox Joint implants/screws Concussion Surgical History Surgery Date(Month/Year) hip surgery 01/29/2022 Gall bladder removal 11/2014 B/L Vein Surgery- Injection to close vei ns 11/23/23,11/28/23 Angiogram 12/12
--- OUTSIDE RECORDS SUMMARY | 2025-02-21 14:53 | XMS_ITS | Encounter Summary ---
Author Organization [facility] Address [address] [address] Phone Care Team Providers Care Home Economist Consumer Service Name Role Phone Rajesh Garcia MD Primary Care Provider Unavail Lisa Fong MD Primary Care Provider Reason for Referral * MRI/CAT Scan - Closed Specialty Diagnoses / Procedures Referred By Contac t Referred To Contact Radiology Diagnoses Abdominal pain, unspecified abdominal location Acute pancreatitis, unspecified complication status, unspecified pancreatitis type Diverticulitis Procedures CT Abdomen/Pelvis Mouna Goel PA Phone: tel: fax: Referral ID Status Reason Start Date Expiration Date Visits Re quested Visits Authorized [id number] Closed 12/25/2021 12/25/2022 1 1 Encounter Details Date Type Department Care Team (Latest Contact Info) Description 12/25/2021 Transcribe Orders Virtual Department [address] [place] [address] Mouna Goel PA [address] [place] [address] Abdominal pain, unspecified abdominal location (Primary Dx); Acute pancreatitis, unspecified complication status, unspecified pancreatitis type; Diverticulitis Social History Tobacco Use Types Packs/Day Years [...] st Contact Info) Description 02/04/2025 Procedure Pass [address] [place] [address] 09/18/2025 1:45 PM EDT Appointment [address] [place] [address] Lisa Shaw MD [address] [place] [phone] [email or web address] documented as of this encounter Results * CT ABDOMEN/PELVIS WITH CONTRAST (01/08/2022 3:18 PM EDT) Anatomical Region Laterality Modality Abdomen, Pelvis Computed Tomogra phy 01/08/2022 3:23 PM EDT Impressions 01/08/2022 3:31 PM EDT 1.Unremarkable exam of the abdomen and pelvis Narrative 01/08/2022 3:[address] ABDOMEN/PELVIS WITH CONTRAST TECHNIQUE: Multidetector-row CT of the abdomen and pelvis was performed after administration of intravenous contrast using tailored dose modulation techniques. Images were reconstructed in the axial, coronal, and sagittal planes. COMPARISON: MRI CHOLANGIOPANCREATOGRAPHY (MRCP) WITHOUT CONTRAST FINDINGS: Lower Chest: Mild left atelectasis is identified. The lungs are clear of acute airspace disease. Liver: Normal. No focal lesions. Biliary: Patient is status post cholecystectomy. The common bile duct is prominent in size measuring 2 cm in keeping with postcholecystectomy state. No radiopaque gallstones are identified. Spleen: Normal. No splenomegaly or focal lesions. Pancreas: Normal. No masses or ductal dilatation. Adrenal Glands: Normal. No nodules. Kidneys/Ureters: Normal. No solid masses, stones, or hydronephrosis. Bowel: Stool is identified throughout the colon. There is no evidence of obstruction. Appendix normal. Peritoneum/Retroperitoneum: Normal. No masses, pneumoperitoneum, or fluid. Lymph Nodes: Normal. No lymphadenopathy. Pelvic Organs/Bladder: Normal. No mass. Vessels: Scattered atherosclerotic changes are identified within the aorta. Bones/Soft Tissues: There are mild degenerative changes of the lumbar spine. No bony destructive lesions identified. Procedure Note Mimi Justin MD - 01/08/2022 CT ABDOMEN/PELVIS WITH CONTRAST TECHNIQUE: Multidetector-row CT of the abdomen and pelvis was performedafter administration of intravenous contrast using tailored dosemodulation techniques. Images were reconstructed in the axial, coronal,and sagittal planes. COMPARISON: MRI CHOLANGIOPANCREATOGRAPHY (MRCP) WITHOUT [id number] FINDINGS: Lower Chest: Mild left atelectasis is identified. The lungs are clear ofacute airspace disease. Liver: Normal. No focal lesions. Biliary: Patient is status post cholecystectomy. The common bile duct isprominent in size measuring 2 cm in keeping with postcholecystectomystate. No radiopaque gallstones are identified. Spleen: Normal. No splenomegaly or focal lesions. Pancreas: Normal. No masses or ductal dilatation. Adrenal Glands: Normal. No nodules. Kidneys/Ureters: Normal. No solid masses, stones, or hydronephrosis. Bowel: Stool is identified throughout the colon. There is no evidence ofobstruction. Appendix normal. Peritoneum/Retroperitoneum: Normal. No masses, pneumoperitoneum, orfluid. Lymph Nodes: Normal. No lymphadenopathy. Pelvic Organs/Bladder: Normal. No mass. Vessels: Scattered atherosclerotic changes are identified within theaorta. Bones/Soft Tissues: There are mild degenerative changes of the lumbarspine. No bony destructive lesions identified. IMPRESSION: 1.Unremarkable exam of the abdomen and pelvis us Mouna NELSON IMG CT ABD/PELVIS Final Res ult documented in this encounter Visit Diagnoses Diagnosis Abdominal pain, unspecified abdominal location- Primary Acute pancreatitis, unspecified complication status, unspecified pancreatitis type Diverticulitis Diverticulitis of colon (without mention of hemorrhage) Abdominal pain, unspecified abdominal location Acute pancreatitis, unspecified complication status, unspecified pancreatitis type Diverticulitis Diverticulitis of colon (without mention of hemorrhage) documented in this encounter Additional Health Concerns Infection Onset Date Last Indicated Resolved Time CoV-Exposed Comment:Added per Home Health documentation 03/01/2022 03/03/2022 03/12/2022 1:23 AM E DT MDR-GN 06/08/2023 06/08/2023 06/07/2024 1:23 AM EST documented as of this encounter Care Teams Home Economist Consumer Service Relationship Specialty Start Date End Date Rajesh Garcia MD PCP - General Endocrinology 04/21/17 01/07/22 Lisa Shaw MD [address] [place] [address] [email or web address] PCP - General Internal Medicine 01/08/22 documented as of this encounter Additional Source Comments The information contained in this document represents components of the legal health record. It is not the complete legal health record.[facility]
--- OUTSIDE RECORDS SUMMARY | 2025-02-21 14:53 | XMS_ITS | Encounter Summary ---
Author Organization [facility] Address [address] [address] Phone Care Team Providers Care Cloud Developer Name Role Phone Rajesh Garcia MD Primary Care Provider Unavail able Lisa Shaw MD Primary Care Provider [phone] Encounter Details Date Type Department Care Team (Latest Contact Info) Description 12/24/2021 Transcribe Orders [facility] [address] [address] Mouna Goel PA [address] [place] [address] Abdominal pain, generalized (Primary Dx) Social History Tobacco Use Types [...] st Contact Info) Description 02/04/2025 Procedure Pass [address] [place] [address] 09/18/2025 1:45 PM EDT Appointment [address] [place] [address] Lisa Shaw MD [address] [place] [address] [email or web address] documented as of this encounter Results * Lipase (12/24/2021 12:09 PM EDT) LIPASE 30 16 - 63 U/L [facility] Blood 12/24/2021 12:0 9 PM EDT 12/24/2021 12:12 PM EDT us Mouna NELSON LAB BLOOD ORDERABLES Final Result [facility] [address] [place] [address] * (ABNORMAL) Comprehensive metabolic panel (12/24/2021 12:09 PM EDT) Pathologist [facility] SODIUM 140 133 - 146 mmol/L [facility] POTASSIUM 4.1 3.3 - 5.1 mmol/L [facility] CHLORIDE 104 96 - 108 mmol/L [facility] CO2 29 21 - 35 mmol/L [facility] BUN 14 6 - 19 mg/dL [facility] CREATININE 0.50 0.5 - 1.5 mg/dL [facility] GLUCOSE 107(H) 70 - 99 mg/dL [facility] ALBUMIN 4.3 3.9 - 4.8 g/dL [facility] TOTAL PROTEIN 7.4 6.5 - 8.0 g/dL [facility] CALCIUM 9.7 8.4 - 10.3 mg/dL [facility] ALKALINE PHOSPHATASE 98 39 - 117 U/L [facility] TOTAL BILIRUBIN 0.3 0.0 - 1.2 mg/dL [facility] AST 30 0 - 37 U/L [facility] ALT 6 0 - 40 U/L [facility] GLOBULIN 3.1 1 - 4.8 g/dL [facility] EGFR 99 >59 mL/min/1.7 3m2 [facility] Comment:Estimated glomerular filtration rate calculated using the CKD-EPI refit equation. ANION GAP 11 10 - 20 mmol/L [facility] Blood 12/24/2021 12:0 9 PM EDT 12/24/2021 12:12 PM EDT Mouna NELSON LAB BLOOD ORDERABLES Final Result Performing Organization Address [facility] Co de Phone Number [address] [address] * (ABNORMAL) CBC (12/24/2021 12:09 PM EDT) WBC 5.07 4.00 - 11.00 K/uL [facility] RBC 4.03 3.72 - 5.30 M/uL [facility] HGB 13.3 11.4 - 15.9 g/dL [facility] HCT 40.2 34.2 - 46.8 % [facility] PLT 262 140 - 430 K/uL [facility] MCV 99.8(H) 78.0 - 97.0 fL [facility] MCH 33.0 25.0 - 33.0 pg [facility] MCHC 33.1 32.0 - 36.0 g/dL [facility] RDW 13.0 11.0 - 16.0 % [facility] MPV 10.3 8.4 - 12.8 [facility] NRBC 0.00 0 /100 WBCs [facility] ABSOLUTE NRBC 0.00 0 K/uL [facility] Blood 12/24/2021 12:0 9 PM EDT 12/24/2021 12:12 PM EDT us Mouna NELSON LAB BLOOD ORDERABLES Final Result Performing Organization Address [facility] Co de Phone Number [address] [address] documented in this encounter Visit Diagnoses Diagnosis Abdominal pain, generalized- Primary documented in this encounter Additional Health Concerns Infection Onset Date Last Indicated Resolved Time CoV-Exposed Comment:Added per Home Health documentation 03/01/2022 03/03/2022 03/12/2022 1:23 AM E DT MDR-GN 06/08/2023 06/08/2023 06/07/2024 1:23 AM EST documented as of this encounter Care Teams Cloud Developer Relationship Specialty Start Date End Date Rajesh Garcia MD PCP - General Endocrinology 04/21/17 01/07/22 Lisa Shaw MD [address] [place] [address] [email or web address] PCP - General Internal Medicine 01/08/22 documented as of this encounter Additional Source Comments The information contained in this document represents components of the legal health record. It is not the complete legal health record.[facility]
--- OUTSIDE RECORDS SUMMARY | 2025-02-21 14:53 | XMS_ITS | Encounter Summary ---
Author Organization [facility] Address [address] [address] Phone Care Team Providers Care Mower Mechanic Name Role Phone Lisa Shaw MD Primary Care Provider [phone] Encounter Details Date Type Department Care Team (Late st Contact Info) Description 11/14/2024 Transcribe Orders Virtual Department [address] [place] [address] Lisa Shaw MD [address] [place] [address] [email or web address] Right renal mass (Primary Dx) Social History Tobacco Use Types [...] st Contact Info) Description 02/04/2025 Procedure Pass [address] [place] [address] 09/18/2025 1:45 PM EDT Appointment [address] [place] [address] Lisa Shaw MD [address] [place] [email or web address] documented as of this encounter Results * US Kidneys (11/15/2024 11:35 AM EDT) Anatomical Region Laterality Modality Abdomen, Kidney Ultrasound 11/15/2024 2:21 PM EDT Impressions 11/15/2024 2:24 PM EDT 1. No hydronephrosis or sonographically evident renal calculi. 2. Right lower pole cyst with no suspicious features. Narrative 11/15/2024 2:24 PM EDT US KIDNEYS Referring clinician's provided indication for this examination in Epic: Outside Radiology Order; right renal mass TECHNIQUE: Kidney Ultrasound. COMPARISON: Abdomen/pelvis CT 11/08/2024, abdomen MRI 11/16/2017 FINDINGS: Right Kidney: Size: 10.2 cm No hydronephrosis or sonographically evident renal calculi. There is right lower pole cyst measuring 1.9 x 2.0 x 2.3 cm. No suspicious features Left Kidney: Size: 10.8 cm No hydronephrosis or sonographically evident renal calculi. Bladder: Urinary bladder is incompletely distended and suboptimally assessed. Procedure Note Ju Marquez MD - 11/15/2024 US KIDNEYS Referring clinician's provided indication for this examination in Epic:Outside Radiology Order; right renal mass TECHNIQUE: Kidney Ultrasound. COMPARISON: Abdomen/pelvis CT 11/08/2024, abdomen MRI 11/16/2017 FINDINGS: Right Kidney: Size: 10.2 cm No hydronephrosis or sonographically evident renal calculi. There isright lower pole cyst measuring 1.9 x 2.0 x 2.3 cm. No suspiciousfeatures Left Kidney: Size: 10.8 cm No hydronephrosis or sonographically evident renal calculi. Bladder: Urinary bladder is incompletely distended and suboptimallyassessed. IMPRESSION: 1. No hydronephrosis or sonographically evident renal calculi. 2. Right lower pole cyst with no suspicious features. Lisa Shaw MD IM US RENAL Final Resul t documented in this encounter Visit Diagnoses Diagnosis Right renal mass- Primary Unspecified disorder of kidney and ureter Right renal mass Unspecified disorder of kidney and ureter documented in this encounter Care Teams Mower Mechanic Relationship Specialty Start Date End Date Lisa Shaw MD [address] [place] [address] [email or web address] PCP - General Internal Medicine 01/08/22 documented as of this encounter Additional Source Comments The information contained in this document represents components of the legal health record. It is not the complete legal health record.[facility]
--- OUTSIDE RECORDS SUMMARY | 2025-02-21 14:53 | XMS_ITS | Encounter Summary ---
Author Organization [facility] Address [address] [address] Phone Care Team Providers Care Parts Facilitator Name Role Phone Lisa Shaw MD Primary Care Provider [phone] Encounter Details Date Type Department Care Team (Late st Contact Info) Description 11/01/2024 Procedure Pass [facility], Ct Scan - [address] [address] Social History Tobacco Use Types Packs/Day Years [...] st Contact Info) Description 02/04/2025 Procedure Pass [address] [place] [address] 09/18/2025 1:45 PM EDT Appointment [address] [place] [address] Lisa Shaw MD [address] [place] [address] [email or web address] documented as of this encounter Visit Diagnoses Not on filedocumented in this encounter Care Teams Parts Facilitator Relationship Specialty Start Date End Date Lisa Shaw MD [address] [place] [address] [email or web address] PCP - General Internal Medicine 01/08/22 documented as of this encounter Additional Source Comments The information contained in this document represents components of the legal health record. It is not the complete legal health record.[facility]
--- OUTSIDE RECORDS SUMMARY | 2025-02-21 14:53 | XMS_ITS | Encounter Summary ---
Author Organization [facility] Address [address] [address] Phone Care Team Providers Care Automotive Product Specialist Name Role Phone Lisa Shaw MD Primary Care Provider [phone] Encounter Details Date Type Department Care Team ([facility] st Contact Info) Description 02/04/2025 Transcribe Orders Virtual Department [address] [place] [address] Lisa Shaw MD [address] [place] [address] [email or web address] Breast screening (Primary Dx) Social History Tobacco Use Types [...] st Contact Info) Description 02/04/2025 Procedure Pass [address] [place] [address] 09/18/2025 1:45 PM EDT Appointment [address] [place] [address] Lisa Shaw MD [address] [place] [address] @[email or web address] Scheduled Orders Name Type Priority Associated Diagnoses Orde r Schedule Mammogram Screening (Bilateral) Imaging Routine Breast screening Expected: 02/04/2025, Expires: 02/04/2026 documented as of this encounter Visit Diagnoses Diagnosis Breast screening- Primary Breast screening, unspecified documented in this encounter Care Teams Automotive Product Specialist Relationship Specialty Start Date End Date Lisa Shaw MD [address] [place] [address] [email or web address] PCP - General Internal Medicine 01/08/22 documented as of this encounter Additional Source Comments The information contained in this document represents components of the legal health record. It is not the complete legal health record.[facility]
--- OUTSIDE RECORDS SUMMARY | 2025-02-21 14:53 | XMS_ITS | Encounter Summary ---
Author Organization [facility] Address [address] [address] Phone Care Team Providers Care Lab Head Name Role Phone Lisa Shaw MD Primary Care Provider [phone] Encounter Details Date Type Department Care Team ([facility] st Contact Info) Description 12/13/2022 Transcribe Orders Virtual Department [address] [place] [address] Lisa Shaw MD [address] [place] [phone] [email or web address] Breast screening (Primary Dx) Social History Tobacco [...] Contact Info) Description 02/04/2025 Procedure Pass [address] [place] [address] 09/18/2025 1:45 PM EDT Appointment [address] [place] [address] Lisa Shaw MD [address] [place] [phone] [email or web address] documented as of this encounter Results * BI MAMMOGRAM SCREENING WITH TOMOSYNTHESIS WITH CAD (BILATERAL) (09/28/2023 1:18 PM EDT) Anatomical Region Laterality Modality Breast Left, Breast Right, Breast Bilateral Bila teral Mammography 09/30/2023 9:15 AM EDT Impressions 09/30/2023 9:21 AM EDT No mammographic evidence of malignancy in either breast. Annual screening mammography is recommended. BI-RADS 1 NEGATIVE The patient will be notified of the results and recommendations. Narrative 09/30/2023 9:21 AM EDT BI MAMMOGRAM SCREENING WITH TOMOSYNTHESIS WITH CAD (BILATERAL) Additional patient information: Screening. COMPARISON: Comparison is made to relevant outside prior imaging. Breast composition: There are scattered areas of fibroglandular density. FINDINGS: There has been no change in the mammographic findings since previous examination. No abnormal masses, suspicious calcifications, or other significant findings are identified mammographically in either breast. Procedure Note Yvon Dominguez MD - 09/30/2023 BI MAMMOGRAM SCREENING WITH TOMOSYNTHESIS WITH CAD (BILATERAL) Additional patient information: Screening. COMPARISON: Comparison is made to relevant outside prior imaging. Breast composition: There are scattered areas of fibroglandular density. FINDINGS: There has been no change in the mammographic findings since previousexamination. No abnormal masses, suspicious calcifications, or other significantfindings are identified mammographically in either breast. IMPRESSION: No mammographic evidence of malignancy in either breast. Annual screening mammography is recommended. BI-RADS 1 NEGATIVE The patient will be notified of the results and recommendations. Lisa Shaw MD IMG MG EXAMS Final Resul t documented in this encounter Visit Diagnoses Diagnosis Breast screening- Primary Breast screening, unspecified Breast screening Breast screening, unspecified documented in this encounter Additional Health Concerns Infection Onset Date Last Indicated Resolved Time MDR-GN 06/08/2023 06/08/2023 06/07/2024 1:23 AM EST documented as of this encounter Care Teams Lab Head Relationship Specialty Start Date End Date Lisa Shaw MD [address] [place] [address] [email or web address] PCP - General Internal Medicine 01/08/22 documented as of this encounter Additional Source Comments The information contained in this document represents components of the legal health record. It is not the complete legal health record.[facility]
--- OUTSIDE RECORDS SUMMARY | 2025-02-21 14:53 | XMS_ITS | Encounter Summary ---
Author Organization [facility] Address [address] [address] Phone Care Team Providers Care Routing Clerk Name Role Phone Rajesh Garcia MD Primary Care Provider Unavail able Lisa Shaw MD Primary Care Provider [phone] Encounter Details Date Type Department Care Team (Late st Contact Info) Description 12/25/2021 Procedure Pass [facility], Ct Scan - [address] [address] Social History Tobacco Use Types Packs/Day Years [...] st Contact Info) Description 02/04/2025 Procedure Pass [address] [place] [address] 09/18/2025 1:45 PM EDT Appointment [address] [place] [address] Lisa Shaw MD [address] [place] [phone] [email or web address] documented as of this encounter Visit Diagnoses Not on filedocumented in this encounter Additional Health Concerns Infection Onset Date Last Indicated Resolved Time CoV-Exposed Comment:Added per Home Health documentation 03/01/2022 03/03/2022 03/12/2022 1:23 AM E DT MDR-GN 06/08/2023 06/08/2023 06/07/2024 1:23 AM EST documented as of this encounter Care Teams Routing Clerk Relationship Specialty Start Date End Date Rajesh Garcia MD PCP - General Endocrinology 04/21/17 01/07/22 Lisa Shaw MD [address] [facility] [place] [address] [email or web address] PCP - General Internal Medicine 01/08/22 documented as of this encounter Additional Source Comments The information contained in this document represents components of the legal health record. It is not the complete legal health record.[facility]
--- OUTSIDE RECORDS SUMMARY | 2025-02-21 14:53 | XMS_ITS | Encounter Summary ---
Author Organization [facility] Address [address] [place] [address] Care Team Providers Care Horse Wrangler Name Role Phone Physician, Pcp Unknown Primary Care Provider Bernice vailable Encounter Details Date Type Department Care Team (Late st Contact Info) Description 10/17/2024 Lab Requisition [facility] - Main Lab [address] [facility] [place] [phone] Mark Morales PA [address] [facility] [address] [place] [address] Bacteremia Social History Tobacco Use Types Packs/Day [...] coli ESBL(A) MILAD 10/18/2024 8:47 AM EDT [facility] ([facility] Comment: TESTING SUGGESTS AN ESBL(EXTENDED-SPECTRUM [...] ORDER AARON Final Result Performing Organization Address [facility]/State/ZIP Co de Phone Number [facility] ([facility] [address] [place] [address], documented in this encounter Visit Diagnoses Diagnosis Bacteremia documented in this encounter Additional Health Concerns Infection Onset Date Last Indicated Resolved Time ESBL 05/30/2024 12/18/2024 documented as of this encounter Care Teams Horse Wrangler Relationship Specialty Start Date End Date Physician, Pcp Unknown PCP - General 05/03/24 documented as of this encounter
[2025-02-21 15:30] LABS: Alanine Aminotransferase 8 U/L (0-31); Albumin Level 4.0 g/dL (3.5-5.0); Alkaline Phosphatase 63 U/L (39-117); Anion Gap 8 (12-20); Aspartate Amino Transferase 18 U/L (5-31); Blood Urea Nitrogen 15 mg/dL (9-16); Calcium 9.4 mg/dL (8.4-10.2); Carbon Dioxide 32 mmol/L (22-29); Chloride 103 mmol/L (96-108); Estimated Glomerular Filt Rate > 60; Potassium 4.2 mmol/L (3.3-5.1); Sodium 139 mmol/L (135-145); Total Protein 7.0 g/dL (6.5-8.0)
== END 2025-02-21 13:37 | disposition home or self-care (01) ==
LOC: HO.LAB 13:36
PROVIDERS: PCP Internal Medicine; Visit Provider Student in an Organized Health Care Education/Training Program
DX: M05.9 Rheumatoid arthritis with rheumatoid factor, unspecified (principal)
CPT/HCPCS: 36415; 80053; 85025; 85652; 86140

== ENCOUNTER 2025-02-26 14:20 | Outpatient (AMB) | payer MEDICARE, SELFPAY ==
--- NOTE | 2025-02-26 14:41 | A.OFFVIS_ITS ---
Vital Signs 02/26/25 14:49 Height 5 ft 11 in Weight 195 lb 1.745 oz BMI 27.2 BP 120/70 Blood Pressure Location Rt brachial Position Sitting Pulse 50 Pulse Source Pulse Oximeter Pulse Oximetry (%) 96 Oxygen Delivery Method Room Air Intake Visit Reasons: f/u RA Intake Note: Patient presents for RA follow up. Allergies adalimumab (From Humira) Allergy (Intermediate, Verified 02/26/25 14:48) Rash alendronate sodium (From Fosamax) Allergy (Intermediate, Verified 02/26/25 14:48) increased pain codeine Allergy (Intermediate, Verified 02/26/25 14:48) Vomiting erythromycin base Allergy (Intermediate, Verified 02/26/25 14:48) Abdominal Pain omeprazole Allergy (Intermediate, Verified 02/26/25 14:48) Rash pantoprazole Allergy (Intermediate, Verified 02/26/25 14:48) Rash Penicillins Allergy (Intermediate, Verified 02/26/25 14:48) Hives piroxicam (From Feldene) Allergy (Intermediate, Verified 02/26/25 14:48) leg swelling romosozumab-aqqg (From Evenity) Allergy (Intermediate, Verified 02/26/25 14:48) allergic Sulfa (Sulfonamide Antibiotics) Allergy (Intermediate, Verified 02/26/25 14:48) Hives teriparatide (From Forteo) Allergy (Intermediate, Verified 02/26/25 14:48) lip swelling raloxifene (From Evista) Allergy (Unknown, Verified 02/26/25 14:48) Unknown timlas Allergy (Intermediate, Uncoded 05/28/24 13:23) Palpitations Medication List - Last Reconciled 02/26/25 by Rin Merino MD acetaminophen (Tylenol) 650 mg PO Q6H PRN apixaban (Eliquis) 5 mg PO BID diltiazem HCl CD 360 mg PO DAILY docusate sodium (Stool Softener) 100 mg PO DAILY epinephrine (EpiPen) 0.3 mg IM Q4H PRN ergocalciferol (vitamin D2) 1,250 mcg PO QWEEK famotidine (Acid Telemarketing Agent (famotidine)) 40 mg PO BEDTIME lansoprazole 30 mg PO DAILY latanoprost 0.005% 1 drp ophthalmic (eye) BEDTIME lorazepam 0.5 mg PO BEDTIME PRN losartan 25 mg PO DAILY ondansetron HCl 4 mg PO Q8H PRN oxycodone-acetaminophen 5-325 mg 2 tabs PO BEDTIME romosozumab-aqqg (Evenity) mg subcut trazodone 50 mg PO BEDTIME Xeljanz (tofacitinib) 5 mg PO BID NS HPI Comments Details: Patient 75 y.o. female with anxiety, HTN, GERD c/b armendariz's esophagus, Afib on Eliquis, osteoporosis c/b fall 2022 with keft hip fracture s/p surgical repair, fibromyalgia, and seropositive RA here today for follow up Interval History: Patient last seen 10/23/24 with me - On Xeljanz 5mg bid - Patient continues to do well overall - Has some pain in her feet but states that is usual for her - No changes made to medications Today - On Xeljanz 5mg bid - Today complains of pain in the knees as well as legs ache at night Rheumatologic History: Seropositive RA Onset mid-: RF and CCP +, FEI pos(homogeneous), sicca sx and SS-A and SS-B positive. Initial treatment with methotrexate with partial response. Remicade added to m ethotrexate 2000 with good response until early 2002. Remicade changed to Enbrel due to failing response October 2002: stable response since then with good control of synovitis. Methotrexate stopped 01/01 due to nausea, synovitis still controlled with Enbrel. Synovitis not controlled on Enbrel. 06/05 Humira started 07/07 - not helpful and skin rash Xeljanz started 09/04 effective Osteoporosis BMD: -2.5 at spine, -0/8 at hip (2006); increased pain on Fosamax; vit D low. Put on Forteo (Dr. Soto) for a year. Had rash so Forteo was stopped. Reclast December 2011, January 2017 Timlos started every other day 08/08; skips doses due to palpitations Timlos stopped in 2020 due to palpitations. Fracture left hip after a fall 01/29/22- emergent hip replacement Evenity started by Endo 07/2023, had an allergic reaction after 6 doses then started on Reclast Current Rheumatology Medication(s): IV Reclast 5mg once a year (Follows with Endo) Xeljanz 5mg bid Vitamin D [address] once a week [facility] Medical History Long-term use of immunosuppressant medication Vitreous hemorrhage, right eye Armendariz's esophagus Osteoarthritis of lumbar spine Positive FEI (antinuclear antibody) Hypertension Osteoporosis Seropositive rheumatoid arthritis Family History Sister Rheumatoid arthritis Social History Household Members: Spouse Housing: House Are you a primary career services representative to a significant other at home: No Do you presently have visiting nurse or other home services: No 75 years or older and lives alone: No Alcohol intake: current Alcohol intake frequency: a few times a month Patient Tobacco Use Status: Never used Tobacco e-Cigarette/Vaping Use: Never Used service: No Current occupational status: retired Review of Systems Const Details: Review of Systems Constitutional: Denies fever, chills, weight loss ENT: Denies vision changes, eye pain or eye redness, dental caries, dry mouth GI: Denies nausea, vomiting, diarrhea, abdominal pain, change in BM Pulm: Denies SOB, HOOVER, hemoptysis, wheezing Cards: Denies chest pain, palpitations Skin: Denies Raynaud's, rash, nail changes, photosensitivity, BAG MACHINE ADJUSTER: Denies headaches, weakness, paresthesias, recurrent falls MSK: as per HPI All other systems reviewed and are unremarkable except noted above Physical Exam Exam Exam: Vital signs reviewed Physical Examination CONSTITUITIONAL Patient alert and cooperative. Well appearing and in no apparent painful distress MSK Hands * Right Hand: Able to make a fist. No swelling or tenderness to palpation of the MCPs, PIPs or DIPs. No deformities noted. * Left Hand: Able to make a fist. No swelling or tenderness to palpation of the MCPs, PIPs or DIPs. No deformities noted. Wrists * Right Wrist: Full ROM to flexion and extension. No swelling or TTP * Left Wrist: Full ROM to flexion and extension. No swelling or TTP Elbows * Right Elbow: Full ROM. No swelling or TTP. No TTP of the medial epicondyle. No TTP of the lateral epicondyle * Left Elbow: Full ROM. No swelling or TTP. No TTP of the medial epicondyle. No TTP of the lateral epicondyle Shoulders * Right shoulder: Full ROM. No swelling noted. No TTP of the AC joint. No TTP of the subacromial bursa. No TTP of the posterior shoulder * Left shoulder: Full ROM. No swelling noted. No TTP of the AC joint. No TTP of the subacromial bursa. No TTP of the posterior shoulder Hip bursa: Tenderness to palpation bilaterally Knees * Right knee: Full ROM. No swelling noted. No TTP of the knee joint line. No TTP of pes anserine bursa * Left knee: Full ROM. No swelling noted. No TTP of the knee joint line. No TTP of pes anserine bursa. * Crepitations felt bilaterally Ankles * Right ankle: Good ankle dorsiflexion and plantar flexion. No swelling. No TTP of the ankle joint * Left ankle: Good ankle dorsiflexion and plantar flexion. No swelling. No TTP of the ankle joint Feet * Right foot: Negative squeeze test * Left foot: Negative squeeze test Tender points? * Tenderness to palpation of the bilateral trapezius, supraspinatus, anterior costochondral junctions, bilateral suboccipital muscle insertions SKIN No rashes Vital Signs: Last Vital Signs Pulse 50 02/26/25 14:49 BP 120/70 02/26/25 14:49 Pulse Ox 96 02/26/25 14:49 Oxygen Delivery Method Room Air 02/26/25 14:49 BMI result Body Mass Index 27.2 Results Reviewed Results Reviewed: Laboratory Tests 02/21/25 14:08 WBC 6.2 RBC 3.57 L Hgb 11.9 L Hct 35.5 L Plt Count 258 ESR 37 H Sodium 139 Potassium 4.2 Chloride 103 Carbon Dioxide 32 H BUN 15 Creatinine 0.66 AST 18 ALT 8 C-Reactive Protein 0.21 Assessment & Plan Assessment & Plan (1) Seropositive rheumatoid arthritis: Comment: Onset mid-: RF and CCP +, FEI pos(homogeneous), sicca sx and SS-A and SS-B positive. Initial treatment with methotrexate with partial response. Remicade added to methotrexate 2000 with good response until early 2002. Remicade changed to Enbrel due to failing response October 2002: stable response since then with good control of synovitis. Methotrexate stopped 01/01 due to nausea, synovitis still controlled with Enbrel. Synovitis not controlled on Enbrel. 06/05 Humira started 07/07 - not helpful and skin rash Xeljanz started 09/04 effective Code(s): M05.9 - Rheumatoid arthritis with rheumatoid factor, unspecified Category: Medical Plan: #Seropositive RA Patient is a 74-year-old female with seropositive rheumatoid arthritis here today for follow up. Currently in low disease activity well-controlled on her Xeljanz monotherapy. 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 (4) Osteoporosis: Comment: BMD: -2.5 at spine, -0/8 at hip (2006); increased pain on Fosamax; vit D low. Put on Forteo (Dr. Soto) for a year. Had rash so Forteo was stopped. Reclast December 2011, January 2017 Timlos started every other day 08/08; skips doses due to palpitations Timlos stopped in 2020 due to palpitations. Fracture left hip after a fall 01/29/22- emergent hip replacement Evenity started by Endo 07/2023, had an allergic reaction after 6 doses then started on Reclast Code(s): M81.0 - Age-related osteoporosis without current pathological fracture Category: Medical Qualifiers: Osteoporosis type: age-related Presence of current pathological fracture: without current pathological fracture Qualified Code(s): M81.0 - Age- related osteoporosis without current pathological fracture Plan: #Osteoporosis Currently on IV Reclast. Followed by endocrinology (5) Long-term current use of tofacitinib: Code(s): Z79.622 - skilled nursing (current) use of Janus kinase inhibitor Plan: #Long-term Use of LAE inhibitor : Vanesa Discussed with patient the benefits and risks of ALE inhibitors for the management of the rheumatic condition Benefits include reduce pain, maintenance of remission and reduction of flares Risks include thromboembolic events, skin cancer and nonmelanoma skin cancers, other forms of cancer, cardiovascular alcohol and mortality Advise patient that they are to hold the medication and for up to 1 week after a febrile illness or an open skin wound Plan I spent 30 minutes reviewing the record and labs, taking a history, examining the patient, discussing the treatment plan, ordering diagnostic work up and documenting in the medical record Medications: New amitriptyline 10 mg PO BEDTIME 90 tabs 1RF M79.7 - Fibromyalgia Coding Level of Care Code Est Pt Level 4 (86282) Complex EM visit Add On G2211 Diagnoses Seropositive rheumatoid arthritis M05.9 Fibromyalgia M79.7 Positive FEI (antinuclear antibody) R76.8 Age-related osteoporosis without current pathological fracture M81.0 Osteoporosis type: age-related Presence of current pathological fracture: without current pathological fracture Long-term current use of tofacitinib Z79.622
[2025-02-26 14:49] VITALS: BP 120/70; PULSE 50; O2SAT 96; BMI 27.2
--- OUTSIDE RECORDS SUMMARY | 2025-02-26 16:54 | XMS_ITS | Clinical Summary ---
Author Organization [address] Address [address] [place] [phone] Phone Care Team Providers Care Signal Helper Name Role Phone Physician, Pcp Unknown Primary Care Provider Bernice vailable Encounters Date Type Department Care Team Description 12/19/[address] [facility] - Main Lab [address] [facility] [place] [phone] Merced Early PA Dysuria from Last 3 Months Surgical History Surgery Date Site/Laterality Comments OTHER SURGICAL HISTORY 1977 PROCEDURE: LAPAROSCOPY PROCEDURE NEC COLONOSCOPY 04/26/2002 PROCEDURE: GA COLONOSCOPY FLX DX W/COLLJ SPEC WHEN PFRMD; COMMENT: Negative TONSILLECTOMY ADENOIDECTOMY, BILATERAL MYRINGOTOMY AND TUBES PROCEDURE: GA TONSILLECTOMY & ADENOIDECTOMY <AGE 10 COLONOSCOPY 2012 PROCEDURE: GA COLONOSCOPY FLX DX W/COLLJ SPEC WHEN PFRMD; COMMENT: no polyps CHOLECYSTECTOMY 11/2017 PROCEDURE: HISTORICAL CHOLECYSTECTOMY; COMMENT: Dr. Schafer at [facility] Medical History Medical History Date Comments [...] Dr. Bullock Vitreous hemorrhage, right e ye ([facility] V24, [facility] V28) 07/19/2018 DX:Vitreous hemorrhage, rig ht eye ([facility]); COMMENT: Dr. Bullock Renal cyst, right [...] coli ESBL(A) MILAD 12/20/2024 9:[address] [facility] ([facility]) [facility] Comment: THIS ORGANISM IS POSITIVE [...] MICROBIOLOGY - GENERAL ORDERABLES Final Result [facility] ([facility]) [facility] [address] [place] [address], * SCREENING MAMMOGRAPHY BI 2-VIEW BREAST INC [...] Last Indicated ESBL 05/30/2024 12/18/2024 Insurance [facility] Care Teams Signal Helper Relationship Specialty Start Date End Date Physician, Pcp Unknown PCP - General 05/03/24
--- OUTSIDE RECORDS SUMMARY | 2025-02-26 16:54 | XMS_ITS | Encounter Summary ---
Author Organization [facility] Address [address] [place] [address] Care Team Providers Care Test Engineering Intern Name Role Phone Physician, Pcp Unknown Primary Care Provider Bernice vailable Encounter Details Date Type Department Care Team (Late st Contact Info) Description 06/15/2024 Lab Requisition [facility] - Main Lab 299 [facility] [place] [address] Karlos Perez MD [address] [facility] [address] [place] [address] Bacteremia Social History Tobacco Use [...] Escherichia coli(A) MILAD 06/16/2024 8:01 AM EST [facility] ([facility] Comment: THIS ORGANISM IS [...] GENERAL MORIS QUIÑONES Edited Result - Final [facility] ([facility]) [facility] [address] [place] [address], documented in this encounter Visit Diagnoses Diagnosis Bacteremia documented in this encounter Additional Health Concerns Infection Onset Date Last Indicated Resolved Time ESBL 05/30/2024 12/18/2024 documented as of this encounter Care Teams Test Engineering Intern Relationship Specialty Start Date End Date Physician, Pcp Unknown PCP - General 05/03/24 documented as of this encounter
--- OUTSIDE RECORDS SUMMARY | 2025-02-26 16:54 | XMS_ITS | Encounter Summary ---
Author Organization [facility] Address [address] [address] Phone Care Team Providers Care Refrigeration Service Inspector Name Role Phone Rajesh Garcia MD Primary Care Provider Unavail Lisa Fong MD Primary Care Provider Reason for Referral * MRI/CAT Scan - Closed Specialty Diagnoses / Procedures Referred By Valerie matias Referred To Contact Radiology Diagnoses Dilation of biliary tract Procedures MRI Cholangiopancreatography (MRCP) Debbie Griffiths PA-C Phone: tel: fax: [email or web address] Referral ID Status Reason Start Date Expiration Date Visits Re quested Visits Authorized [id number] Closed 11/09/2017 11/09/2018 1 1 Encounter Details Date Type Department Care Team (Late st Contact Info) Description 11/09/2017 Ancillary Orders Virtual Department [address] [place] [address] Debbie Griffiths PA-C [address] [place] [address] [email or web address] Dilation of biliary tract Social History Tobacco [...] Care Team (Late st Contact Info) Description 02/25/2025 Procedure Pass [facility] [address] [address] 02/26/2025 Procedure Pass [address] [address] 02/26/2025 Procedure Pass [address] [address] 03/26/2025 4:15 PM EDT Appointment [address] [address] Lisa Shaw MD [address] [place] [address] [email or web address] 03/28/2025 11:15 AM EDT Appointment [address] [address] Lisa Shaw MD [address] [place] [phone] 03/28/2025 11:45 AM EDT Appointment [address] [address] Lisa Shaw MD [address] [place] [phone] documented as of this encounter Results * [...] noncontrasted imaging. Subtle cholelithiasis. Colonic diverticulosis. POS [id number] Edited by: Mimi Judge on 11/16/2017 12:18 [...] noncontrasted imaging. Subtle cholelithiasis. Colonic diverticulosis. POS [id number] Edited by: Mimi Judge on 11/16/2017 12:18 PM Debbei Griffiths PA-C IMG MR [id number] Final Result documented in this encounter Visit Diagnoses Diagnosis Dilation of biliary tract Dilation of biliary tract documented in this encounter Additional Health Concerns Infection Onset Date Last Indicated Resolved Time CoV-Exposed Comment:Added per Home Health documentation 03/01/2022 03/03/2022 03/12/2022 1:23 AM E DT MDR-GN 06/08/2023 06/08/2023 06/07/2024 1:23 AM EST documented as of this encounter Care Teams Refrigeration Service Inspector Relationship Specialty Start Date End Date Rajesh Garcia MD PCP - General Endocrinology 04/21/17 01/07/22 Lisa Shaw MD [address] [place] [address] [email or web address] PCP - General Internal Medicine 01/08/22 documented as of this encounter Additional Source Comments The information contained in this document represents components of the legal health record. It is not the complete legal health record.[facility]
--- OUTSIDE RECORDS SUMMARY | 2025-02-26 16:54 | XMS_ITS | Encounter Summary ---
Author Organization [facility] Address [address] [address] Phone Care Team Providers Care Subeditor Name Role Phone Rajesh Garcia MD Primary Care Provider Unavail able Lisa Shaw MD Primary Care Provider Encounter Details Date Type Department Care Team (Latest Contact Info) Description 11/10/2017 Transcribe Orders [address] [place] [address] Eric Isaac MD [address] [place] [address] [email or web address] Abdominal pain, unspecified abdominal location (Primary Dx) Social History Tobacco Use Types [...] st Contact Info) Description 02/25/2025 Procedure Pass [facility], Ct Scan - [address] [address] 02/26/2025 Procedure Pass [facility], Mammography- [address] [address] 02/26/2025 Procedure Pass [facility] Ultrasound [address] [address] 03/26/2025 4:15 PM EDT Appointment [facility], Ct Scan [address] [address] Lisa Shaw MD [address] [place] [address] 03/28/2025 11:15 AM EDT Appointment [facility] Mammography[address] [address] Lisa Shaw MD [address] [place] [address] 03/28/2025 11:45 AM EDT Appointment [address] [address] Lisa Shaw MD [address] [place] [address] documented as of this encounter Results * (ABNORMAL) Comprehensive metabolic panel (11/10/2017 3:44 PM EDT) SODIUM 142 133 - 146 mmol/L [facility] POTASSIUM 4.1 3.3 - 5.1 mmol/L [facility] CHLORIDE 103 96 - 108 mmol/L [facility] CO2 29 21 - 35 mmol/L [facility] BUN 19 6 - 19 mg/dL [facility] CREATININE 0.50 0.5 - 1.5 mg/dL [facility] GLUCOSE 111(H) 70 - 99 mg/dL [facility] ALBUMIN 3.6(L) 3.9 - 4.8 g/dL [facility] TOTAL PROTEIN 7.4 6.5 - 8.0 g/dL [facility] CALCIUM 9.1 8.4 - 10.3 mg/dL [facility] ALKALINE PHOSPHATASE 60 39 - 117 U/L [facility] TOTAL BILIRUBIN 0.3 0.0 - 1.2 mg/dL [facility] AST 33 0 - 37 U/L [facility] ALT 26 0 - 40 U/L [facility] GLOBULIN 3.8 1 - 4.8 g/dL [facility] EGFR 99 >59 mL/min/1.7 3m2 [facility] Comment:If patient is black, multiply result by 1.159. The eGFR calculation has changed from the MDRD equation to the CKD-EPI equation as of August 23, 2017. ANION GAP 14 10 - 20 mmol/L [facility] Blood 11/10/2017 3:44 PM EDT 11/10/2017 3:46 PM EDT us Eric Isaac MD LAB BLOOD ORDERABLES Final Re sult [facility] [address] [place] [address] documented in this encounter Visit Diagnoses Diagnosis Abdominal pain, unspecified abdominal location- Primary documented in this encounter Additional Health Concerns Infection Onset Date Last Indicated Resolved Time CoV-Exposed Comment:Added per Home Health documentation 03/01/2022 03/03/2022 03/12/2022 1:23 AM E DT MDR-GN 06/08/2023 06/08/2023 06/07/2024 1:23 AM EST documented as of this encounter Care Teams Subeditor Relationship Specialty Start Date End Date Rajesh Garcia MD PCP - General Endocrinology 04/21/17 01/07/22 Lisa Shaw MD [address] [place] [phone] [email or web address] PCP - General Internal Medicine 01/08/22 documented as of this encounter Additional Source Comments The information contained in this document represents components of the legal health record. It is not the complete legal health record.[facility]
--- OUTSIDE RECORDS SUMMARY | 2025-02-26 16:54 | XMS_ITS | Encounter Summary ---
Author Organization [facility] Address [address] [address] Phone Care Team Providers Care Underground Truck Operator Name Role Phone Rajesh Garcia MD Primary Care Provider Unavail Lisa Fong MD Primary Care Provider Encounter Details Date Type Department Care Team (Late st Contact Info) Description 11/22/2017 Procedure Pass [place] Admitting Dept - [facility] Department [address] [place] [address] Social History Tobacco Use Types Packs/Day Years [...] st Contact Info) Description 02/25/2025 Procedure Pass [facility], Ct Scan - [address] [address] 02/26/2025 Procedure Pass [facility], Mammography- [address] [address] 02/26/2025 Procedure Pass [facility], Ultrasound - [address] [address] 03/26/2025 4:15 PM EDT Appointment [facility], Ct Scan [address] [address] Lisa Shaw MD [address] [place] [address] 03/28/2025 11:15 AM EDT Appointment [facility], [address] [address] Lisa Shaw MD [address] [place] [address] 03/28/2025 11:45 AM EDT Appointment [address] [address] Lisa Shaw MD [address] [place] [address] documented as of this encounter Visit Diagnoses Not on filedocumented in this encounter Additional Health Concerns Infection Onset Date Last Indicated Resolved Time CoV-Exposed Comment:Added per Home Health documentation 03/01/2022 03/03/2022 03/12/2022 1:23 AM E DT MDR-GN 06/08/2023 06/08/2023 06/07/2024 1:23 AM EST documented as of this encounter Care Teams Underground Truck Operator Relationship Specialty Start Date End Date Rajesh Garcia MD PCP - General Endocrinology 04/21/17 01/07/22 Lisa Shaw MD [address] [place] [phone] [email or web address] PCP - General Internal Medicine 01/08/22 documented as of this encounter Additional Source Comments The information contained in this document represents components of the legal health record. It is not the complete legal health record.[facility]
--- OUTSIDE RECORDS SUMMARY | 2025-02-26 16:54 | XMS_ITS | Encounter Summary ---
Author Organization [facility] Address [address] [address] Phone Care Team Providers Care Packaging Inspector Name Role Phone Rajesh Garcia MD Primary Care Provider Unavail Lisa Fong MD Primary Care Provider Encounter Details Date Type Department Care Team (Late st Contact Info) Description 10/26/2017 Ancillary Orders Virtual Department [address] [place] [address] Debbie Griffiths PA-C [address] [place] [address] [email or web address] Abdominal pain, epigastric; Nausea Social History Tobacco [...] st Contact Info) Description 02/25/2025 Procedure Pass [facility], Ct Scan - [address] [address] 02/26/2025 Procedure Pass [facility], Mammography- [address] [address] 02/26/2025 Procedure Pass [address] [address] 03/26/2025 4:15 PM EDT Appointment [facility], Ct Scan [address] [address] Lisa Shaw MD [address] [place] [email or web address] 03/28/2025 11:15 AM EDT Appointment [facility], [address] [address] Lisa Shaw MD [address] [place] [email or web address] 03/28/2025 11:45 AM EDT Appointment [address] [address] Lisa Shaw MD [address] [place] [address] [email or web address] documented as of this encounter Results * [...] other upper abdomen pathologyis apparent. POS [id number] us Debbie Griffiths PA-C IMRoseline US ABDOMEN Final Result documented in this [...] documented as of this encounter Care Teams Packaging Inspector Relationship Specialty Start Date End Date Rajesh Garcia MD PCP - General Endocrinology 04/21/17 01/07/22 Lisa Shaw MD [address] [place] [address] PCP - General Internal Medicine 01/08/22 documented as of this encounter Additional Source Comments The information contained in this document represents components of the legal health record. It is not the complete legal health record.[facility]
--- OUTSIDE RECORDS SUMMARY | 2025-02-26 16:54 | XMS_ITS | Encounter Summary ---
Author Organization [facility] Address [address] [place] [address] Care Team Providers Care Insurance Salesman Name Role Phone Physician, Pcp Unknown Primary Care Provider Bernice vailable Encounter Details Date Type Department Care Team (Late st Contact Info) Description 05/03/2024 Lab Requisition [facility] - Main Lab 299 [facility] [place] [phone] Barbara Baca, [place] [address] [facility] [address] [place] [address] Frequency of micturition Social History Tobacco Use [...] Escherichia coli(A) MILAD 05/05/2024 9:23 AM EST [facility] Comment: The organism value for this [...] MICROBIOLOGY - GENERAL ORDER AARON Final Result [facility] [address] [place] [address], documented in this encounter Visit Diagnoses Diagnosis Frequency of micturition Urinary frequency documented in this encounter Additional Health Concerns Infection Onset Date Last Indicated Resolved Time ESBL 05/30/2024 12/18/2024 documented as of this encounter Care Teams Insurance Salesman Relationship Specialty Start Date End Date Physician, Pcp Unknown PCP - General 05/03/24 documented as of this encounter
--- OUTSIDE RECORDS SUMMARY | 2025-02-26 16:54 | XMS_ITS | Encounter Summary ---
Author Organization [facility] Address [address] [place] [address] Care Team Providers Care Facility Rehab Director Name Role Phone Physician, Pcp Unknown Primary Care Provider Bernice vailable Encounter Details Date Type Department Care Team (Late st Contact Info) Description 05/31/2024 Lab Requisition [facility] - Main Lab 299 [facility] [place] [phone] Barbara Baca, [place] 36[address] [facility] 103 [place] [address] Dysuria Social History Tobacco Use Types Packs/Day [...] coli ESBL(A) MILAD 06/02/2024 8:26 AM EST [facility] ([facility] Comment: THIS ORGANISM IS POSITIVE FOR [...] Unknown 05/30/2024 05/31/2024 12:53 PM EST [facility]ative [facility] [place] ([facility] - 06/02/2024 8:26 AM EST Faxed [...] MICROBIOLOGY - GENERAL ORDER AARON Final Result [facility] [address] [place] [address], documented in this encounter Visit Diagnoses Diagnosis Dysuria documented in this encounter Additional Health Concerns Infection Onset Date Last Indicated Resolved Time ESBL 05/30/2024 12/18/2024 documented as of this encounter Care Teams Facility Rehab Director Relationship Specialty Start Date End Date Physician, Pcp Unknown PCP - General 05/03/24 documented as of this encounter
--- OUTSIDE RECORDS SUMMARY | 2025-02-26 16:54 | XMS_ITS | Encounter Summary ---
Author Organization [facility] Address [address] [address] Phone Care Team Providers Care Surgical Attendant Name Role Phone Rajesh Garcia MD Primary Care Provider Unavail Lisa Fong MD Primary Care Provider Encounter Details Date Type Department Care Team (Late st Contact Info) Description 11/09/2017 Procedure [facility], [address] [place] [address] Social History Tobacco Use Types Packs/Day Years [...] (Late st Contact Info) Description 02/25/2025 Procedure [facility], Ct Scan [address] [address] 02/26/2025 Procedure Pass [address] [address] 02/26/[address] [address] 03/26/2025 4:15 PM EDT Appointment [address] [address] Lisa Shaw MD [address] [place] [address] [email or web address] 03/28/2025 11:15 AM EDT Appointment [address] [address] Lisa Shaw MD [address] [place] [address] [email or web address] 03/28/2025 11:45 AM EDT Appointment [address] [address] Lisa Shaw MD [address] [place] [address] documented as of this encounter Visit Diagnoses Not on filedocumented in this encounter Additional Health Concerns Infection Onset Date Last Indicated Resolved Time CoV-Exposed Comment:Added per Home Health documentation 03/01/2022 03/03/2022 03/12/2022 1:23 AM E DT MDR-GN 06/08/2023 06/08/2023 06/07/2024 1:23 AM EST documented as of this encounter Care Teams Surgical Attendant Relationship Specialty Start Date End Date Rajesh Garcia MD PCP - General Endocrinology 04/21/17 01/07/22 Lisa Shaw MD [address] [place] [phone] [email or web address] PCP - General Internal Medicine 01/08/22 documented as of this encounter Additional Source Comments The information contained in this document represents components of the legal health record. It is not the complete legal health record.[facility]
--- OUTSIDE RECORDS SUMMARY | 2025-02-26 16:54 | XMS_ITS | Encounter Summary ---
Author Organization [facility] Address [address] [address] Phone Care Team Providers Care Patent Lawyer Name Role Phone Lisa Shaw MD Primary Care Provider [phone] Encounter Details Date Type Department Care Team ([facility] st Contact Info) Description 07/06/2023 Procedure Pass [facility] Admitting Dept Virtual Department [address] [place] [address] Social History Tobacco Use Types Packs/Day Years [...] st Contact Info) Description 02/25/2025 Procedure Pass [address] [address] 02/26/[address] [address] 02/26/[address] [address] 03/26/2025 4:15 PM EDT Appointment [address] [address] Lisa Shaw MD [address] [place] [address] 03/28/2025 11:15 AM EDT Appointment [address] [address] Lisa Shaw MD [address] [place] [address] 03/28/2025 11:45 AM EDT Appointment [address] [address] Lisa Shaw MD [address] [place] [address] documented as of this encounter Visit Diagnoses Not on filedocumented in this encounter Additional Health Concerns Infection Onset Date Last Indicated Resolved Time MDR-GN 06/08/2023 06/08/2023 06/07/2024 1:23 AM EST documented as of this encounter Care Teams Patent Lawyer Relationship Specialty Start Date End Date Lisa Shaw MD [address] [place] [phone] [email or web address] PCP - General Internal Medicine 01/08/22 documented as of this encounter Additional Source Comments The information contained in this document represents components of the legal health record. It is not the complete legal health record.[facility]
--- OUTSIDE RECORDS SUMMARY | 2025-02-26 16:54 | XMS_ITS | Clinical Summary ---
Author Organization [facility] Address [address] [address] Phone Care Team Providers Care Hitch Technician Name Role Phone Lisa Shaw MD Primary Care Provider [phone] Allergies Active Allergy Reactions Criticality Noted Date [...] to 150s, first noted 2022. Continues on oracle bpm consultant. Patient is asymptomatic. [id number] = 3 (female age 72 with hx [...] Encounters Date Type Department Care Team Description 02/26/2025 Transcribe Orders Virtual Department [address] [place] [address] Lisa Shaw MD Breast pain, right (Primary Dx) 02/25/2025 Transcribe Orders Virtual Department 30 [place] [address] Lisa Shaw MD Diffuse abdominal pain (Primary Dx) 02/04/2025 Transcribe Orders Virtual Department [address] [place] [address] Lisa Shaw MD Breast screening (Primary Dx) [...] ecorded Are you denied basic needs [facility] as food, clothing, or medical care? No [...] st Contact Info) Description 02/25/2025 Procedure Pass [facility] [address] [address] 02/26/2025 Procedure Pass [address] [address] 02/26/2025 Procedure Pass [facility] Ultrasound [address] [address] 03/26/2025 4:15 PM EDT Appointment [address] [address] Lisa Shaw MD [address] [place] [address] 03/28/2025 11:15 AM EDT Appointment [address] [place] [address] Lisa Shaw MD [address] [place] [address] 03/28/2025 11:45 AM EDT Appointment [facility], [address] [address] Lisa Shaw MD [address] [place] [address] [email or web address] Health Maintenance Due Date Last Done Comments LIPID PANEL 1950 DEPRESSION SCREENING 1960 HEPATITIS C SCREENING 01/29/1966 OSTEOPOROSIS SCREENING INITIAL (ONE-TIME) 01/29/2013 BLOOD PRESSURE 09/23/2022 03/25/2022 RSV VACCINE (1 - 1-dose 75+ series) 01/29/2023 INFLUENZA VACCINE (#1) 2025 , 04/05/2022, 03/27/2021, Additional history exists COVID-19 VACCINE ( season) 2025 04/10/2023, 04/05/2022, 09/22/2021, Additional history [...] this topic Medical Devices Implanted Type Area Discotheque Dancer Device Identifier Shelf Expiration Date Model / Serial / Lot Kit Preparation Cement Femoral Bone Quick Use Bx/1ea - [id number] Implanted:Qty: 1 on 01/29/2022 by Burt Durán DO at [facility] Left: Hip [facility] 06/30/2026 [id number] / / [id number] Cement Bone 1x40 Standard - [id number] Implanted:Qty: 1 on 01/29/2022 by Burt Durán DO at [facility] Left: Hip [facility] 03/19/2025 [id number] / / [id number] Cement Bone 1x40 Standard - [id number] Implanted:Qty: 1 on 01/29/2022 by Burt Durán DO at [facility] Left: Hip [facility] 03/19/2024 [id number] / / [id number] Acetabular Shell 50mm Endo Ii Titanium Alloy Unipolar - [id number] Implanted:Qty: 1 on 01/29/2022 by Burt Durán DO at [facility] Left: Hip [employer] 07/12/2029 [id number] / / [id number] Hip Stem 9.0mm Femoral Echo Fx [place] [employer] - [id number] Implanted:Qty: 1 on 01/29/2022 by Burt Durán DO at [facility] Left: Hip [employer] 01/13/2032 [id number] / / [id number] Hip Centralizer 11mm Implant Cemented Versys 16b Bx/1ea - [id number] Implanted:Qty: 1 on 01/29/2022 by Burt Durán DO at [facility] Left: Hip [facility] 11/07/2031 [id number] / / [id number] Hip Insert Femoral Bio Sandhu Ii Endo Titanium Alloy Taper Standard - [id number] Implanted:Qty: 1 on 01/29/2022 by Burt Durán DO at [facility] Left: Hip [employer] 11/26/2031 [id number] / / [id number] Procedures Procedure Name Priority Date/Time Associated Diagnosis Comments COMPREHENSIVE METABOLIC PANEL Routine 11/01/2024 12:50 PM EDT Abdominal pain, unspecified abdominal location from Last 3 Months or Most Recently Relevant to Health Maintenance Results * (ABNORMAL) Comprehensive metabolic panel (11/01/2024 12:50 PM EDT) SODIUM 139 133 - 146 mmol/L [facility] POTASSIUM 5.3(H) 3.3 - 5.1 mmol/L [facility] Comment:Specimen slightly he molyzed, result may be falsely elevated. CHLORIDE 103 96 - 108 mmol/L [facility] CO2 29 21 - 35 mmol/L [facility] BUN 14 6 - 19 mg/dL [facility] CREATININE 0.50 0.5 - 1.5 mg/dL [facility] GLUCOSE 80 70 - 99 mg/dL [facility] ALBUMIN 3.8(L) 3.9 - 4.8 g/dL [facility] TOTAL PROTEIN 7.1 6.5 - 8.0 g/dL [facility] CALCIUM 9.6 8.4 - 10.3 mg/dL [facility] ALKALINE PHOSPHATASE 63 39 - 117 U/L [facility] TOTAL BILIRUBIN 0.3 0.0 - 1.2 mg/dL [facility] AST 20 0 - 37 U/L [facility] ALT 6 0 - 40 U/L [facility] GLOBULIN 3.3 1 - 4.8 g/dL [facility] EGFR 97 >59 mL/min/1.7 3m2 [facility] Comment:Estimated glomerular filtration rate calculated using the CKD-EPI refit equation. ANION GAP 12 10 - 20 mmol/L [facility] Blood 11/01/2024 12:5 0 PM EDT 11/01/2024 12:53 PM EDT Lisa Shaw MD LAB BLOOD ORDERABLES Final Result [facility] [address] [address] from Last 3 Months or Most Recently Relevant to Health Maintenance Insurance MEDICARE PART A & B [facility] [place] MEDEX SUPPLEMENT MEDICARE PART A & B [facility] [place] MEDEX SUPPLEMENT MEDICARE PART A & B [facility] [place] MEDEX SUPPLEMENT MEDICARE PART A & B [employer] MEDEX SUPPLEMENT MEDICARE PART A & B [employer] MEDEX SUPPLEMENT MEDICARE PART A & B [employer] CROSS MEDEX SUPPLEMENT MEDICARE PART A & B [facility] [place] MEDEX SUPPLEMENT MEDICARE PART A & B [facility] [place] MEDEX SUPPLEMENT MEDICARE PART A & B [facility] [place] MEDEX SUPPLEMENT Advance Directives For more information, please contact: [phone] (9AM - 5PM Maria Del Rosario/[facility], Tuesday-Tuesday) Documents on File Type Date Recorded Patient Conference Organizer Expl anation Healthcare Proxy 02/04/2022 11:53 AM Healthcare Proxy 11/23/2017 11:24 AM * Full Code (Latest Code Status on File) Date Activated Date Inactivated Comments 01/28/2022 9:56 PM Question Answer Comments Code Status Confirmed With: Patient * Full Code (Presumed) Date Activated Date Inactivated Comments 11/22/2017 10:42 AM 11/22/2017 7:58 PM Care Teams Hitch Technician Relationship Specialty Start Date End Date Lisa Shaw MD [address] [place] [phone] [email or web address] PCP - General Internal Medicine 01/08/22 Additional Source Comments The information contained in this document represents components of the legal health record. It is not the complete legal health record.[facility]
--- OUTSIDE RECORDS SUMMARY | 2025-02-26 16:54 | XMS_ITS | Encounter Summary ---
Author Organization [facility] Address [address] [place] [address] Care Team Providers Care Straightener Hand Name Role Phone Physician, Pcp Unknown Primary Care Provider Bernice vailable Encounter Details Date Type Department Care Team (Late st Contact Info) Description 12/19/2024 Lab Requisition [facility] - Main Lab [address] [facility] [place] [phone] [place] [address] [facility] [address] [place] [address] Dysuria Social History Tobacco Use Types Packs/Day [...] coli ESBL(A) MILAD 12/20/2024 9:21 AM EDT [facility] Comment: THIS ORGANISM IS POSITIVE FOR [...] LAB MICROBIOLOGY - GENERAL ORDERABLES Final Result [facility] ([facility]) [facility] [address] [place] [address], documented in this encounter Visit Diagnoses Diagnosis Dysuria documented in this encounter Additional Health Concerns Infection Onset Date Last Indicated Resolved Time ESBL 05/30/2024 12/18/2024 documented as of this encounter Care Teams Straightener Hand Relationship Specialty Start Date End Date Physician, Pcp Unknown PCP - General 05/03/24 documented as of this encounter
--- OUTSIDE RECORDS SUMMARY | 2025-02-26 16:54 | XMS_ITS | Encounter Summary ---
Author Organization [facility] Address [address] [address] Phone Care Team Providers Care E Commerce Developer Name Role Phone Rajesh Garcia MD Primary Care Provider Unavail Lisa Fong MD Primary Care Provider Encounter Details Date Type Department Care Team (Latest Contact Info) Description 06/25/2020 Transcribe Orders Virtual Department 30 [place] [address] Adelso Peters MD [address] [place] [address] [email or web address] Encounter for preprocedure [...] st Contact Info) Description 02/25/2025 Procedure Pass [facility], Ct Scan - Main [facility] [address] [place] [address] 02/26/2025 Procedure Pass [address] [address] 02/26/2025 Procedure Pass [address] [address] 03/26/2025 4:15 PM EDT Appointment [facility], Ct Scan [address] [address] Lisa Shaw MD [address] [place] [address] [email or web address] 03/28/2025 11:15 AM EDT Appointment [address] [address] Lisa Shaw MD [address] [place] [address] 03/28/2025 11:45 AM EDT Appointment [address] [address] Lisa Shaw MD [address] [place] [email or web address] documented as of this encounter Results * COVID-19 PCR Order (06/29/2020 8:02 AM EST) COVID-19 Comment [id number] [facility] COVID Testing Status Sent to [facility] Other 06/29/2020 8:02 AM EST 06/29/2020 1:43 PM EST us Adelso Peters MD BODY FLUIDS AND STOOLS ORDER AARON Final Result [address] [address] documented in this encounter Visit Diagnoses Diagnosis Encounter for preprocedure screening laboratory testing for COVID-19- Primary documented in this encounter Additional Health Concerns Infection Onset Date Last Indicated Resolved Time CoV-Exposed Comment:Added per Home Health documentation 03/01/2022 03/03/2022 03/12/2022 1:23 AM E DT MDR-GN 06/08/2023 06/08/2023 06/07/2024 1:23 AM EST documented as of this encounter Care Teams E Commerce Developer Relationship Specialty Start Date End Date Rajesh Garcia MD PCP - General Endocrinology 04/21/17 01/07/22 Lisa Shaw MD [address] [place] [phone] [email or web address] PCP - General Internal Medicine 01/08/22 documented as of this encounter Additional Source Comments The information contained in this document represents components of the legal health record. It is not the complete legal health record.[facility]
--- OUTSIDE RECORDS SUMMARY | 2025-02-26 16:54 | XMS_ITS ---
Author Name [facility] Organization Unknown Care Team Organization Name Specialty Phone Email Start Date End Da te [facility] Termed, PROVIDER Primary Care 04/27/202201/18
--- OUTSIDE RECORDS SUMMARY | 2025-02-26 16:55 | XMS_ITS | Encounter Summary ---
Author Organization [facility] Address [address] [address] Phone Care Team Providers Care Shearer Operator Name Role Phone Lisa Shaw MD Primary Care Provider [phone] Encounter Details Date Type Department Care Team ([facility] st Contact Info) Description 02/04/2025 Transcribe Orders Virtual Department 30 [place] [address] Lisa Shaw MD [address] [place] [address] [email or web address] Breast screening (Primary Dx) Social History Tobacco [...] st Contact Info) Description 02/25/2025 Procedure Pass [facility] [address] [address] 02/26/[address] [address] 02/26/2025 Procedure Pass [address] [address] 03/26/2025 4:15 PM EDT Appointment [address] [address] Lisa Shaw MD [address] [place] [address] 03/28/2025 11:15 AM EDT Appointment [address] [address] Lisa Shaw MD [address] [place] [address] 03/28/2025 11:45 AM EDT Appointment [address] [address] Lisa Shaw MD [address] [place] [address] [email or web address] Scheduled Orders Name Type Priority Associated Diagnoses Orde r Schedule Mammogram Screening (Bilateral) Imaging Routine Breast screening Expected: 02/04/2025, Expires: 02/04/2026 documented as of this encounter Visit Diagnoses Diagnosis Breast screening- Primary Breast screening, unspecified documented in this encounter Care Teams Shearer Operator Relationship Specialty Start Date End Date Lisa Shaw MD [address] [place] [address] [email or web address] PCP - General Internal Medicine 01/08/22 documented as of this encounter Additional Source Comments The information contained in this document represents components of the legal health record. It is not the complete legal health record.[facility]
--- OUTSIDE RECORDS SUMMARY | 2025-02-26 16:55 | XMS_ITS | Encounter Summary ---
Author Organization [facility] Address [address] [address] Phone Care Team Providers Care Pre School Manager Name Role Phone Lisa Shaw MD Primary Care Provider [phone]- [phone] Encounter Details Date Type Department Care Team (Late st Contact Info) Description 11/01/2024 Procedure Pass [facility], Ct Scan - [address] [address] Social History Tobacco Use Types Packs/Day Years [...] st Contact Info) Description 02/25/2025 Procedure Pass [address] [address] 02/26/[address] [address] 02/26/[address] [address] 03/26/2025 4:15 PM EDT Appointment [address] [address] Lisa Shaw MD [address] [place] [address] 03/28/2025 11:15 AM EDT Appointment [address] [address] Lisa Shaw MD [address] [place] [address] 03/28/2025 11:45 AM EDT Appointment [address] [address] Lisa Shaw MD [address] [place] [address] documented as of this encounter Visit Diagnoses Not on filedocumented in this encounter Care Teams Pre School Manager Relationship Specialty Start Date End Date Lisa Shaw MD [address] [place] [phone] [email or web address] PCP - General Internal Medicine 01/08/22 documented as of this encounter Additional Source Comments The information contained in this document represents components of the legal health record. It is not the complete legal health record.[facility]
--- OUTSIDE RECORDS SUMMARY | 2025-02-26 16:55 | XMS_ITS | Encounter Summary ---
Author Organization [facility] Address [address] [address] Phone Care Team Providers Care Child Nutrition Manager Name Role Phone Lisa Shaw MD Primary Care Provider [phone] Encounter Details Date Type Department Care Team (Late st Contact Info) Description 03/02/2024 Procedure Pass [facility], Ct Scan - [address] [address] Social History Tobacco Use Types Packs/Day Years [...] st Contact Info) Description 02/25/2025 Procedure Pass [address] [address] 02/26/[address] [address] 02/26/[address] [address] 03/26/2025 4:15 PM EDT Appointment [address] [address] Lisa Shaw MD [address] [place] [address] 03/28/2025 11:15 AM EDT Appointment [address] [address] Lisa Shaw MD [address] [place] [address] 03/28/2025 11:45 AM EDT Appointment [address] [address] Lisa Shaw MD [address] [place] [address] documented as of this encounter Visit Diagnoses Not on filedocumented in this encounter Additional Health Concerns Infection Onset Date Last Indicated Resolved Time MDR-GN 06/08/2023 06/08/2023 06/07/2024 1:23 AM EST documented as of this encounter Care Teams Child Nutrition Manager Relationship Specialty Start Date End Date Lisa Shaw MD [address] [place] [phone] [email or web address] PCP - General Internal Medicine 01/08/22 documented as of this encounter Additional Source Comments The information contained in this document represents components of the legal health record. It is not the complete legal health record.[facility]
--- OUTSIDE RECORDS SUMMARY | 2025-02-26 16:55 | XMS_ITS | Encounter Summary ---
Author Organization [facility] Address [address] [address] Phone Care Team Providers Care Armament Mechanic Name Role Phone Lisa Shaw MD Primary Care Provider [phone]- [phone] Encounter Details Date Type Department Care Team (Late st Contact Info) Description 11/14/2024 Transcribe Orders Virtual Department 30 [place] [address] Lisa Shaw MD [address] [place] [address] [email or web address] Right renal mass (Primary Dx) Social History [...] st Contact Info) Description 02/25/2025 Procedure Pass [address] [address] 02/26/[address] [address] 02/26/2025 Procedure Pass [address] [address] 03/26/2025 4:15 PM EDT Appointment [address] [address] Lisa Shaw MD [address] [place] [address] [email or web address] 03/28/2025 11:15 AM EDT Appointment [address] [address] Lisa Shaw MD [address] [place] [address] [email or web address] 03/28/2025 11:45 AM EDT Appointment [address] [address] Lisa Shaw MD [address] [place] [address] [phone] (work) [email or web address] documented as of this encounter Results * US Kidneys (11/15/2024 11:35 AM EDT) Anatomical Region Laterality Modality Abdomen, Kidney Ultrasound 11/15/2024 2:21 PM EDT Impressions 11/15/2024 2:24 PM EDT 1. No hydronephrosis or sonographically evident renal calculi. 2. Right lower pole cyst with no suspicious features. Narrative 11/15/2024 2:24 PM EDT US KIDNEYS Referring clinician's provided indication for this examination in [facility]: Outside Radiology Order; right renal mass TECHNIQUE: [...] clinician's provided indication for this examination in [facility]:Outside Radiology Order; right renal mass TECHNIQUE: Kidney [...] with no suspicious features. Lisa Shaw MD IMG US RENAL Final Resul t documented in this encounter Visit Diagnoses Diagnosis Right renal mass- Primary Unspecified disorder of kidney and ureter Right renal mass Unspecified disorder of kidney and ureter documented in this encounter Care Teams Armament Mechanic Relationship Specialty Start Date End Date Lisa Shaw MD [address] [place] [address] [email or web address] PCP - General Internal Medicine 01/08/22 documented as of this encounter Additional Source Comments The information contained in this document represents components of the legal health record. It is not the complete legal health record.[facility]
--- OUTSIDE RECORDS SUMMARY | 2025-02-26 16:55 | XMS_ITS | Encounter Summary ---
Author Organization [facility] Address [address] [address] Phone Care Team Providers Care Card Decorator Name Role Phone Lisa Shaw MD Primary Care Provider [phone] Reason for Referral * MRI/CAT Scan - Closed Specialty Diagnoses / Procedures Referred By Valerie matias Referred To Contact Radiology Diagnoses Persistent headaches Procedures MRI Brain Susan Mtz PA Phone: tel: fax: [email or web address] Referral ID Status Reason Start Date Expiration Date Visits Re quested Visits Authorized [id number] Closed 02/13/2024 02/12/2025 1 1 Encounter Details Date Type Department Care Team (Latest Contact Info) Description 02/13/2024 Transcribe Orders Virtual Department 30 [place] [address] Susan Mtz PA [address] [place] [address] [email or web address] Persistent headaches (Primary Dx) Social History [...] st Contact Info) Description 02/25/2025 Procedure Pass [facility] Ct Scan [address] [address] 02/26/2025 Procedure Pass [address] [address] 02/26/2025 Procedure Pass [facility] Ultrasound [address] [address] 03/26/2025 4:15 PM EDT Appointment [facility] [address] [address] Lisa Shaw MD [address] [place] [address] 03/28/2025 11:15 AM EDT Appointment [address] [address] Lisa Shaw MD [address] [place] [address] 03/28/2025 11:45 AM EDT Appointment [address] [address] Lisa Shaw MD [address] [place] [address] [email or web address] documented as of this encounter Results * MRI BRAIN WITHOUT CONTRAST (02/24/2024 6:06 PM EDT) Anatomical Region Laterality Modality Head Magnetic Resonan ce 02/28/2024 1:27 PM EDT Impressions 02/28/2024 1:45 PM EDT 1. No acute infarct, mass lesion or hemorrhage. Narrative 02/28/2024 1:45 PM EDT MRI BRAIN WITHOUT CONTRAST Referring clinician's provided indication for this examination in Epic: Outside Radiology Order; headache TECHNIQUE: MRI BRAIN [...] at the skull base. Procedure Note Amadeo Martinez MD - 02/28/2024 MRI BRAIN WITHOUT CONTRAST Referring clinician's provided indication for this examination in [facility]:Outside Radiology Order; headache TECHNIQUE: MRI BRAIN WITHOUT CONTRAST Multi-sequence, multi-planar MRI of the brain was performed withoutintravenous contrast. COMPARISON: MRI BRAIN OUTSIDE (NO INTERPRETATION) 2023-May-10 FINDINGS: Brain Parenchyma: No evidence of acute [...] documented as of this encounter Care Teams Card Decorator Relationship Specialty Start Date End Date Lisa Shaw MD [address] [place] [address] [email or web address] PCP - General Internal Medicine 01/08/22 documented as of this encounter Additional Source Comments The information contained in this document represents components of the legal health record. It is not the complete legal health record.[facility]
--- OUTSIDE RECORDS SUMMARY | 2025-02-26 16:55 | XMS_ITS | Encounter Summary ---
Author Organization [facility] Address [address] [address] Phone Care Team Providers Care Trestle Builder Name Role Phone Rajesh Garcia MD Primary Care Provider Unavail Lisa Fong MD Primary Care Provider Encounter Details Date Type Department Care Team (Late st Contact Info) Description 12/25/2021 Procedure Pass [facility] [address] [address] Social History Tobacco Use Types Packs/Day Years [...] st Contact Info) Description 02/25/2025 Procedure Pass [facility] Ct Scan [address] [address] 02/26/2025 Procedure Pass [address] [address] 02/26/2025 Procedure Pass [address] [address] 03/26/2025 4:15 PM EDT Appointment [facility], Ct Scan [address] [address] Lisa Shaw MD [address] [place] [address] 03/28/2025 11:15 AM EDT Appointment [facility], Mammography[address] [address] Lisa Shaw MD [address] [place] [address] 03/28/2025 11:45 AM EDT Appointment [address] [address] Lisa Shaw MD [address] [place] [address] documented as of this encounter Visit Diagnoses Not on filedocumented in this encounter Additional Health Concerns Infection Onset Date Last Indicated Resolved Time CoV-Exposed Comment:Added per Home Health documentation 03/01/2022 03/03/2022 03/12/2022 1:23 AM E DT MDR-GN 06/08/2023 06/08/2023 06/07/2024 1:23 AM EST documented as of this encounter Care Teams Trestle Builder Relationship Specialty Start Date End Date Rajesh Garcia MD PCP - General Endocrinology 04/21/17 01/07/22 Lisa Shaw MD [address] [place] [phone] [email or web address] PCP - General Internal Medicine 01/08/22 documented as of this encounter Additional Source Comments The information contained in this document represents components of the legal health record. It is not the complete legal health record.[facility]
--- OUTSIDE RECORDS SUMMARY | 2025-02-26 16:55 | XMS_ITS | Encounter Summary ---
Author Organization [facility] Address [address] [address] Phone Care Team Providers Care Vacuum Tester Cans Name Role Phone Rajesh Garcia MD Primary Care Provider Unavail Lisa Fong MD Primary Care Provider [phone] Reason for Referral * MRI/CAT Scan - Closed Specialty Diagnoses / Procedures Referred By Contac t Referred To Contact Radiology Diagnoses Abdominal pain, unspecified abdominal location Acute pancreatitis, unspecified complication status, unspecified pancreatitis type Diverticulitis Procedures CT Abdomen/Pelvis Mouna Goel PA Phone: tel: fax: Referral ID Status Reason Start Date Expiration Date Visits Re quested Visits Authorized [id number] Closed 12/25/2021 12/25/2022 1 1 Encounter Details Date Type Department Care Team (Latest Contact Info) Description 12/25/2021 Transcribe Orders Virtual Department 30 [place] [address] Mouna Goel PA [address] [place] [address] Abdominal pain, unspecified abdominal location (Primary Dx); [...] (Late st Contact Info) Description 02/25/[address] [facility] [address] [address] 02/26/[address] [address] 02/26/[address] [address] 03/26/2025 4:15 PM EDT Appointment [address] [address] Lisa Shaw MD [address] [place] [address] 03/28/2025 11:15 AM EDT Appointment [address] [address] Lisa Shaw MD [address] [place] [address] 03/28/2025 11:45 AM EDT Appointment [address] [address] iLsa Shaw MD [address] [place] [address] documented as of this encounter Results * [...] sagittal planes. COMPARISON: MRI CHOLANGIOPANCREATOGRAPHY (MRCP) WITHOUT [id number] FINDINGS: Lower Chest: Mild left atelectasis is [...] 1.Unremarkable exam of the abdomen and pelvis Mouna NELSON IMG CT ABD/PELVIS Final Res [...] documented as of this encounter Care Teams Vacuum Tester Cans Relationship Specialty Start Date End Date Rajesh Garcia MD PCP - General Endocrinology 04/21/17 01/07/22 Lisa Shaw MD [address] [place] [address] PCP - General Internal Medicine 01/08/22 documented as of this encounter Additional Source Comments The information contained in this document represents components of the legal health record. It is not the complete legal health record.[facility]
--- OUTSIDE RECORDS SUMMARY | 2025-02-26 16:55 | XMS_ITS | Encounter Summary ---
Author Organization [facility] Address [address] [address] Phone Care Team Providers Care Expansion Envelope Maker Hand Name Role Phone Lisa Shaw MD Primary Care Provider [phone] Encounter Details Date Type Department Care Team (Late st Contact Info) Description 02/26/2025 Transcribe Orders Virtual Department 30 [place] [address] Lisa Shaw MD [address] [place] [address] [email or web address] Breast pain, right (Primary Dx) Social History Tobacco Use Types [...] st Contact Info) Description 02/25/2025 Procedure Pass [address] [address] 02/26/2025 Procedure Pass [address] [address] 02/26/2025 Procedure Pass [address] [address] 03/26/2025 4:15 PM EDT Appointment [address] [address] Lisa Shaw MD [address] [place] [address] [email or web address] 03/28/2025 11:15 AM EDT Appointment [address] [address] Lisa Shaw MD [address] [place] [address] [email or web address] 03/28/2025 11:45 AM EDT Appointment [address] [address] Lisa Shaw MD [address] [place] [address] [email or web address] Scheduled Orders Name Type Priority Associated Diagnoses Orde r Schedule Mammogram Diagnostic (Bilateral) Imaging Routine Breast pain, right Expected: 02/26/2025, Expires: 02/26/2026 US Breast (Right) Imaging Routine Breast pain, right Expected: 02/26/2025, Expires: 02/26/2026 documented as of this encounter Visit Diagnoses Diagnosis Breast pain, right- Primary documented in this encounter Care Teams Expansion Envelope Maker Hand Relationship Specialty Start Date End Date Lisa Shaw MD [address] [place] [address] [email or web address] PCP - General Internal Medicine 01/08/22 documented as of this encounter Additional Source Comments The information contained in this document represents components of the legal health record. It is not the complete legal health record.[facility]
--- OUTSIDE RECORDS SUMMARY | 2025-02-26 16:55 | XMS_ITS | Encounter Summary ---
Author Organization [facility] Address [address] [address] Phone Care Team Providers Care Metal Miner Blasting Name Role Phone Lisa Shaw MD Primary Care Provider [phone] Reason for Referral * MRI/CAT Scan - Closed Specialty Diagnoses / Procedures Referred By Contkitty t Referred To Contact Radiology Diagnoses Sinus pain Procedures CT Face Lisa Shaw MD [address] [place] [address] Phone: tel: fax: mailto:[email or web address] Referral ID Status Reason Start Date Expiration Date Visits Re quested Visits Authorized [id number] Closed 03/02/2024 03/02/2025 1 1 Encounter Details Date Type Department Care Team (Late st Contact Info) Description 03/02/2024 Transcribe Orders Virtual Department 30 [place] [address] Lisa Shaw MD [address] [place] [address] [email or web address] Sinus pain (Primary Dx) Social History Tobacco [...] st Contact Info) Description 02/25/2025 Procedure Pass [address] [address] 02/26/2025 Procedure Pass [address] [address] 02/26/[address] [address] 03/26/2025 4:15 PM EDT Appointment [address] [address] Lisa Shaw MD [address] [place] [address] 03/28/2025 11:15 AM EDT Appointment [address] [address] Lisa Shaw MD [address] [place] [address] 03/28/2025 11:45 AM EDT Appointment [address] [address] Lisa Shaw MD [address] [place] [address] [email or web address] documented as of this encounter Results * [...] this examination in Epic: Outside Radiology Order; chronic sinus pain TECHNIQUE: [...] and globes: No abnormality. Procedure Note Johnson Fuchs DO - 03/14/2024 CT FACE (SINUS) WITHOUT CONTRAST Referring clinician's provided indication for this examination in Epic:Outside Radiology Order; chronic sinus pain TECHNIQUE: Multidetector-row [...] with an osseous spur. Lisa Shaw MD [facility] CT HEAD/NECK Final Resu lt documented in this encounter Visit Diagnoses Diagnosis Sinus pain- Primary Other diseases of nasal cavity and sinuses Sinus pain Other diseases of nasal cavity and sinuses documented in this encounter Additional Health Concerns Infection Onset Date Last Indicated Resolved Time MDR-GN 06/08/2023 06/08/2023 06/07/2024 1:23 AM EST documented as of this encounter Care Teams Metal Miner Blasting Relationship Specialty Start Date End Date Lisa Shaw MD [address] [place] [address] [email or web address] PCP - General Internal Medicine 01/08/22 documented as of this encounter Additional Source Comments The information contained in this document represents components of the legal health record. It is not the complete legal health record.[facility]
--- OUTSIDE RECORDS SUMMARY | 2025-02-26 16:55 | XMS_ITS | Encounter Summary ---
Author Organization [facility] Address [address] [address] Phone Care Team Providers Care Deburrer Name Role Phone Lisa Shaw MD Primary Care Provider +1- [phone] Encounter Details Date Type Department Care Team (Late st Contact Info) Description 01/31/2022 Procedure Pass [facility] [address] [place] [address] Social History Tobacco Use Types Packs/Day Years [...] Contact Info) Description 02/25/2025 Procedure Pass [facility], Ct Scan - [facility] 30 [place] [address] 02/26/2025 Procedure Pass [facility], Mammography- [facility] 30 [place] [address] 02/26/2025 Procedure Pass [facility], [facility] [place] - [address] [address] 03/26/2025 4:15 PM EDT Appointment [facility], Ct Scan - [address] [address] Lisa Shaw MD [address] [place] [address] [email or web address] 03/28/2025 11:15 AM EDT Appointment [facility], Mamm[address] [address] Lisa Shaw MD [address] [place] [address] [email or web address] 03/28/2025 11:45 AM EDT Appointment [address] [address] Lisa Shaw MD [address] [place] [address] documented as of this encounter Visit Diagnoses Not on filedocumented in this encounter Additional Health Concerns Infection Onset Date Last Indicated Resolved Time CoV-Exposed Comment:Added per Home Health documentation 03/01/2022 03/03/2022 03/12/2022 1:23 AM E DT MDR-GN 06/08/2023 06/08/2023 06/07/2024 1:23 AM EST documented as of this encounter Care Teams Deburrer Relationship Specialty Start Date End Date Lisa Shaw MD [address] [place] [phone] [email or web address] PCP - General Internal Medicine 01/08/22 documented as of this encounter Additional Source Comments The information contained in this document represents components of the legal health record. It is not the complete legal health record.[facility]
--- OUTSIDE RECORDS SUMMARY | 2025-02-26 16:55 | XMS_ITS | Encounter Summary ---
Author Organization [facility] Address [address] [address] Phone Care Team Providers Care Turnstile Collector Name Role Phone Lisa Shaw MD Primary Care Provider +1- [phone] Encounter Details Date Type Department Care Team (Late st Contact Info) Description 02/03/2022 Procedure Pass [facility]-Invasive [facility]iology [address] [place] [address] Social History Tobacco Use Types Packs/Day Years [...] st Contact Info) Description 02/25/2025 Procedure Pass [facility], Ct Scan - [address] [address] 02/26/2025 Procedure Pass [facility], [address] [address] 02/26/2025 Procedure Pass [address] [address] 03/26/2025 4:15 PM EDT Appointment [facility], Ct Scan [address] [address] Lisa Shaw MD [address] [place] [address] 03/28/2025 11:15 AM EDT Appointment [facility], Mamm[address] [address] Lisa Shaw MD [address] [place] [email or web address] 03/28/2025 11:45 AM EDT Appointment [facility] Ultrasound [address] [address] Lisa Shaw MD [address] [place] [address] documented as of this encounter Visit Diagnoses Not on filedocumented in this encounter Additional Health Concerns Infection Onset Date Last Indicated Resolved Time CoV-Exposed Comment:Added per Home Health documentation 03/01/2022 03/03/2022 03/12/2022 1:23 AM E DT MDR-GN 06/08/2023 06/08/2023 06/07/2024 1:23 AM EST documented as of this encounter Care Teams Turnstile Collector Relationship Specialty Start Date End Date Lisa Shaw MD [address] [place] [phone] [email or web address] PCP - General Internal Medicine 01/08/22 documented as of this encounter Additional Source Comments The information contained in this document represents components of the legal health record. It is not the complete legal health record.[facility]
--- OUTSIDE RECORDS SUMMARY | 2025-02-26 16:55 | XMS_ITS | Patient Health Record ---
Author Organization [facility] Address [address] [facility] [place] [address] Care Team Providers Care Steel Spar Operator Name Role Phone Lisa Shaw MD Primary Care Provider Caden Anderson Unavailable [phone] Allergies Allergen (clinical drug ingredient) Drug/Non Drug [...] C Active Vitamin D (Ergocalciferol) 1.25 MG (05891 UT) TAKE 1 CAPSULE BY MOUTH EVERY [...] atherosclerosis of arteries of lower limbs (disorder) ([id number] ) Atherosclerosis of [place] artery of both lower extremities, with unspecified presence of clinical manifestation (I70.203) Active confirmed Problem Rheumatoid arthritis (73579660) Rheumatoid arthritis involving both feet, unspecified whether rheumatoid factor present (M06.9) Active confirmed Vital Signs Blood pressure diastolic 67 mm Hg 02/05/2025 Height 5 ft 11 in in 02/05/2025 Blood pressure systolic 127 mm Hg 02/05/2025 Weight 190 lbs 02/05/2025 BMI 26.5 kg/m2 02/05/2025 Procedures Procedure Date Ordered Date Performed Result Body Sit e 83416-CWFTUVY NAIL, 1-5 05/15/2024 N/A 13259-BLIF SKIN LESIONS, OVER 4 05/15/2024 N/A O0144-WKNGIPNU DYSTROPHIC NAILS ANY # 05/15/2024 N/A 50120-BIOPXID NAIL, 1-5 08/17/2024 N/A 98301-JCCJ SKIN LESIONS, OVER 4 08/17/2024 N/A X7278-ZMPMIXGR DYSTROPHIC NAILS ANY # 08/17/2024 N/A 69082-ASOPORM NAIL, 1-5 11/23/2024 N/A 53855-OMUD SKIN LESIONS, OVER 4 11/23/2024 N/A T2525-XZVSZFBK DYSTROPHIC NAILS ANY # 11/23/2024 N/A 52409-EBIEBBO NAIL, 1-5 02/05/2025 N/A 86509-FFFX SKIN LESIONS, OVER 4 02/05/2025 N/A E4134-VVBZHCGJ DYSTROPHIC NAILS ANY # 02/05/2025 N/A Encounters Encounter Location Date Provider Diagnosis [place] [address] [address] 05/15/2024 Caden Chris Atherosclerosis of [place] artery of both lower extremities, with unspecified presence of clinical manifestation I70.203 ; Tinea unguium B35.1 ; Pain in right toe(s) M79.674 ; Pain in left toe(s) M79.675 and Xerosis of skin L85.[address] [address] 08/17/2024 Caden Chris Atherosclerosis of [place] artery of both lower extremities, with unspecified presence of clinical manifestation I70.203 ; Tinea unguium B35.1 ; Pain in right toe(s) M79.674 ; Pain in left toe(s) M79.675 and Xerosis of skin L85.[address] [address] 11/23/2024 Caden Chris Atherosclerosis of [place] artery of both lower extremities, with unspecified presence of clinical manifestation I70.203 ; Tinea unguium B35.1 ; Pain in right toe(s) M79.674 and Pain in left toe(s) M79.[address] [address] 02/05/2025 Caden Chris Atherosclerosis of [place] artery of both lower extremities, with unspecified presence of clinical manifestation I70.203 ; Tinea unguium B35.1 ; Pain in right toe(s) M79.674 and Pain in left toe(s) M79.675 Assessments Encounter Date Diagnosis (ICD Code) Assessment Notes Treatment Notes Treatment Clinical Notes Section Notes 05/15/2024 Tinea unguium (ICD-10 - B35.1) 05/15/2024 Atherosclerosis of [place] artery of both lower extremities, with unspecified presence of clinical manifestation (ICD-10 - I70.203) 08/17/2024 Tinea unguium (ICD-10 - B35.1) 08/17/2024 Atherosclerosis of [place] artery of both lower extremities, with unspecified presence of clinical manifestation (ICD-10 - I70.203) 11/23/2024 Tinea unguium (ICD-10 - B35.1) 11/23/2024 Atherosclerosis of [place] artery of both lower extremities, with unspecified presence of clinical manifestation (ICD-10 - I70.203) 02/05/2025 Tinea unguium (ICD-10 - B35.1) 02/05/2025 Atherosclerosis of [place] artery of both lower extremities, with unspecified [...] X ray : Foot, left 3V 11/29/2023 82210-IBVOPPT NAIL, 1-11/29/2023 14473-NNXWOIL NAIL, -02/21/2024 07906-CBWWPZS NAIL, -05/15/2024 94740-EEIMEEW NAIL, -08/17/2024 85029-TSTKTWV NAIL, -11/23/2024 44795-ECNVKKF NAIL, -02/05/2025 67484-ZTAJ SKIN LESIONS, OVER 4 02/06/20 25 61907-VJSZ SKIN LESIONS, OVER 4 02/21/20 24 76709-GAOL SKIN LESIONS, OVER 4 11/24/19 25 00531-TYSD SKIN LESIONS, OVER 4 08/17/19 81041-DBNE SKIN LESIONS, OVER 4 05/15/20 93686-JVBN SKIN LESIONS, 2 TO 4 11/29/19 N6181-TNOUGZZV DYSTROPHIC NAILS ANY # F7491-XOSXNZCK DYSTROPHIC NAILS ANY # O9849-DROXYLAX DYSTROPHIC NAILS ANY # F7398-UOXALIJI DYSTROPHIC NAILS ANY # Y5235-MRJKRQNZ DYSTROPHIC NAILS ANY # W1166-MEROOXIQ DYSTROPHIC NAILS ANY # Next Appt Details Provider Name:Caden Perez , 04/12/2025 12:15:00 PM, [address] [place] [address], [phone], Provider Name:Caden Perez , 06/07/2025 01:30:00 PM, [address] [place] [address], [phone], Insurance Providers Payer Name Payer Address Payer Phone Subscriber Number Group Number Insured Name Patient Relationship to Insured Coverage Start Date Coverage End Date Medicare National Gov[employer] [address] [place] [address] [id number] Casandra Sosa Self - patient is the insured [employer] [address] [place] [address] [id number] Casandra Sosa Self - patient is the [...]
--- OUTSIDE RECORDS SUMMARY | 2025-02-26 16:55 | XMS_ITS | Encounter Summary ---
Author Organization [facility] Address [address] [address] Phone Care Team Providers Care Poultry Husbandry Worker Name Role Phone Rajesh Garcia MD Primary Care Provider Unavail able Lisa Shaw MD Primary Care Provider Encounter Details Date Type Department Care Team (Latest Contact Info) Description 12/24/2021 Transcribe Orders [facility] [address] [address] Mouna Goel PA 10 [place] [address] Abdominal pain, generalized (Primary Dx) Social History [...] st Contact Info) Description 02/25/2025 Procedure Pass [facility], Ct Scan - [address] [address] 02/26/2025 Procedure Pass [facility], Mammography- [address] [address] 02/26/2025 Procedure Pass [facility] Ultrasound [address] [address] 03/26/2025 4:15 PM EDT Appointment [facility] Ct Scan [address] [address] Lisa Shaw MD [address] [place] [address] [email or web address] 03/28/2025 11:15 AM EDT Appointment [facility] [address] [address] Lisa Shaw MD [address] [place] [address] 03/28/2025 11:45 AM EDT Appointment [address] [address] Lisa Shaw MD [address] [place] [address] documented as of this encounter Results * Lipase (12/24/2021 12:09 PM EDT) Pathologist [facility] LIPASE 30 16 - 63 U/L [facility] Blood 12/24/2021 12:0 9 PM EDT 12/24/2021 12:12 PM EDT us Mouna NELSON LAB BLOOD ORDERABLES Final Result [address] [address] * (ABNORMAL) Comprehensive metabolic panel (12/24/2021 12:09 PM EDT) Pathologist [facility] SODIUM 140 133 - 146 mmol/L [facility] POTASSIUM 4.1 3.3 - 5.1 mmol/L [facility] CHLORIDE 104 96 - 108 mmol/L [facility] CO2 29 21 - 35 mmol/L [facility] BUN 14 6 - 19 mg/dL [facility] CREATININE 0.50 0.5 - 1.5 mg/dL [facility] GLUCOSE 107(H) 70 - 99 mg/dL [facility] ALBUMIN 4.3 3.9 - 4.8 g/dL [facility] TOTAL PROTEIN 7.4 6.5 - 8.0 g/dL [facility] CALCIUM 9.7 8.4 - 10.3 mg/dL [facility] ALKALINE PHOSPHATASE 98 39 - 117 U/L [facility] TOTAL BILIRUBIN 0.3 0.0 - 1.2 mg/dL [facility] AST 30 0 - 37 U/L [facility] ALT 6 0 - 40 U/L [facility] GLOBULIN 3.1 1 - 4.8 g/dL [facility] EGFR 99 >59 mL/min/1.7 3m2 [facility] Comment:Estimated glomerular filtration rate calculated using the CKD-EPI refit equation. ANION GAP 11 10 - 20 mmol/L [facility] Blood 12/24/2021 12:0 9 PM EDT 12/24/2021 12:12 PM EDT us Mouna NELSON LAB BLOOD ORDERABLES Final Result [facility] [address] [place], [place] [id number] * (ABNORMAL) CBC (12/24/2021 12:09 PM EDT) WBC 5.07 4.00 - 11.00 K/uL [facility] RBC 4.03 3.72 - 5.30 M/uL [facility] HGB 13.3 11.4 - 15.9 g/dL [facility] HCT 40.2 34.2 - 46.8 % [facility] PLT 262 140 - 430 K/uL [facility] MCV 99.8(H) 78.0 - 97.0 fL [facility] MCH 33.0 25.0 - 33.0 pg [facility] MCHC 33.1 32.0 - 36.0 g/dL [facility] RDW 13.0 11.0 - 16.0 % [facility] MPV 10.3 8.4 - 12.8 fl [facility] NRBC 0.00 0 /100 WBCs [facility] ABSOLUTE NRBC 0.00 0 K/uL [facility] Blood 12/24/2021 12:0 9 PM EDT 12/24/2021 12:12 PM EDT us Mouna NELSON [facility] BLOOD ORDERABLES Final Result [facility] [address] [place] [address] documented in this encounter Visit Diagnoses Diagnosis Abdominal pain, generalized- Primary documented in this encounter Additional Health Concerns Infection Onset Date Last Indicated Resolved Time CoV-Exposed Comment:Added per Home Health documentation 03/01/2022 03/03/2022 03/12/2022 1:23 AM E DT MDR-GN 06/08/2023 06/08/2023 06/07/2024 1:23 AM EST documented as of this encounter Care Teams Poultry Husbandry Worker Relationship Specialty Start Date End Date Rajesh Garcia MD PCP - General Endocrinology 04/21/17 01/07/22 Lisa Shaw MD [address] [place] [phone] [email or web address] PCP - General Internal Medicine 01/08/22 documented as of this encounter Additional Source Comments The information contained in this document represents components of the legal health record. It is not the complete legal health record.[facility]
--- OUTSIDE RECORDS SUMMARY | 2025-02-26 16:55 | XMS_ITS | Encounter Summary ---
Author Organization [facility] Address [address] [address] Phone Care Team Providers Care Assistant Manager Quality Management Name Role Phone Lisa Shaw MD Primary Care Provider [phone]- [phone] Encounter Details Date Type Department Care Team ([facility] st Contact Info) Description 12/13/2022 Transcribe Orders Virtual Department 30 [place] [address] Lisa Shaw MD [address] [place] [address] [email or web address] Breast screening (Primary Dx) Social History Tobacco [...] st Contact Info) Description 02/25/2025 Procedure Pass [facility] Ct Scan [address] [address] 02/26/2025 Procedure Pass [address] [address] 02/26/2025 Procedure Pass [address] [address] 03/26/2025 4:15 PM EDT Appointment [address] [address] Lisa Shaw MD [address] [place] [address] 03/28/2025 11:15 AM EDT Appointment [address] [address] Lisa Shaw MD [address] [place] [address] 03/28/2025 11:45 AM EDT Appointment [address] [address] Lisa Shaw MD [address] [place] [address] documented as of this encounter Results * [...] documented as of this encounter Care Teams Assistant Manager Quality Management Relationship Specialty Start Date End Date Lisa Shaw MD [address] [place] [phone] [email or web address] PCP - General Internal Medicine 01/08/22 documented as of this encounter Additional Source Comments The information contained in this document represents components of the legal health record. It is not the complete legal health record.[facility]
--- OUTSIDE RECORDS SUMMARY | 2025-02-26 16:55 | XMS_ITS | Encounter Summary ---
Author Organization [facility] Address [address] [address] Phone Care Team Providers Care Internet Marketing Assistant Name Role Phone Lisa Shaw MD Primary Care Provider +1- [phone] Encounter Details Date Type Department Care Team (Late st Contact Info) Description 02/13/2024 Procedure Pass [facility], [address] [place] [address] Social History Tobacco Use Types Packs/Day Years [...] st Contact Info) Description 02/25/2025 Procedure Pass [address] [address] 02/26/[address] [address] 02/26/[address] [address] 03/26/2025 4:15 PM EDT Appointment [address] [address] Lisa Shaw MD [address] [place] [address] 03/28/2025 11:15 AM EDT Appointment [address] [address] Lisa Shaw MD [address] [place] [address] 03/28/2025 11:45 AM EDT Appointment [address] [address] Lisa Shaw MD [address] [place] [address] documented as of this encounter Visit Diagnoses Not on filedocumented in this encounter Additional Health Concerns Infection Onset Date Last Indicated Resolved Time MDR-GN 06/08/2023 06/08/2023 06/07/2024 1:23 AM EST documented as of this encounter Care Teams Internet Marketing Assistant Relationship Specialty Start Date End Date Lisa Shaw MD [address] [place] [phone] [email or web address] PCP - General Internal Medicine 01/08/22 documented as of this encounter Additional Source Comments The information contained in this document represents components of the legal health record. It is not the complete legal health record.[facility]
--- OUTSIDE RECORDS SUMMARY | 2025-02-26 16:55 | XMS_ITS | Encounter Summary ---
Author Organization [facility] Address [address] [address] Phone Care Team Providers Care Aws Software Development Engineer Name Role Phone Lisa Shaw MD Primary Care Provider [phone]- [phone] Encounter Details Date Type Department Care Team (Late st Contact Info) Description 01/29/2022 Procedure Pass [place] Admitting Dept - Virtual Department 30 [place] [address] Social History Tobacco Use Types Packs/Day Years [...] 12:01 PM EDT Debbie Francois RN * [place] Suicide Severity Rating Scale (Screener/Recent Self-Report) Question [...] st Contact Info) Description 02/25/2025 Procedure Pass [address] [address] 02/26/[address] [address] 02/26/[address] [address] 03/26/2025 4:15 PM EDT Appointment [address] [address] Lisa Shaw MD [address] [place] [address] 03/28/2025 11:15 AM EDT Appointment [address] [address] Lisa Shaw MD [address] [place] [address] 03/28/2025 11:45 AM EDT Appointment [address] [address] Lisa Shaw MD [address] [place] [address] documented as of this encounter Visit Diagnoses Not on filedocumented in this encounter Additional Health Concerns Infection Onset Date Last Indicated Resolved Time CoV-Exposed Comment:Added per Home Health documentation 03/01/2022 03/03/2022 03/12/2022 1:23 AM E DT MDR-GN 06/08/2023 06/08/2023 06/07/2024 1:23 AM EST documented as of this encounter Care Teams Aws Software Development Engineer Relationship Specialty Start Date End Date Lisa Shaw MD [address] [place] [phone] [email or web address] PCP - General Internal Medicine 01/08/22 documented as of this encounter Additional Source Comments The information contained in this document represents components of the legal health record. It is not the complete legal health record.[facility]
--- OUTSIDE RECORDS SUMMARY | 2025-02-26 16:55 | XMS_ITS | Encounter Summary ---
Author Organization [facility] Address [address] [address] Phone Care Team Providers Care Senior Communications Engineer Name Role Phone Lisa Shaw MD Primary Care Provider +1- [phone] Encounter Details Date Type Department Care Team (Late st Contact Info) Description 12/13/2022 Procedure Pass [facility] - [address] [place] [address] Social History Tobacco Use Types Packs/Day Years [...] st Contact Info) Description 02/25/2025 Procedure Pass [facility] [address] [address] 02/26/2025 Procedure Pass [address] [address] 02/26/2025 Procedure Pass [address] [address] 03/26/2025 4:15 PM EDT Appointment [address] [address] Lisa Shaw MD [address] [place] [address] 03/28/2025 11:15 AM EDT Appointment [address] [address] Lisa Shaw MD [address] [place] [address] 03/28/2025 11:45 AM EDT Appointment [address] [address] Lisa Shaw MD [address] [place] [address] documented as of this encounter Visit Diagnoses Not on filedocumented in this encounter Additional Health Concerns Infection Onset Date Last Indicated Resolved Time MDR-GN 06/08/2023 06/08/2023 06/07/2024 1:23 AM EST documented as of this encounter Care Teams Senior Communications Engineer Relationship Specialty Start Date End Date Lisa Shaw MD [address] [place] [phone] [email or web address] PCP - General Internal Medicine 01/08/22 documented as of this encounter Additional Source Comments The information contained in this document represents components of the legal health record. It is not the complete legal health record.[facility]
--- OUTSIDE RECORDS SUMMARY | 2025-02-26 16:55 | XMS_ITS | Encounter Summary ---
Author Organization [facility] Address [address] [address] Phone Care Team Providers Care Medical Corps Officer Name Role Phone Lisa Shaw MD Primary Care Provider [phone]- [phone] Reason for Referral * MRI/CAT Scan - Authorized Specialty Diagnoses / Procedures Referred By Contac t Referred To Contact Radiology Diagnoses Diffuse abdominal pain Procedures CT Abdomen Only (No Pelvis) Lisa Shaw MD [address] [place] [address] Phone: tel: fax: [email or web address] Referral ID Status Reason Start Date Expiration Date V isits Requested Visits Authorized [id number] Authorized 02/25/2025 02/25/2026 1 1 Encounter Details Date Type Department Care Team (Late st Contact Info) Description 02/25/2025 Transcribe Orders Virtual Department 30 [place] [address] Lisa Shaw MD [address] [place] [address] [email or web address] Diffuse abdominal pain (Primary Dx) Social History Tobacco Use [...] st Contact Info) Description 02/25/2025 Procedure Pass [address] [address] 02/26/2025 Procedure Pass [address] [address] 02/26/2025 Procedure Pass [address] [address] 03/26/2025 4:15 PM EDT Appointment [address] [address] Lisa Shaw MD [address] [place] [phone] [email or web address] 03/28/2025 11:15 AM EDT Appointment [facility], Mamm[address] [address] Lisa Shaw MD [address] [place] [address] [email or web address] 03/28/2025 11:45 AM EDT Appointment [facility], [address] [address] Lisa Shaw MD [address] [place] [address] Scheduled Orders Name Type Priority Associated Diagnoses Orde r Schedule CT Abdomen Only (No Pelvis) Imaging Routine Diffuse abdominal pain Expected: 02/25/2025, Expires: 02/25/2026 documented as of this encounter Visit Diagnoses Diagnosis Diffuse abdominal pain- Primary documented in this encounter Care Teams Medical Corps Officer Relationship Specialty Start Date End Date Lisa Shaw MD [address] [place] [phone] [email or web address] PCP - General Internal Medicine 01/08/22 documented as of this encounter Additional Source Comments The information contained in this document represents components of the legal health record. It is not the complete legal health record.[facility]
--- OUTSIDE RECORDS SUMMARY | 2025-02-26 16:55 | XMS_ITS | Encounter Summary ---
Author Organization [facility] Address [address] [place] [address] Care Team Providers Care As400 Operator Name Role Phone Physician, Pcp Unknown Primary Care Provider Bernice vailable Encounter Details Date Type Department Care Team (Late st Contact Info) Description 10/17/2024 Lab Requisition [facility] - Main Lab [address] [facility] [place] [id number] Mark Morales PA [address] [facility] [address] [place] [address] Bacteremia Social History Tobacco Use Types Packs/Day [...] coli ESBL(A) MILAD 10/18/2024 8:47 AM EDT [facility] Comment: TESTING SUGGESTS AN ESBL(EXTENDED-SPECTRUM BETA-L [...] ORDER AARON Final Result Performing Organization Address [facility]/State/ZIP Co de Phone Number [facility] [address] [place] [address], documented in this encounter Visit Diagnoses Diagnosis Bacteremia documented in this encounter Additional Health Concerns Infection Onset Date Last Indicated Resolved Time ESBL 05/30/2024 12/18/2024 documented as of this encounter Care Teams As400 Operator Relationship Specialty Start Date End Date Physician, Pcp Unknown PCP - General 05/03/24 documented as of this encounter
--- OUTSIDE RECORDS SUMMARY | 2025-02-26 16:55 | XMS_ITS | Encounter Summary ---
Author Organization [facility] Address [address] [address] Phone Care Team Providers Care Unix Manager Name Role Phone Lisa Shaw MD Primary Care Provider [phone] Reason for Referral * MRI/CAT Scan - Closed Specialty Diagnoses / Procedures Referred By Contac t Referred To Contact Radiology Diagnoses Abdominal pain, unspecified abdominal location Procedures CT Abdomen/Pelvis Lisa Shaw MD [address] [place] [address] Phone: tel: fax: [email or web address] Referral ID Status Reason Start Date Expiration Date Visits Re quested Visits Authorized [id number] Closed 11/01/2024 11/01/2025 1 1 Encounter Details Date Type Department Care Team (Late st Contact Info) Description 11/01/2024 Transcribe Orders Virtual Department [address] [place] [address] Lisa Shaw MD [address] [place] [address] [email or web address] Abdominal pain, unspecified abdominal location (Primary Dx) [...] st Contact Info) Description 02/25/2025 Procedure Pass [address] [address] 02/26/2025 Procedure Pass [address] [address] 02/26/2025 Procedure Pass [address] [address] 03/26/2025 4:15 PM EDT Appointment [address] [address] Lisa Shaw MD [address] [place] [id number] 03/28/2025 11:15 AM EDT Appointment [address] [address] Lisa Shaw MD [address] [place] [address] 03/28/2025 11:45 AM EDT Appointment [address] [address] Lisa Shaw MD [address] [place] [phone] documented as of this encounter Results * CT ABDOMEN/PELVIS WITH CONTRAST (11/08/2024 6:38 PM EDT) MGB IMG RECOMMENDATION COMMENT Interval enlargement intermediate density right lower pole; intermediate density right lower pole renal lesion; Differential: renal solid components [facility] Anatomical Region Laterality Modality Abdomen, Pelvis Computed Tomogra phy 11/13/2024 10:5 0 AM EDT Impressions 11/13/2024 10:59 AM EDT 1. 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 2. Interval enlargement of an intermediate density right lower pole renal lesion compared to 2021. Further evaluation with renal ultrasound is recommended to evaluate for solid components. 3. Scattered colonic diverticula without evidence of diverticulitis. Moderate amount of stool, predominantly in the right colon. Narrative 11/13/2024 10:[address] ABDOMEN/PELVIS WITH CONTRAST Referring clinician's provided indication for this examination in Epic: Outside Radiology Order; abdomen pain Review of the Electronic Medical Record reveals an additional history of: EPIGASTRIC PAIN, NAUSEA, NO APPETITE X A FEW WEEKS TECHNIQUE: Multidetector-row CT of the abdomen and pelvis was performed after administration of intravenous contrast using tailored dose modulation techniques. Images were reconstructed in the axial, coronal, and sagittal planes. COMPARISON: CT abdomen/pelvis 01/08/2022. FINDINGS: Lower Chest: Bibasilar atelectasis, left greater than right. Liver: Normal. No focal lesions. Biliary: Sequela of prior cholecystectomy. Mild intrahepatic ductal dilatation, with the CBD measuring up to 10 mm, similar to prior. Spleen: Normal. No splenomegaly or focal lesions. Pancreas: Normal. No masses or ductal dilatation. Adrenal Glands: Normal. No nodules. Kidneys/Ureters: Compared to 2021, there has been interval enlargement of the right lower pole renal lesion measuring 2 cm (5-44, previously 0.9 cm), which measures intermediate density (24HU). No obstructing stones or hydronephrosis. Bowel: Scattered colonic diverticula without evidence of diverticulitis. Moderate amount of stool, predominantly in the right colon. The left colon is relatively decompressed, with diffuse wall thickening that likely represents underdistention. Peritoneum/Retroperitoneum: Normal. No masses, pneumoperitoneum, or fluid. Lymph Nodes: Normal. No lymphadenopathy by CT size criteria. Pelvic Organs/Bladder: Not well visualized due to the streak artifact from the left hip replacement. Vessels: Severe vascular calcifications of the abdominal aorta extending into the mesenteric arteries. 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 No abdominal aortic aneurysm. Bones/Soft Tissues: Diffuse demineralization of the spine, which reduces sensitivity for small lesions. Within this limitation, there no destructive osseous lesions. Left hip replacement, with stable position and alignment of the prosthesis. No evidence of periprosthetic complications. Procedure Note Brandi Sung MD - 11/13/2024 CT ABDOMEN/PELVIS WITH CONTRAST Referring clinician's provided indication for this examination in Epic:Outside Radiology Order; abdomen pain Review of the Electronic Medical Record reveals an additional history of: EPIGASTRIC PAIN, NAUSEA, NO APPETITE X A FEW WEEKS TECHNIQUE: Multidetector-row CT of the abdomen and pelvis was performedafter administration of intravenous contrast using tailored dosemodulation techniques. Images were reconstructed in the axial, coronal,and sagittal planes. COMPARISON: CT abdomen/pelvis 01/08/2022. FINDINGS: Lower Chest: Bibasilar atelectasis, left greater than right. Liver: Normal. No focal lesions. Biliary: Sequela of prior cholecystectomy. Mild intrahepatic ductaldilatation, with the CBD measuring up to 10 mm, similar to prior. Spleen: Normal. No splenomegaly or focal lesions. Pancreas: Normal. No masses or ductal dilatation. Adrenal Glands: Normal. No nodules. Kidneys/Ureters: Compared to 2021, there has been interval enlargement ofthe right lower pole renal lesion measuring 2 cm (5-44, previously 0.9cm), which measures intermediate density (24HU). No obstructing stones orhydronephrosis. Bowel: Scattered colonic diverticula without evidence of diverticulitis.Moderate amount of stool, predominantly in the right colon. The left colon is relatively decompressed, with diffuse wall thickeningthat likely represents underdistention. Peritoneum/Retroperitoneum: Normal. No masses, pneumoperitoneum, orfluid. Lymph Nodes: Normal. No lymphadenopathy by CT size criteria. Pelvic Organs/Bladder: Not well visualized due to the streak artifact fromthe left hip replacement. Vessels: Severe vascular calcifications of the abdominal aorta extendinginto the mesenteric arteries. 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 No abdominal aortic aneurysm. Bones/Soft Tissues: Diffuse demineralization of the spine, which reducessensitivity for small lesions. Within this limitation, there nodestructive osseous lesions. Left hip replacement, with stable position and alignment of theprosthesis. No evidence of periprosthetic complications. IMPRESSION: 1. 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 2. Interval enlargement of an intermediate density right lower polerenal lesion compared to 202. Further evaluation with renal ultrasound isrecommended to evaluate for solid components. 3. Scattered colonic diverticula without evidence of diverticulitis.Moderate amount of stool, predominantly in the right colon. Lisa Shaw MD IM CT ABD/PELVIS Final Res ult documented in this encounter Visit Diagnoses Diagnosis Abdominal pain, unspecified abdominal location- Primary Abdominal pain, unspecified abdominal location documented in this encounter Care Teams Unix Manager Relationship Specialty Start Date End Date Lisa Shaw MD [address] [place] [phone] [email or web address] PCP - General Internal Medicine 01/08/22 documented as of this encounter Additional Source Comments The information contained in this document represents components of the legal health record. It is not the complete legal health record.[facility]
--- OUTSIDE RECORDS SUMMARY | 2025-02-26 16:55 | XMS_ITS | Encounter Summary ---
Author Organization [facility] Address [address] [address] Phone Care Team Providers Care Guide Travel Name Role Phone Lisa Shaw MD Primary Care Provider Encounter Details Date Type Department Care Team (Late st Contact Info) Description 01/31/2022 Procedure Pass [address] [address] Social History Tobacco Use Types Packs/Day Years [...] (Late st Contact Info) Description 02/25/2025 Procedure [facility] Ct Scan [address] [address] 02/26/2025 Procedure Pass [address] [address] 02/26/[address] [address] 03/26/2025 4:15 PM EDT Appointment [facility], Ct Scan - [address] [address] Lisa Shaw MD [address] [place] [email or web address] 03/28/2025 11:15 AM EDT Appointment [facility], Mammography[address] [address] Lisa Shaw MD [address] [place] [address] 03/28/2025 11:45 AM EDT Appointment [facility], Ultrasound [address] [address] Lisa Shaw MD [address] [place] [address] documented as of this encounter Visit Diagnoses Not on filedocumented in this encounter Additional Health Concerns Infection Onset Date Last Indicated Resolved Time CoV-Exposed Comment:Added per Home Health documentation 03/01/2022 03/03/2022 03/12/2022 1:23 AM E DT MDR-GN 06/08/2023 06/08/2023 06/07/2024 1:23 AM EST documented as of this encounter Care Teams Guide Travel Relationship Specialty Start Date End Date Lisa Shaw MD [address] [place] [phone] [email or web address] PCP - General Internal Medicine 01/08/22 documented as of this encounter Additional Source Comments The information contained in this document represents components of the legal health record. It is not the complete legal health record.[facility]
== END 2025-02-26 15:26 | disposition home or self-care (01) ==
PROVIDERS: PCP Internal Medicine; Visit Provider Student in an Organized Health Care Education/Training Program
DX: M05.9 Rheumatoid arthritis with rheumatoid factor, unspecified (principal); M79.7 Fibromyalgia; R76.8 Other specified abnormal immunological findings in serum; M81.0 Age-related osteoporosis without current pathological fracture; Z79.622 Long term (current) use of Janus kinase inhibitor
CPT/HCPCS: 99214; G2211

== ENCOUNTER → 2025-02-26 14:20 | Outpatient (BNVA) | payer MEDICARE, SELFPAY | PROVIDERS: PCP Internal Medicine; Visit Provider Student in an Organized Health Care Education/Training Program | DX: M05.9 Rheumatoid arthritis with rheumatoid factor, unspecified (principal); R76.8 Other specified abnormal immunological findings in serum; M81.0 Age-related osteoporosis without current pathological fracture; M79.7 Fibromyalgia; Z79.622 Long term (current) use of Janus kinase inhibitor | CPT/HCPCS: 99212 ==